=== PATIENT | male | born 1960 | race Caucasian/White ===

== ENCOUNTER 2020-06-27 19:05 | Inpatient (IN) | payer MEDICARE, MEDICAID, SELFPAY ==
[2020-06-27 19:08] VITALS: BP 92/54; PULSE 96; RESP 16; TEMP 36.7; O2SAT 98; BMI 81.1
--- NOTE | 2020-06-27 19:17 | PC.NURSE ---
states pt hasa been complaining of chest pain today and states pt has been altered today. At triage pt states he drinks 1/2 pint of alcohol daily but did not drink today necause he didn't feel well. His skin is pink, warm and dry. Speech is slow, pt slow to answer questions and vague. He states he has had blood per rectum for weeks, states it is a scant amount of blood with stool daily. EKG obtained at triage.
[2020-06-27 22:13] VITALS: BP 108/44; PULSE 76; RESP 16; TEMP 36.4; O2SAT 98
--- NOTE | 2020-06-27 22:16 | PC.NURSE ---
When doing VS pt's states pt has had several days of altered mental status. She states he has been weak and shaky, unable to ambulate without help. At triage staff has had to help pt move from wheelchair to chair with assistance, he is weak and has shuffling gait. Pt has no facial droop. 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 He has no limb ataxia. He does have slight tremors with movement. is concerned pt has had bright red blood per rectum with stools for weeks. Pt's skin is pink, warm and dry with good capillary refill
[2020-06-28] VITALS (24 sets, daily range): BP systolic 91–166; BP diastolic 43–95; PULSE 69–108; RESP 10–28; TEMP 36.4–36.6; O2SAT 92–100; BMI 40.3
--- NOTE | 2020-06-28 | XR_ITS ---
EXAMINATION: XR CHEST CLINICAL INFORMATION: Endotracheal tube placement COMPARISON: 06/28/2020 TECHNIQUE: Frontal view of the chest was obtained. FINDINGS: Endotracheal tube terminates approximately 5.5 cm above the shane. Left internal jugular catheter terminates over the left brachiocephalic vein. Cardiac leads overlie the chest. The lungs are well expanded. There is no focal consolidation, edema, or effusion. No pneumothorax. The cardiomediastinal silhouette is within normal limits. No acute osseous abnormality. XR/XR chest 1V IMPRESSION: Endotracheal tube terminating 5.5 cm above the shane. Left internal jugular central venous catheter terminates over the left brachiocephalic vein. No pneumothorax.
--- NOTE | 2020-06-28 01:35 | ECG_ITS ---
Test Reason : CHEST PAIN Blood Pressure : / mmHG Vent. Rate : 091 BPM Atrial Rate : 091 BPM P-R Int : 158 ms QRS Dur : 092 ms QT Int : 346 ms P-R-T Axes : 027 026 019 degrees QTc Int : 425 ms Normal sinus rhythm Normal ECG When compared with ECG of 18-JUL-2018 20:30, No significant change was found Referred By: Allan Abrams Electronically Signed By:HETAL GARCIA MD
--- NOTE | 2020-06-28 01:35 | XR_ITS ---
EXAMINATION: XR CHEST CLINICAL INFORMATION: Chest pain COMPARISON: 07/18/2018 TECHNIQUE: 2 views of the chest were obtained. FINDINGS: Cardiac leads overlie the chest. The lungs are well expanded. There is no focal consolidation, edema, or effusion. No pneumothorax. The cardiomediastinal silhouette is unchanged. No acute osseous abnormality. XR/XR chest 2V IMPRESSION: No acute pulmonary finding.
--- NOTE | 2020-06-28 01:36 | ED_ITS ---
HPI - Chest Pain General Chief Complaint: Chest Pain Stated Complaint: CHEST PAIN Time Seen by Provider: 06/28/20 01:20 Source: patient Mode of arrival: ambulatory Limitations: no limitations History of Present Illness HPI narrative: 60-year-old male who presents emergency department for evaluation of chest pain rectal bleeding and a low blood pressure. According to the patient's , the patient has been complaining of chest pain for 3 weeks. He has also been drinking 1/2 pt of alcohol per day. He has been having bright red rectal bleeding and had a low blood pressure today is was wanted him to come to the emergency department to be evaluated. The patient states that he has been having intermittent left-sided chest pain for 1 week. He states that the pain feels like an ?pins and needles ?. He is not certain if the pain is related to exertion. He cannot tell me how long the pain lasts when he gets it. He states that he has had an occasional cough which she believes is secondary to smoking. He denied fever or chills. He states that he does feel weak but this is something he has had for a long time. He also complains of shortness of breath and he states that is chronic as well. He states that he has hemorrhoids and often has bright red blood per rectum secondary to his hemorrhoids. The patient does smoke cigarettes daily. He also drinks 1/2 pint of Schnapps daily. I did speak to the patient's . She states the patient has not been feeling well for approximately 2 months. She states that over the past several weeks he has been very lethargic and not acting himself. He has had no appetite and has not been eating and drinking well. Related Data Home Medications Medication Instructions Recorded Confirmed gabapentin 1 cap PO BID 06/28/20 06/28/20 gabapentin 2 tab PO BEDTIME 06/28/20 06/28/20 lisinopril 1 tab PO DAILY 06/28/20 06/28/20 naproxen 1 tab PO BID 06/28/20 06/28/20 Allergies Allergy/AdvReac Type Severity Reaction Status Date / Time cortisone [CORTISONE] Allergy Unknown SWELLING Verified 06/28/20 02:06 influenza virus vaccine, Allergy Unknown SWELLING Verified 06/28/20 02:06 specific [FLU VACCINE] eggs Allergy Unknown gout flare Uncoded 09/14/15 00:00 up Influenza Virus Vaccine Split Allergy Unknown localized Uncoded 09/14/15 00:00 swelling Review of Systems Review of Systems: Yes all other systems are reviewed and are negative Neurologic: Reports Abnormal speech present [facility] Past Medical History [facility] Narrative: The patient lives with his . He states he has been for 40 years. He does smoke cigarettes daily. He drinks 1/2 pint of Schnapps. Denies drug use Medical History Back pain ETOH abuse HTN (hypertension) Hypercholesterolemia Social History Social History Alcohol intake: current Alcohol intake frequency: 0-2 drinks per day Smoking Status: Current some day smoker Use of substances other than those prescribed or required for medical reasons: No Advance Directives: No Physical Exam Vital Signs: Vital Signs: Last Vital Signs Temp 97.6 F 06/27/20 22:13 Pulse 90 06/28/20 03:52 Resp 10 L 06/28/20 03:52 BP 114/77 06/28/20 03:52 Pulse Ox 96 06/28/20 03:52 Body Mass Index 81.1 Const: General: cooperative Nutritional Appearance: obese Orientation/consciousness: oriented to person and oriented to place Limitations: no limitations HENMT: Head: Yes normal to inspection, Yes normocephalic and Yes atraumatic Ears: external ears normal General nose exam: Normal external nose present Face and sinus: Yes normal facial exam Mouth: Normal oral and palatal mucosa present Throat: Yes posterior oropharynx normal Eyes: Periorbital: periorbital findings normal Eyelids: Yes eyelids normal Conjunctivae: conjunctivae normal Sclerae: sclerae normal Corneas: corneas normal Pupils: Equal, round and reactive pupils present Direct Ophthalmoscopy: normal light reflex Neck: Neck: Yes full ROM, Yes no lymphadenopathy, Yes no meningeal signs, Yes trachea midline and Yes supple Chest: Chest palpation & inspection: normal inspection of the chest and tenderness sternum and other (Left anterior chest) Resp: Effort & Inspection: normal respiratory effort and able to speak in complete sentences Auscultation: clear to auscultation bilaterally Cardio: Rate: regular rate Rhythm: regular rhythm Heart sounds: S1 n ormal heart sound present, S2 normal heart sound present and no murmurs GI: Inspection: Yes normal to inspection Palpation (GI): Soft to palpation, nontender, no guarding, not rigid and No hepatosplenomegaly present Rectal Exam - Male: Yes normal sphincter tone and Yes heme positive stool (Red blood around the rectum, stool was brown) : General: Yes no CVA tenderness Back/Spine/Pelvis: Back: no CVA tenderness Cervical Spine: normal cervical lordosis Thoracic/Lumbar Spine: thoracic and lumbar spine normal to inspection Skin: Lesions: no lesions Rashes: no rashes Wounds: no wounds Neuro: General: oriented to person, oriented to place and no meningeal signs Cranial nerves: Yes Equal, round and reactive pupils present Cognition (Neuro): normal cognition Speech: Abnormal speech present Motor exam (neuro): 5/5 motor strength present throughout Extrem: General: Yes normal to inspection and Yes full ROM Psych: Appearance: well kempt Mental Status: mental status grossly normal Speech and movement: Normal speech and movement present Affect: normal affect Attitude: cooperative Thought process: Normal thought process present Thought content: Normal thought content present Course Course Course Narrative: 60-year-old male who presents emergency department for evaluation of intermittent chest pain x3 weeks, weakness, loss of appetite and rectal bleeding. Physical examination did reveal left-sided chest wall tender otherwise was unremarkable. 0331: The patient's laboratory evaluation revealed the patient is in renal f ailure with a BUN of 128 and creatinine of 16.5 and a potassium of 8.3.. I did repeat a BMP on this patient and his repeat values confirm that he is in renal failure with a BUN of 122 and creatinine 16.2 and a potassium of 8.2. The patient 12 EKG did not reveal any significant abnormalities given this high potassium. I did order the 51 amp IV, 10 units of regular insulin IV, sodium bicarb 1 amp IV and Kayexalate 45 g orally. I will discuss the patient's presentation with the covering systems designer. I did inform the patient's of these findings. 0438: I did discuss the patient's presentation with Dr. Saavedra and he states that he can dialyze the patient today. I also discuss the patient's presentation with the covering delivery analyst, Dr. Esparza and he did accept the patient to the intensive care unit. He states that his nurse practitioner will put in a dialysis catheter so that the patient can be dialyzed today. [facility] - Chest Pain Lab Data Result diagrams: 06/28/20 01:43 06/28/20 02:42 Labs: Lab Results 06/28/20 06/28/20 06/28/20 Range/Units 01:42 01:43 01:43 WBC 12.1 H (4.8-10.8) X10*3/uL RBC 3.50 L (4.60-5.80) X10*6/uL Hgb 12.3 L (14.0-18.0) g/dl Hct 37.1 L (42-52) % MCV 106.0 H (80-98) fL MCH 35.1 H (27.0-33.0) pg MCHC 33.2 (31.0-36.0) g/dl RDW 14.1 (11.0-16.0) % Plt Count 382 (160-400) X10*3/uL MPV 10.3 (9.4-12.4) fL Immature Gran % (Auto) 1.2 H (0.0-0.4) % Neut % (Auto) 81.9 H (45-73) % Lymph % (Auto) 8.5 L (20-40) % [place] % (Auto) 6.1 (2-11) % Eos % (Auto) 1.7 (0-4) % Baso % (Auto) 0.6 (0-2) % Lymph # (Auto) 1.0 L (1.2-4.9) X10*3/uL [place] # (Auto) 0.7 (0.1-1.2) X10*3/uL Eos # (Auto) 0.2 (0.0-0.4) X10*3/uL Baso # (Auto) 0.1 (0.0-0.2) X10*3/uL Abs Immat Gran (auto) 0.15 H (0.00-0.03) X10*3/uL Absolute Neuts (auto) 9.9 H (2.0-8.3) X10*3/uL Absolute Nucleated RBC 0.000 (0.0-0.012) X10*3/uL Nucleated RBC % (auto) 0.0 (0.0-0.2) /100WBC PT 16.3 H (10.8-13.0) SEC INR 1.4 H (0.9-1.1) APTT 40.9 H (24.1-38.0) SEC Sodium (135-145) mmol/L Potassium (3.3-5.1) mmol/l Chloride (96-108) mmol/L Carbon Dioxide (22-29) mmol/L Anion Gap (12-20) BUN (9-16) mg/dL Creatinine (0.5-1.4) mg/dL Estim Creat Clear Calc Estimated GFR Random Glucose (60-115) mg/dL Calcium (8.4-10.2) mg/dL Total Bilirubin (0.0-1.0) mg/dL AST (5-37) U/L ALT (0-40) U/L Alkaline Phosphatase (39-117) U/L Total Creatine Kinase (38-174) U/L Troponin I High Sens (<3.5-35.0) ng/L Total Protein (6.5-8.0) g/dL Albumin (3.5-5.0) g/dL Lipase (8-78) U/L Ethyl Alcohol mg/dL Coronavirus (PCR) (Negative) Influenza Type A (PCR) (Negative) Influenza Type B (PCR) (Negative) RSV RNA Qual (PCR) (Negative) Blood Type B Positive Antibody Screen NEGATIVE 06/28/20 06/28/20 06/28/20 Range/Units 01:43 01:43 01:43 WBC (4.8-10.8) X10*3/uL RBC (4.60-5.80) X10*6/uL Hgb (14.0-18.0) g/dl Hct (42-52) % MCV (80-98) fL MCH (27.0-33.0) pg MCHC (31.0-36.0) g/dl RDW (11.0-16.0) % Plt Count (160-400) X10*3/uL MPV (9.4-12.4) fL Immature Gran % (Auto) (0.0-0.4) % Neut % (Auto) (45-73) % Lymph % (Auto) (20-40) % [place] % (Auto) (2-11) % Eos % (Auto) (0-4) % Baso % (Auto) (0-2) % Lymph # (Auto) (1.2-4.9) X10*3/uL [place] # (Auto) (0.1-1.2) X10*3/uL Eos # (Auto) (0.0-0.4) X10*3/uL Baso # (Auto) (0.0-0.2) X10*3/uL Abs Immat Gran (auto) (0.00-0.03) X10*3/uL Absolute Neuts (auto) (2.0-8.3) X10*3/uL Absolute Nucleated RBC (0.0-0.012) X10*3/uL Nucleated RBC % (auto) (0.0-0.2) /100WBC PT (10.8-13.0) SEC INR (0.9-1.1) APTT (24.1-38.0) SEC Sodium 129 L (135-145) mmol/L Potassium 8.3 H* (3.3-5.1) mmol/l Chloride 94 L (96-108) mmol/L Carbon Dioxide 12 L (22-29) mmol/L Anion Gap 31 H (12-20) BUN 124 H* (9-16) mg/dL Creatinine 16.51 H* (0.5-1.4) mg/dL Estim Creat Clear Calc 9.2 Estimated GFR 3 Random Glucose 112 (60-115) mg/dL Calcium 8.1 L (8.4-10.2) mg/dL Total Bilirubin 0.4 (0.0-1.0) mg/dL AST 9 (5-37) U/L ALT 7 (0-40) U/L Alkaline Phosphatase 111 (39-117) U/L Total Creatine Kinase (38-174) U/L Troponin I High Sens < 3.5 (<3.5-35.0) ng/L Total Protein 7.7 (6.5-8.0) g/dL Albumin 3.8 (3.5-5.0) g/dL Lipase 98 H (8-78) U/L Ethyl Alcohol < 10 mg/dL Coronavirus (PCR) (Negative) Influenza Type A (PCR) (Negative) Influenza Type B (PCR) (Negative) RSV RNA Qual (PCR) (Negative) Blood Type Antibody Screen 06/28/20 06/28/20 Range/Units 01:51 02:42 WBC (4.8-10.8) X10*3/uL RBC (4.60-5.80) X10*6/uL Hgb (14.0-18.0) g/dl Hct (42-52) % MCV (80-98) fL MCH (27.0-33.0) pg MCHC (31.0-36.0) g/dl RDW (11.0-16.0) % Plt Count (160-400) X10*3/uL MPV (9.4-12.4) fL Immature Gran % (Auto) (0.0-0.4) % Neut % (Auto) (45-73) % Lymph % (Auto) (20-40) % [place] % (Auto) (2-11) % Eos % (Auto) (0-4) % Baso % (Auto) (0-2) % Lymph # (Auto) (1.2-4.9) X10*3/uL [place] # (Auto) (0.1-1.2) X10*3/uL Eos # (Auto) (0.0-0.4) X10*3/uL Baso # (Auto) (0.0-0.2) X10*3/uL Abs Immat Gran (auto) (0.00-0.03) X10*3/uL Absolute Neuts (auto) (2.0-8.3) X10*3/uL Absolute Nucleated RBC (0.0-0.012) X10*3/uL Nucleated RBC % (auto) (0.0-0.2) /100WBC PT (10.8-13.0) SEC INR (0.9-1.1) APTT (24.1-38.0) SEC Sodium 129 L (135-145) mmol/L Potassium 8.2 H* (3.3-5.1) mmol/l Chloride 95 L (96-108) mmol/L Carbon Dioxide 14 L (22-29) mmol/L Anion Gap 28 H (12-20) BUN 122 H* (9-16) mg/dL Creatinine 16.20 H* (0.5-1.4) mg/dL Estim Creat Clear Calc 9.3 Estimated GFR 3 Random Glucose 113 (60-115) mg/dL Calcium 7.8 L (8.4-10.2) mg/dL Total Bilirubin (0.0-1.0) mg/dL AST (5-37) U/L ALT (0-40) U/L Alkaline Phosphatase (39-117) U/L Total Creatine Kinase 52 (38-174) U/L Troponin I High Sens (<3.5-35.0) ng/L Total Protein (6.5-8.0) g/dL Albumin (3.5-5.0) g/dL Lipase (8-78) U/L Ethyl Alcohol mg/dL Coronavirus (PCR) NEGATIVE (Negative) Influenza Type A (PCR) NEGATIVE (Negative) Influenza Type B (PCR) NEGATIVE (Negative) RSV RNA Qual (PCR) NEGATIVE (Negative) Blood Type Antibody Screen ECG Data ECG #1: Attestation: I personally reviewed and interpreted this ECG as follows: Interpretation: 1911: Normal sinus rhythm rate of 91, normal AL, QRS and QTC intervals, Q-wave in lead 3, no ST segment elevation or depression, flattened T-wave in lead 3, no peaked T-waves noted. Critical Care Time Critical Care Time Total Critical Care Time: 45 Attestation: Critical Care: The patient was critically ill with a high probability of imminent or life threatening deterioration. I spent greater than 30 minutes of discontinuous time evaluating the patient,delivering critical care at the bedside, discussing and evaluating pertinent data with consultants. Critical care time does not include time spent performing separately billable procedures or teaching. Total time spent performing critical care was 45 minutes. Discharge Plan Discharge Clinical Impression: Acute hyperkalemia Acute renal failure Qualifiers: Acute renal failure type: unspecified Qualified Code(s): N17.9 - Acute kidney failure, unspecified Patient Disposition: Admitted As Inpatient
[2020-06-28 01:59] LABS: Basophils Absolute Auto 0.1 X10*3/uL (0.0-0.2); Basophils Percent Auto 0.6 % (0-2); Eosinophils Absolute Auto 0.2 X10*3/uL (0.0-0.4); Eosinophils Percent Auto 1.7 % (0-4); Hematocrit 37.1 % (42-52); Hemoglobin 12.3 g/dl (14.0-18.0); Imm Gran Abs Auto 0.15 X10*3/uL (0.00-0.03); Imm Gran Pct Auto 1.2 % (0.0-0.4); Lymphocytes Percent Auto 8.5 % (20-40); MANUAL DIFF FLAG NO; Mean Corpuscular HGB Conc 33.2 g/dl (31.0-36.0); Mean Corpuscular Hemoglobin 35.1 pg (27.0-33.0); Mean Platelet Volume 10.3 fL (9.4-12.4); Monocytes Absolute Auto 0.7 X10*3/uL (0.1-1.2); Monocytes Percent Auto 6.1 % (2-11); Neutrophils Absolute Auto 9.9 X10*3/uL (2.0-8.3); Neutrophils Percent Auto 81.9 % (45-73); Platelet Count 382 X10*3/uL (160-400); Red Cell Distribution Width 14.1 % (11.0-16.0); White Blood Count 12.1 X10*3/uL (4.8-10.8)
[2020-06-28] MEDS: 0.9 % Sodium Chloride 1,000 ML 999 ML IV (02:00)
[2020-06-28 02:09] LABS: INTERNATIONAL NORM RATIO 1.4 (0.9-1.1); Prothrombin Time 16.3 SEC (10.8-13.0)
[2020-06-28 02:11] LABS: Partial Thromboplastin Time 40.9 SEC (24.1-38.0)
[2020-06-28 02:16] LABS: Ethanol < 10 mg/dL
[2020-06-28 02:24] LABS: Troponin-I High Sensitivity < 3.5 ng/L (<3.5-35.0)
[2020-06-28 02:29] LABS: Alanine Aminotransferase 7 U/L (0-40); Albumin Level 3.8 g/dL (3.5-5.0); Alkaline Phosphatase 111 U/L (39-117); Anion Gap 31 (12-20); Aspartate Amino Transferase 9 U/L (5-37); Bilirubin Total 0.4 mg/dL (0.0-1.0); Blood Urea Nitrogen 124 mg/dL (9-16); Calcium 8.1 mg/dL (8.4-10.2); Carbon Dioxide 12 mmol/L (22-29); Chloride 94 mmol/L (96-108); Creatinine Clr Calc Pharmacy 9.2; Estimated Glomerular Filt Rate 3; Glucose Random 112 mg/dL (60-115); Potassium 8.3 mmol/l (3.3-5.1); Sodium 129 mmol/L (135-145); Total Protein 7.7 g/dL (6.5-8.0)
[2020-06-28 02:33] LABS: Lipase 98 U/L (8-78)
[2020-06-28 02:40] LABS: Influenza A PCR NEGATIVE (Negative); Influenza B PCR NEGATIVE (Negative); Resp Syncy Virus RNA Qual PCR NEGATIVE (Negative); SARS COV2 PCR INHOUSE NEGATIVE (Negative)
[2020-06-28 03:10] LABS: Blood Urea Nitrogen 122 mg/dL (9-16)
[2020-06-28 03:11] LABS: Anion Gap 28 (12-20); Calcium 7.8 mg/dL (8.4-10.2); Carbon Dioxide 14 mmol/L (22-29); Chloride 95 mmol/L (96-108); Creatinine Clr Calc Pharmacy 9.3; Estimated Glomerular Filt Rate 3; Glucose Random 113 mg/dL (60-115); Potassium 8.2 mmol/l (3.3-5.1); Sodium 129 mmol/L (135-145)
[2020-06-28] MEDS: Insulin Regular, Human 100 UNIT/ML 3 ML VIAL 10 UNIT IVPUSH (03:48)
[2020-06-28] MEDS: Dextrose 50 % 25 GM/50 ML SYRINGE IVPUSH (03:48)
[2020-06-28] MEDS: Sodium Bicarbonate 8.4% 50 MEQ/50 ML VIAL IVPUSH (03:49)
[2020-06-28] MEDS: Sodium Polystyrene Sulfon/Sorb 15 GM/60 ML ORAL.SUSP 45 GM PO (03:52)
[2020-06-28 05:13] LABS: Glucose Urine UA NEG (NEG); Leukocyte Esterase Urine NEG (NEG); Specific Gravity - Urine >= 1.030 (1.005-1.025); Urine Blood TRACE (NEG); Urine Ketones 5 MG/DL (NEG); Urine Protein TRACE MG/DL (NEG-TRACE)
[2020-06-28 05:23] LABS: Nitrite Urine NEG (NEG)
[2020-06-28] MEDS: Lidocaine HCl 1 % 20 ML VIAL SUBCUT (05:30)
[2020-06-28] MEDS: Midazolam HCl/PF 2 MG/2 ML VIAL 1 MG IVPUSH (05:30)
[2020-06-28 05:37] LABS: Appearance Urine HAZY; Color Urine YELLOW
[2020-06-28 05:39] LABS: Bacteria Urine 2+ /LPF; Mucus Urine 1+ /LPF; Squamous Epithelial Cell Urine 1+ /LPF
--- NOTE | 2020-06-28 05:54 | PC.NURSE ---
Late entry Cathylorena Christian Patient's potassium came back elevated at 8.2. Lab repeated and 2nd result confirmed potassium of 8.2. Patient's BUN and Creatinine were also elevated. from Nephrology was consulted by ED Provider and it was determined that patient needed central line placement and then emergent dialysis. MOLD PRESS OPERATOR from ICU at patient's bedside for placement of central line placement. Patient very restless and moving and MOLD PRESS OPERATOR unable to place line x 2. ICU real estate paralegal, Dr Esparza in to place line and patient despite being medicated with versed still moved and unable to place the line. Patient was then transferred to ICU for admission and emergent dialysis. Patient also had villegas catheter placed. Patient was medicated per emar as noted. Report given to ICU staff and patient transferred by ED Rn to ICU
--- NOTE | 2020-06-28 05:58 | W.PM.CCHP ---
Procedures Intubation Intubation Comments: Patient requiring emergent intubation for altered mental status and airway protection. Patient intubated with 7.5 cuffed ET tube under glide scope guidance with visualization of vocal cords, without immediate complications. ET tube position verified with Chest XRAY. Consent for Procedure: Emergent-no informed consent obtained Time out performed: Yes Sedative: propofol (100) Laryngoscope: fiber optic video scope ET tube size: 7.5 Tube secured depth (cm): 23 Tube secured location: lips Tube placement confirmation: visualized tube passing through cords, equal breath sounds bilaterally and no breath sounds over epigastrium Patient tolerated procedure: well Intubation complications: none
[2020-06-28] MEDS: propofoL 1,000 MG/100 ML VIAL 70.5 MG IVCONT ×3 (06:00→13:02)
--- NOTE | 2020-06-28 06:00 | W.PM.CCHP ---
Procedures Central Line Placement Left IJ: Central Line Comments: Left internal jugular hemodialysis catheter emergently placed for emergent hemodialysis under ultrasound guidance and usual sterile conditions with no immediate complications. Line position verified on chest x-ray.
[2020-06-28] MEDS: Ketamine HCl 500 MG/5 ML VIAL 200 MG IV (06:27)
[2020-06-28] MEDS: Midazolam HCl/PF 2 MG/2 ML VIAL IVPUSH (06:28)
[2020-06-28] MEDS: propofoL 200 MG/20 ML VIAL 100 MG IVPUSH (06:28)
--- NOTE | 2020-06-28 06:34 | PM.CCHP ---
History of Present Illness Date of Service: 06/28/20 Chief Complaint: Chest pain, rectal bleeding The patient is 60-year-old male with a past medical history of substance hypertension, hypercholesterolemia, EtOH abuse and back pain who presented to the emergency room for chest pain and rectal bleeding. In the emergency department patient?s reported that patient has been complaining of chest pain x3 weeks, he has been drinking half a pt of alcohol daily, and has had bright rectal bleeding in the last couple days. In the ED he reported the chest pain felt like ? pins and needles?, he denied radiation of pain. He stated that he has had an occasional cough which she believes is secondary to smoking. He denied fever or chills He also complains of shortness of breath and he states that is chronic as well. He states that he has hemorrhoids and often has bright red blood per rectum secondary to his hemorrhoids. Vital signs in the ED: temperature 97.6?, pulse 90, blood pressure 114/77, 96% on room air. Laboratory data significant for WBC 12.1, sodium 129, potassium 8.2, BUN 122, creatinine 16.2 EKG did not reveal any acute abnormalities Imaging: Chest x-ray with no acute abnormality In the ED He received 10 units of regular insulin IV, sodium bicarb 1 amp IV and Kayexalate 45 g orally. Renal consult in the emergency room, who advised the patient to be admitted to ICU for emergency dialysis. While attempting to place dialysis catheter, patient became more altered Requiring emergency intubation for airway protection. Review of Systems Review of Systems: As per HPI Neurologic: Reports Abnormal speech present and Reports confusion Psychiatric: Psychiatric: Reports confusion PMFSH Past Medical History Medical History Back pain ETOH abuse HTN (hypertension) Hypercholesterolemia Family History Family history: reviewed and not pertinent Social History Social History Household Members: Spouse Housing: House Alcohol intake: current Alcohol intake frequency: 0-2 drinks per day Smoking Status: Current some day smoker Tobacco Type: Cigarette Use of substances other than those prescribed or required for medical reasons: Unable to respond Advance Directives: No Do you have thoughts of harming others: None Do you have a plan to hurt others: No Plan Recently lost weight without trying: Unsure Meds Allergies Allergy/AdvReac Type Severity Reaction Status Date / Time cortisone [CORTISONE] Allergy Unknown SWELLING Verified 06/28/20 02:06 influenza virus vaccine, Allergy Unknown SWELLING Verified 06/28/20 02:06 specific [FLU VACCINE] eggs Allergy Unknown gout flare Uncoded 09/14/15 00:00 up Influenza Virus Vaccine Split Allergy Unknown localized Uncoded 09/14/15 00:00 swelling Home Medications Medication Instructions Recorded Confirmed Type gabapentin 1 cap PO BID 06/28/20 06/28/20 History gabapentin 2 tab PO BEDTIME 06/28/20 06/28/20 History lisinopril 1 tab PO DAILY 06/28/20 06/28/20 History naproxen 1 tab PO BID 06/28/20 06/28/20 History Physical Exam Vital Signs: Vital Signs: Last Vital Signs Temp 97.6 F 06/27/20 22:13 Pulse 97 06/28/20 06:23 Resp 28 H 06/28/20 06:23 BP 111/60 06/28/20 06:23 Pulse Ox 99 06/28/20 06:23 Body Mass Index 81.1 Const: General: combative, confusion and lethargic Orientation/consciousness: confusion and lethargic Eyes: Pupils: Equal, round and reactive pupils present Neck: Neck: Yes supple and Yes no JVD Resp: Effort & Inspection: normal respiratory effort Auscultation: clear to auscultation bilaterally Cardio: Jugular venous distension: no JVD Rate: regular rate Heart sounds: S1 normal heart sound present and S2 normal heart sound present Peripheral pulses: Peripheral pulses 2+ throughout GI: Inspection: Yes distended Palpation (GI): Soft to palpation Auscultation: normal bowel sounds Skin: General skin exam: no rashes or lesions noted Neuro: General: confusion Cranial nerves: Yes Equal, round and reactive pupils present Speech: Abnormal speech present Extrem: General: Yes capillary refill normal Results Labs CBC and Chem 7: 06/28/20 01:43 06/28/20 02:42 Labs: Laboratory Results - last 24 hr 06/28/20 06/28/20 06/28/20 01:42 01:43 01:43 MCV 106.0 H MCH 35.1 H MCHC 33.2 RDW 14.1 Plt Count 382 MPV 10.3 Immature Gran % (Auto) 1.2 H Neut % (Auto) 81.9 H Lymph % (Auto) 8.5 L [place] % (Auto) 6.1 Eos % (Auto) 1.7 Baso % (Auto) 0.6 Lymph # (Auto) 1.0 L [place] # (Auto) 0.7 Eos # (Auto) 0.2 Baso # (Auto) 0.1 Abs Immat Gran (auto) 0.15 H Absolute Neuts (auto) 9.9 H Absolute Nucleated RBC 0.000 Nucleated RBC % (auto) 0.0 PT 16.3 H INR 1.4 H APTT 40.9 H Anion Gap Estim Creat Clear Calc Estimated GFR Random Glucose Calcium Total Bilirubin AST ALT Alkaline Phosphatase Total Creatine Kinase Troponin I High Sens Total Protein Albumin Lipase Urine Color Urine Appearance Urine pH Ur Specific [place] Urine Protein Urine Glucose (UA) Urine Ketones Urine Blood Urine Nitrite Ur Leukocyte Esterase Urine RBC Urine WBC Ur Squamous Epith Cells Urine Bacteria Hyaline Casts Granular Casts Urine Mucus Ethyl Alcohol Coronavirus (PCR) Influenza Type A (PCR) Influenza Type B (PCR) RSV RNA Qual (PCR) Blood Type B Positive Antibody Screen NEGATIVE 06/28/20 06/28/20 06/28/20 01:43 01:43 01:43 MCV MCH MCHC RDW Plt Count MPV Immature Gran % (Auto) Neut % (Auto) Lymph % (Auto) [place] % (Auto) Eos % (Auto) Baso % (Auto) Lymph # (Auto) [place] # (Auto) Eos # (Auto) Baso # (Auto) Abs Immat Gran (auto) Absolute Neuts (auto) Absolute Nucleated RBC Nucleated RBC % (auto) PT INR APTT Anion Gap 31 H Estim Creat Clear Calc 9.2 Estimated GFR 3 Random Glucose 112 Calcium 8.1 L Total Bilirubin 0.4 AST 9 ALT 7 Alkaline Phosphatase 111 Total Creatine Kinase Troponin I High Sens < 3.5 Total Protein 7.7 Albumin 3.8 Lipase 98 H Urine Color Urine Appearance Urine pH Ur Specific [place] Urine Protein Urine Glucose (UA) Urine Ketones Urine Blood Urine Nitrite Ur Leukocyte Esterase Urine RBC Urine WBC Ur Squamous Epith Cells Urine Bacteria Hyaline Casts Granular Casts Urine Mucus Ethyl Alcohol < 10 Coronavirus (PCR) Influenza Type A (PCR) Influenza Type B (PCR) RSV RNA Qual (PCR) Blood Type Antibody Screen 06/28/20 06/28/20 06/28/20 01:51 02:42 04:12 MCV MCH MCHC RDW Plt Count MPV Immature Gran % (Auto) Neut % (Auto) Lymph % (Auto) [place] % (Auto) Eos % (Auto) Baso % (Auto) Lymph # (Auto) [place] # (Auto) Eos # (Auto) Baso # (Auto) Abs Immat Gran (auto) Absolute Neuts (auto) Absolute Nucleated RBC Nucleated RBC % (auto) PT INR APTT Anion Gap 28 H Estim Creat Clear Calc 9.3 Estimated GFR 3 Random Glucose 113 Calcium 7.8 L Total Bilirubin AST ALT Alkaline Phosphatase Total Creatine Kinase 52 Troponin I High Sens Total Protein Albumin Lipase Urine Color YELLOW Urine Appearance HAZY Urine pH 5.0 Ur Specific [place] >= 1.030 H Urine Protein TRACE Urine Glucose (UA) NEG Urine Ketones 5 Urine Blood TRACE Urine Nitrite NEG Ur Leukocyte Esterase NEG Urine RBC 1-4 Urine WBC 1-4 Ur Squamous Epith Cells 1+ Urine Bacteria 2+ Hyaline Casts 1-4 Granular Casts 1-4 Urine Mucus 1+ Ethyl Alcohol Coronavirus (PCR) NEGATIVE Influenza Type A (PCR) NEGATIVE Influenza Type B (PCR) NEGATIVE RSV RNA Qual (PCR) NEGATIVE Blood Type Antibody Screen Imaging Radiologist's Impressions: Impressions Chest X-Ray 06/28/20 00:00 IMPRESSION: Endotracheal tube terminating 5.5 cm above the shane. Left internal jugular central venous catheter terminates over the left brachiocephalic vein. No pneumothorax. Chest X-Ray 06/28/20 01:35 IMPRESSION: No acute pulmonary finding. Assessment and Plan (1) Acute renal failure: Qualifiers: Acute renal failure type: unspecified Qualified Code(s): N17.9 - Acute kidney failure, unspecified Status: Acute Neuro: lethargic, altered mental status. This is likely due to worsening uremia. Will likely resolve after dialysis Cardiac: Chest pain: troponins were negative, EKG with no acute findings. Reported left-sided tenderness with palpation. This is likely muscle skeletal. Will continue to monitor Pulmonary: Acute respiratory failure- required emergent intubation for airway protection. Will wean off once dialysis is completed Renal: Acute renal failure- multiple electrolyte abnormalities, with potassium elevated to 8.2, creatinine 16.2. Requiring emergency dialysis. nephrology services Appreciated. Symptoms should resolve after dialysis treatment. Repeat chemistry after dialysis. Endo: No acute issues. ID: No acute issues GI: Rectal bleed: this is likely due to chronic hemorrhoids. H&H stable. We will closely monitor if patient continues to have significant amount of rectal bleed, will consult GI Services. Heme/Onc: No acute issues. Psych: No acute issues. Miscellaneous: alcohol abuse: patient?s reports patient has been drinking more than usual, drinks half a pt of alcohol daily. Will closely monitor for alcohol withdrawal symptoms Diet: NPO Prophylaxis: Heparin// IV Protonix for GI prophylaxis Code status: FULL CODE. Critical care time: x 120 min of critical care time not including separate billable procedures (2) Acute hyperkalemia: Status: Acute (3) Hemorrhoids: Qualifiers: Hemorrhoid type: unspecified Qualified Code(s): K64.9 - Unspecified hemorrhoids Status: Acute (4) Rectal bleed: Status: Acute (5) Altered mental status: Qualifiers: Altered mental status type: unspecified Qualified Code(s): R41.82 - Altered mental status, unspecified Status: Acute (6) Chest pain: Qualifiers: Chest pain type: other chest pain Qualified Code(s): R07.89 - Other chest pain Status: Acute
--- NOTE | 2020-06-28 07:14 | PC.NURSE ---
ADMITTED TO ICU AT APPROX 0600 FROM ED. PT EMERGENTLY INTUBATED UPON ARRIVAL FOR AIRWAY PROTECTION. 200 MG IV KETAMINE, 100 MG PROPOFOL, AND 2 MG IV VERSED GIVEN FOR SEDATION. ETT #7.5, 23 CM TRICIA, ?TO ADVANCE 2 CM THIS AM. AC 28/500/5/60%. HD CATH TO L IJ PLACED BY . CURRENTLY STARTED ON HD THIS AM. CONFIRMED BY PCXR. PROPOFOL/LEVOPHED ORDERED/STARTED. PONCE IN PLACE, EMPTIED FOR [address] FOR SAFETY, REACHING FOR LINES/TUBES. SKIN INTACT. NSR ON TELE, HR 90s. SYNCHRONOUS WITH VENT. ONCOMING RN AWARE OF PLAN OF CARE.
[2020-06-28] MEDS: Chlorhexidine Gluc Oral Rinse 15 ML MOUTHWASH BUCCAL ×2 (07:22→14:01)
[2020-06-28] MEDS: Heparin Sodium,Porcine 5,000 UNIT/ML VIAL 5000 UNIT SUBCUT (07:22)
[2020-06-28 07:38] LABS: HBsAGNum1 0.18 S/CO (0.00-0.99); Hepatitis B Surface Antigen Negative (Negative)
[2020-06-28 07:41] LABS: HBc Num1 0.08 S/CO (0.00-0.79); Hepatitis B Core Antibody Nonreactive (Nonreactive); ~Hepatitis B Surface Antibody NONREACTIVE (Nonreactive); ~Hepatitis C Antibody Nonreactive (Nonreactive)
[2020-06-28 08:30] LABS: Glucose, Whole Blood 85 mg/dL (60-115)
--- NOTE | 2020-06-28 08:31 | MHC.CM.PN ---
pt is in the icu; intubated,sedated on MV. dc plan is unclear at this time and will have to be revisited at a future time. cm to cont. to follow.
--- NOTE | 2020-06-28 08:33 | PC.NURSE ---
Addendum entered by Klarissa Zafar RN 06/28/20 08:42: VERIFIED MEDICATION WITH RECORD TESTER, ADMINISTERED BY RECORD TESTER AT 0840. Original Note: TELEPHONE ORDER FOR 12.5 GM MANNITOL IVP X [address] DODGE. ORDER SENT TO PHARMACY AND TO BE ADMINISTERED WHEN THE RECORD TESTER NEEDS IT PER DR. DODGE.
[2020-06-28] MEDS: MannitoL 12.5 GM/50 ML VIAL IV (08:40)
--- NOTE | 2020-06-28 09:36 | MHC.CLN ---
PT CURRENTLY NPO IF TF NEEDED; RECOMMEND NEPRO AT MAX GOAL RATE 35CC/HR TO PROVIDE 1512KCALS (22.5G/KG BASED ON IBW), 68G PRO(1.0G/KG), 610CC FREE WATER FROM FORMULA MONITOR TOLERANCE, RESIDUALS AND LYTES
[2020-06-28 11:38] LABS: MANUAL DIFF FLAG NO
[2020-06-28 11:46] LABS: Base Excess VBG -6.7 mmol/L; Basophils Absolute Auto 0.1 X10*3/uL (0.0-0.2); Basophils Percent Auto 0.5 % (0-2); Eosinophils Absolute Auto 0.3 X10*3/uL (0.0-0.4); Eosinophils Percent Auto 3.6 % (0-4); HCO3 VBG 19 mmol/L; Hematocrit 34.9 % (42-52); Hemoglobin 11.6 g/dl (14.0-18.0); Imm Gran Abs Auto 0.23 X10*3/uL (0.00-0.03); Imm Gran Pct Auto 2.4 % (0.0-0.4); Lymphocytes Absolute Auto 1.3 X10*3/uL (1.2-4.9); Lymphocytes Percent Auto 13.5 % (20-40); Mean Corpuscular HGB Conc 33.2 g/dl (31.0-36.0); Mean Corpuscular Hemoglobin 34.1 pg (27.0-33.0); Mean Corpuscular Volume 102.6 fL (80-98); Monocytes Absolute Auto 0.8 X10*3/uL (0.1-1.2); Neutrophils Absolute Auto 6.8 X10*3/uL (2.0-8.3); Oxygen Saturation VBG 89.4 %; PCO2 VBG 38 mmhg; PO2 VBG 63 mmhg; Platelet Count 356 X10*3/uL (160-400); Red Cell Distribution Width 13.6 % (11.0-16.0); White Blood Count 9.5 X10*3/uL (4.8-10.8); pH VBG 7.31 (7.32-7.43)
--- NOTE | 2020-06-28 12:07 | PM.CNNEP ---
History of Present Illness Reason for Consult Consult date: 06/28/20 Reason for consult: AMADO and severe hyperkalemia Chief Complaint Chief complaint: Renal Failure History of Present Illness Narrative: Info obtained from EHR and d/w by phone. 60 y/o with chronic bacl pain issues on/off narcotics and HTN feeling unwell x 3-4 wks and taking naprosyn roitinely. Refused to get med advice but finally his convinced to go gto ER. She said he was having back pain, feeling tired, poor po intake, back pain, and gereal week. Also having some tingling suymptoms in chest. In ER had markedly abl Labs as noted and I was contacted by phone. I d/w ER treatment of severe hyperK and that patient would need emergent HD for such severe hyperK and it would unlikley respond simply to med meanagement given the severe AMADO as well. C/o rectal bleeding...hemmorroid says he does NOT do any illict drugs but heavy ETOH use.No H/O kidney probs. no FHx of kidney probs. She was unaware of him having any voiding issues. Review of Systems Review of Systems As per HPI Yes all other systems are reviewed and are negative PMFSH Past Medical History Medical History Back pain ETOH abuse HTN (hypertension) Hypercholesterolemia Family History Family history: reviewed and not pertinent Social History Social History Household Members: Spouse Housing: House Alcohol intake: current Alcohol intake frequency: 0-2 drinks per day Smoking Status: Current some day smoker Tobacco Type: Cigarette Use of substances other than those prescribed or required for medical reasons: Unable to respond Currently Displaying Signs/Symptoms of Drug Intoxication Withdrawal: No (INTUBATED/SEDATED) Advance Directives: No Do you have thoughts of harming others: None Do you have a plan to hurt others: No Plan Recently lost weight without trying: Unsure service: No Current occupational status: other Meds Allergies Allergy/AdvReac Type Severity Reaction Status Date / Time cortisone [CORTISONE] Allergy Unknown SWELLING Verified 06/28/20 02:06 influenza virus vaccine, Allergy Unknown SWELLING Verified 06/28/20 02:06 specific [FLU VACCINE] eggs Allergy Unknown gout flare Uncoded 09/14/15 00:00 up Influenza Virus Vaccine Split Allergy Unknown localized Uncoded 09/14/15 00:00 swelling Home Medications Medication Instructions Recorded Confirmed Type gabapentin 1 cap PO BID 06/28/20 06/28/20 History gabapentin 2 tab PO BEDTIME 06/28/20 06/28/20 History lisinopril 1 tab PO DAILY 06/28/20 06/28/20 History naproxen 1 tab PO BID 06/28/20 06/28/20 History Physical Exam Vital Signs: Last Vital Signs Temp 97.5 F 06/28/20 07:00 Pulse 88 06/28/20 12:00 Resp 28 H 06/28/20 12:00 BP 121/69 06/28/20 12:00 Pulse Ox 100 06/28/20 12:00 Body Mass Index 40.3 Const Nutritional Appearance: obese HENMT Head: Yes normal to inspection, Yes normocephalic and Yes atraumatic Ears: external ears normal General nose exam: Normal external nose present Face and sinus: Yes normal facial exam Neck Neck: Yes full ROM Resp Effort & Inspection: normal respiratory effort Auscultation: clear to auscultation bilaterally Cardio Jugular venous distension: no JVD Rate: regular rate Rhythm: regular rhythm Heart sounds: S1 normal heart sound present, S2 normal heart sound present and no murmurs Peripheral pulses: Peripheral pulses 2+ throughout GI Inspection: Yes normal to inspection and Yes distended Palpation (GI): Soft to palpation, nontender, no guarding, not rigid and No hepatosplenomegaly present Results Lab Results Result Diagrams: 06/28/20 11:29 06/28/20 02:42 Lab results: Chemistry 06/28/20 06/28/20 01:43 02:42 Sodium 129 L 129 L Potassium 8.3 H* 8.2 H* Carbon Dioxide 12 L 14 L BUN 124 H* 122 H* Creatinine 16.51 H* 16.20 H* Calcium 8.1 L 7.8 L Hematology 06/28/20 06/28/20 01:43 11:29 WBC 12.1 H 9.5 Hgb 12.3 L 11.6 L Plt Count 382 356 Urinalysis 06/28/20 04:12 Urine Color YELLOW Urine Appearance HAZY Urine pH 5.0 Ur Specific [place] >= 1.030 H Urine Protein TRACE Urine Glucose (UA) NEG Urine Ketones 5 Urine Blood TRACE Urine Nitrite NEG Ur Leukocyte Esterase NEG Urine RBC 1-4 Urine WBC 1-4 Ur Squamous Epith Cells 1+ Hyaline Casts 1-4 Assessment and Plan (1) Acute renal failure: Qualifiers: Acute renal failure type: unspecified Qualified Code(s): N17.9 - Acute kidney failure, unspecified Status: Acute (2) Acute hyperkalemia: Status: Acute (3) Hemorrhoids: Qualifiers: Hemorrhoid type: unspecified Qualified Code(s): K64.9 - Unspecified hemorrhoids Status: Acute (4) Rectal bleed: Status: Acute (5) Altered mental status: Qualifiers: Altered mental status type: unspecified Qualified Code(s): R41.82 - Altered mental status, unspecified Status: Acute (6) Chest pain: Qualifiers: Chest pain type: other chest pain Qualified Code(s): R07.89 - Other chest pain Status: Acute 1. Oliguric AMADO: most likely prog AMADO over the past week if not lonnger; wide DDx as follows: Multifact ATN: NSAID and STUART-I with dehydration can all contribute to ischemic ATN; rhabdo r/o by neg cpk AIN: NSAIDs Acute Obs: seems unlikely goiven bladder scan per ER was neg and no signif UOP after villegas AGN: IM-Cx mediated ( infectious assoc, auto-immune Dz, vs other..eg IgA); pauci -IM GN ( anca); antii-GBM note UA relatively unimpressive and points toward multifact ATN 2. Severe hyperK d/t AMADO 3. Combined AGMA/NAGMA: d/t AMADO 4. Resp Failure: 5. Hypotensive: now on pressors: ? related to pressors and intravassc vol depleted REC: emergent HD and check K post HD to watch for rebound; comprehensive sero/urine work-up; depneding on clinic ciurse may need kidney Bx but lets see if with supportive care and d/c ing his STUART/NSAID if his renal func begins to imporve Likely he will need additional HD tomorrow but gladys reassess daily I did talk with his Paola and update her about the kidney situation
[2020-06-28 12:10] LABS: Blood Urea Nitrogen 74 mg/dL (9-16); Calcium 8.3 mg/dL (8.4-10.2); Glucose Random 112 mg/dL (60-115); Magnesium 2.1 mg/dL (1.6-2.6); Phosphorus 6.1 mg/dL (2.7-4.5)
[2020-06-28 12:15] LABS: Creatinine Clr Calc Pharmacy 9.7; Estimated Glomerular Filt Rate 5
[2020-06-28 12:39] LABS: Anion Gap 27 (12-20); Carbon Dioxide 16 mmol/L (22-29); Chloride 98 mmol/L (96-108); Potassium 4.7 mmol/l (3.3-5.1); Sodium 136 mmol/L (135-145)
--- NOTE | 2020-06-28 14:41 | US_ITS ---
EXAMINATION: US RETROPERITONEAL LIMITED (RENAL ONLY) CLINICAL INFORMATION: Rule out obstruction. Acute renal failure.. COMPARISON: None TECHNIQUE: Routine grayscale imaging of kidneys was performed. FINDINGS: RIGHT KIDNEY: 12.3 x 6.0 x 5.8 cm (SAG x AP x TRV). The kidney is normal in size, contour, and echogenicity. Renal cortical thickness is normal. No calculi or focal parenchymal lesions. No hydronephrosis. LEFT KIDNEY: 11.8 x 6.3 x 6.1 cm (SAG x AP x TRV). The kidney is normal in size, contour, and echogenicity. Renal cortical thickness is normal. No calculi or focal parenchymal lesions. No hydronephrosis. US/US renal BI IMPRESSION: Unremarkable renal ultrasound.
--- NOTE | 2020-06-28 14:41 | PM.CCN ---
Critical Care Event Note Summary Code activated: No Narrative: Patient has been evaluated by myself. Physician stroboroma operator's history and physical note reviewed. Agree with documented with the following additions/corrections: On my exam patient is: Responding to commands during the pressure support trial/sedation vacation. FiO2 30% maintaining O2 saturation 97%. No longer requiring vasopressors for blood pressure support. Obese with trace bilateral lower extremity edema. Lungs clear to auscultation. Mild tachycardia, no murmurs. Laboratory studies and imaging reviewed. Assessment and Plan: 60-year-old gentleman with underlying alcohol abuse, obesity, back pain, and hypertension admitted with acute renal failure and hyperkalemia likely secondary to recent NSAID use requiring emergent hemodialysis and intubation. Improving after the 1st hemodialysis session. Doing well on pressure support trial, will proceed with extubation. Will likely require repeat hemodialysis in a.m.. Total addition critical care time: 30 minutes Critical Care Time (minutes): 30
[2020-06-28 14:44] LABS: Creatinine Urine 133.62 mg/dL
--- NOTE | 2020-06-28 15:00 | PC.RT ---
Pt is extubated to 2L NC, he has a saturation of 96% and a heart rate of 109. He remains comfortable at this time.
[2020-06-28 18:04] LABS: Anion Gap 21 (12-20); Blood Urea Nitrogen 76 mg/dL (9-16); Carbon Dioxide 21 mmol/L (22-29); Chloride 99 mmol/L (96-108); Creatinine Clr Calc Pharmacy 9.5; Estimated Glomerular Filt Rate 5; Glucose Random 117 mg/dL (60-115); Potassium 4.8 mmol/l (3.3-5.1); Sodium 136 mmol/L (135-145)
--- NOTE | 2020-06-28 18:17 | PC.NURSE ---
AT START OF SHIFT PATIENT INTUBATED AND SEDATED WITH PROPOFOL AND LEVOPHED FOR BP SUPPORT. NEUTRAL DIALYSIS PERFORMED AND TOLERATED WELL BY PATIENT. ONCE DIALYSIS WAS DONE, PROPOFOL GTT TURNED OFF AT 1357. VENT CHANGED TO PSV 18/5 AT 30% AT 1415. EXTUBATED TO 2L NC AT 1453. PATIENT INITIALLY CONFUSED AND ONLY ABLE TO STATE NAME AT TIME OF EXTUBATION. SLOWLY OVER TIME PATIENT IS ABLE TO STATE HE IS AT [facility] AND THAT IT IS JUNE 2020. DENIES PAIN. DROWSY AND VAGUE, BUT CALM AND COOPERATIVE. FAMILY UPDATED MULTIPLE TIMES THROUGHOUT THE SHIFT, EVEN ABLE TO SPEAK WITH PATIENT UPON INITIAL EXTUBATION. AFEBRILE. LEVOPHED OFF AT 1450, SBP WNL SINCE. HR 80-90S, NSR. 02 92-97% ON 2L NC. PONCE OUTPUT A TOTAL OF 550 ML THIS SHIFT. ABDOMEN FIRM, DISTENDED, ROUND. MD AWARE. NO BM. SKIN TO INNER BUTTOCK MACERATED, PICTURE OBTAINED AND WOUND CONSULT ORDERED. SPOKE WITH PATIENTS AND SHE STATED HE HAS HAD THAT FOR AWHILE AND WON'T PUT ANYTHING ON IT. BARRIER CREAM APPLIED. Q2H REPO, BATHED, PILLOWS UTILIZED, AIR PUMP APPLIED. SUBQ HEPARIN HELD BY MD DUE TO BLOODY INLINE SECRETION.
[2020-06-28] MEDS: Acetaminophen 325 MG TABLET 650 MG PO (21:51)
[2020-06-29] VITALS (15 sets, daily range): BP systolic 92–147; BP diastolic 50–90; PULSE 76–90; RESP 12–18; TEMP 36.2–36.9; O2SAT 92–98; BMI 39.8
[2020-06-29 05:48] LABS: MANUAL DIFF FLAG NO
[2020-06-29 05:55] LABS: Basophils Absolute Auto 0.1 X10*3/uL (0.0-0.2); Basophils Percent Auto 0.8 % (0-2); Eosinophils Absolute Auto 0.4 X10*3/uL (0.0-0.4); Eosinophils Percent Auto 4.6 % (0-4); Hematocrit 32.9 % (42-52); Imm Gran Abs Auto 0.12 X10*3/uL (0.00-0.03); Imm Gran Pct Auto 1.5 % (0.0-0.4); Lymphocytes Absolute Auto 0.9 X10*3/uL (1.2-4.9); Lymphocytes Percent Auto 11.5 % (20-40); Mean Corpuscular HGB Conc 33.4 g/dl (31.0-36.0); Mean Corpuscular Volume 101.5 fL (80-98); Mean Platelet Volume 9.8 fL (9.4-12.4); Monocytes Absolute Auto 0.9 X10*3/uL (0.1-1.2); Monocytes Percent Auto 11.6 % (2-11); Neutrophils Absolute Auto 5.5 X10*3/uL (2.0-8.3); Platelet Count 327 X10*3/uL (160-400); Red Blood Count 3.24 X10*6/uL (4.60-5.80); Red Cell Distribution Width 13.5 % (11.0-16.0); White Blood Count 7.9 X10*3/uL (4.8-10.8)
[2020-06-29 06:07] LABS: Base Excess VBG -2.4 mmol/L; HCO3 VBG 23 mmol/L; Oxygen Saturation VBG 89.1 %; PCO2 VBG 40 mmhg; PO2 VBG 60 mmhg; pH VBG 7.37 (7.32-7.43)
[2020-06-29 06:21] LABS: Alanine Aminotransferase 7 U/L (0-40); Albumin Level 3.3 g/dL (3.5-5.0); Alkaline Phosphatase 97 U/L (39-117); Anion Gap 19 (12-20); Aspartate Amino Transferase 11 U/L (5-37); Bilirubin Total 0.4 mg/dL (0.0-1.0); Blood Urea Nitrogen 73 mg/dL (9-16); Calcium 8.3 mg/dL (8.4-10.2); Carbon Dioxide 22 mmol/L (22-29); Chloride 101 mmol/L (96-108); Estimated Glomerular Filt Rate 7; Glucose Random 104 mg/dL (60-115); Phosphorus 6.4 mg/dL (2.7-4.5); Potassium 5.1 mmol/l (3.3-5.1); Sodium 137 mmol/L (135-145); Total Protein 6.3 g/dL (6.5-8.0)
[2020-06-29 07:48] LABS: EOS Counted 0 CELLS; EOS QC POS YES; EOS Stain Quality OK YES; WBC, Counted 100 CELLS
[2020-06-29] MEDS: Heparin Sodium,Porcine 5,000 UNIT/ML VIAL 5000 UNIT SUBCUT ×3 (08:32→22:18)
--- NOTE | 2020-06-29 08:45 | P.CDIC_ITS ---
CDI Concurrent Query Service Date: 06/29/20 Documentation Clarification: MOST LIKELY METABOLIC ENCEPHALOPATHY. Please clarify if you are treating a probable/suspected/likely or confirmed: Metabolic Encephalopathy Toxic Encephalopathy Toxic/Metabolic Encephalopathy Provider Response: Metabolic Encephalopathy PLEASE DO NOT DELETE/MODIFY EXISTING CONTENT Additional information is needed in order to code to the highest accuracy and a ppropriate Severity of Illness (SOI). Please clarify the information noted below in your progress notes and discharge summary. Risk Factors/Clinical Indicators/Treatments 60 M admitted with chest pain, rectal bleed, low BP, altered mental status likely due to worsening uremia Per H&P: AMADO, Acute Respiratory Failure, Acute Rectal Bleed likely hemorrhoids, ETOH abuse, Acute Hyperkalemia, altered mental status, no evidence of sepsis Intubated and on ventilator Left IJ inserted To get dialysis catheter and dialysis CDS: Geni Stone RN Contact Number: [phone] Please Review the information above and exercise your independent professional judgment in responding to the query. If you concur, pleas document in the PROGRESS NOTES and DISCHARGE SUMMARY. If you do not agree with the query, please document in the query above. THIS QUERY IS PART OF THE PERMANENT MEDICAL RECORD
[2020-06-29] MEDS: Acetaminophen 325 MG TABLET 650 MG PO (08:51)
--- NOTE | 2020-06-29 09:07 | MHC.CLN ---
F/U PT EXTUBATED RECOMMEND RENAL DIET WHEN DIET TO ADVANCE 1600 CALORIES PER DAY TO PROMOTE SLOW WT LOSS MONITOR PO INTAKE CLOSELY
--- NOTE | 2020-06-29 10:08 | PM.PNNEP ---
Subjective Subjective Date of Service: 06/29/20 Principal diagnosis: AMADO and hyperkalemia Interval history: Seen and exammiedn. Overall doing much better. UOP 50ml/hr extubated and ofdf pressors Physical Exam Vital Signs: Vital Signs: Last Vital Signs Temp 98.4 F 06/29/20 07:57 Pulse 84 06/29/20 09:00 Resp 12 06/29/20 09:00 BP 133/71 06/29/20 09:00 Pulse Ox 98 06/29/20 09:00 Body Mass Index 39.8 BS biulat RRR Abd soft Ext no edema Const: Nutritional Appearance: obese HENMT: Head: Yes normal to inspection, Yes normocephalic and Yes atraumatic Ears: external ears normal General nose exam: Normal external nose present Face and sinus: Yes normal facial exam Neck: Neck: Yes full ROM Resp: Effort & Inspection: normal respiratory effort Auscultation: clear to auscultation bilaterally Cardio: Jugular venous distension: no JVD Rate: regular rate Rhythm: regular rhythm Heart sounds: S1 normal heart sound present, S2 normal heart sound present and no murmurs Peripheral pulses: Peripheral pulses 2+ throughout GI: Inspection: Yes normal to inspection and Yes distended Palpation (GI): Soft to palpation, nontender, no guarding, not rigid and No hepatosplenomegaly present Objective Data Labs CBC & Chem 7: 06/29/20 05:36 06/29/20 05:36 Labs: Laboratory Results - last 24 hr 06/28/20 06/28/20 06/28/20 11:29 11:29 11:29 WBC 9.5 RBC 3.40 L Hgb 11.6 L Hct 34.9 L MCV 102.6 H MCH 34.1 H MCHC 33.2 RDW 13.6 Plt Count 356 MPV 10.0 Immature Gran % (Auto) 2.4 H Neut % (Auto) 72.0 Lymph % (Auto) 13.5 L [place] % (Auto) 8.0 Eos % (Auto) 3.6 Baso % (Auto) 0.5 Lymph # (Auto) 1.3 [place] # (Auto) 0.8 Eos # (Auto) 0.3 Baso # (Auto) 0.1 Abs Immat Gran (auto) 0.23 H Absolute Neuts (auto) 6.8 Absolute Nucleated RBC 0.000 Nucleated RBC % (auto) 0.0 VBG pH 7.31 L VBG pCO2 38 VBG pO2 63 VBG HCO3 19 VBG O2 Saturation 89.4 VBG Base Excess -6.7 Sodium 136 Potassium 4.7 D Chloride 98 Carbon Dioxide 16 L Anion Gap 27 H BUN 74 H Creatinine 10.13 H* Estim Creat Clear Calc 9.7 Estimated GFR 5 Random Glucose 112 Calcium 8.3 L D Phosphorus 6.1 H Magnesium 2.1 Total Bilirubin AST ALT Alkaline Phosphatase Total Protein Albumin Urine Eosinophils % Ur Random Sodium Urine Creatinine 06/28/20 06/28/20 06/28/20 13:15 13:15 17:20 WBC RBC Hgb Hct MCV MCH MCHC RDW Plt Count MPV Immature Gran % (Auto) Neut % (Auto) Lymph % (Auto) [place] % (Auto) Eos % (Auto) Baso % (Auto) Lymph # (Auto) [place] # (Auto) Eos # (Auto) Baso # (Auto) Abs Immat Gran (auto) Absolute Neuts (auto) Absolute Nucleated RBC Nucleated RBC % (auto) VBG pH VBG pCO2 VBG pO2 VBG HCO3 VBG O2 Saturation VBG Base Excess Sodium 136 Potassium 4.8 Chloride 99 Carbon Dioxide 21 L Anion Gap 21 H BUN 76 H Creatinine 10.28 H* Estim Creat Clear Calc 9.5 Estimated GFR 5 Random Glucose 117 H Calcium 8.0 L Phosphorus Magnesium Total Bilirubin AST ALT Alkaline Phosphatase Total Protein Albumin Urine Eosinophils % 0.0 Ur Random Sodium 47.0 Urine Creatinine 133.62 06/29/20 06/29/20 06/29/20 05:36 05:36 05:36 WBC 7.9 RBC 3.24 L Hgb 11.0 L Hct 32.9 L MCV 101.5 H MCH 34.0 H MCHC 33.4 RDW 13.5 Plt Count 327 MPV 9.8 Immature Gran % (Auto) 1.5 H Neut % (Auto) 70.0 Lymph % (Auto) 11.5 L [place] % (Auto) 11.6 H Eos % (Auto) 4.6 H Baso % (Auto) 0.8 Lymph # (Auto) 0.9 L [place] # (Auto) 0.9 Eos # (Auto) 0.4 Baso # (Auto) 0.1 Abs Immat Gran (auto) 0.12 H Absolute Neuts (auto) 5.5 Absolute Nucleated RBC 0.000 Nucleated RBC % (auto) 0.0 VBG pH 7.37 VBG pCO2 40 VBG pO2 60 VBG HCO3 23 VBG O2 Saturation 89.1 VBG Base Excess -2.4 Sodium 137 Potassium 5.1 Chloride 101 Carbon Dioxide 22 Anion Gap 19 BUN 73 H Creatinine 8.18 H* Estim Creat Clear Calc 12.0 Estimated GFR 7 Random Glucose 104 Calcium 8.3 L Phosphorus 6.4 H Magnesium 2.0 Total Bilirubin 0.4 AST 11 ALT 7 Alkaline Phosphatase 97 Total Protein 6.3 L Albumin 3.3 L Urine Eosinophils % Ur Random Sodium Urine Creatinine Assessment & Plan Assessment and plan (1) Acute renal failure: Status: Acute (2) Acute hyperkalemia: Status: Acute (3) Hemorrhoids: Status: Acute (4) Rectal bleed: Status: Acute (5) Altered mental status: Status: Acute (6) Chest pain: Status: Acute Assessment and Plan: 1. Oliguric converted to Non-Oliguric AMADO: incr UOP and decr SCr all very encouraging and suggests resolving AMADO, stil remains unclear as to cause of AMADO with wide DDx as noted below most likely prog AMADO over the past week if not lonnger; wide DDx as follows: Multifact ATN: NSAID and STUART-I with dehydration can all contribute to ischemic ATN; rhabdo r/o by neg cpk AIN: NSAIDs Acute Obs: r/o by U/S AGN: IM-Cx mediated ( infectious assoc, auto-immune Dz, vs other..eg IgA); pauci -IM GN ( anca); antii-GBM note UA relatively unimpressive and points toward multifact ATN 2. Severe hyperK d/t AMADO: resolved after HD 3. Combined AGMA/NAGMA: d/t AMADO..resolving 4. Resp Failure: resolved 5. Hypotensive: resolved Disc: it now looks like we may never know the cause of AMADO but that it may continue to steadily imporve..ques remains what his new bsl will be...if he does not cont ot imporve then he may need additional HD and possibly a kidnye Bx to make a definitve FDx,..for now we will watch his Scr and UOP over the next 1-2 days REC: no HD today, track UOP renal func; avoid NToxins, sero as ordered Time Spent With Patient Time: Total time spent is greater than 50% in coordination of care (as documented) at patient's floor/unit and/or counseling patient:
--- NOTE | 2020-06-29 10:56 | P.PNCC_ITS ---
Subjective Subjective Date of Service: 06/29/20 Interval History: Mr. Nino was admitted to ICU yesterday after being intubated in the ED for airway control. The patient is 60-year-old male with a past medical history of substance abuse, hypertension, hypercholesterolemia, EtOH abuse and back pain, on and off narcotics and frequently taking Naprosyn, who presented to the emergency room early yest morning for chest pain and rectal bleeding. In the emergency department the patient?s reported that patient has been complaining of chest pain x3 weeks, had been drinking half a pt of alcohol daily, and had had bright rectal bleeding in the last couple days. In the ED he reported the chest pain felt like ? pins and needles?, he denied radiation of pain. He stated that he?d had an occasional cough which he believed was secondary to smoking. He denied fever or chills. He also complained of shortness of breath and stated that was chronic as well. He stated that he had hemorrhoids and often had bright red blood per rectum secondary to his hemorrhoids. Vital signs in the ED showed temperature 97.6?, pulse 90, blood pressure 114/77, Sat 96% on room air. Laboratory data were notable for WBC 12.1, Hb 12.5 sodium 129, BUN 122, creatinine 16, bicarb 12, potassium 8.2, normal LFTs, albumin 3.8, lipase 98. EKG did not reveal any acute abnormalities. Chest x-ray with no acute abnormality In the ED He received 10 units of regular insulin IV, sodium bicarb 1 amp IV and Kayexalate 45 g orally. Renal consult felt his acute renal failure was secondary to NSAID and STUART-I, with dehydration, causing ischemic ATN; rhabdo was r/o by negative CPK. Emergency dialysis was advised. While attempting to place a dialysis catheter, the patient became more altered, requiring emergency intubation for airway protection. He was then admitted to the ICU. A dialysis catheter was placed, and the patient was dialyzed. The patient was subsequently extubated later in the afternoon. This morning, the patient is fully awake and appropriate, asking for breakfast, and asking if he can go home. He?s reclining comfortably in bed, with legs crossed. Making urine about 50 cc/hour. See vital signs below. Breathing easy with sat of 96% on room air. No JVD with the head of the bed at about 30 degrees. Chest is clear to auscultation. Heart rate and rhythm are regular, with normal-sounding S1 and S2, with no murmur or gallops. The abdomen is benign. He has no peripheral edema. LABORATORY DATA: As below. Notable for BUN and creatinine down to 73/8.1, with bicarb up to 22, and potassium down to 5.1, all after just one dialysis session yesterday. IMPRESSION: 1. Acute kidney injury due to a combination of factors, as outlined above. Please see today's renal note. 2. Hyperkalemia. Resolved. 3. Metabolic acidosis. Resolved. 4. Metabolic encephalopathy. Resolved after dialysis. Now out of bed and in a chair. Doesn?t need dialysis today. We?ll re-evaluate tomorrow. Stable for transfer to a regular room. I?ll sign out to the hospitalists. Time: [id number] Physical Exam Vital Signs: Vital Signs: Last Vital Signs Temp 98.4 F 06/29/20 07:57 Pulse 77 06/29/20 10:00 Resp 12 06/29/20 10:00 BP 111/64 06/29/20 10:00 Pulse Ox 95 06/29/20 10:00 Body Mass Index 39.8 Objective Data Labs CBC & Chem 7: 06/29/20 05:36 06/29/20 05:36 Labs: Laboratory Results - last 24 hr 06/28/20 06/28/20 06/28/20 11:29 11:29 11:29 WBC 9.5 RBC 3.40 L Hgb 11.6 L Hct 34.9 L MCV 102.6 H MCH 34.1 H MCHC 33.2 RDW 13.6 Plt Count 356 MPV 10.0 Immature Gran % (Auto) 2.4 H Neut % (Auto) 72.0 Lymph % (Auto) 13.5 L [place] % (Auto) 8.0 Eos % (Auto) 3.6 Baso % (Auto) 0.5 Lymph # (Auto) 1.3 [place] # (Auto) 0.8 Eos # (Auto) 0.3 Baso # (Auto) 0.1 Abs Immat Gran (auto) 0.23 H Absolute Neuts (auto) 6.8 Absolute Nucleated RBC 0.000 Nucleated RBC % (auto) 0.0 VBG pH 7.31 L VBG pCO2 38 VBG pO2 63 VBG HCO3 19 VBG O2 Saturation 89.4 VBG Base Excess -6.7 Sodium 136 Potassium 4.7 D Chloride 98 Carbon Dioxide 16 L Anion Gap 27 H BUN 74 H Creatinine 10.13 H* Estim Creat Clear Calc 9.7 Estimated GFR 5 Random Glucose 112 Calcium 8.3 L D Phosphorus 6.1 H Magnesium 2.1 Total Bilirubin AST ALT Alkaline Phosphatase Total Protein Albumin Urine Eosinophils % Ur Random Sodium Urine Creatinine 06/28/20 06/28/20 06/28/20 13:15 13:15 17:20 WBC RBC Hgb Hct MCV MCH MCHC RDW Plt Count MPV Immature Gran % (Auto) Neut % (Auto) Lymph % (Auto) [place] % (Auto) Eos % (Auto) Baso % (Auto) Lymph # (Auto) [place] # (Auto) Eos # (Auto) Baso # (Auto) Abs Immat Gran (auto) Absolute Neuts (auto) Absolute Nucleated RBC Nucleated RBC % (auto) VBG pH VBG pCO2 VBG pO2 VBG HCO3 VBG O2 Saturation VBG Base Excess Sodium 136 Potassium 4.8 Chloride 99 Carbon Dioxide 21 L Anion Gap 21 H BUN 76 H Creatinine 10.28 H* Estim Creat Clear Calc 9.5 Estimated GFR 5 Random Glucose 117 H Calcium 8.0 L Phosphorus Magnesium Total Bilirubin AST ALT Alkaline Phosphatase Total Protein Albumin Urine Eosinophils % 0.0 Ur Random Sodium 47.0 Urine Creatinine 133.62 06/29/20 06/29/20 06/29/20 05:36 05:36 05:36 WBC 7.9 RBC 3.24 L Hgb 11.0 L Hct 32.9 L MCV 101.5 H MCH 34.0 H MCHC 33.4 RDW 13.5 Plt Count 327 MPV 9.8 Immature Gran % (Auto) 1.5 H Neut % (Auto) 70.0 Lymph % (Auto) 11.5 L [place] % (Auto) 11.6 H Eos % (Auto) 4.6 H Baso % (Auto) 0.8 Lymph # (Auto) 0.9 L [place] # (Auto) 0.9 Eos # (Auto) 0.4 Baso # (Auto) 0.1 Abs Immat Gran (auto) 0.12 H Absolute Neuts (auto) 5.5 Absolute Nucleated RBC 0.000 Nucleated RBC % (auto) 0.0 VBG pH 7.37 VBG pCO2 40 VBG pO2 60 VBG HCO3 23 VBG O2 Saturation 89.1 VBG Base Excess -2.4 Sodium 137 Potassium 5.1 Chloride 101 Carbon Dioxide 22 Anion Gap 19 BUN 73 H Creatinine 8.18 H* Estim Creat Clear Calc 12.0 Estimated GFR 7 Random Glucose 104 Calcium 8.3 L Phosphorus 6.4 H Magnesium 2.0 Total Bilirubin 0.4 AST 11 ALT 7 Alkaline Phosphatase 97 Total Protein 6.3 L Albumin 3.3 L Urine Eosinophils % Ur Random Sodium Urine Creatinine Progress Note: A&P Time Spent With Patient Time: Total time spent is greater than 50% in coordination of care (as documented) at patient's floor/unit and/or counseling patient: Total time spent with greater than 50% in coordination of care (as documented) at patient's floor/unit and/or counseling patient:: 0
--- NOTE | 2020-06-29 12:26 | PC.NURSE ---
pt alert and oriented x 3, reports wanting to go home, pt received PO tylenol in am for headache, pt hr SR, on RA no resp distress, dialysis cath to LIJ intact, peripheral IV to LAC intact, villegas cath intact and draining yellow urine, pt bathed, OOB to recliner, encouraged food and drink pt states he is not hungry at this time, ordered a sandwich for lunch, plan to downgrade patient to med surg, updated x 2 and spoke with patient, will cont to monitor
[2020-06-30] VITALS (7 sets, daily range): BP systolic 137–167; BP diastolic 66–95; PULSE 75–87; RESP 18; TEMP 36.2–36.7; O2SAT 96–99; BMI 37.8
--- NOTE | 2020-06-30 05:33 | PC.NURSE ---
Removed pt's villegas at 0500.
[2020-06-30] MEDS: Pantoprazole Sodium 40 MG/10 ML VIAL IVPUSH (06:11)
[2020-06-30] MEDS: Heparin Sodium,Porcine 5,000 UNIT/ML VIAL 5000 UNIT SUBCUT ×3 (06:11→22:31)
[2020-06-30 07:34] LABS: Hepatitis A Antibody IgM 0.71 Index (0-0.79); ~Hepatitis A Antibody IgM Nonreactive (Nonreactive)
[2020-06-30 11:00] LABS: Anion Gap 18 (12-20); Blood Urea Nitrogen 58 mg/dL (9-16); Calcium 8.3 mg/dL (8.4-10.2); Carbon Dioxide 21 mmol/L (22-29); Chloride 103 mmol/L (96-108); Creatinine Clr Calc Pharmacy 23.8; Estimated Glomerular Filt Rate 16; Glucose Random 119 mg/dL (60-115); Potassium 4.9 mmol/l (3.3-5.1); Sodium 137 mmol/L (135-145)
--- NOTE | 2020-06-30 11:11 | P.PNNP_ITS ---
Subjective Subjective Date of Service: 06/30/20 Principal diagnosis: AMADO and hyperkalemia Interval history: Seen and examined. Events noted Overall feeling much better Physical Exam Vital Signs: Vital Signs: Last Vital Signs Temp 97.6 F 06/30/20 10:48 Pulse 75 06/30/20 10:48 Resp 18 06/30/20 10:48 BP 160/95 H 06/30/20 10:48 Pulse Ox 97 06/30/20 10:48 Body Mass Index 37.8 Const: Nutritional Appearance: obese HENMT: Head: Yes normal to inspection, Yes normocephalic and Yes atraumatic Ears: external ears normal General nose exam: Normal external nose present Face and sinus: Yes normal facial exam Neck: Neck: Yes full ROM Resp: Effort & Inspection: normal respiratory effort Auscultation: clear to auscultation bilaterally Cardio: Jugular venous distension: no JVD Rate: regular rate Rhythm: regular rhythm Heart sounds: S1 normal heart sound present, S2 normal heart sound present and no murmurs Peripheral pulses: Peripheral pulses 2+ throughout GI: Inspection: Yes normal to inspection and Yes distended Palpation (GI): Soft to palpation, nontender, no guarding, not rigid and No hepatosplenomegaly present Objective Data Labs CBC & Chem 7: 06/29/20 05:36 06/30/20 10:25 Labs: Laboratory Results - last 24 hr 06/28/20 06/28/20 06/30/20 06:22 13:00 10:25 Sodium 137 Potassium 4.9 Chloride 103 Carbon Dioxide 21 L Anion Gap 18 BUN 58 H Creatinine 3.99 H Estim Creat Clear Calc 23.8 Estimated GFR 16 Random Glucose 119 H Calcium 8.3 L Complement C4 33 Hepatitis A IgM Ab Nonreactive Assessment & Plan Assessment and plan (1) Acute renal failure: Status: Acute (2) Acute hyperkalemia: Status: Acute (3) Hemorrhoids: Status: Acute (4) Rectal bleed: Status: Acute (5) Altered mental status: Status: Acute (6) Chest pain: Status: Acute Assessment and Plan: 1. Oliguric converted to Non-Oliguric AMADO: incr UOP and decr SCr all very encouraging and suggests resolving AMADO, stil remains unclear as to cause of AMADO with wide DDx as noted below most likely prog AMADO over the past week if not lonnger; wide DDx as follows: Multifact ATN: NSAID and STUART-I with dehydration can all contribute to ischemic ATN; rhabdo r/o by neg cpk AIN: NSAIDs Acute Obs: r/o by U/S AGN: IM-Cx mediated ( infectious assoc, auto-immune Dz, vs other..eg IgA); pauci -IM GN ( anca); antii-GBM note UA relatively unimpressive and points toward multifact ATN 2. Severe hyperK d/t AMADO: resolved after HD 3. Combined AGMA/NAGMA: d/t AMADO..resolving 4. Resp Failure: resolved 5. Hypotensive: resolved Disc: it now looks like we may never know the cause of AMADO but that it may continue to steadily imporve..ques remains what his new bsl will be REC: ok to remove HD cath and d/c home with repeat renal labs in 2-3 days, needs to avoid NSAIDs, I will arrange f/u with me next week as outpt Time Spent With Patient Time: Total time spent is greater than 50% in coordination of care (as docume nted) at patient's floor/unit and/or counseling patient:
[2020-06-30 14:13] LABS: Anti Nuclear Antibody Screen NEGATIVE (NEGATIVE)
--- NOTE | 2020-06-30 14:51 | MHC.CLN ---
F/U PO 50% AVG DIET RX: REGULAR-APPROPRIATE 1600 CALORIES PER DAY TO PROMOTE SLOW WT LOSS FRAGILE SKIN FOLLOWING
--- NOTE | 2020-06-30 17:53 | P.PNIM_ITS ---
Subjective Subjective Date of Service: 06/30/20 Interval History: Seen in f/u for AMADO of unclear nature with creatinine up to 16 and required emergent dialysis and now renal function is down to 3 Review of Systems doing well. No trouble peeing Physical Exam Vital Signs: Vital Signs: Last Vital Signs Temp 97.2 F 06/30/20 15:29 Pulse 81 06/30/20 15:29 Resp 18 06/30/20 15:29 BP 160/93 H 06/30/20 15:29 Pulse Ox 97 06/30/20 15:29 Body Mass Index 37.8 General: AO X 3, no acute distress Resp: CTA bilateral CVS: S1,S2,RRR GI: +BS, NT, no distention Skin: No rash, Neuro: motor grossly intact Psych: appropriate affect Objective Data Current Medications Generic Name Dose Route Start Last Admin Trade Name Freq PRN Reason Stop Dose Admin Acetaminophen 650 mg 06/28/20 21:40 06/29/20 08:51 Acetaminophen 325 Mg Tablet PO 650 mg Q6H PRN Administration headache Heparin Sodium (Porcine) 5,000 unit 06/28/20 16:45 06/30/20 15:34 Heparin Sodium,Porcine 5,000 Unit/Ml Vial INTRACATH Not Given MOWEFR@1645 [facility] Heparin Sodium (Porcine) 5,000 unit 06/28/20 07:00 06/30/20 14:48 Heparin Sodium,Porcine 5,000 Unit/Ml Vial SUBCUT 5,000 unit Q8H ESTEFANI Administration Pantoprazole Sodium 40 mg 06/29/20 06:30 06/30/20 06:11 Pantoprazole Sodium 40 Mg/10 Ml Vial IVPUSH 40 mg DAILY@0630 [facility] Administration Labs CBC & Chem 7: 06/29/20 05:36 06/30/20 10:25 Assessment and Plan (1) Acute renal failure: Status: Acute Assessment and Plan: Patient was admitted through ICU with severe renal failure Cr of 16 and hyperkalemia K of 8 and required emergent dialysis one time and Cretinine has been gradually coming down. Renal failure may have been related to NSAID use. Plan: remove dialysis catheter by tomorrow and then discharge home. Hold Lisinopril and definately should not take Naproxen again.
--- NOTE | 2020-06-30 19:56 | HO.WOUNDCONS ---
History of Present Illness Data of Consult Service Date: 06/30/20 Requesting physician: Corey Esparza Primary Care Provider: None Physician HPI Reason for consult: perianal maceration The pt is a 60 year old male who had severe acute renal failure with elevated creatinine and potassium who was treated emergently with dialysis and intubated due to confusion and combativeness during dialysis catheter placement. He did well by the next day and was extubated and creat and k much improved. In ICU pt complaining buttock area sore and on exam the area perianal is red and some macerated tissue. pt denies having significant diarrhea but had been given kayexalate. He is doing quite well now. Review of Systems Review of Systems: doing well. No trouble peeing Yes all other systems are reviewed and are negative [facility] Medical History Back pain ETOH abuse HTN (hypertension) Hypercholesterolemia Family history: reviewed and not pertinent Social History Household Members: Spouse Housing: House Alcohol intake: current Alcohol intake frequency: 0-2 drinks per day Smoking Status: Current some day smoker Tobacco Type: Cigarette Use of substances other than those prescribed or required for medical reasons: Unable to respond Currently Displaying Signs/Symptoms of Drug Intoxication Withdrawal: No Advance Directives: No Do you have thoughts of harming others: None Do you have a plan to hurt others: No Plan Recently lost weight without trying: Unsure service: No Current occupational status: other Meds Allergies Allergy/AdvReac Type Severity Reaction Status Date / Time cortisone [CORTISONE] Allergy Unknown SWELLING Verified 06/28/20 02:06 influenza virus vaccine, Allergy Unknown SWELLING Verified 06/28/20 02:06 specific [FLU VACCINE] eggs Allergy Unknown gout flare Uncoded 09/14/15 00:00 up Influenza Virus Vaccine Split Allergy Unknown localized Uncoded 09/14/15 00:00 swelling Home Medications Medication Instructions Recorded Confirmed Type gabapentin 1 cap PO BID 06/28/20 06/28/20 History gabapentin 2 tab PO BEDTIME 06/28/20 06/29/20 History lisinopril 1 tab PO DAILY 06/28/20 06/28/20 History naproxen 1 tab PO BID 06/28/20 06/28/20 History Physical Exam Vital Signs and Narrative: Vital Signs: Last Vital Signs Temp 97.2 F 06/30/20 15:29 Pulse 81 06/30/20 15:29 Resp 18 06/30/20 15:29 BP 160/93 H 06/30/20 15:29 Pulse Ox 97 06/30/20 15:29 Body Mass Index 37.8 Skin: Other: abdomen is soft and inbetween buttock cheeks in perianal area the tissue here is moist and slightly macerated a little superior to anal opening in gluteal crease. no true skin breakdown. little tender to palpation Results Labs CBC and Chem 7: 06/29/20 05:36 06/30/20 10:25 Labs: Laboratory Results - last 24 hr 06/28/20 06/28/20 06/30/20 06:22 13:00 10:25 Anion Gap 18 Estim Creat Clear Calc 23.8 Estimated GFR 16 Random Glucose 119 H Calcium 8.3 L LETICIA Screen NEGATIVE Hepatitis A IgM Ab Nonreactive Assessment and Plan (1) Acute renal failure: Qualifiers: Acute renal failure type: unspecified Qualified Code(s): N17.9 - Acute kidney failure, unspecified Status: Acute Patient was admitted through ICU with severe renal failure Cr of 16 and hyperkalemia K of 8 and required emergent dialysis one time and Cretinine has been gradually coming down. Renal failure may have been related to NSAID use. Plan: remove dialysis catheter by tomorrow and then discharge home. Hold Lisinopril and definately should not take Naproxen again. (2) Perianal rash: Problem details: pt with some minor skin irritation and erythema around the perianal area and gluteal cleft - no true skin breakdown - suggest barrier cream, avoid diarrhea. if not improving consider adding some nystatin cream/ointment as with moisture area there may be a component of fungal infection Status: Acute
[2020-07-01] VITALS: BP 163/93; PULSE 79; RESP 18; TEMP 36.4; O2SAT 97
[2020-07-01 02:57] VITALS: BP 156/85; PULSE 83; RESP 18; TEMP 36.9; O2SAT 97
[2020-07-01 06:00] VITALS: BMI 37.3
[2020-07-01] MEDS: Pantoprazole Sodium 40 MG/10 ML VIAL IVPUSH (06:04)
[2020-07-01] MEDS: Heparin Sodium,Porcine 5,000 UNIT/ML VIAL 5000 UNIT SUBCUT ×2 (06:05→14:19)
[2020-07-01 06:37] LABS: Anion Gap 18 (12-20); Blood Urea Nitrogen 42 mg/dL (9-16); Calcium 8.2 mg/dL (8.4-10.2); Carbon Dioxide 20 mmol/L (22-29); Chloride 105 mmol/L (96-108); Creatinine Clr Calc Pharmacy 36.1; Estimated Glomerular Filt Rate 25; Glucose Random 101 mg/dL (60-115); Potassium 5.6 mmol/l (3.3-5.1); Sodium 137 mmol/L (135-145)
[2020-07-01 07:51] LABS: Anti Glomerular Basement Memb <1.0 AI; Myeloperoxidase Antibody 5.3 AI; Proteinase 3 PR3 Antibodies <1.0 AI
[2020-07-01 07:55] VITALS: BP 148/93; PULSE 77; RESP 18; TEMP 36.6; O2SAT 98
[2020-07-01] MEDS: Sodium Polystyrene Sulfon/Sorb 15 GM/60 ML ORAL.SUSP 30 GM PO (08:26)
--- NOTE | 2020-07-01 11:40 | PM.PNNEP ---
Subjective Subjective Date of Service: 07/01/20 Principal diagnosis: AMADO and hyperkalemia Interval history: Seen in f/u for AMADO of unclear nature with creatinine up to 16 and required emergent dialysis and now renal function is down to 2.6 K this am 5.6 which is surprising Physical Exam Vital Signs: Vital Signs: Last Vital Signs Temp 97.9 F 07/01/20 07:55 Pulse 77 07/01/20 07:55 Resp 18 07/01/20 07:55 BP 148/93 H 07/01/20 07:55 Pulse Ox 98 07/01/20 07:55 Body Mass Index 37.3 Const: Nutritional Appearance: obese HENMT: Head: Yes normal to inspection, Yes normocephalic and Yes atraumatic Ears: external ears normal General nose exam: Normal external nose present Face and sinus: Yes normal facial exam Neck: Neck: Yes full ROM Resp: Effort & Inspection: normal respiratory effort Auscultation: clear to auscultation bilaterally Cardio: Jugular venous distension: no JVD Rate: regular rate Rhythm: regular rhythm Heart sounds: S1 normal heart sound present, S2 normal heart sound present and no murmurs Peripheral pulses: Peripheral pulses 2+ throughout GI: Inspection: Yes normal to inspection and Yes distended Palpation (GI): Soft to palpation, nontender, no guarding, not rigid and No hepatosplenomegaly present Objective Data Labs CBC & Chem 7: 06/29/20 05:36 07/01/20 05:56 Labs: Laboratory Results - last 24 hr 06/28/20 06/28/20 07/01/20 13:00 13:00 05:56 Sodium 137 Potassium 5.6 H Chloride 105 Carbon Dioxide 20 L Anion Gap 18 BUN 42 H Creatinine 2.61 H Estim Creat Clear Calc 36.1 Estimated GFR 25 Random Glucose 101 Calcium 8.2 L LETICIA Screen NEGATIVE Proteinase 3 (PR3) Ab <1.0 Myeloperoxidase Ab 5.3 H Glomerular Base Memb Ab <1.0 Assessment & Plan Assessment and plan (1) Acute renal failure: Status: Acute (2) Acute hyperkalemia: Status: Acute (3) Hemorrhoids: Status: Acute (4) Rectal bleed: Status: Acute (5) Altered mental status: Status: Acute (6) Chest pain: Status: Acute Assessment and Plan: 1. Oliguric converted to Non-Oliguric AMADO: incr UOP and decr SCr all very encouraging and suggests resolving AMADO, stil remains unclear as to cause of AMADO with wide DDx as noted below but given the rapid recovery suspect d/t combination of dehydration/SHELBY/NSAIDs 2. Severe hyperK d/t AMADO: initially resolved and this amm up again despite not on shelby/nsaid 3. Combined AGMA/NAGMA: d/t AMADO..resolved 4. Resp Failure: resolved 5. Hypotensive: resolved and now incr bp Disc: it now looks like we may never know the cause of AMADO but that it may continue to steadily imporve..ques remains what his new bsl will be REC: kayexlate x 1 and will remove hd catheter later today or in am tommorrow, track k level as may need chronic kayexlate tx, low k diet; needs to avoid nsaids and no shelby-i; add norvasc and track bps Time Spent With Patient Time: Total time spent is greater than 50% in coordination of care (as documented) at patient's floor/unit and/or counseling patient:
[2020-07-01 11:42] VITALS: BP 191/80; PULSE 80; RESP 19; TEMP 36.7; O2SAT 98
[2020-07-01 12:34] LABS: Potassium 4.7 mmol/l (3.3-5.1)
--- NOTE | 2020-07-01 12:53 | MHC.CM.PN ---
NURSE COMPUTER PROCESSING SCHEDULER NOTE ELECTRONIC MEDICAl record reviewed along with case discussed on multipe disciplianry rounds . per hospitlaist renal labs are improving but potassium has increased , plan to give kayexlate x1 and remove the hemo diaysis catheter cntinue t monitor all abs and vitas sighns discharge plan continue to follow for discharge needs
--- NOTE | 2020-07-01 13:12 | P.PNIM_ITS ---
Subjective Subjective Date of Service: 07/02/20 Interval History: Hyperkalemia, AMADO Review of Systems Patient says he is feeling slowly better. AMADO improving, still has hyperkalemia, blood pressure uncontrolled. Denies any chest pain or abdominal pain or fever or chills. Physical Exam Vital Signs: Vital Signs: Last Vital Signs Temp 98.0 F 07/01/20 11:42 Pulse 80 07/01/20 11:42 Resp 19 07/01/20 11:42 BP 191/80 H 07/01/20 11:42 Pulse Ox 98 07/01/20 11:42 Body Mass Index 37.3 Physical exam: Constitutional: Not in acute distress, pleasant, watching TV. Cvs: rrr, [id number] , no murmur res: clear to auscultation ,no rhonchii or wheezing abd: no rebound or guarding ,nt, bs present. ext pulses present , no cyanosis neuro: axo3 , nonfocal. Objective Data Current Medications Generic Name Dose Route Start Last Admin Trade Name Freq PRN Reason Stop Dose Admin Acetaminophen 650 mg 06/28/20 21:40 06/29/20 08:51 Acetaminophen 325 Mg Tablet PO 650 mg Q6H PRN Administration headache Amlodipine Besylate 5 mg 07/02/20 09:00 Amlodipine Besylate 5 Mg Tablet PO DAILY [facility] Protocol Azelastine HCl 1 spray 07/01/20 09:00 07/01/20 08:30 Azelastine Hcl Nasal 137 Mcg/0.137 Ml Bottle NOSTRIL-B 1 spray BID [facility] Administration Heparin Sodium (Porcine) 5,000 unit 06/28/20 16:45 06/30/20 15:34 Heparin Sodium,Porcine 5,000 Unit/Ml Vial INTRACATH Not Given MOWEFR@1645 [facility] Heparin Sodium (Porcine) 5,000 unit 06/28/20 07:00 07/01/20 06:05 Heparin Sodium,Porcine 5,000 Unit/Ml Vial SUBCUT 5,000 unit Q8H [facility] Administration Pantoprazole Sodium 40 mg 06/29/20 06:30 07/01/20 06:04 Pantoprazole Sodium 40 Mg/10 Ml Vial IVPUSH 40 mg DAILY@0630 [facility] Administration Labs CBC & Chem 7: 06/29/20 05:36 07/02/20 06:53 Assessment and Plan (1) Acute renal failure: Status: Acute Assessment and Plan: Patient was admitted through ICU with severe renal failure Cr of 16 and hyper kalemia K of 8 and required emergent dialysis one time and Cretinine has been gradually coming down. 1. AMADO: Renal failure may have been related to NSAID use.but hyperkalemia despite off shelby/nsaid's d/w nephro: Will K with Kayexalate, monitor electrolytes closely,Low-potassium diet. If patient hyperkalemia improves, remove dialysis catheter by tomorrow and then discharge home. Hold Lisinopril and Naproxen. Patient might need maintenance Kayexalate for some time. Will decide with Nephrology in the morning. Patient received dialysis in ICU for above. Metabolic encephalopathy seems to be resolved as well as metabolic acidosis. 2. Uncontrolled hypertension: We will add amlodipine. Monitor blood pressure closely. 3. Perianal rash:minor skin irritation and erythema around the perianal area and gluteal cleft - no true skin breakdown - suggest barrier cream, avoid diarrhea. if not improving consider adding some nystatin cream/ointment as with moisture area there may be a component of fungal infection.
[2020-07-01] MEDS: amLODIPine Besylate 5 MG TABLET PO (14:19)
[2020-07-01 16:00] VITALS: BP 158/87; PULSE 80; RESP 18; TEMP 36.7; O2SAT 98
[2020-07-01 19:53] VITALS: BP 146/79; PULSE 75; RESP 20; TEMP 36.6; O2SAT 98
[2020-07-01] MEDS: Heparin Sodium,Porcine 5,000 UNIT/ML VIAL 5000 UNIT INTRACATH (22:51)
[2020-07-02] VITALS: BP 169/96; PULSE 78; RESP 18; TEMP 36.7; O2SAT 97
[2020-07-02] MEDS: Heparin Sodium,Porcine 5,000 UNIT/ML VIAL 5000 UNIT SUBCUT ×2 (00:02→07:37)
[2020-07-02 03:51] VITALS: BP 151/94; PULSE 80; RESP 19; TEMP 36.7; O2SAT 97
[2020-07-02] MEDS: Pantoprazole Sodium 40 MG/10 ML VIAL IVPUSH (05:46)
[2020-07-02 05:51] VITALS: BMI 37.3
[2020-07-02 07:48] LABS: Anion Gap 17 (12-20); Blood Urea Nitrogen 30 mg/dL (9-16); Calcium 8.5 mg/dL (8.4-10.2); Carbon Dioxide 19 mmol/L (22-29); Chloride 107 mmol/L (96-108); Creatinine Clr Calc Pharmacy 51.5; Estimated Glomerular Filt Rate 38; Glucose Random 101 mg/dL (60-115); Sodium 138 mmol/L (135-145)
[2020-07-02 08:00] VITALS: BP 172/100; PULSE 81; RESP 18; TEMP 36.6; O2SAT 99
[2020-07-02] MEDS: amLODIPine Besylate 5 MG TABLET PO (08:50)
--- NOTE | 2020-07-02 09:45 | MHC.CM.PN ---
PER CONVERSATION WITH GERARD ([phone]) PLAN IS FOR DISCHARGE TODAY. PATIENT WILL NEED V[facility] SERVICES, AND SHE AND SPOUSE CHOOSE [facility]. REFERRAL PLACED. PCP IS DR OWENS OF [facility]. PATIENT HAS TRANSPORTATION ARRANGED. IMM 07/01 IN CHART.
--- NOTE | 2020-07-02 09:50 | PM.PNNEP ---
Subjective Subjective Date of Service: 07/02/20 Principal diagnosis: AMADO and hyperkalemia Interval history: Seen aND EXAMINED. oVERALL FEELING BETTER HD cath removed by me this am Physical Exam Vital Signs: Vital Signs: Last Vital Signs Temp 97.9 F 07/02/20 08:00 Pulse 81 07/02/20 08:00 Resp 18 07/02/20 08:00 BP 172/100 H 07/02/20 08:00 Pulse Ox 99 07/02/20 08:00 Body Mass Index 37.3 Const: Nutritional Appearance: obese HENMT: Head: Yes normal to inspection, Yes normocephalic and Yes atraumatic Ears: external ears normal General nose exam: Normal external nose present Face and sinus: Yes normal facial exam Neck: Neck: Yes full ROM Resp: Effort & Inspection: normal respiratory effort Auscultation: clear to auscultation bilaterally Cardio: Jugular venous distension: no JVD Rate: regular rate Rhythm: regular rhythm Heart sounds: S1 normal heart sound present, S2 normal heart sound present and no murmurs Peripheral pulses: Peripheral pulses 2+ throughout GI: Inspection: Yes normal to inspection and Yes distended Palpation (GI): Soft to palpation, nontender, no guarding, not rigid and No hepatosplenomegaly present Objective Data Labs CBC & Chem 7: 06/29/20 05:36 07/02/20 06:53 Labs: Laboratory Results - last 24 hr 07/01/20 07/02/20 12:01 06:53 Sodium 138 Potassium 4.7 5.0 Chloride 107 Carbon Dioxide 19 L Anion Gap 17 BUN 30 H Creatinine 1.83 H Estim Creat Clear Calc 51.5 Estimated GFR 38 Random Glucose 101 Calcium 8.5 Assessment & Plan Assessment and plan (1) Acute renal failure: Status: Acute (2) Acute hyperkalemia: Status: Acute (3) Hemorrhoids: Status: Acute (4) Rectal bleed: Status: Acute (5) Altered mental status: Status: Acute (6) Chest pain: Status: Acute Assessment and Plan: 1. Oliguric converted to Non-Oliguric AMADO: incr UOP and CONT decr SCr all very encouraging and suggests resolving AMADO, stil remains unclear as to cause of AMADO with wide DDx as noted below but given the rapid recovery suspect d/t combination of dehydration/STUART/NSAIDs 2. Severe hyperK d/t AMADO: K 5.0 today 3. Combined AGMA/NAGMA: d/t AMADO..resolved 4. Resp Failure: resolved 5. Hypotensive: resolved and now incr bp Disc: it now looks like we may never know the cause of AMADO but that it may continue to steadily imporve..ques remains what his new bsl will be REC: cont low K diet; check renal oabs and K Sunday next week; needs to avoid nsaids and no stuart-i; add norvasc and track bps Time Spent With Patient Time: Total time spent is greater than 50% in coordination of care (as documented) at patient's floor/unit and/or counseling patient:
--- NOTE | 2020-07-02 10:40 | MHC.CM.PN ---
PATIENT VOMITED BREAKFAST. DC HELD FOR NOW. POSSIBLY DC LATER THIS AFTERNOON. IF NOT, DC BY SUNDAY MORNING. RN AWARE. IMM 07/01 IN CHART
--- NOTE | 2020-07-02 11:50 | PM.DS ---
DS: Providers Provider Date of Service: 07/02/20 Date of admission: 06/28/20 03:55 Primary care physician: None Physician Consults: 06/28/20 09:30 Consult to Nephrology Stat Consulting Provider: [place] Reason for consultation: EMERGENT DIALYSIS Has provider been notified: Yes 06/28/20 11:44 Consult to Wound Care Provider Stat Consulting Provider: [facility] Reason for consultation: MACERATION TO INNER BUTTOCK Has provider been notified: Yes DS: Diagnosis Discharge Diagnosis (1) Acute renal failure: Status: Acute DS: Medications Discharge Medications Home Medications: Home Medications Medication Instructions Recorded Confirmed gabapentin 1 cap PO BID 06/28/20 06/28/20 gabapentin 2 tab PO BEDTIME 06/28/20 06/29/20 lisinopril 1 tab PO DAILY 06/28/20 06/28/20 naproxen 1 tab PO BID 06/28/20 06/28/20 DS: Summary Hospital Course Hospital Course: 60-year-old male with a past medical history of substance hypertension, hypercholesterolemia, EtOH abuse and back pain who presented to the emergency room for chest pain and rectal bleeding. In the emergency department patient?s reported that patient has been complaining of chest pain x3 weeks, he has been drinking half a pt of alcohol daily, and has had bright rectal bleeding in the last couple days. In the ED he reported the chest pain felt like ? pins and needles?, he denied radiation of pain. He stated that he has had an occasional cough which she believes is secondary to smoking. He denied fever or chills He also complains of shortness of breath and he states that is chronic as well. He states that he has hemorrhoids and often has bright red blood per rectum secondary to his hemorrhoids. Hospital Course problem danielle section: 1. AMADO: Renal failure may have been related to NSAID use.but hyperkalemia despite off stuart/nsaid's d/w nephro: Will K with Kayexalate, monitor electrolytes closely,Low-potassium diet. If patient hyperkalemia improves, remove dialysis catheter by tomorrow and then discharge home. Hold Lisinopril and Naproxen. Patient might need maintenance Kayexalate for some time. Will decide with Nephrology in the morning. Patient received dialysis in ICU for above. Metabolic encephalopathy seems to be resolved as well as metabolic acidosis. 2. Uncontrolled hypertension: We will add amlodipine. Monitor blood pressure closely. 3. Perianal rash:minor skin irritation and erythema around the perianal area and gluteal cleft - no true skin breakdown - suggest barrier cream, avoid diarrhea. if not improving consider adding some nystatin cream/ointment as with moisture area there may be a component of fungal infection. Patient will need VNA for about dressing change, monitor blood pressure, and help with appointment and labs. Above management discussed with the patient in detail length he understand and in agreement with the above plan, time spent 50 minutes and 50% time spent on counseling. Significant findings: As above. Procedures performed: None. Treatment and response: As above. Complications: None. Time Spent with Patient Time attestation: Total time spent providing and/or coordinating discharge services: Discharge coordination time: Greater than 30 minutes Physical Exam Vital Signs: Vital Signs: Last Vital Signs Temp 97.9 F 07/02/20 08:00 Pulse 81 07/02/20 08:00 Resp 18 07/02/20 08:00 BP 172/100 H 07/02/20 08:00 Pulse Ox 99 07/02/20 08:00 Body Mass Index 37.3 Physical exam Constitutional: Not in acute distress. Cvs: [id number], [id number] , no murmur res: clear to auscultation ,no rhonchii or wheezing abd: no rebound or guarding ,nt, bs present. ext pulses present , no cyanosis neuro: axo3 , nonfocal. DS: Data Data Completed and Pending Labs on day of discharge: Laboratory Tests 06/28/20 06/28/20 06/28/20 01:42 01:43 01:43 WBC 12.1 H RBC 3.50 L Hgb 12.3 L Hct 37.1 L MCV 106.0 H MCH 35.1 H MCHC 33.2 RDW 14.1 Plt Count 382 MPV 10.3 Immature Gran % (Auto) 1.2 H Neut % (Auto) 81.9 H Lymph % (Auto) 8.5 L [place] % (Auto) 6.1 Eos % (Auto) 1.7 Baso % (Auto) 0.6 Lymph # (Auto) 1.0 L [place] # (Auto) 0.7 Eos # (Auto) 0.2 Baso # (Auto) 0.1 Abs Immat Gran (auto) 0.15 H Absolute Neuts (auto) 9.9 H Absolute Nucleated RBC 0.000 Nucleated RBC % (auto) 0.0 PT 16.3 H INR 1.4 H APTT 40.9 H VBG pH VBG pCO2 VBG pO2 VBG HCO3 VBG O2 Saturation VBG Base Excess Sodium Potassium Chloride Carbon Dioxide Anion Gap BUN Creatinine Estim Creat Clear Calc Estimated GFR POC Glucose Random Glucose Calcium Phosphorus Magnesium Total Bilirubin AST ALT Alkaline Phosphatase Total Creatine Kinase Troponin I High Sens Total Protein Albumin Lipase Urine Color Urine Appearance Urine pH Ur Specific [place] Urine Protein Urine Glucose (UA) Urine Ketones Urine Blood Urine Nitrite Ur Leukocyte Esterase Urine RBC Urine WBC Ur Squamous Epith Cells Urine Bacteria Hyaline Casts Granular Casts Urine Mucus Urine Eosinophils % Ur Random Sodium Urine Creatinine Ethyl Alcohol LETICIA Screen Proteinase 3 (PR3) Ab Myeloperoxidase Ab Glomerular Base Memb Ab Complement C4 Coronavirus (PCR) Hepatitis A IgM Ab Hep Bs Antigen Hep Bs Antibody Hep B Core Total Ab Hepatitis C Ab (EIA) Influenza Type A (PCR) Influenza Type B (PCR) RSV RNA Qual (PCR) Blood Type B Positive Antibody Screen NEGATIVE 06/28/20 06/28/20 06/28/20 01:43 01:43 01:43 WBC RBC Hgb Hct MCV MCH MCHC RDW Plt Count MPV Immature Gran % (Auto) Neut % (Auto) Lymph % (Auto) [place] % (Auto) Eos % (Auto) Baso % (Auto) Lymph # (Auto) [place] # (Auto) Eos # (Auto) Baso # (Auto) Abs Immat Gran (auto) Absolute Neuts (auto) Absolute Nucleated RBC Nucleated RBC % (auto) PT INR APTT VBG pH VBG pCO2 VBG pO2 VBG HCO3 VBG O2 Saturation VBG Base Excess Sodium 129 L Potassium 8.3 H* Chloride 94 L Carbon Dioxide 12 L Anion Gap 31 H BUN 124 H* Creatinine 16.51 H* Estim Creat Clear Calc 9.2 Estimated GFR 3 POC Glucose Random Glucose 112 Calcium 8.1 L Phosphorus Magnesium Total Bilirubin 0.4 AST 9 ALT 7 Alkaline Phosphatase 111 Total Creatine Kinase Troponin I High Sens < 3.5 Total Protein 7.7 Albumin 3.8 Lipase 98 H Urine Color Urine Appearance Urine pH Ur Specific [place] Urine Protein Urine Glucose (UA) Urine Ketones Urine Blood Urine Nitrite Ur Leukocyte Esterase Urine RBC Urine WBC Ur Squamous Epith Cells Urine Bacteria Hyaline Casts Granular Casts Urine Mucus Urine Eosinophils % Ur Random Sodium Urine Creatinine Ethyl Alcohol < 10 LETICIA Screen Proteinase 3 (PR3) Ab Myeloperoxidase Ab Glomerular Base Memb Ab Complement C4 Coronavirus (PCR) Hepatitis A IgM Ab Hep Bs Antigen Hep Bs Antibody Hep B Core Total Ab Hepatitis C Ab (EIA) Influenza Type A (PCR) Influenza Type B (PCR) RSV RNA Qual (PCR) Blood Type Antibody Screen 06/28/20 06/28/20 06/28/20 01:51 01:55 02:42 WBC RBC Hgb Hct MCV MCH MCHC RDW Plt Count MPV Immature Gran % (Auto) Neut % (Auto) Lymph % (Auto) [place] % (Auto) Eos % (Auto) Baso % (Auto) Lymph # (Auto) [place] # (Auto) Eos # (Auto) Baso # (Auto) Abs Immat Gran (auto) Absolute Neuts (auto) Absolute Nucleated RBC Nucleated RBC % (auto) PT INR APTT VBG pH VBG pCO2 VBG pO2 VBG HCO3 VBG O2 Saturation VBG Base Excess Sodium 129 L Potassium 8.2 H* Chloride 95 L Carbon Dioxide 14 L Anion Gap 28 H BUN 122 H* Creatinine 16.20 H* Estim Creat Clear Calc 9.3 Estimated GFR 3 POC Glucose 85 Random Glucose 113 Calcium 7.8 L Phosphorus Magnesium Total Bilirubin AST ALT Alkaline Phosphatase Total Creatine Kinase 52 Troponin I High Sens Total Protein Albumin Lipase Urine Color Urine Appearance Urine pH Ur Specific [place] Urine Protein Urine Glucose (UA) Urine Ketones Urine Blood Urine Nitrite Ur Leukocyte Esterase Urine RBC Urine WBC Ur Squamous Epith Cells Urine Bacteria Hyaline Casts Granular Casts Urine Mucus Urine Eosinophils % Ur Random Sodium Urine Creatinine Ethyl Alcohol LETICIA Screen Proteinase 3 (PR3) Ab Myeloperoxidase Ab Glomerular Base Memb Ab Complement C4 Coronavirus (PCR) NEGATIVE Hepatitis A IgM Ab Hep Bs Antigen Hep Bs Antibody Hep B Core Total Ab Hepatitis C Ab (EIA) Influenza Type A (PCR) NEGATIVE Influenza Type B (PCR) NEGATIVE RSV RNA Qual (PCR) NEGATIVE Blood Type Antibody Screen 06/28/20 06/28/20 06/28/20 04:12 06:22 06:22 WBC RBC Hgb Hct MCV MCH MCHC RDW Plt Count MPV Immature Gran % (Auto) Neut % (Auto) Lymph % (Auto) [place] % (Auto) Eos % (Auto) Baso % (Auto) Lymph # (Auto) [place] # (Auto) Eos # (Auto) Baso # (Auto) Abs Immat Gran (auto) Absolute Neuts (auto) Absolute Nucleated RBC Nucleated RBC % (auto) PT INR APTT VBG pH VBG pCO2 VBG pO2 VBG HCO3 VBG O2 Saturation VBG Base Excess Sodium Potassium Chloride Carbon Dioxide Anion Gap BUN Creatinine Estim Creat Clear Calc Estimated GFR POC Glucose Random Glucose Calcium Phosphorus Magnesium Total Bilirubin AST ALT Alkaline Phosphatase Total Creatine Kinase Troponin I High Sens Total Protein Albumin Lipase Urine Color YELLOW Urine Appearance HAZY Urine pH 5.0 Ur Specific [place] >= 1.030 H Urine Protein TRACE Urine Glucose (UA) NEG Urine Ketones 5 Urine Blood TRACE Urine Nitrite NEG Ur Leukocyte Esterase NEG Urine RBC 1-4 Urine WBC 1-4 Ur Squamous Epith Cells 1+ Urine Bacteria 2+ Hyaline Casts 1-4 Granular Casts 1-4 Urine Mucus 1+ Urine Eosinophils % Ur Random Sodium Urine Creatinine Ethyl Alcohol LETICIA Screen Proteinase 3 (PR3) Ab Myeloperoxidase Ab Glomerular Base Memb Ab Complement C4 Coronavirus (PCR) Hepatitis A IgM Ab Nonreactive Hep Bs Antigen Negative Hep Bs Antibody NONREACTIVE Hep B Core Total Ab Nonreactive Hepatitis C Ab (EIA) Nonreactive Influenza Type A (PCR) Influenza Type B (PCR) RSV RNA Qual (PCR) Blood Type Antibody Screen 06/28/20 06/28/20 06/28/20 11:29 11:29 11:29 WBC 9.5 RBC 3.40 L Hgb 11.6 L Hct 34.9 L MCV 102.6 H MCH 34.1 H MCHC 33.2 RDW 13.6 Plt Count 356 MPV 10.0 Immature Gran % (Auto) 2.4 H Neut % (Auto) 72.0 Lymph % (Auto) 13.5 L [place] % (Auto) 8.0 Eos % (Auto) 3.6 Baso % (Auto) 0.5 Lymph # (Auto) 1.3 [place] # (Auto) 0.8 Eos # (Auto) 0.3 Baso # (Auto) 0.1 Abs Immat Gran (auto) 0.23 H Absolute Neuts (auto) 6.8 Absolute Nucleated RBC 0.000 Nucleated RBC % (auto) 0.0 PT INR APTT VBG pH 7.31 L VBG pCO2 38 VBG pO2 63 VBG HCO3 19 VBG O2 Saturation 89.4 VBG Base Excess -6.7 Sodium 136 Potassium 4.7 D Chloride 98 Carbon Dioxide 16 L Anion Gap 27 H BUN 74 H Creatinine 10.13 H* Estim Creat Clear Calc 9.7 Estimated GFR 5 POC Glucose Random Glucose 112 Calcium 8.3 L D Phosphorus 6.1 H Magnesium 2.1 Total Bilirubin AST ALT Alkaline Phosphatase Total Creatine Kinase Troponin I High Sens Total Protein Albumin Lipase Urine Color Urine Appearance Urine pH Ur Specific [place] Urine Protein Urine Glucose (UA) Urine Ketones Urine Blood Urine Nitrite Ur Leukocyte Esterase Urine RBC Urine WBC Ur Squamous Epith Cells Urine Bacteria Hyaline Casts Granular Casts Urine Mucus Urine Eosinophils % Ur Random Sodium Urine Creatinine Ethyl Alcohol LETICIA Screen Proteinase 3 (PR3) Ab Myeloperoxidase Ab Glomerular Base Memb Ab Complement C4 Coronavirus (PCR) Hepatitis A IgM Ab Hep Bs Antigen Hep Bs Antibody Hep B Core Total Ab Hepatitis C Ab (EIA) Influenza Type A (PCR) Influenza Type B (PCR) RSV RNA Qual (PCR) Blood Type Antibody Screen 06/28/20 06/28/20 06/28/20 13:00 13:00 13:15 WBC RBC Hgb Hct MCV MCH MCHC RDW Plt Count MPV Immature Gran % (Auto) Neut % (Auto) Lymph % (Auto) [place] % (Auto) Eos % (Auto) Baso % (Auto) Lymph # (Auto) [place] # (Auto) Eos # (Auto) Baso # (Auto) Abs Immat Gran (auto) Absolute Neuts (auto) Absolute Nucleated RBC Nucleated RBC % (auto) PT INR APTT VBG pH VBG pCO2 VBG pO2 VBG HCO3 VBG O2 Saturation VBG Base Excess Sodium Potassium Chloride Carbon Dioxide Anion Gap BUN Creatinine Estim Creat Clear Calc Estimated GFR POC Glucose Random Glucose Calcium Phosphorus Magnesium Total Bilirubin AST ALT Alkaline Phosphatase Total Creatine Kinase Troponin I High Sens Total Protein Albumin Lipase Urine Color Urine Appearance Urine pH Ur Specific [place] Urine Protein Urine Glucose (UA) Urine Ketones Urine Blood Urine Nitrite Ur Leukocyte Esterase Urine RBC Urine WBC Ur Squamous Epith Cells Urine Bacteria Hyaline Casts Granular Casts Urine Mucus Urine Eosinophils % Ur Random Sodium 47.0 Urine Creatinine 133.62 Ethyl Alcohol LETICIA Screen NEGATIVE Proteinase 3 (PR3) Ab <1.0 Myeloperoxidase Ab 5.3 H Glomerular Base Memb Ab <1.0 Complement C4 33 Coronavirus (PCR) Hepatitis A IgM Ab Hep Bs Antigen Hep Bs Antibody Hep B Core Total Ab Hepatitis C Ab (EIA) Influenza Type A (PCR) Influenza Type B (PCR) RSV RNA Qual (PCR) Blood Type Antibody Screen 06/28/20 06/28/20 06/29/20 13:15 17:20 05:36 WBC 7.9 RBC 3.24 L Hgb 11.0 L Hct 32.9 L MCV 101.5 H MCH 34.0 H MCHC 33.4 RDW 13.5 Plt Count 327 MPV 9.8 Immature Gran % (Auto) 1.5 H Neut % (Auto) 70.0 Lymph % (Auto) 11.5 L [place] % (Auto) 11.6 H Eos % (Auto) 4.6 H Baso % (Auto) 0.8 Lymph # (Auto) 0.9 L [place] # (Auto) 0.9 Eos # (Auto) 0.4 Baso # (Auto) 0.1 Abs Immat Gran (auto) 0.12 H Absolute Neuts (auto) 5.5 Absolute Nucleated RBC 0.000 Nucleated RBC % (auto) 0.0 PT INR APTT VBG pH VBG pCO2 VBG pO2 VBG HCO3 VBG O2 Saturation VBG Base Excess Sodium 136 Potassium 4.8 Chloride 99 Carbon Dioxide 21 L Anion Gap 21 H BUN 76 H Creatinine 10.28 H* Estim Creat Clear Calc 9.5 Estimated GFR 5 POC Glucose Random Glucose 117 H Calcium 8.0 L Phosphorus Magnesium Total Bilirubin AST ALT Alkaline Phosphatase Total Creatine Kinase Troponin I High Sens Total Protein Albumin Lipase Urine Color Urine Appearance Urine pH Ur Specific [place] Urine Protein Urine Glucose (UA) Urine Ketones Urine Blood Urine Nitrite Ur Leukocyte Esterase Urine RBC Urine WBC Ur Squamous Epith Cells Urine Bacteria Hyaline Casts Granular Casts Urine Mucus Urine Eosinophils % 0.0 Ur Random Sodium Urine Creatinine Ethyl Alcohol LETICIA Screen Proteinase 3 (PR3) Ab Myeloperoxidase Ab Glomerular Base Memb Ab Complement C4 Coronavirus (PCR) Hepatitis A IgM Ab Hep Bs Antigen Hep Bs Antibody Hep B Core Total Ab Hepatitis C Ab (EIA) Influenza Type A (PCR) Influenza Type B (PCR) RSV RNA Qual (PCR) Blood Type Antibody Screen 06/29/20 06/29/20 06/30/20 05:36 05:36 10:25 WBC RBC Hgb Hct MCV MCH MCHC RDW Plt Count MPV Immature Gran % (Auto) Neut % (Auto) Lymph % (Auto) [place] % (Auto) Eos % (Auto) Baso % (Auto) Lymph # (Auto) [place] # (Auto) Eos # (Auto) Baso # (Auto) Abs Immat Gran (auto) Absolute Neuts (auto) Absolute Nucleated RBC Nucleated RBC % (auto) PT INR APTT VBG pH 7.37 VBG pCO2 40 VBG pO2 60 VBG HCO3 23 VBG O2 Saturation 89.1 VBG Base Excess -2.4 Sodium 137 137 Potassium 5.1 4.9 Chloride 101 103 Carbon Dioxide 22 21 L Anion Gap 19 18 BUN 73 H 58 H Creatinine 8.18 H* 3.99 H Estim Creat Clear Calc 12.0 23.8 Estimated GFR 7 16 POC Glucose Random Glucose 104 119 H Calcium 8.3 L 8.3 L Phosphorus 6.4 H Magnesium 2.0 Total Bilirubin 0.4 AST 11 ALT 7 Alkaline Phosphatase 97 Total Creatine Kinase Troponin I High Sens Total Protein 6.3 L Albumin 3.3 L Lipase Urine Color Urine Appearance Urine pH Ur Specific [place] Urine Protein Urine Glucose (UA) Urine Ketones Urine Blood Urine Nitrite Ur Leukocyte Esterase Urine RBC Urine WBC Ur Squamous Epith Cells Urine Bacteria Hyaline Casts Granular Casts Urine Mucus Urine Eosinophils % Ur Random Sodium Urine Creatinine Ethyl Alcohol LETICIA Screen Proteinase 3 (PR3) Ab Myeloperoxidase Ab Glomerular Base Memb Ab Complement C4 Coronavirus (PCR) Hepatitis A IgM Ab Hep Bs Antigen Hep Bs Antibody Hep B Core Total Ab Hepatitis C Ab (EIA) Influenza Type A (PCR) Influenza Type B (PCR) RSV RNA Qual (PCR) Blood Type Antibody Screen 07/01/20 07/01/20 07/02/20 05:56 12:01 06:53 WBC RBC Hgb Hct MCV MCH MCHC RDW Plt Count MPV Immature Gran % (Auto) Neut % (Auto) Lymph % (Auto) [place] % (Auto) Eos % (Auto) Baso % (Auto) Lymph # (Auto) [place] # (Auto) Eos # (Auto) Baso # (Auto) Abs Immat Gran (auto) Absolute Neuts (auto) Absolute Nucleated RBC Nucleated RBC % (auto) PT INR APTT VBG pH VBG pCO2 VBG pO2 VBG HCO3 VBG O2 Saturation VBG Base Excess Sodium 137 138 Potassium 5.6 H 4.7 5.0 Chloride 105 107 Carbon Dioxide 20 L 19 L Anion Gap 18 17 BUN 42 H 30 H Creatinine 2.61 H 1.83 H Estim Creat Clear Calc 36.1 51.5 Estimated GFR 25 38 POC Glucose Random Glucose 101 101 Calcium 8.2 L 8.5 Phosphorus Magnesium Total Bilirubin AST ALT Alkaline Phosphatase Total Creatine Kinase Troponin I High Sens Total Protein Albumin Lipase Urine Color Urine Appearance Urine pH Ur Specific [place] Urine Protein Urine Glucose (UA) Urine Ketones Urine Blood Urine Nitrite Ur Leukocyte Esterase Urine RBC Urine WBC Ur Squamous Epith Cells Urine Bacteria Hyaline Casts Granular Casts Urine Mucus Urine Eosinophils % Ur Random Sodium Urine Creatinine Ethyl Alcohol LETICIA Screen Proteinase 3 (PR3) Ab Myeloperoxidase Ab Glomerular Base Memb Ab Complement C4 Coronavirus (PCR) Hepatitis A IgM Ab Hep Bs Antigen Hep Bs Antibody Hep B Core Total Ab Hepatitis C Ab (EIA) Influenza Type A (PCR) Influenza Type B (PCR) RSV RNA Qual (PCR) Blood Type Antibody Screen Discharge Plan Discharge Patient Disposition: Home Health Service Referrals: [facility] [Outside] (PATIENT IS DISCHARGED HOME WITH [facility].) Physician,None [Primary Care Provider] - Discharge Medications: New amlodipine 5 mg Tablet 7.5 mg PO DAILY Qty: 45 RF: 0 azelastine 137 mcg (0.1 %) Aerosol,Donaldson 1 spray intranasal BID Qty: 30 RF: 0 Continued gabapentin 300 mg capsule 1 cap PO BID Qty: 60 RF: 0 Discontinued gabapentin 600 mg tablet 2 tab PO BEDTIME RF: 0 lisinopril 40 mg tablet 1 tab PO DAILY RF: 0 naproxen 500 mg tablet 1 tab PO BID RF: 0 Discharge Orders: Discharge Order (Routine); Ordered 07/02/20 Ordered By: Alexandra Jennings Diet: other Activity on Discharge: As tolerated Other Ambulatory Orders: Basic Metabolic Panel Fasting (Routine) Timeframe: 3 Days Facility: [facility] - Location: Laboratory Ordered By: Alexandra Jennings Visit Report Forms: Patient Portal Discharge page Care Plan Goals: Patient came with AMADO and hyperkalemia: Admitted to ICU and required dialysis for that also. Patient hyperkalemia and AMADO improved significantly-patient went told to avoid lisinopril (STUART)as well as NSAIDS. Monitor renal function and electrolytes out patiently with PCP and further management as per PCP. Patient was also advised for low-potassium diet. Patient will need help with going to the appointments as well as labs monitoring-case management is aware to arrange [facility] for that. Health Concerns: As above. Plan of Treatment: As above.
--- NOTE | 2020-07-02 12:23 | MHC.CM.PN ---
[facility] IS OFFERING SERVICES. AND PATIENT AWARE.
--- NOTE | 2020-07-02 12:40 | W.MHC.F2F ---
Service Date Service Date: 07/02/20 Encounter Date of encounter: 07/02/20 Encounter: angie , perianal rash Reasons for Services Homebound: Leaving the home is medically contraindicated at this time without the asist of a device and/or another person due th the listed conditions above and below. Homebound supporting statement: Patient need help with dressing change, labs and may need help with appointment. Certification: Based on the above findings, I certify that this patient is confined to the home and needs intermittent half-way care, physical therapy and/or speech therapy, or continues to need occupational therapy. The patient is under my care, and I have initiated the establishment of the plan of care. The patient will be followed by a physician who will periodically review the plan of care.
== END 2020-07-02 13:05 | disposition home health service (06) | DRG 682 ==
LOC: HO.ED 06-28 04:41 → HO.ICU 06-28 05:46 → HO.S3 06-29 11:42
PROVIDERS: Internal Medicine; Internal Medicine Nephrology; Registered Nurse Community Health; Admitting Provider Internal Medicine Pulmonary Disease; Emergency Provider Emergency Medicine Emergency Medical Services; PCP Physical Medicine & Rehabilitation; Visit Provider Internal Medicine
DX: N17.9 Acute kidney failure, unspecified (principal); G93.41 Metabolic encephalopathy; J96.01 Acute respiratory failure with hypoxia; E87.2 Acidosis; K62.5 Hemorrhage of anus and rectum; K64.9 Unspecified hemorrhoids; F10.10 Alcohol abuse, uncomplicated; E66.9 Obesity, unspecified; I95.9 Hypotension, unspecified; R21 Rash and other nonspecific skin eruption; Z68.37 Body mass index [BMI] 37.0-37.9, adult; E87.5 Hyperkalemia; G89.29 Other chronic pain; Z20.828 Contact with and (suspected) exposure to other viral communicable diseases; F17.210 Nicotine dependence, cigarettes, uncomplicated; Z71.6 Tobacco abuse counseling; Z79.899 Other long term (current) drug therapy
CPT/HCPCS: 0241U; 36415; 71045; 71046; 76775; 80048; 80053; 80320; 81001; 82550; 82803; 82947; 83520; 83690; 83735; 84100; 84132; 84300; 84484; 85025; 85610; 85730; 86021; 86038; 86039; 86160; 86704; 86706; 86709; 86803; 86850; 86900; 86901; 87340; 89190; 90999; 93005; 94002; 94003; 96361; 96374; 96375; 99285; 99291; J2150; J2250

== ENCOUNTER 2020-07-09 10:31 | Outpatient (REF) | payer MEDICARE, MEDICAID, SELFPAY ==
[2020-07-09 11:52] LABS: Anion Gap 15 (12-20); Blood Urea Nitrogen 41 mg/dL (9-16); Calcium 9.4 mg/dL (8.4-10.2); Carbon Dioxide 19 mmol/L (22-29); Chloride 103 mmol/L (96-108); Estimated Glomerular Filt Rate 55; Glucose Fasting 121 mg/dL (60-99); Potassium 6.5 mmol/l (3.3-5.1); Sodium 130 mmol/L (135-145)
== END 2020-07-09 10:32 | disposition home or self-care (01) ==
LOC: HO.LAB 10:31
PROVIDERS: PCP Family Medicine; Visit Provider Internal Medicine
DX: N17.9 Acute kidney failure, unspecified (principal)
CPT/HCPCS: 36415; 80048

== ENCOUNTER 2020-07-13 11:09 | Outpatient (REF) | payer MEDICARE, MEDICAID, SELFPAY ==
[2020-07-13 13:41] LABS: Basophils Absolute Auto 0.2 X10*3/uL (0.0-0.2); Basophils Percent Auto 0.9 % (0-2); Eosinophils Absolute Auto 0.6 X10*3/uL (0.0-0.4); Eosinophils Percent Auto 3.7 % (0-4); Hematocrit 39.1 % (42-52); Hemoglobin 12.7 g/dl (14.0-18.0); Imm Gran Abs Auto 0.15 X10*3/uL (0.00-0.03); Imm Gran Pct Auto 0.9 % (0.0-0.4); Lymphocytes Absolute Auto 1.9 X10*3/uL (1.2-4.9); MANUAL DIFF FLAG SCAN; Mean Corpuscular HGB Conc 32.5 g/dl (31.0-36.0); Mean Corpuscular Hemoglobin 33.4 pg (27.0-33.0); Mean Corpuscular Volume 102.9 fL (80-98); Mean Platelet Volume 10.1 fL (9.4-12.4); Monocytes Absolute Auto 1.5 X10*3/uL (0.1-1.2); Monocytes Percent Auto 9.6 % (2-11); Neutrophils Absolute Auto 11.7 X10*3/uL (2.0-8.3); Neutrophils Percent Auto 72.9 % (45-73); Red Cell Distribution Width 12.8 % (11.0-16.0); SCAN SMEAR FLAG 1; White Blood Count 16.1 X10*3/uL (4.8-10.8)
[2020-07-13 14:18] LABS: Platelet Count 1024 X10*3/uL (160-400)
[2020-07-13 14:30] LABS: Alanine Aminotransferase 33 U/L (0-40); Albumin Level 4.2 g/dL (3.5-5.0); Alkaline Phosphatase 98 U/L (39-117); Aspartate Amino Transferase 15 U/L (5-37); Bilirubin Total 0.4 mg/dL (0.0-1.0); Blood Urea Nitrogen 33 mg/dL (9-16); Calcium 9.3 mg/dL (8.4-10.2); Estimated Glomerular Filt Rate 59; Glucose Random 99 mg/dL (60-115); Total Protein 7.8 g/dL (6.5-8.0); Uric Acid 7.4 mg/dL (3.4-7.0)
[2020-07-13 14:48] LABS: SLIDE REVIEW VERIFIED
[2020-07-13 14:51] LABS: Anion Gap 16 (12-20); Carbon Dioxide 20 mmol/L (22-29); Chloride 103 mmol/L (96-108); Potassium 5.8 mmol/l (3.3-5.1); Sodium 133 mmol/L (135-145)
== END 2020-07-13 11:10 | disposition home or self-care (01) ==
LOC: HO.WFDLDS 11:09
PROVIDERS: Visit Provider Family Medicine
DX: E87.5 Hyperkalemia (principal); N17.9 Acute kidney failure, unspecified; K62.5 Hemorrhage of anus and rectum; M54.9 Dorsalgia, unspecified; Z87.39 Personal history of other diseases of the musculoskeletal system and connective tissue
CPT/HCPCS: 36415; 80053; 84550; 85025; 85060

== ENCOUNTER 2020-07-19 10:30 | Outpatient (REF) | payer MEDICARE, MEDICAID, SELFPAY ==
[2020-07-19 14:01] LABS: Anion Gap 16 (12-20); Blood Urea Nitrogen 24 mg/dL (9-16); Carbon Dioxide 22 mmol/L (22-29); Chloride 105 mmol/L (96-108); Estimated Glomerular Filt Rate 55; Glucose Random 90 mg/dL (60-115); Potassium 5.6 mmol/L (3.3-5.1); Sodium 137 mmol/L (135-145)
== END 2020-07-19 10:31 | disposition home or self-care (01) ==
LOC: HO.WFDLDS 10:30
PROVIDERS: Visit Provider Hospitalist
DX: E87.5 Hyperkalemia (principal)
CPT/HCPCS: 36415; 80048

== ENCOUNTER → 2020-07-20 13:27 | Outpatient (BNVA) | payer MEDICARE, MEDICAID, SELFPAY | PROVIDERS: PCP Family Medicine; Visit Provider Nurse Practitioner Family | DX: M25.50 Pain in unspecified joint (principal); M47.816 Spondylosis without myelopathy or radiculopathy, lumbar region; Z87.39 Personal history of other diseases of the musculoskeletal system and connective tissue | CPT/HCPCS: 99202 ==

== ENCOUNTER 2020-07-26 12:19 | Outpatient (REF) | payer MEDICARE, MEDICAID, SELFPAY ==
[2020-07-26 14:07] LABS: Hematocrit 33.5 % (42-52); Mean Corpuscular HGB Conc 32.8 g/dl (31.0-36.0); Mean Corpuscular Hemoglobin 32.9 pg (27.0-33.0); Mean Corpuscular Volume 100.3 fL (80-98); Mean Platelet Volume 9.3 fL (9.4-12.4); Platelet Count 511 X10*3/uL (160-400); Red Blood Count 3.34 X10*6/uL (4.60-5.80); Red Cell Distribution Width 13.2 % (11.0-16.0); White Blood Count 7.8 X10*3/uL (4.8-10.8)
[2020-07-26 14:36] LABS: Uric Acid 8.7 mg/dL (3.4-7.0)
== END 2020-07-26 12:20 | disposition home or self-care (01) ==
LOC: HO.WFDLDS 12:19
PROVIDERS: Hospitalist; Visit Provider Family Medicine
DX: R89.9 Unspecified abnormal finding in specimens from other organs, systems and tissues (principal); Z87.39 Personal history of other diseases of the musculoskeletal system and connective tissue
CPT/HCPCS: 36415; 84550; 85027

== ENCOUNTER 2020-07-28 10:14 | Outpatient (REF) | payer MEDICARE, MEDICAID, SELFPAY ==
[2020-07-28 10:55] LABS: Alanine Aminotransferase 22 U/L (0-40); Albumin Level 3.6 g/dL (3.5-5.0); Alkaline Phosphatase 116 U/L (39-117); Anion Gap 16 (12-20); Aspartate Amino Transferase 18 U/L (5-37); Bilirubin Total 0.2 mg/dL (0.0-1.0); Blood Urea Nitrogen 17 mg/dL (9-16); Calcium 8.6 mg/dL (8.4-10.2); Carbon Dioxide 21 mmol/L (22-29); Chloride 105 mmol/L (96-108); Estimated Glomerular Filt Rate 60; Glucose Random 102 mg/dL (60-115); Potassium 5.6 mmol/L (3.3-5.1); Sodium 136 mmol/L (135-145); Total Protein 7.1 g/dL (6.5-8.0)
== END 2020-07-28 10:15 | disposition home or self-care (01) ==
LOC: HO.LNP 10:14
PROVIDERS: Visit Provider Family Medicine
DX: N17.9 Acute kidney failure, unspecified (principal); I10 Essential (primary) hypertension; E87.5 Hyperkalemia
CPT/HCPCS: 80053

== ENCOUNTER 2020-08-11 09:04 | Outpatient (REF) | payer MEDICARE, MEDICAID, SELFPAY ==
[2020-08-11 12:04] LABS: Anion Gap 13 (12-20); Blood Urea Nitrogen 23 mg/dL (9-16); Calcium 9.1 mg/dL (8.4-10.2); Carbon Dioxide 22 mmol/L (22-29); Chloride 107 mmol/L (96-108); Estimated Glomerular Filt Rate 60; Glucose Random 104 mg/dL (60-115); Potassium 4.9 mmol/L (3.3-5.1); Sodium 137 mmol/L (135-145); Uric Acid 7.6 mg/dL (3.4-7.0)
[2020-08-11 14:42] LABS: Creatinine Urine 84.17 mg/dL; Microalbumin Urine < 5.0 mg/L
== END 2020-08-11 09:05 | disposition home or self-care (01) ==
LOC: HO.WFDLDS 09:04
PROVIDERS: Visit Provider Family Medicine
DX: Z00.00 Encounter for general adult medical examination without abnormal findings (principal); E87.5 Hyperkalemia; E79.0 Hyperuricemia without signs of inflammatory arthritis and tophaceous disease
CPT/HCPCS: 36415; 80048; 82043; 84550

== ENCOUNTER 2020-09-27 15:42 | Emergency (ER) | payer MEDICARE, MEDICAID, SELFPAY ==
--- NOTE | ~2020-09-27 | XR_ITS ---
EXAMINATION: RIGHT HAND/WRIST/RIGHT ANKLE, RIGHT FOOT AND RIGHT KNEE CLINICAL INFORMATION: Fall. COMPARISON: None TECHNIQUE: Right knee 4 views, right foot 3 views, right ankle and right hand/wrist FINDINGS: Right knee: There is no visible acute fracture, dislocation or subluxation. As moderate suprapatellar joint effusion. No loose body seen. Right foot: There is mild hallux valgus deformity first MTP joint with loss of joint space, medial spurring and irregular articular surface suggestive of degenerative arthritic changes. There is mild osteopenia. No visible acute fracture or dislocation seen. Right ankle: The ankle mortise and subtalar joints are normal. No visible acute fracture dislocation involving the ankle joint. The soft tissues are normal. Right hand/wrist: There is no visible acute fracture, dislocation or subluxation seen. The soft tissues are normal. XR/XR foot RT min 3V IMPRESSION: Mild hallux valgus deformity first MTP joint with loss of joint space and irregular bony undersurface consistent degenerative arthritic changes of the right foot. There is no acute fracture dislocation involving the right foot on the right ankle. Moderate suprapatellar joint effusion right knee without any visible acute fracture or dislocation seen. Unremarkable right hand and wrist exam. Mild osteopenia.
--- NOTE | ~2020-09-27 | XR_ITS ---
EXAMINATION: RIGHT HAND/WRIST/RIGHT ANKLE, RIGHT FOOT AND RIGHT KNEE CLINICAL INFORMATION: Fall. COMPARISON: None TECHNIQUE: Right knee 4 views, right foot 3 views, right ankle and right hand/wrist FINDINGS: Right knee: There is no visible acute fracture, dislocation or subluxation. As moderate suprapatellar joint effusion. No loose body seen. Right foot: There is mild hallux valgus deformity first MTP joint with loss of joint space, medial spurring and irregular articular surface suggestive of degenerative arthritic changes. There is mild osteopenia. No visible acute fracture or dislocation seen. Right ankle: The ankle mortise and subtalar joints are normal. No visible acute fracture dislocation involving the ankle joint. The soft tissues are normal. Right hand/wrist: There is no visible acute fracture, dislocation or subluxation seen. The soft tissues are normal. XR/XR ankle RT min 3V IMPRESSION: Mild hallux valgus deformity first MTP joint with loss of joint space and irregular bony undersurface consistent degenerative arthritic changes of the right foot. There is no acute fracture dislocation involving the right foot on the right ankle. Moderate suprapatellar joint effusion right knee without any visible acute fracture or dislocation seen. Unremarkable right hand and wrist exam. Mild osteopenia.
--- NOTE | ~2020-09-27 | XR_ITS ---
EXAMINATION: RIGHT HAND/WRIST/RIGHT ANKLE, RIGHT FOOT AND RIGHT KNEE CLINICAL INFORMATION: Fall. COMPARISON: None TECHNIQUE: Right knee 4 views, right foot 3 views, right ankle and right hand/wrist FINDINGS: Right knee: There is no visible acute fracture, dislocation or subluxation. As moderate suprapatellar joint effusion. No loose body seen. Right foot: There is mild hallux valgus deformity first MTP joint with loss of joint space, medial spurring and irregular articular surface suggestive of degenerative arthritic changes. There is mild osteopenia. No visible acute fracture or dislocation seen. Right ankle: The ankle mortise and subtalar joints are normal. No visible acute fracture dislocation involving the ankle joint. The soft tissues are normal. Right hand/wrist: There is no visible acute fracture, dislocation or subluxation seen. The soft tissues are normal. XR/XR knee RT 4V IMPRESSION: Mild hallux valgus deformity first MTP joint with loss of joint space and irregular bony undersurface consistent degenerative arthritic changes of the right foot. There is no acute fracture dislocation involving the right foot on the right ankle. Moderate suprapatellar joint effusion right knee without any visible acute fracture or dislocation seen. Unremarkable right hand and wrist exam. Mild osteopenia.
--- NOTE | ~2020-09-27 | XR_ITS ---
EXAMINATION: RIGHT HAND/WRIST/RIGHT ANKLE, RIGHT FOOT AND RIGHT KNEE CLINICAL INFORMATION: Fall. COMPARISON: None TECHNIQUE: Right knee 4 views, right foot 3 views, right ankle and right hand/wrist FINDINGS: Right knee: There is no visible acute fracture, dislocation or subluxation. As moderate suprapatellar joint effusion. No loose body seen. Right foot: There is mild hallux valgus deformity first MTP joint with loss of joint space, medial spurring and irregular articular surface suggestive of degenerative arthritic changes. There is mild osteopenia. No visible acute fracture or dislocation seen. Right ankle: The ankle mortise and subtalar joints are normal. No visible acute fracture dislocation involving the ankle joint. The soft tissues are normal. Right hand/wrist: There is no visible acute fracture, dislocation or subluxation seen. The soft tissues are normal. XR/XR hand wrist RT IMPRESSION: Mild hallux valgus deformity first MTP joint with loss of joint space and irregular bony undersurface consistent degenerative arthritic changes of the right foot. There is no acute fracture dislocation involving the right foot on the right ankle. Moderate suprapatellar joint effusion right knee without any visible acute fracture or dislocation seen. Unremarkable right hand and wrist exam. Mild osteopenia.
[2020-09-27 15:48] VITALS: BP 139/83; PULSE 90
[2020-09-27 16:04] VITALS: BP 150/84; PULSE 93; RESP 18; TEMP 36.7; O2SAT 98; BMI 37.5
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
[2020-09-27] MEDS: oxyCODONE HCl Immed Release 5 MG TABLET 10 MG PO (16:56)
--- NOTE | 2020-09-27 17:17 | PC.NURSE ---
PATIENT GIVEN STUART WRAP, ANKLE SUPPORT AND CRUTCHES.
== END 2020-09-27 17:30 | disposition home or self-care (01) ==
PROVIDERS: Emergency Provider Emergency Medicine
DX: S83.91XA Sprain of unspecified site of right knee, initial encounter (principal); S93.401A Sprain of unspecified ligament of right ankle, initial encounter; W05.2XXA Fall from non-moving motorized mobility scooter, initial encounter; M25.461 Effusion, right knee; I10 Essential (primary) hypertension; E78.00 Pure hypercholesterolemia, unspecified; F10.10 Alcohol abuse, uncomplicated; Z87.891 Personal history of nicotine dependence; Y93.89 Activity, other specified; Y92.480 Sidewalk as the place of occurrence of the external cause; Y99.9 Unspecified external cause status
CPT/HCPCS: 73110; 73130; 73564; 73610; 73630; 99283

== ENCOUNTER → 2020-10-11 13:03 | Outpatient (BNVA) | payer MEDICARE, MEDICAID, SELFPAY | PROVIDERS: PCP Family Medicine; Visit Provider Physician Assistant | DX: S83.91XA Sprain of unspecified site of right knee, initial encounter (principal) | CPT/HCPCS: 99202; J1040 ==

== ENCOUNTER → 2020-11-01 09:33 | Outpatient (BNVA) | payer MEDICARE, MEDICAID, SELFPAY | PROVIDERS: PCP Family Medicine; Visit Provider Physician Assistant | DX: S83.91XD Sprain of unspecified site of right knee, subsequent encounter (principal) | CPT/HCPCS: 99212 ==

== ENCOUNTER 2020-12-08 10:14 | Outpatient (REF) | payer MEDICARE, MEDICAID, SELFPAY ==
[2020-12-08 14:37] LABS: Anion Gap 14 (12-20); Blood Urea Nitrogen 19 mg/dL (9-16); Calcium 9.1 mg/dL (8.4-10.2); Carbon Dioxide 23 mmol/L (22-29); Chloride 109 mmol/L (96-108); Estimated Glomerular Filt Rate > 60; Glucose Random 120 mg/dL (60-115); Potassium 4.5 mmol/L (3.3-5.1); Sodium 141 mmol/L (135-145)
== END 2020-12-08 10:15 | disposition home or self-care (01) ==
LOC: HO.WFDLNP 10:14
PROVIDERS: Visit Provider Family Medicine
DX: E87.5 Hyperkalemia (principal); N17.9 Acute kidney failure, unspecified
CPT/HCPCS: 80048

== ENCOUNTER → 2020-12-14 09:20 | Outpatient (BNVA) | payer MEDICARE, MEDICAID, SELFPAY | PROVIDERS: PCP Family Medicine; Visit Provider Physician Assistant | DX: S83.91XD Sprain of unspecified site of right knee, subsequent encounter (principal) | CPT/HCPCS: 99212 ==

== ENCOUNTER 2020-12-27 18:58 | Outpatient (REF) | payer MEDICARE, MEDICAID, SELFPAY ==
--- NOTE | ~2020-12-27 | MR_ITS ---
EXAMINATION: MR KNEE WITHOUT CONTRAST, RIGHT CLINICAL INFORMATION: Right knee pain, injury with symptoms for 2 months. COMPARISON: 09/27/2020 TECHNIQUE: MRI of the knee without contrast was performed using routine sequences on a high-field scanner. FINDINGS: MENISCI: Medial Meniscus: Intact. Lateral Meniscus: Intact. LIGAMENTS: Cruciate: Intact. Collateral: Soft tissue edema surrounds the proximal MCL with longitudinal partial tearing between the deep and mid fibers and reactive edema or contusion of the medial femoral condyle. There is a strain/ill-defined partial tear of the popliteus tendon with prominent marrow edema of the subjacent lateral femoral condyle. Mild strain or reactive edema of the popliteus muscle. Possible grade 1 sprain of the proximal fibular collateral ligament. The biceps femoris and iliotibial band appear intact. Mild strain or reactive edema of the popliteus muscle. EXTENSOR MECHANISM: Intact. ARTICULAR CARTILAGE/BONE: Patellofemoral Compartment: Normal. Medial Compartment: Mild cartilage thinning throughout the weightbearing aspect. Lateral Compartment: Normal. JOINT FLUID AND BURSAE: Small joint effusion and Donald's cyst. MR/MR knee RT wo con IMPRESSION: Grade 2 sprain/longitudinal partial tearing of the proximal MCL with reactive marrow edema or contusion of the medial femoral condyle. Strain/ill-defined partial tearing of the popliteus tendon and muscle with reactive marrow edema or contusion of the lateral femoral condyle. Possible grade 1 sprain of the proximal fibular collateral ligament. Cruciate ligaments and menisci appear intact. Small joint effusion and Donald's cyst. Mild medial compartment osteoarthritis.
== END 2020-12-27 18:59 | disposition home or self-care (01) ==
LOC: HO.MRI 18:58
PROVIDERS: PCP Family Medicine; Visit Provider Physician Assistant
DX: S83.91XA Sprain of unspecified site of right knee, initial encounter (principal)
CPT/HCPCS: 73721

== ENCOUNTER → 2021-01-10 12:18 | Outpatient (BNVA) | payer MEDICARE, MEDICAID, SELFPAY | PROVIDERS: Visit Provider Physician Assistant | DX: M54.16 Radiculopathy, lumbar region (principal); M25.561 Pain in right knee; S83.421A Sprain of lateral collateral ligament of right knee, initial encounter; X58.XXXA Exposure to other specified factors, initial encounter; Y93.9 Activity, unspecified; Y92.9 Unspecified place or not applicable; Y99.8 Other external cause status | CPT/HCPCS: 99212 ==

== ENCOUNTER → 2021-02-04 09:36 | Outpatient (BNVA) | payer MEDICARE, MEDICAID, SELFPAY | PROVIDERS: Visit Provider Nurse Practitioner Family | DX: M47.816 Spondylosis without myelopathy or radiculopathy, lumbar region (principal); M25.50 Pain in unspecified joint; Z87.39 Personal history of other diseases of the musculoskeletal system and connective tissue | CPT/HCPCS: 99212 ==

== ENCOUNTER 2021-03-21 10:14 | Outpatient (REF) | payer MEDICARE, MEDICAID, SELFPAY ==
--- NOTE | ~2021-03-21 | XR_ITS ---
EXAMINATION: XR CHEST CLINICAL INFORMATION: Dyspnea COMPARISON: Previous chest x-ray June 2020 TECHNIQUE: 2 views of the chest were obtained. FINDINGS: The cardiac and mediastinal contours are stable. The lungs are clear. There is no pleural effusion or pneumothorax. Bony structures are unremarkable. XR/XR chest 2V IMPRESSION: No evidence for acute disease in the chest.
== END 2021-03-21 10:15 | disposition home or self-care (01) ==
LOC: HO.XRAY 10:14
PROVIDERS: PCP Family Medicine; Visit Provider Family Medicine
DX: R06.00 Dyspnea, unspecified (principal)
CPT/HCPCS: 71046

== ENCOUNTER → 2021-04-12 09:26 | Outpatient (BNVA) | payer MEDICARE, MEDICAID, SELFPAY | PROVIDERS: PCP Family Medicine; Visit Provider Nurse Practitioner Family | DX: M47.816 Spondylosis without myelopathy or radiculopathy, lumbar region (principal) | CPT/HCPCS: Q3014 ==

== ENCOUNTER 2021-04-16 09:04 | Outpatient (REF) | payer MEDICARE, MEDICAID, SELFPAY ==
[2021-04-16 10:19] LABS: Alanine Aminotransferase 9 U/L (0-40); Albumin Level 4.2 g/dL (3.5-5.0); Alkaline Phosphatase 98 U/L (39-117); Anion Gap 15 (12-20); Aspartate Amino Transferase 19 U/L (5-37); Bilirubin Total 0.5 mg/dL (0.0-1.0); Blood Urea Nitrogen 13 mg/dL (9-16); Calcium 9.3 mg/dL (8.4-10.2); Carbon Dioxide 25 mmol/L (22-29); Chloride 105 mmol/L (96-108); Estimated Glomerular Filt Rate 49; Glucose Fasting 110 mg/dL (60-99); Potassium 4.5 mmol/L (3.3-5.1); Sodium 140 mmol/L (135-145); Total Protein 7.5 g/dL (6.5-8.0); Uric Acid 8.1 mg/dL (3.4-7.0)
[2021-04-16 10:40] LABS: TSH reflex Free T4 1.44 uIU/mL (0.32-4.0)
== END 2021-04-16 09:05 | disposition home or self-care (01) ==
LOC: HO.LAB 09:04
PROVIDERS: PCP Family Medicine; Visit Provider Family Medicine
DX: Z00.00 Encounter for general adult medical examination without abnormal findings (principal); M10.9 Gout, unspecified; E87.5 Hyperkalemia
CPT/HCPCS: 36415; 80048; 80053; 84443; 84550

== ENCOUNTER → 2021-04-28 09:27 | Outpatient (REF) | payer MEDICARE, MEDICAID, SELFPAY ==
--- NOTE | ~2021-04-28 | NM_ITS ---
Lexiscan Myocardial perfusion study Indication: Hypertension, diabetes, assess for coronary disease Technique: The patient was brought in for a Lexiscan perfusion study on 04/28/2021 and was injected 0.4 mg of Lexiscan intravenously. Within a minute of this injection 35 mCi of sestamibi was given intravenously. Images were obtained using the SPECT gamma camera interlaced with the gating device. Images were obtained in supine position. Resting perfusion study was performed on 04/29/2021. Patient was administered 35 mCi of sestamibi intravenously at rest. Images were then obtained in supine position. Total DLP 117mGy-cm. Images were processed with the software and compared side to side in short axis, horizontal long axis and vertical long axis views. Findings: Raw acquisition was reviewed. The stress perfusion study showed no significant perfusion abnormality. Both uncorrected as well as CT attenuation corrected images were reviewed. The gated study shows normal LV systolic function with calculated LVEF of 60%. LV cavity is normal in size. The gated study shows normal wall thickening and contraction of segments. Resting study shows no significant perfusion abnormality. Gating at rest reveals normal wall motion with ejection fraction at 62%. The findings are consistent with no definite reversible or fixed perfusion abnormality. NM/NM cardiolite stress test Impression: 1. Myocardial perfusion imaging study shows likely normal myocardial perfusion. 2. Gated LVEF is 60% during stress and 62% during rest. 3. Transient ischemic dilatation not present. EKG component of the test reported separately.
--- NOTE | 2021-04-28 09:32 | CA_ITS ---
Acquisition Time: 2021-04-28 10:53:20 Total Exercise Time: 00:02:00 Test Indications: R06.00 - Dyspnea, unspecified Medications: Protocol: LEXISCAN Max HR: 102 BPM 63% of Pred: 161 BPM Max BP: 150/100 mmHG Max Work Load: 1.0 METS Pharmacological stress test with Lexiscan injection, while sitting and kicking his legs, without anginal symptoms, without arrythmia, with normotensive response to injection, with nondiagnostic EKG for ischemia. Nuclear images pending. Test reviewed with Dr Caputo. Referred By: Hilario Tran Overread By: NIVIA ALONSO
== END ==
LOC: HO.CARD 09:27
PROVIDERS: Visit Provider Family Medicine
DX: R06.00 Dyspnea, unspecified (principal)
CPT/HCPCS: 78452; 93017; A9500; J0280; J2785

== ENCOUNTER 2021-05-03 06:32 | Outpatient (REF) | payer MEDICARE, MEDICAID, SELFPAY ==
--- NOTE | ~2021-05-03 | FL_ITS ---
EXAMINATION: XR FLUOROSCOPY WITH IMAGES CLINICAL INFORMATION: Radiculopathy, lumbar region COMPARISON: None. TECHNIQUE: Fluoroscopy performed by taking into the. Fluoroscopy time: 0.6 minutes DAP: 14 Gycm2 Images: 6 FINDINGS: Images demonstrate needle placement and contrast injection adjacent to the bilateral lateral L3-L4 and L5 vertebral bodies. There is evidence of previous disc instrumentation at L5-S1. FL/FL guidance in treatment room IMPRESSION: Fluoroscopy guidance for pain management procedure.
== END 2021-05-03 06:33 | disposition home or self-care (01) ==
LOC: HO.RADIR 06:32
PROVIDERS: Visit Provider Anesthesiology
DX: M47.816 Spondylosis without myelopathy or radiculopathy, lumbar region (principal); M54.16 Radiculopathy, lumbar region
CPT/HCPCS: 64493; 64494; Q9967

== ENCOUNTER → 2021-05-10 08:54 | Outpatient (BNVA) | payer MEDICARE, MEDICAID, SELFPAY | PROVIDERS: PCP Family Medicine; Visit Provider Nurse Practitioner Family | DX: M47.816 Spondylosis without myelopathy or radiculopathy, lumbar region (principal) | CPT/HCPCS: 99212 ==

== ENCOUNTER 2021-05-19 09:28 | Outpatient (REF) | payer MEDICARE, MEDICAID, SELFPAY | END 2021-05-19 09:29 | disposition home or self-care (01) | LOC: HO.WFDLDS 09:28 | PROVIDERS: Visit Provider Hospitalist | DX: Z13.89 Encounter for screening for other disorder (principal) ==

== ENCOUNTER → 2021-07-25 12:40 | Outpatient (BNVA) | payer MEDICARE, MEDICAID, SELFPAY | PROVIDERS: PCP Family Medicine; Referring Provider Family Medicine; Visit Provider Internal Medicine Cardiovascular Disease | DX: R06.00 Dyspnea, unspecified (principal) | CPT/HCPCS: 93005; 99202 ==

== ENCOUNTER 2021-08-22 08:40 | Outpatient (REF) | payer MEDICARE, MEDICAID, SELFPAY ==
--- NOTE | 2021-08-22 17:19 | PFT_ITS ---
Forced vital capacity 64%, FEV1 72%, and FEV1/FVC ratio is 86. FEF 25-75 102%, MVV 57%. Post bronchodilator therapy, there is no significant change. Total lung capacity 72%. Residual volume 84%. Diffusion capacity is 73%. CONCLUSION: 1. Mild restrictive pulmonary disorder. 2. No obstructive airway disorder. 3. No response to bronchodilator therapy. 4. Clinical correlation is recommended. MD DALTON Rice/ALBERTO / [phone]
== END 2021-08-22 08:41 | disposition home or self-care (01) ==
LOC: HO.RESP 08:40
PROVIDERS: PCP Family Medicine; Visit Provider Internal Medicine Cardiovascular Disease
DX: R06.00 Dyspnea, unspecified (principal)
CPT/HCPCS: 94060; 94727; 94729

== ENCOUNTER → 2021-09-07 09:20 | Outpatient (REF) | payer MEDICARE, MEDICAID, SELFPAY ==
--- NOTE | 2021-09-07 09:23 | CA_ITS ---
Transthoracic Echocardiogram Patient (Last, First, Middle): Hilario Nino J Gender: Male Date of : 1960 Age: 61 Procedure Date: 09/07/2021 Procedure Type: Transthoracic Echocardiogram Location: OP Height: 172.72 cm Weight: 111.13 kg BSA: 2.23 m2 Heart Rate: bpm BP: 120 / 80 mmHg Crematory Attendant: YR/TO Referring MD: Aryan Brooks MD Symptoms: R06.00 - Dyspnea, unspecified Study Quality: Fair Conclusions: - Normal left ventricular size and systolic function. There is mildly increased left ventricular wall thickness. The visually estimated ejection fraction is between 60-65%. - Normal right ventricular cavity size and systolic function. - There is mild dilatation of the ascending aorta measuring 3.90 cm. Findings Procedure Information Contrast agent, definity, is being given per protocol without apparent complications. Left Ventricle Normal left ventricular size and systolic function. There is mildly increased left ventricular wall thickness. The visually estimated ejection fraction is between 60-65%. There is no evidence of regional wall motion abnormalities. Diastolic function is normal for age. Right Ventricle Normal right ventricular cavity size and systolic function. Atria Both atria are normal in size. Aortic Valve The aortic valve structure and function is likely normal. There is mild calcification of the aortic valve. There is no aortic valve stenosis. There is no aortic valve regurgitation. Mitral Valve Normal mitral valve structure and function. There is no mitral valve regurgitation. There is no mitral valve stenosis. Pulmonic Valve The pulmonic valve is likely normal. Tricuspid Valve Normal tricuspid valve structure and function. There is no tricuspid valve regurgitation. Normal right atrial pressure. There is no evidence of pulmonary hypertension. Great Vessels There is mild dilatation of the ascending aorta measuring 3.90 cm. The visualized portions of the pulmonary artery and branches are normal. Venous The inferior vena cava is normal in size and collapses greater than 50% with inspiration. Pericardium/Pleural There is no evidence of pericardial effusion. Prior Study Comparison No prior study available for comparison. Measurements 2D Linear Measurements IVSd: 1.10 0.6-0.9/0.6-1.0 cm LVIDd: 4.73 3.9-5.3/4.2-5.9 cm LVIDd Index: 2.12 2.4-3.2/2.2-3.1 cm/m2 LVIDs: 3.22 2.0-3.6 cm LVPWd: 1.11 0.7-1.1 cm LA Diam: 3.20 2.7-3.8/3.0-4.0 cm LAIDs Index: 1.43 1.5-2.3 cm/m2 LV Mass: 237.57 67-162/88-224 g LV Mass Index: 106.53 43-95/49-115 g/m2 LVOT Diam: 2.10 3.0+(-)1.3 cm 2D Systolic Function EF 4C: 64.70 >55% EF 2C: 70.50 >55% EF BiP: 67.20 >55% Mitral Valve MV Pk E: 0.51 MV PK A: 0.58 MV Decel Time: 170.00 E/A: 0.90 E'Lateral: 4.90 E'Medial: 6.53 E/E' Med: 7.70 E/E' Lat: 10.30 PHT: 50.00 MVA PHT: 4.40 Decel [place]: 2.97 Aortic Valve AoV Pk Prashanth: 1.45 AoV Mn Prashanth: 0.84 AoV VTI: 0.17 AoV Pk Grad: 8.00 Aov Mn Grad: 3.00 SONALI Cont.VTI: 2.47 LVOT LVOT Pk Prashanth: 0.85 LVOT Mn Prashanth: 0.55 LVOT VTI: 0.12 LVOT Pk Grad: 3.00 LVOT Mn Grad: 1.00 LVOT Diam: 2.10 LVOT Area: 3.46 Diastolic Function MV Pk E: 0.51 MV Pk A: 0.58 E/A: 0.90 E'Medial: 6.53 E/E' Med: 7.70 E' Laterial: 4.90 E/E' Lat: 10.30 Right Ventricle TAPSE (mm): 20.90 Tricuspid Valve TR Pk Prashanth: 1.75 TR Pk Grad: 12.00 RA Press: 8.00 RVSP: 20.00 Great Vessels Aorta Sinus of Valsalva: 3.52 2.0-3.[address] Ridge: 3.15 1.7-3.4 cm Ao Asc: 3.90 2.1-3.4 cm Ao Arch: 2.60 Updated in Other Vendor System with Status of Final Aryan Brooks MD electronically signed on 09/08/2021 6:29:40 PM with status of Final
== END ==
LOC: HO.CARD 09:20
PROVIDERS: PCP Family Medicine; Visit Provider Internal Medicine Cardiovascular Disease
DX: R06.00 Dyspnea, unspecified (principal)
CPT/HCPCS: 93306; Q9957

== ENCOUNTER 2021-10-06 13:56 | Outpatient (REF) | payer MEDICARE, MEDICAID, SELFPAY ==
[2021-10-06 14:55] LABS: MANUAL DIFF FLAG NO
[2021-10-06 15:18] LABS: Basophils Absolute Auto 0.1 X10*3/uL (0.0-0.2); Basophils Percent Auto 1.2 % (0-2); Eosinophils Absolute Auto 0.5 X10*3/uL (0.0-0.4); Eosinophils Percent Auto 5.4 % (0-4); Hemoglobin 16.5 g/dl (14.0-18.0); Imm Gran Abs Auto 0.04 X10*3/uL (0.00-0.03); Imm Gran Pct Auto 0.4 % (0.0-0.4); Immature Retic Fraction 15.9 % (2.3-13.4); Lymphocytes Absolute Auto 2.2 X10*3/uL (1.2-4.9); Lymphocytes Percent Auto 23.9 % (20-40); Mean Corpuscular HGB Conc 34.4 g/dl (31.0-36.0); Mean Corpuscular Hemoglobin 35.9 pg (27.0-33.0); Mean Corpuscular Volume 104.3 fL (80.0-98.0); Monocytes Absolute Auto 0.7 X10*3/uL (0.1-1.2); Monocytes Percent Auto 7.7 % (2-11); Neutrophils Absolute Auto 5.6 x10*3/uL (2.0-8.3); Neutrophils Percent Auto 61.4 % (45-73); Platelet Count 335 X10*3/uL (160-400); Red Cell Distribution Width 13.4 % (11.0-16.0); Retic HGB Equivalent 39.6 pg (30.0-35.0); Reticulocyte Percent 2.3 % (0.5-1.8); Reticulocytes Absolute 0.107 X10*6/uL (0.026-0.095); White Blood Count 9.1 X10*3/uL (4.8-10.8)
[2021-10-06 15:44] LABS: Alanine Aminotransferase 42 U/L (0-40); Albumin Level 4.6 g/dL (3.5-5.0); Alkaline Phosphatase 99 U/L (39-117); Anion Gap 16 (12-20); Aspartate Amino Transferase 66 U/L (5-37); Bilirubin Total 0.6 mg/dL (0.0-1.0); Blood Urea Nitrogen 13 mg/dL (9-16); Calcium 9.3 mg/dL (8.4-10.2); Carbon Dioxide 25 mmol/L (22-29); Chloride 106 mmol/L (96-108); Estimated Glomerular Filt Rate > 60; Glucose Random 104 mg/dL (60-115); Iron 122 mcg/dL (45-160); Percent Iron Saturation 29 % (15-50); Potassium 4.3 mmol/L (3.3-5.1); Sodium 143 mmol/L (135-145); Total Iron Binding Capacity 414 mcg/dL (228-428); Total Protein 8.4 g/dL (6.5-8.0); Unsaturated Iron Binding 292 ug/dL
[2021-10-06 15:57] LABS: Ferritin 301 ng/mL (20-250)
[2021-10-06 16:11] LABS: Folate 2.5 ng/mL (> or = 4.0); Vitamin B12 1072 pg/mL (200-900)
== END 2021-10-06 13:57 | disposition home or self-care (01) ==
LOC: HO.LAB 13:56
PROVIDERS: Absent Provider Family Medicine; PCP Family Medicine; Visit Provider Internal Medicine
DX: Z00.00 Encounter for general adult medical examination without abnormal findings (principal); D64.9 Anemia, unspecified; E53.8 Deficiency of other specified B group vitamins; N28.9 Disorder of kidney and ureter, unspecified; R06.00 Dyspnea, unspecified; E66.9 Obesity, unspecified; J98.4 Other disorders of lung
CPT/HCPCS: 36415; 80053; 82607; 82728; 82746; 83540; 85025; 85045; 99202

== ENCOUNTER 2022-03-13 17:41 | Emergency (ER) | payer OTHER, MEDICARE, MEDICAID, SELFPAY | END 2022-03-13 20:12 | disposition left against medical advice (07) | PROVIDERS: Emergency Provider Emergency Medicine | DX: Z04.1 Encounter for examination and observation following transport accident (principal); M54.50 Low back pain, unspecified ==

== ENCOUNTER 2022-03-13 19:18 | Emergency (ER) | payer OTHER, MEDICARE, MEDICAID, SELFPAY ==
--- NOTE | ~2022-03-13 | XR_ITS ---
EXAMINATION: XR LUMBOSACRAL SPINE CLINICAL INFORMATION: Back pain COMPARISON: None TECHNIQUE: Three views of the lumbosacral spine. FINDINGS: Interbody cages present at L5-S1. Previous laminectomy at L5. Small endplate osteophytes and facet arthropathy present throughout the lumbar spine. Mild bilateral sacroiliac arthrosis. Spinal soft tissues unremarkable. XR/XR lumbar spine 2-3V IMPRESSION: No acute fracture or traumatic malalignment.
[2022-03-13 19:29] VITALS: BP 134/86; PULSE 98; O2SAT 96
[2022-03-13 21:27] VITALS: BP 141/87; PULSE 84; RESP 16; TEMP 36.7; O2SAT 96; BMI 38.3
[2022-03-14 02:40] VITALS: BP 149/88; PULSE 77; RESP 23; TEMP 36.8; O2SAT 96
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
[2022-03-14] MEDS: oxyCODONE HCl Immed Release 5 MG TABLET 10 MG PO (03:07)
== END 2022-03-14 04:29 | disposition home or self-care (01) ==
PROVIDERS: Emergency Provider Internal Medicine; PCP Family Medicine
DX: M54.50 Low back pain, unspecified (principal); F17.210 Nicotine dependence, cigarettes, uncomplicated; Z71.6 Tobacco abuse counseling; Z79.899 Other long term (current) drug therapy
CPT/HCPCS: 72100; 99283

== ENCOUNTER 2022-07-04 08:04 | Outpatient (REF) | payer OTHER, MEDICARE, MEDICAID, SELFPAY ==
[2022-07-04 11:45] LABS: MANUAL DIFF FLAG NO
[2022-07-04 12:01] LABS: Basophils Absolute Auto 0.1 X10*3/uL (0.0-0.2); Basophils Percent Auto 1.3 % (0-2); Eosinophils Absolute Auto 0.4 X10*3/uL (0.0-0.4); Eosinophils Percent Auto 6.1 % (0-4); Hematocrit 44.3 % (42.0-52.0); Hemoglobin 15.1 g/dl (14.0-18.0); Imm Gran Abs Auto 0.02 X10*3/uL (0.00-0.03); Imm Gran Pct Auto 0.3 % (0.0-0.4); Lymphocytes Absolute Auto 1.9 X10*3/uL (1.2-4.9); Lymphocytes Percent Auto 26.9 % (20-40); Mean Corpuscular HGB Conc 34.1 g/dl (31.0-36.0); Mean Corpuscular Hemoglobin 34.5 pg (27.0-33.0); Mean Corpuscular Volume 101.1 fL (80.0-98.0); Mean Platelet Volume 10.9 fL (9.4-12.4); Monocytes Absolute Auto 0.5 X10*3/uL (0.1-1.2); Monocytes Percent Auto 7.8 % (2-11); Neutrophils Percent Auto 57.6 % (45-73); Platelet Count 290 X10*3/uL (160-400); Red Blood Count 4.38 X10*6/uL (4.60-5.80); Red Cell Distribution Width 12.5 % (11.0-16.0); White Blood Count 6.9 X10*3/uL (4.8-10.8)
[2022-07-04 12:07] LABS: Appearance Urine Clear; Color Urine Yellow; Glucose Urine UA Negative (Negative); Leukocyte Esterase Urine Negative (Negative); Nitrite Urine Negative (Negative); Urine Blood Negative (Negative); Urine Ketones Negative (Negative); Urine Protein Negative (Neg-Trace)
[2022-07-04 12:53] LABS: Alanine Aminotransferase 17 U/L (0-40); Albumin Level 4.2 g/dL (3.5-5.0); Alkaline Phosphatase 69 U/L (39-117); Anion Gap 14 (12-20); Aspartate Amino Transferase 19 U/L (5-37); Bilirubin Total 0.8 mg/dL (0.0-1.0); Blood Urea Nitrogen 20 mg/dL (9-16); Calcium 9.1 mg/dL (8.4-10.2); Carbon Dioxide 24 mmol/L (22-29); Chloride 106 mmol/L (96-108); Cholesterol 274 mg/dL; Estimated Glomerular Filt Rate 52; Glucose Fasting 122 mg/dL (60-99); HDL Cholesterol 41 mg/dL; LDL Cholesterol Calculated 168 mg/dl; Potassium 4.6 mmol/L (3.3-5.1); Sodium 139 mmol/L (135-145); Total Protein 7.5 g/dL (6.5-8.0); Triglycerides 329 mg/dL
[2022-07-04 13:11] LABS: Prostate Specific Antigen Scr 0.86 ng/mL (<0.05-4.0)
[2022-07-04 13:55] LABS: Creatinine Urine 135.75 mg/dL
== END 2022-07-04 08:05 | disposition home or self-care (01) ==
LOC: HO.WFDLDS 08:04
PROVIDERS: Visit Provider Family Medicine
DX: Z00.00 Encounter for general adult medical examination without abnormal findings (principal); I10 Essential (primary) hypertension; Z13.220 Encounter for screening for lipoid disorders; Z13.29 Encounter for screening for other suspected endocrine disorder; Z12.5 Encounter for screening for malignant neoplasm of prostate
CPT/HCPCS: 36415; 80053; 80061; 81003; 82043; 84153; 84443; 85025

== ENCOUNTER 2022-08-17 11:00 | Outpatient (RCR) | payer OTHER, MEDICARE, MEDICAID, SELFPAY ==
[2022-07-04 07:57] VITALS: BP 140/78; PULSE 68; O2SAT 96
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
== END 2023-07-12 08:40 | disposition home or self-care (01) ==
LOC: HO.PTWFD 11:00
PROVIDERS: Visit Provider Family Medicine
DX: M54.50 Low back pain, unspecified (principal)
CPT/HCPCS: 97110; 97162

== ENCOUNTER → 2022-08-31 13:50 | Outpatient (BNVA) | payer OTHER, MEDICAID, SELFPAY | PROVIDERS: PCP Family Medicine; Referring Provider Family Medicine; Visit Provider Nurse Practitioner Family | DX: R06.00 Dyspnea, unspecified (principal); I10 Essential (primary) hypertension | CPT/HCPCS: 93005 ==

== ENCOUNTER 2023-01-17 08:35 | Outpatient (AMB) | payer OTHER, MEDICARE, MEDICAID, SELFPAY ==
[2023-01-17 08:41] VITALS: BP 120/76; PULSE 88; O2SAT 98; BMI 38.1
--- NOTE | 2023-01-17 08:41 | MHC.PC.OV ---
Vital Signs 01/17/23 08:41 Height 5 ft 7 in Weight 243 lb 4 oz BMI 38.1 BP 120/76 Blood Pressure Location Rt brachial Position Sitting Pulse 88 Pulse Source Pulse Oximeter Pulse Oximetry (%) 98 Oxygen Delivery Method Room Air Intake Visit Reasons: f/u dyspnea and chronic conditions Intake Note: Patient is here for follow up on dyspnea and other chronic conditions. Patient is also requesting prednisone refill at this time. Allergies influenza virus vaccine, specific [FLU VACCINE] Allergy (Unknown, Verified 01/17/23 08:45) SWELLING Medication List - Last Reconciled 01/17/23 by Hilario Tran MD acetaminophen ER (Tylenol Arthritis Pain) 650 mg PO Q12H albuterol sulfate 90 mcg/actuation 2 puffs inhalation Q6H PRN 30 days allopurinol 200 mg (2 x 100 mg) PO DAILY 30 days carvedilol 6.25 mg PO BID 90 days clotrimazole 1% 1 appl topical BID 2 weeks cyanocobalamin (vitamin B-12) 1,000 mcg PO DAILY 90 days isosorbide mononitrate ER 30 mg PO DAILY 90 days prednisone 40 mg PO DAILY PRN tizanidine 4 mg PO BEDTIME PRN Tobacco use date assessed: 05/29/22 Dental Screening Did you have a dental visit in the last 12 months?: No Did you have a dental problem in the last 6 months where you did not have access to dental care?: No Was dental information given to patient?: No HPI f/u dyspnea and chronic conditions HPI Details 63 y/o male presents to f/u dyspnea and chronic conditions such as hypertension and pre-diabetes. Last A1c 10/19/22 5.7%. Blood pressure today is 120/76. He is on carvedilol 6.25mg b.i.d. and isosorbide 30mg daily. He reports he has been exercising more often and has been going to the gym. [facility] Medical History Back pain ETOH abuse HTN (hypertension) Hypercholesterolemia Obesity (BMI 30-39.9) Restrictive lung disease Surgical History History of back surgery Social History Household Members: Spouse Housing: House Alcohol intake: current Alcohol intake frequency: a few times a month Alcohol type: wine Patient Tobacco Use Status: Current someday Tobacco user Tobacco use type: Cigarette Cigarettes Per Day: 2 Years Smoked: 15 +/- e-Cigarette/Vaping Use: Never Used Second Hand Smoke Exposure: Yes service: No Current occupational status: retired and other Current occupation: rt handed Current occupational exposures/hazards: No Cognitive needs: No Hearing needs: No Vision needs: No Questionnaire Thrive Questionnaire Date Thrive assessed: 09/13/21 SUKUMAR-7 AMB Questionnaire SUKUMAR-7 Date SUKUMAR - 7 assessed: 09/13/21 Source: Developed by Drs. Raj Soto, Camille Henry, Braeden Castillo and colleagues, with an educational rowan from [employer]. Review of Systems Const Denies chills, Denies fatigue, Denies fever(s), Denies headache(s) and Denies weakness ENT Denies dizziness and Denies headache(s) Card Denies chest pain, Denies lightheadedness, Denies dyspnea and Denies other (Palpitations) Resp Denies cough, Denies dyspnea, Denies wheezing and Denies other ( shortness of breath) Musc Denies numbness and Denies tingling Neuro Denies dizziness, Denies headache(s), Denies numbness, Denies tingling, Denies paresthesias and Denies weakness Psych Denies anxiety and Denies depression Endo Denies fatigue Aller/Immun Denies wheezing Physical exam (Primary Care) Vital Signs: Last Vital Signs Pulse 88 01/17/23 08:41 BP 120/76 01/17/23 08:41 Pulse Ox 98 01/17/23 08:41 Oxygen Delivery Method Room Air 01/17/23 08:41 BMI result Body Mass Index 38.1 Tobacco/Smoking Status: Tobacco use Status Tobacco use date assessed 05/29/22 01/17/23 08:49 Patient Tobacco Use Status Current someday Tobacco 01/17/23 08:49 Tobacco use type Cigarette 01/17/23 08:49 e-Cigarette/Vaping Use Never Used 01/17/23 08:49 Thrive Assessment: Date of Thrive Assessment Date Thrive assessed 09/13/21 01/17/23 08:49 Const General: no acute distress and well developed Nutritional Appearance: well nourished Orientation/consciousness: patient oriented x3 HENMT Head: Yes normocephalic and Yes atraumatic Eyes General: appearance normal, both eyes and all related structures Pupils: Equal, round and reactive pupils present EOM: EOMs intact bilaterally Resp Effort & Inspection: normal respiratory effort Auscultation: clear to auscultation bilaterally Cardio Rate: regular rate Rhythm: regular rhythm Heart sounds: S1 normal heart sound present, S2 normal heart sound present, no gallops, no murmurs and no rubs Neuro General: patient oriented x3 and gait normal Cranial nerves: Yes Equal, round and reactive pupils present Psych Affect: normal affect Assessment and Plan Assessment & Plan (1) Dyspnea on exertion: Code(s): R06.00 - Dyspnea, unspecified Plan: Cardiac workup was negative Pulmonary workup shows restrictive lung disease which should improve with weight loss (2) Essential hypertension: Code(s): I10 - Essential (primary) hypertension Plan: Blood pressure is controlled. Goal is less than 130/80 Continue current medication regimen (3) Pre-diabetes: Code(s): R73.03 - Prediabetes Plan: A1c at last check was in pre diabetes range Encouraged weight loss and a diet low in sugars and starches Will check A1c again with his next blood draw (4) Gout: Code(s): M10.9 - Gout, unspecified Plan: History of gout with frequent flares though he has not had 1 in the last 8 months and has been allopurinol Check uric acid level Will refill prednisone which he can take if he has a flare up (5) Obesity (BMI 30-39.9): Code(s): E66.9 - Obesity, unspecified Plan: Ongoing obesity with comorbidities including restrictive lung disease, hypertension and pre diabetes Patient is interested in bariatric surgery so I have made a referral Orders: Orders Uric Acid Today M10.9 - Gout, unspecified Comprehensive Met. Panel Today M10.9 - Gout, unspecified Hemoglobin A1c Today R73.01 - Impaired fasting glucose Referrals Bariatric Surgery Referral E66.9 - Obesity, unspecified, I10 - Essential (primary) hypertension, J98.4 - Other disorders of lung, R73.03 - Prediabetes Medications: Changed From prednisone 40 mg PO DAILY PRN To prednisone 40 mg (2 x 20 mg) PO DAILY PRN 10 tabs 0RF Gout Flare 5 days Coding Level of Care Code Est Pt Level 4 (02231) Diagnoses Dyspnea on exertion R06.00 Essential hypertension I10 Pre-diabetes R73.03 Gout M10.9 Obesity (BMI 30-39.9) E66.9
== END 2023-01-17 09:24 | disposition home or self-care (01) ==
PROVIDERS: PCP Family Medicine; Visit Provider Family Medicine
DX: R06.00 Dyspnea, unspecified (principal); I10 Essential (primary) hypertension; E66.9 Obesity, unspecified; Z68.38 Body mass index [BMI] 38.0-38.9, adult; R73.03 Prediabetes; M10.9 Gout, unspecified
CPT/HCPCS: 99214

== ENCOUNTER 2023-02-26 12:30 | Outpatient (AMB) | payer OTHER, MEDICAID, SELFPAY ==
[2023-02-26 12:41] VITALS: BP 122/84; PULSE 96; BMI 37.6
--- NOTE | 2023-02-26 12:41 | MHC.OFFVIS ---
Intake Vital Signs 02/26/23 12:41 Height 5 ft 7 in Weight 240 lb 4.862 oz BMI 37.6 BP 122/84 Blood Pressure Location Lt brachial Position Sitting Pulse 96 Pulse Source Pulse Oximeter Intake Visit Reasons: 6 mth per DC Intake Note: 6 month follow up. Order Packer Required: No Accompanied by: Spouse Allergies influenza virus vaccine, specific [FLU VACCINE] Allergy (Unknown, Verified 02/26/23 12:43) SWELLING Medication List - Last Reconciled 02/26/23 by Aryan Brooks MD acetaminophen ER (Tylenol Arthritis Pain) 650 mg PO Q12H albuterol sulfate 90 mcg/actuation 2 puffs inhalation Q6H PRN 30 days allopurinol 200 mg (2 x 100 mg) PO DAILY 30 days carvedilol 6.25 mg PO BID 90 days clotrimazole 1% 1 appl topical BID 2 weeks cyanocobalamin (vitamin B-12) 1,000 mcg PO DAILY 90 days prednisone 40 mg (2 x 20 mg) PO DAILY PRN 5 days tizanidine 4 mg PO BEDTIME PRN HPI HPI Comments History of Present Illness Details 63-year-old gentleman who is here for dyspnea on exertion and dyspnea on bending forward ongoing for 2 years. He is saying his symptoms are progressive and worsening. The has accompanied him in the office. She is adding that when he is walking specially in the mall he has to stop because of shortness of breath. Denies any significant chest discomfort but has been experiencing shortness of breath for approximately 2 years. Also snores at night and has noticed that he stops breathing. He has abdominal obesity. He also has some orthopnea like symptoms. Was a heavy smoker but has been smoking less recently. He has been noticed to have wheezing occasionally and has not had any pulmonary function test recently. He also has chronic kidney disease and last creatinine was 1.47 with estimated GFR 49. 02/26/23: He had PFTs which showed restrictive lung disease due to abdominal obesity. He has been trying to exercise and diet but has not lost any significant weight. He is due to see bariatric program for weight loss. He gets out of breath with activities. No chest discomfort. Blood pressure control is good. [facility] Medical History Back pain ETOH abuse HTN (hypertension) Hypercholesterolemia Obesity (BMI 30-39.9) Restrictive lung disease Surgical History History of back surgery Social History (Updated 02/26/23 @ 12:43 by YISSEL Dupont) Household Members: Spouse Housing: House Alcohol intake: current Alcohol intake frequency: a few times a month Alcohol type: wine Patient Tobacco Use Status: Former Tobacco user Quit Date: 2022 Tobacco use type: Cigarette Years Smoked: 15 +/- e-Cigarette/Vaping Use: Never Used Second Hand Smoke Exposure: Yes service: No Current occupational status: retired and other Current occupation: rt handed Current occupational exposures/hazards: No Cognitive needs: No Hearing needs: No Vision needs: No Review of Systems Const Denies weakness ENT Denies dizziness Card Denies chest pain, Denies chest pain with activity, Denies syncope, Denies rapid heart rate, Denies pedal edema, Denies edema, Denies leg edema, Denies lightheadedness, Denies palpitations, Denies dyspnea, Denies dyspnea on exertion and Denies orthopnea Resp Denies cough, Denies dyspnea and Denies dyspnea on exertion GI Denies hematochezia and Denies change in stool character Musc Denies abnormal gait, Denies muscle cramps, Denies muscle weakness, Denies numbness, Denies radiating pain into limb and Denies tingling Neuro Denies abnormal gait, Denies dizziness, Denies syncope, Denies numbness, Denies tingling and Denies weakness Endo Denies palpitations Physical Exam Vital Signs: Last Vital Signs Pulse 96 02/26/23 12:41 BP 122/84 02/26/23 12:41 BMI result Body Mass Index 37.6 GENERAL APPEARANCE: in no acute distress, pleasant. NECK: no carotid bruit, mild jugular venous distention. SKIN: no suspicious lesions, warm and dry. HEART: no murmurs, regular rate and rhythm. LUNGS: clear to auscultation bilaterally. ABDOMEN: soft, nontender. Abdominal obesity. EXTREMITIES: no edema. PERIPHERAL PULSES: equal. NEUROLOGIC: No gross deficits, AAO X 3 Assessment & Plan Assessment & Plan (1) Hypercholesterolemia: Code(s): E78.00 - Pure hypercholesterolemia, unspecified (2) Essential hypertension: Code(s): I10 - Essential (primary) hypertension (3) Shortness of breath: Code(s): R06.02 - Shortness of breath Plan [age] year gentleman who is here for follow-up. He has background of dyspnea on exertion and was seen primarily for that reason. He underwent stress testing which was a Lexiscan which did not show any significant perfusion defect. He had echocardiography which showed normal diastolic function without any significant valvular disease. PFTs have shown concern for restrictive lung disease due to abdominal obesity. He has been dieting and exercising regularly but has not lost significant weight. He is looking into the weight management program. I have also advised him to discuss with Dr. Tran about trying Ozempic. Blood pressure control is good. If he continues to be short of breath despite weight loss then would consider left and right heart catheterization. Thank you for allowing me to participate in the care of your patient. Please feel free to contact me if you have any questions. Coding Level of Care Code Est Pt Level 4 (59015) Diagnoses Hypercholesterolemia E78.00 Essential hypertension I10 Shortness of breath R06.02
== END 2023-02-26 13:09 | disposition home or self-care (01) ==
PROVIDERS: Visit Provider Internal Medicine Cardiovascular Disease
DX: E78.00 Pure hypercholesterolemia, unspecified (principal); I10 Essential (primary) hypertension; R06.02 Shortness of breath
CPT/HCPCS: 99214

== ENCOUNTER → 2023-02-26 12:30 | Outpatient (BNVA) | payer OTHER, MEDICAID, SELFPAY | PROVIDERS: Visit Provider Internal Medicine Cardiovascular Disease ==

== ENCOUNTER 2023-04-18 08:52 | Outpatient (AMB) | payer OTHER, MEDICARE, MEDICAID, SELFPAY ==
[2023-04-18 08:55] VITALS: BP 130/78; PULSE 103; O2SAT 100; BMI 37.8
--- NOTE | 2023-04-18 08:55 | MHC.PC.OV ---
Vital Signs 04/18/23 08:55 Height 5 ft 7 in Weight 241 lb 6 oz BMI 37.8 BP 130/78 Blood Pressure Location Lt brachial Position Sitting Pulse 103 H Pulse Source Pulse Oximeter Pulse Oximetry (%) 100 Oxygen Delivery Method Room Air Intake Visit Reasons: f/u hypertension and chronic conditions Intake Note: Patient is following up n hypertensension. Patient would like to talk about Cosentyx for weight loss. He would like to talk about rash on right leg for about 3 months, not going away. Allergies influenza virus vaccine, specific [FLU VACCINE] Allergy (Unknown, Verified 04/18/23 09:06) SWELLING Tobacco use date assessed: 04/18/23 Dental Screening Dental Screen Date: 04/18/23 Did you have a dental visit in the last 12 months?: Yes Did you have a dental problem in the last 6 months where you did not have access to dental care?: No Was dental information given to patient?: Patient has dentist HPI f/u hypertension and chronic conditions HPI Details 63 y/o male presents to f/u hypertension and chronic conditions. Last A1c 10/19/22 was 5.7%. A1c today 04/18/23 is 5.6%. Blood pressure today 130/78, 103p. He is on carvedilol 6.25mg b.i.d. Pt reports a rash on R leg x3 months. Pt reports a cough and has been using an albuterol inhaler once a day. Pt does have a hx of restrictive lung disease. [facility]AC[facility] BY [facility] Medical History Restrictive lung disease Obesity (BMI 30-39.9) ETOH abuse Back pain Hypercholesterolemia HTN (hypertension) Surgical History History of back surgery Social History Household Members: Spouse Housing: House Alcohol intake: current Alcohol intake frequency: a few times a month Alcohol type: wine Patient Tobacco Use Status: Former Tobacco user Quit Date: 2022 Tobacco use type: Cigarette Years Smoked: 15 +/- e-Cigarette/Vaping Use: Never Used Second Hand Smoke Exposure: Yes service: No Current occupational status: retired and other Current occupation: rt handed Current occupational exposures/hazards: No Cognitive needs: No Hearing needs: No Vision needs: No Questionnaire Thrive Questionnaire Date Thrive assessed: 09/13/21 SUKUMAR-7 AMB Questionnaire SUKUMAR-7 Date SUKUMAR - 7 assessed: 09/13/21 Source: Developed by Drs. Raj Soto, Camille Henry, Braeden Castillo and colleagues, with an educational rowan from [employer]. Review of Systems Const Denies chills, Denies fatigue, Denies fever(s), Denies headache(s) and Denies weakness ENT Denies dizziness and Denies headache(s) Card Denies chest pain, Denies lightheadedness, Denies dyspnea and Denies other (Palpitations) Resp Denies cough, Denies dyspnea, Denies wheezing and Denies other ( shortness of breath) Musc Denies numbness and Denies tingling Neuro Denies dizziness, Denies headache(s), Denies numbness, Denies tingling, Denies paresthesias and Denies weakness Psych Denies anxiety and Denies depression Endo Denies fatigue Aller/Immun Denies wheezing Physical exam (Primary Care) Vital Signs: Last Vital Signs Pulse 103 H 04/18/23 08:55 BP 130/78 04/18/23 08:55 Pulse Ox 100 04/18/23 08:55 Oxygen Delivery Method Room Air 04/18/23 08:55 BMI result Body Mass Index 37.8 Tobacco/Smoking Status: Tobacco use Status Tobacco use date assessed 04/18/23 04/18/23 09:07 Patient Tobacco Use Status Former Tobacco user 04/18/23 08:58 Tobacco use type Cigarette 04/18/23 08:58 e-Cigarette/Vaping Use Never Used 04/18/23 08:58 Thrive Assessment: Date of Thrive Assessment Date Thrive assessed 09/13/21 04/18/23 08:58 Const General: no acute distress and well developed Nutritional Appearance: obese Orientation/consciousness: patient oriented x3 HENMT Head: Yes normocephalic and Yes atraumatic Eyes General: appearance normal, both eyes and all related structures Pupils: Equal, round and reactive pupils present EOM: EOMs intact bilaterally Resp Other: Coarse breath sounds but otherwise clear Effort & Inspection: normal respiratory effort Auscultation: clear to auscultation bilaterally Cardio Rate: regular rate Rhythm: regular rhythm Heart sounds: S1 normal heart sound present, S2 normal heart sound present, no gallops, no murmurs and no rubs Skin Other: Raised red plaques with some pustules Neuro General: patient oriented x3 and gait normal Cranial nerves: Yes Equal, round and reactive pupils present Psych Affect: normal affect Assessment and Plan Assessment & Plan (1) Essential hypertension: Code(s): I10 - Essential (primary) hypertension Plan: Blood?pressure?130/78-controlled.??Goal?is?less?than?140/90 Continue?current?medication (2) Pre-diabetes: Code(s): R73.03 - Prediabetes Plan: A1c?improved?from?5.7%?to?5.6%. Encouraged?diet?lower?in?sugars?and?starches.?? Patient?is?working?on?weight?loss?and?is?interested?in?medication?for?this?rather?than?surgery. Will?trial?Farxiga-see?below (3) Obesity (BMI 30-39.9): Code(s): E66.9 - Obesity, unspecified Plan: Patient?was?referred?to weight?management He?says?he?is?interested?in?medication Will?trial?Farxiga?which?will?also?help?control?blood?sugars (4) Rash: Code(s): R21 - Rash and other nonspecific skin eruption Plan: Appears?to?have?contact?dermatitis?on?right?johnson. Will?give?him?a?script?for?triamcinolone Also?advised?moisturizing?cream He?will?let?me?know?if?not?improving?and?would?refer?him?to?Dermatology (5) Cough: Code(s): R05.9 - Cough, unspecified Plan: Cough?and?some?chronic?shortness?of?breath?for?which?pulmonary?has?evaluated?and?refer?to?as?restrictive?lung?disease. Has?also?been?seen?by?Cardiology?who?did?not?feel?that?he?has?any?symptoms?requiring?further?investigation?at?this?time. Breath?sounds?coarse?throughout?and?concern?for?bronchitis.??Will?give?him?a?short?script?for?prednisone?and?will?also?have?him?start?taking?his?albuterol?4?times?daily. (6) Restrictive lung disease: Code(s): J98.4 - Other disorders of lung Plan: As?above Medications: New dapagliflozin propanediol (Farxiga) 5 mg PO QAM 30 tabs 1RF 30 days triamcinolone acetonide 0.5% 1 appl topical BID 30 grams 3RF 30 days Changed From prednisone 40 mg (2 x 20 mg) PO DAILY 5 days PRN 10 tabs 0RF Gout Flare To prednisone 40 mg (2 x 20 mg) PO DAILY PRN 8 tabs 2RF Gout Flare 4 days Coding Level of Care Code Est Pt Level 4 (06926) Diagnoses Essential hypertension I10 Pre-diabetes R73.03 Obesity (BMI 30-39.9) E66.9 Rash R21 Cough R05.9 Restrictive lung disease J98.4
== END 2023-04-18 09:58 | disposition home or self-care (01) ==
PROVIDERS: PCP Family Medicine; Visit Provider Family Medicine
DX: I10 Essential (primary) hypertension (principal); R73.03 Prediabetes; E66.9 Obesity, unspecified; Z68.37 Body mass index [BMI] 37.0-37.9, adult; R21 Rash and other nonspecific skin eruption; R05.9 Cough, unspecified; J98.4 Other disorders of lung
CPT/HCPCS: 83036; 99214

== ENCOUNTER 2023-04-18 08:57 | Outpatient (REF) | payer OTHER, MEDICAID, SELFPAY ==
[2023-04-18 11:54] LABS: Estimated Average Glucose 103 mg/dL; Hemoglobin A1c % 5.2 % (<6.0)
[2023-04-18 12:05] LABS: Alanine Aminotransferase 14 U/L (0-40); Albumin Level 4.2 g/dL (3.5-5.0); Alkaline Phosphatase 68 U/L (39-117); Anion Gap 14 (12-20); Aspartate Amino Transferase 20 U/L (5-37); Bilirubin Total 0.7 mg/dL (0.0-1.0); Blood Urea Nitrogen 16 mg/dL (9-16); Calcium 9.2 mg/dL (8.4-10.2); Carbon Dioxide 23 mmol/L (22-29); Chloride 105 mmol/L (96-108); Estimated Glomerular Filt Rate 59; Glucose Random 118 mg/dL (60-115); Potassium 4.2 mmol/L (3.3-5.1); Sodium 138 mmol/L (135-145); Uric Acid 8.5 mg/dL (3.4-7.0)
== END 2023-04-18 08:58 | disposition home or self-care (01) ==
LOC: HO.WFDLDS 08:57
PROVIDERS: Visit Provider Family Medicine
DX: M10.9 Gout, unspecified (principal); R73.01 Impaired fasting glucose
CPT/HCPCS: 36415; 80053; 83036; 84550

== ENCOUNTER 2023-07-17 09:23 | Outpatient (AMB) | payer OTHER, MEDICAID, SELFPAY ==
--- NOTE | 2023-07-17 09:27 | MHC.PC.OV ---
Vital Signs 07/17/23 09:35 Height 5 ft 7 in Weight 249 lb BMI 39.0 BP 128/78 Blood Pressure Location Lt brachial Position Sitting Pulse 76 Pulse Source Pulse Oximeter Pulse Oximetry (%) 98 Oxygen Delivery Method Room Air Intake Visit Reasons: f/u cough and chronic conditions Intake Note: Patient is here to follow up on cough and chronic conditions. Patient would like refill of Farxiaga. Allergies influenza virus vaccine, specific [FLU VACCINE] Allergy (Unknown, Verified 07/17/23 09:28) SWELLING Tobacco use date assessed: 07/17/23 Dental Screening Dental Screen Date: 07/17/23 Did you have a dental visit in the last 12 months?: Yes Did you have a dental problem in the last 6 months where you did not have access to dental care?: No Was dental information given to patient?: Patient has dentist HPI f/u cough and chronic conditions HPI Details 63 y/o male presents to f/u cough and chronic conditions. Blood pressure today 128/78. He is on carvedilol 6.25mg b.i.d. Pt notes he has a pillow that helps with sleep apnea and did have a sleep study before a long time ago. A1c today 07/17/23 is 5.7%. [facility] Medical History Restrictive lung disease Obesity (BMI 30-39.9) ETOH abuse Back pain Hypercholesterolemia HTN (hypertension) Surgical History History of back surgery Social History Household Members: Spouse Housing: House Alcohol intake: current Alcohol intake frequency: a few times a month Alcohol type: wine Patient Tobacco Use Status: Former Tobacco user Quit Date: 2022 Tobacco use type: Cigarette Years Smoked: 15 +/- e-Cigarette/Vaping Use: Never Used Second Hand Smoke Exposure: Yes service: No Current occupational status: retired and other Current occupation: rt handed Current occupational exposures/hazards: No Cognitive needs: No Hearing needs: No Vision needs: Yes (Patient was prescribed glasses.) Questionnaire Thrive Questionnaire Date Thrive assessed: 09/13/21 SUKUMAR-7 AMB Questionnaire SUKUMAR-7 Date SUKUMAR - 7 assessed: 09/13/21 Source: Developed by Drs. Raj Soto, Camille Henry, Braeden Castillo and colleagues, with an educational rowan from [employer]. Review of Systems Const Denies chills, Denies fatigue, Denies fever(s), Denies headache(s) and Denies weakness ENT Denies dizziness and Denies headache(s) Card Denies chest pain, Denies lightheadedness, Denies dyspnea and Denies other (Palpitations) Resp Denies cough, Denies dyspnea, Denies wheezing and Denies other ( shortness of breath) Musc Denies numbness and Denies tingling Neuro Denies dizziness, Denies headache(s), Denies numbness, Denies tingling, Denies paresthesias and Denies weakness Psych Denies anxiety and Denies depression Endo Denies fatigue Aller/Immun Denies wheezing Physical exam (Primary Care) Vital Signs: Last Vital Signs Pulse 76 07/17/23 09:35 BP 128/78 07/17/23 09:35 Pulse Ox 98 07/17/23 09:35 Oxygen Delivery Method Room Air 07/17/23 09:35 BMI result Body Mass Index 39.0 Tobacco/Smoking Status: Tobacco use Status Tobacco use date assessed 07/17/23 07/17/23 09:31 Patient Tobacco Use Status Former Tobacco user 07/17/23 09:31 Tobacco use type Cigarette 07/17/23 09:31 e-Cigarette/Vaping Use Never Used 07/17/23 09:31 Thrive Assessment: Date of Thrive Assessment Date Thrive assessed 09/13/21 07/17/23 09:31 Const General: no acute distress and well developed Nutritional Appearance: well nourished Orientation/consciousness: patient oriented x3 [facility]: Yes normocephalic and Yes atraumatic Eyes General: appearance normal, both eyes and all related structures Pupils: Equal, round and reactive pupils present EOM: EOMs intact bilaterally Resp Effort & Inspection: normal respiratory effort Auscultation: clear to auscultation bilaterally Cardio Rate: regular rate Rhythm: regular rhythm Heart sounds: S1 normal heart sound present, S2 normal heart sound present, no gallops, no murmurs and no rubs Neuro General: patient oriented x3 and gait normal Cranial nerves: Yes Equal, round and reactive pupils present Psych Affect: normal affect Results AMB Hemoglobin A1c AMB Hemoglobin A1c 5.7 % Last Edit by Netta Taylor CMA on 07/17/23 09:59 Assessment and Plan Assessment & Plan (1) Essential hypertension: Code(s): I10 - Essential (primary) hypertension Plan: Blood?pressure?is?controlled.??Goal?is?less?than?140/90 Continue?current?medication?regimen (2) Cough: Code(s): R05.9 - Cough, unspecified Plan: This?has?resolved (3) Obesity (BMI 30-39.9): Code(s): E66.9 - Obesity, unspecified Plan: Patient?gained?some?weight?though?he?says?he?had?been?losing?weight?while?he?was?on?Farxiga. Continue?to?work?at?weight?loss. (4) Sleep apnea: Code(s): G47.30 - Sleep apnea, unspecified Plan: Referred?to?Sleep?Medicine (5) Pre-diabetes: Code(s): R73.03 - Prediabetes Plan: A1c?5.7%.??He?has?been?on?Farxiga?though?he?is?out?of?the?medication. Refilled. (6) Renal insufficiency: Code(s): N28.9 - Disorder of kidney and ureter, unspecified Plan: Check?renal?function Refilled?Farxiga (7) Lumbar radiculopathy: Code(s): M54.16 - Radiculopathy, lumbar region Plan: Controlled?with?tizanidine?which?is?refilled?today. Orders: Orders AMB Hemoglobin A1c Today Z13.9 - Encounter for screening, unspecified Comprehensive Met. Panel Today N28.9 - Disorder of kidney and ureter, unspecified Referrals Sleep Medicine Referral G47.30 - Sleep apnea, unspecified Medications: Refilled tizanidine 4 mg PO BEDTIME PRN 30 tabs 3RF muscle spasticity N28.9 - Disorder of kidney and ureter, unspecified dapagliflozin propanediol (Farxiga) 5 mg PO QAM 30 days 30 tabs 1RF N28.9 - Disorder of kidney and ureter, unspecified Coding Level of Care Code Est Pt Level 4 (72806) Diagnoses Essential hypertension I10 Cough R05.9 Obesity (BMI 30-39.9) E66.9 Sleep apnea G47.30 Pre-diabetes R73.03 Renal insufficiency N28.9 Lumbar radiculopathy M54.16
[2023-07-17 09:35] VITALS: BP 128/78; PULSE 76; O2SAT 98; BMI 39.0
== END 2023-07-17 10:12 | disposition home or self-care (01) ==
PROVIDERS: PCP Family Medicine; Visit Provider Family Medicine
DX: I10 Essential (primary) hypertension (principal); Z68.39 Body mass index [BMI] 39.0-39.9, adult; E66.9 Obesity, unspecified; R73.03 Prediabetes; R05.9 Cough, unspecified; G47.30 Sleep apnea, unspecified; N28.9 Disorder of kidney and ureter, unspecified; M54.16 Radiculopathy, lumbar region
CPT/HCPCS: 83036; 99214

== ENCOUNTER 2023-09-03 10:17 | Outpatient (AMB) | payer OTHER, MEDICAID, SELFPAY ==
[2023-09-03 10:37] VITALS: BP 140/70; PULSE 83; BMI 37.8
--- NOTE | 2023-09-03 10:37 | A.OFFVIS_ITS ---
Intake Vital Signs 09/03/23 10:37 Height 5 ft 7 in Weight 241 lb 2.971 oz BMI 37.8 BP 140/70 H Blood Pressure Location Lt brachial Position Sitting Pulse 83 Intake Visit Reasons: 6 nth fu Intake Note: pt its here for a 6mth f/up/ pt states that he is doing fine. 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 Accompanied by: Spouse Allergies influenza virus vaccine, specific [FLU VACCINE] Allergy (Unknown, Verified 07/17/23 09:28) SWELLING Medication List - Last Reconciled 09/03/23 by Aryan Brooks MD acetaminophen ER (Tylenol Arthritis Pain) 650 mg PO Q12H albuterol sulfate 90 mcg/actuation 2 puffs inhalation Q6H PRN 30 days allopurinol 200 mg (2 x 100 mg) PO DAILY 30 days carvedilol 6.25 mg PO BID 90 days clotrimazole 1% 1 appl topical BID 2 weeks cyanocobalamin (vitamin B-12) 1,000 mcg PO DAILY 90 days dapagliflozin propanediol (Farxiga) 5 mg PO QAM 30 days prednisone 40 mg (2 x 20 mg) PO DAILY PRN 4 days tizanidine 4 mg PO BEDTIME PRN triamcinolone acetonide 0.5% 1 appl topical BID 30 days HPI HPI Comments History of Present Illness Details 63-year-old gentleman who is here for dy spnea on exertion and dyspnea on bending forward ongoing for 2 years. He is saying his symptoms are progressive and worsening. The has accompanied him in the office. She is adding that when he is walking specially in the mall he has to stop because of shortness of breath. Denies any significant chest discomfort but has been experiencing shortness of breath for approximately 2 years. Also snores at night and has noticed that he stops breathing. He has abdominal obesity. He also has some orthopnea like symptoms. Was a heavy smoker but has been smoking less recently. He has been noticed to have wheezing occasionally and has not had any pulmonary function test recently. He also has chronic kidney disease and last creatinine was 1.47 with estimated GFR 49. 9: He had PFTs which showed restr ictive lung disease due to abdominal obesity. He has been trying to exercise and diet but has not lost any significant weight. He is due to see bariatric program for weight loss. He gets out of breath with activities. No chest discomfort. Blood pressure control is good. 09/03/2023: He returns for follow-up. Duglas walker is saying that his breathing is improving. He has been on Farxiga and has been going to gym regularly and has lost approximately 7-8 lb. He is saying that his breathing is much improved with weight loss. Previously had echocardiography which showed mild dilation of ascending aorta at 3.9 cm but otherwise left ventricular right ventricular function were normal and he had normal diastolic function. He had a Lexiscan in 2020 which was also normal. He has quit smoking over the last year. Overall he is saying that he is feeling better with diet, exercise and weight loss. [facility] Medical History Restrictive lung disease Obesity (BMI 30-39.9) ETOH abuse Back pain Hypercholesterolemia HTN (hypertension) Surgical History History of back surgery Social History Household Members: Spouse Housing: House Alcohol intake: current Alcohol intake frequency: a few times a month Alcohol type: wine Patient Tobacco Use Status: Former Tobacco user Quit Date: 2022 Tobacco use type: Cigarette Years Smoked: 15 +/- e-Cigarette/Vaping Use: Never Used Second Hand Smoke Exposure: Yes service: No Current occupational status: retired and other Current occupation: rt handed Current occupational exposures/hazards: No Cognitive needs: No Hearing needs: No Vision needs: Yes (Patient was prescribed glasses.) Review of Systems Const Denies chills, Denies fatigue, Denies fever(s), Denies frequent falls, Denies weakness, Denies weight gain and Denies weight loss ENT Denies dizziness Card Denies chest pain, Denies leg edema, Denies lightheadedness, Denies palpitations, Denies dyspnea and Denies dyspnea on exertion Resp Denies cough, Denies dyspnea and Denies dyspnea on exertion GI Denies hematochezia Musc Denies abnormal gait, Denies muscle weakness, Denies numbness, Denies radiating pain into limb and Denies tingling Neuro Denies abnormal gait, Denies dizziness, Denies frequent falls, Denies numbness, Denies tingling and Denies weakness Endo Denies fatigue and Denies palpitations Physical Exam Vital Signs: Last Vital Signs Pulse 83 09/03/23 10:37 BP 140/70 H 09/03/23 10:37 BMI result Body Mass Index 37.8 GENERAL APPEARANCE: in no acute distress, pleasant. NECK: no carotid bruit, mild jugular venous distention. SKIN: no suspicious lesions, warm and dry. HEART: no murmurs, regular rate and rhythm. LUNGS: clear to auscultation bilaterally. ABDOMEN: soft, nontender. Abdominal obesity. EXTREMITIES: no edema. PERIPHERAL PULSES: equal. NEUROLOGIC: No gross deficits, AAO X 3 Office Procedures EKG Details: Sinus rhythm 83 beats per minute, nonspecific ST-T changes. QTc 465 milliseconds. [id number], Complete Assessment & Plan Assessment & Plan (1) Dyspnea on exertion: Code(s): R06.00 - Dyspnea, unspecified Plan Pleasant 63 year gentleman is here for follow-up. He has background history of dyspnea on exertion. He is testing previously has not shown any obvious cardiovascular issue. His PFTs showed restrictive lung disease due to obesity and was advised to lose some weight. He has been dieting and exercising and is taking Farxiga currently and has lost approximately 7-8 lb. He is saying that with weight loss his breathing has improved significantly. I have advised him to continue diet and exercise. The had questions about his family history and the decision about angiography. His father apparently had bypass surgery in the past and brother also had [facility] at age 49. So far his testing has been quite equivocal. Weight loss has helped his dyspnea and I have advised him to continue the exercise for now. I explained to the patient and his that doing a left and right heart catheterization is a possibility but I am unsure this is the right time for that. He is improving with and intervention and I think we continue doing that. Obviously if his breathing does not improve completely or he notices that even after losing weight he is short of breath than [id number] heart catheterization will be the next step. The patient and his are agreeable and understand the rationale. Follow-up in 3 months. Thank you for allowing me to participate in the care of your patient. Please feel free to contact me if you have any questions. Coding Level of Care Code Est Pt Level 4 (87474) Diagnoses Dyspnea on exertion R06.00 CPT Codes EKG - CPT: 25911-[id number], Complete ([id number])
== END 2023-09-03 11:11 | disposition home or self-care (01) ==
PROVIDERS: PCP Family Medicine; Visit Provider Internal Medicine Cardiovascular Disease
DX: R06.00 Dyspnea, unspecified (principal)
CPT/HCPCS: 93010; 99214

== ENCOUNTER → 2023-09-03 10:17 | Outpatient (BNVA) | payer OTHER, SELFPAY | PROVIDERS: PCP Family Medicine; Visit Provider Internal Medicine Cardiovascular Disease | DX: R06.00 Dyspnea, unspecified (principal) | CPT/HCPCS: 93005 ==

== ENCOUNTER 2023-10-16 09:51 | Outpatient (AMB) | payer OTHER, SELFPAY ==
--- NOTE | 2023-10-16 09:57 | A.OFFPC_ITS ---
Vital Signs 10/16/23 10:00 Height 5 ft 7 in Weight 245 lb BMI 38.4 BP 132/78 Blood Pressure Location Lt brachial Position Sitting Pulse 82 Pulse Source Pulse Oximeter Pulse Oximetry (%) 97 Oxygen Delivery Method Room Air Intake Visit Reasons: f/u hypertension, pre-diabetes, chronic conditions Intake Note: Patient is here for follow up on hypertension, prediabetes, and chronic conditions. Allergies influenza virus vaccine, specific [FLU VACCINE] Allergy (Unknown, Verified 10/16/23 10:01) SWELLING Medication List - Last Reconciled 10/16/23 by Hilario Tran MD acetaminophen ER (Tylenol Arthritis Pain) 650 mg PO Q12H albuterol sulfate 90 mcg/actuation 2 puffs inhalation Q6H PRN 30 days allopurinol 200 mg (2 x 100 mg) PO DAILY 30 days carvedilol 6.25 mg PO BID 90 days clotrimazole 1% 1 appl topical BID 2 weeks cyanocobalamin (vitamin B-12) 1,000 mcg PO DAILY 90 days dapagliflozin propanediol (Farxiga) 5 mg PO QAM 30 days prednisone 40 mg (2 x 20 mg) PO DAILY PRN 4 days tizanidine 4 mg PO BEDTIME PRN triamcinolone acetonide 0.5% 1 appl topical BID 30 days Tobacco use date assessed: 10/16/23 Dental Screening Dental Screen Date: 10/16/23 Did you have a dental visit in the last 12 months?: Yes Did you have a dental problem in the last 6 months where you did not have access to dental care?: No Was dental information given to patient?: Patient has dentist HPI f/u hypertension, pre-diabetes, chronic conditions HPI Details 63 y/o male presents to f/u HTN, pre-deann betes, chronic conditions. A1c today 5.9% - last A1c in June 5.7%. Blood pressure today 132/78. He is on carvedilol 6.25mg b.i.d. [facility] [place] Medical History Restrictive lung disease Obesity (BMI 30-39.9) ETOH abuse Back pain Hypercholesterolemia HTN (hypertension) Surgical History History of back surgery Social History Household Members: Spouse Housing: House Alcohol intake: current Alcohol intake frequency: a few times a month Alcohol type: wine Patient Tobacco Use Status: Former Tobacco user Quit Date: 2022 Tobacco use type: Cigarette Years Smoked: 15 +/- e-Cigarette/Vaping Use: Never Used Second Hand Smoke Exposure: Yes service: No Current occupational status: retired and other Current occupation: rt handed Current occupational exposures/hazards: No Cognitive needs: No Hearing needs: No Vision needs: Yes (Patient was prescribed glasses.) Questionnaire PHQ-9 Over the last 2 weeks, how often have you been bothered by any of the following problems? 1. Little interest or pleasure in doing things: not at all 2. Feeling down, depressed, or hopeless: not at all 3. Trouble falling or staying asleep, or sleeping too much: not at all 4. Feeling tired or having little energy: not at all 5. Poor appetite or overeating: not at all 6. Feeling bad about yourself - or that you are a failure or have let yourself or your family down: not at all 7. Trouble concentrating on things, such as reading the newspaper or watching television: not at all 8. Moving or speaking so slowly that other people could have noticed. Or the opposite - being so fidgety or restless that you have been moving around a lot more than usual: not at all 9. Thoughts that you would be better off or of hurting yourself in some way: not at all Total score: 0 Depression Screening Interpretation: Negative Depression Screening Done: Yes [id number] - PHQ-9 Billing: Yes Source: Developed by Drs. Raj Soto, Camille Henry, Braeden Castillo and colleagues, with an educational rowan from [employer]. Thrive Questionnaire Date Thrive assessed: 09/13/21 I am a: Patient What is your living situation today?: I have a steady place to live Within the past 12 months, did the food you bought not last and you didn't have the money to get more?: Never true Within the past 12 months, did you worry whether your food would run out before you got money to buy more?: Never true Do you have trouble paying for medicines?: Yes Do you have trouble getting transportation to medical appointments?: Yes Do you have trouble paying your heating and electricity bill?: No Do you have trouble taking care of your child, family member or friend?: No Do you have trouble with day-to-day activities such as bathing, preparing meals, shopping, managing finances, etc.?: No Are you currently unemployed and looking for a job?: No Are you interested in more education?: No THRIVE Score: 1 AUDIT C Alcohol Use Questionnaire (AUDIT-C) 1. How often do you have a drink containing alcohol?: 2-3 times a week 2. How many drinks containing alcohol do you have on a typical day when you are drinking?: 1 or 2 3. How often do you have six or more drinks on one occasion?: Never Total Score: 3 SUKUMAR-7 AMB Questionnaire SUKUMAR-7 Date SUKUMAR - 7 assessed: 10/16/23 Feeling nervous, anxious, or on edge: 0 = Not at all Not being able to stop or control worryin = Not at all Worrying too much about different things: 0 = Not at all Trouble relaxin = Not at all Being so restless that it is hard to sit still: 0 = Not at all Becoming easily annoyed or irritable: 0 = Not at all Feeling afraid as if something awful might happen: 0 = Not at all Total SUKUMAR-7 score (0-4 normal; 5-9 mild; 10-14 moderate; 15-21 severe): 0 Source: Developed by Drs. Raj Soto, Camille Henry, Braeden Castillo and colleagues, with an educational rowan from [employer]. SUKUMAR-7 Assessment Billing SUKUMAR-7 Assessment Tool: SUKUMAR-7 Assessment 82818 Review of Systems Const Denies chills, Denies fatigue, Denies fever(s), Denies headache(s) and Denies weakness ENT Denies dizziness and Denies headache(s) Card Denies dyspnea Resp Denies cough, Denies dyspnea, Denies wheezing and Denies other (shortness of breath) Musc Denies numbness and Denies tingling Neuro Denies dizziness, Denies headache(s), Denies numbness, Denies tingling and Denies weakness Psych Denies anxiety and Denies depression Endo Denies fatigue Aller/Immun Denies wheezing Physical exam (Primary Care) Vital Signs: Last Vital Signs Pulse 82 10/16/23 10:00 BP 132/78 10/16/23 10:00 Pulse Ox 97 10/16/23 10:00 Oxygen Delivery Method Room Air 10/16/23 10:00 BMI result Body Mass Index 38.4 Tobacco/Smoking Status: Tobacco use Status Tobacco use date assessed 10/16/23 10/16/23 10:03 Patient Tobacco Use Status Former Tobacco user 10/16/23 09:59 Tobacco use type Cigarette 10/16/23 09:59 e-Cigarette/Vaping Use Never Used 10/16/23 09:59 PHQ-9: PHQ-9 Score PHQ-9: Total score 0 10/16/23 10:41 Depression Screening Interpretation: Negative Thrive Assessment: Date of Thrive Assessment Date Thrive assessed 09/13/21 10/16/23 09:59 Const General: well developed; No acute distress Nutritional Appearance: well nourished and obese Orientation/consciousness: patient oriented x3 HENMT Head: Yes normocephalic and Yes atraumatic Eyes General: appearance normal, both eyes and all related structures Pupils: Equal, round and reactive pupils present EOM: EOMs intact bilaterally Resp Effort & Inspection: normal respiratory effort Auscultation: clear to auscultation bilaterally Cardio Rate: regular rate Rhythm: regular rhythm Heart sounds: S1 normal heart sound present, S2 normal heart sound present, no gallops, no murmurs and no rubs Neuro General: patient oriented x3 and gait normal Cranial nerves: Yes Equal, round and reactive pupils present Psych Affect: normal affect Results AMB Hemoglobin A1c AMB Hemoglobin A1c 5.9 % Last Edit by Netta Taylor CMA on 10/16/23 10:21 Results Reviewed Results Reviewed: Laboratory Last Values Hgb A1c (Clinic) 5.9 % (4.0-6.0) 10/16/23 10:15 Assessment and Plan Assessment & Plan (1) Essential hypertension: Code(s): I10 - Essential (primary) hypertension Plan: Blood?pressure?is?controlled.??Goal?is?less?than?140/90 Continue?carvedilol?as?prescribed Work?on?diet?low?in?salt/sodium Work?on?weight?loss?and?exercise (2) Pre-diabetes: Code(s): R73.03 - Prediabetes Plan: A1c?climbed?slightly?but?still?shows?good?control.??Goal?is?less?than?7.0% Continue?Farxiga Work?on?diabetic?diet?low?in?sugars?and?starches.??Work?on?weight?loss?and?exerc ise. (3) Gout: Code(s): M10.9 - Gout, unspecified Plan: Complaint?of?recent?left?knee?gout.?? Patient?had?some?prednisone?at?home?and?took?this. He?says?this?seems?to?have?resolved/is?resolving. Check?uric?acid?level Continue?allopurinol Orders: Orders Comprehensive [place]. Panel Fast Today Z00.00 - Encounter for general adult medical examination without abnormal findings Microalbumin, Random (w Creat) Today I10 - Essential (primary) hypertension Prostate Specific Antigen Scr Today Z12.5 - Encounter for screening for malignant neoplasm of prostate UA and rflx microscopic Today Z00.00 - Encounter for general adult medical examination without abnormal findings Uric Acid Today M10.9 - Gout, unspecified AMB Hemoglobin A1c Today Z13.9 - Encounter for screening, unspecified Complete Blood Count Auto Diff Today Z00.00 - Encounter for general adult medical examination without abnormal findings Lipid Panel Today Z00.00 - Encounter for general adult medical examination without abnormal findings TSH reflex Free T4 Today Z00.00 - Encounter for general adult medical examination without abnormal findings Coding Level of Care Code Est Pt Level 4 (45610) Diagnoses Essential hypertension I10 Pre-diabetes R73.03 Gout M10.9 Additional Codes SUKUMAR-7 Assessment Billing - SUKUMAR-7 Assessment Tool: SUKUMAR-7 Assessment [id number] ([id number])
[2023-10-16 10:00] VITALS: BP 132/78; PULSE 82; O2SAT 97; BMI 38.4
== END 2023-10-16 11:03 | disposition home or self-care (01) ==
PROVIDERS: PCP Family Medicine; Visit Provider Family Medicine
DX: I10 Essential (primary) hypertension (principal); R73.03 Prediabetes; M10.9 Gout, unspecified
CPT/HCPCS: 83036; 99214

== ENCOUNTER 2024-03-05 10:50 | Outpatient (AMB) | payer OTHER, MEDICARE, SELFPAY ==
--- NOTE | 2024-03-05 10:59 | MHC.PC.OV ---
Vital Signs 03/05/24 11:04 Height 5 ft 7 in Weight 238 lb 6 oz BMI 37.3 BP 100/60 Blood Pressure Location Lt brachial Position Sitting Respiration 10 L Pulse 62 Pulse Source Pulse Oximeter Temp 98.3 F Temp Source Tympanic Pulse Oximetry (%) 96 Oxygen Delivery Method Room Air Intake Visit Reasons: CPE with f/u labs and health maint. - see comment Intake Note: cpe Allergies influenza virus vaccine, specific [FLU VACCINE] Allergy (Unknown, Verified 03/05/24 10:59) SWELLING Medication List - Last Reconciled 03/05/24 by Hilario Tran MD acetaminophen ER (Tylenol Arthritis Pain) 650 mg PO Q12H albuterol sulfate 90 mcg/actuation 2 puffs inhalation Q6H PRN 30 days allopurinol 200 mg (2 x 100 mg) PO DAILY 30 days carvedilol 6.25 mg PO BID 90 days clotrimazole 1% 1 appl topical BID 2 weeks cyanocobalamin (vitamin B-12) 1,000 mcg PO DAILY 90 days dapagliflozin propanediol (Farxiga) 5 mg PO QAM 30 days prednisone 40 mg (2 x 20 mg) PO DAILY PRN 4 days tizanidine 4 mg PO BEDTIME PRN triamcinolone acetonide 0.5% 1 appl topical BID 30 days Tobacco use date assessed: 03/05/24 Dental Screening Dental Screen Date: 03/05/24 Did you have a dental visit in the last 12 months?: Yes Did you have a dental problem in the last 6 months where you did not have access to dental care?: No Was dental information given to patient?: Patient has dentist HPI CPE with f/u labs and health maint. - see comment HPI Details 64 y/o male presents for a CPE with f/u labs and health maintenance. No recent CPE-labs to review. Blood pressure today 100/60, 62p. Goes to the gym once a week for exercise. Last A1c 10/16/23 5.9%. A1c today 03/05/24 is 5.9%. He is on farxiga. [facility] Medical History Restrictive lung disease Obesity (BMI 30-39.9) ETOH abuse Back pain Hypercholesterolemia HTN (hypertension) Surgical History History of back surgery Social History (Updated 03/05/24 @ 11:02 by Kenyon Hyatt MA) Household Members: Spouse Housing: House Alcohol intake: current Alcohol intake frequency: a few times a month Alcohol type: wine Patient Tobacco Use Status: Former Tobacco user Tobacco use type: Cigarette Years Smoked: 15 +/- e-Cigarette/Vaping Use: Never Used Second Hand Smoke Exposure: Yes service: No Current occupational status: retired and other Current occupation: rt handed Current occupational exposures/hazards: No Cognitive needs: No Hearing needs: No Vision needs: Yes (Patient was prescribed glasses.) Questionnaire PHQ-9 Over the last 2 weeks, how often have you been bothered by any of the following problems? 1. Little interest or pleasure in doing things: not at all 2. Feeling down, depressed, or hopeless: not at all 3. Trouble falling or staying asleep, or sleeping too much: several days 4. Feeling tired or having little energy: several days 5. Poor appetite or overeating: not at all 6. Feeling bad about yourself - or that you are a failure or have let yourself or your family down: not at all 7. Trouble concentrating on things, such as reading the newspaper or watching television: not at all 8. Moving or speaking so slowly that other people could have noticed. Or the opposite - being so fidgety or restless that you have been moving around a lot more than usual: not at all 9. Thoughts that you would be better off or of hurting yourself in some way: not at all Total score: 2 Depression Screening Interpretation: Negative Depression Screening Done: Yes 10741 - PHQ-9 Billing: Yes Source: Developed by Drs. Raj Soto, Camille Henry, Braeden Castillo and colleagues, with an educational rowan from [employer]. Thrive Questionnaire Date Thrive assessed: 03/05/24 I am a: Patient What is your living situation today?: I have a steady place to live Within the past 12 months, did the food you bought not last and you didn't have the money to get more?: Sometimes True Within the past 12 months, did you worry whether your food would run out before you got money to buy more?: Never true Do you have trouble paying for medicines?: Yes Do you have trouble getting transportation to medical appointments?: No Do you have trouble paying your heating and electricity bill?: No Do you have trouble taking care of your child, family member or friend?: No Do you have trouble with day-to-day activities such as bathing, preparing meals, shopping, managing finances, etc.?: No Are you currently unemployed and looking for a job?: No Are you interested in more education?: No Please select the resources that you would like help with: None Currently or been in a relationship where the following occur: No concerns reported THRIVE Score: 1 AUDIT C Alcohol Use Questionnaire (AUDIT-C) 1. How often do you have a drink containing alcohol?: 2-3 times a week 2. How many drinks containing alcohol do you have on a typical day when you are drinking?: 3 or 4 3. How often do you have six or more drinks on one occasion?: Weekly Total Score: 7 Score Reviewed/Action Taken: Yes SUKUMAR-7 AMB Questionnaire SUKUMAR-7 Date SUKUMAR - 7 assessed: 03/05/24 Feeling nervous, anxious, or on edge: 0 = Not at all Not being able to stop or control worryin = Several days Worrying too much about different things: 1 = Several days Trouble relaxin = Several days Being so restless that it is hard to sit still: 0 = Not at all Becoming easily annoyed or irritable: 0 = Not at all Feeling afraid as if something awful might happen: 0 = Not at all Total SUKUMAR-7 score (0-4 normal; 5-9 mild; 10-14 moderate; 15-21 severe): 3 Source: Developed by Drs. Raj Soto, Camille Henry, Braeden Castillo and colleagues, with an educational rowan from [employer]. SUKUMAR-7 Assessment Billing SUKUMAR-7 Assessment Tool: SUKUMAR-7 Assessment 65971 Review of Systems Const Denies chills, Denies fatigue, Denies fever(s), Denies headache(s) and Denies weakness Eyes Denies change in vision ENT Denies dizziness, Denies headache(s), Denies hearing loss, Denies nasal congestion, Denies sinus pain, Denies sinus pressure and Denies sore throat Card Denies chest pain, Denies lightheadedness, Denies dyspnea and Denies other (palpitations) Resp Denies cough, Denies dyspnea and Denies wheezing GI Denies abdominal pain, Denies melena, Denies hematochezia, Denies change in bowel habits, Denies dyspepsia and Denies nausea Denies hematuria and Denies dysuria Musc Denies abnormal gait, Denies myalgias, Denies arthralgias, Denies numbness and Denies tingling Skin/Breast Denies rash, Denies unusual bruising and Denies wounds Neuro Denies abnormal gait, Denies dizziness, Denies headache(s), Denies memory loss, Denies numbness, Denies Sensory deficit (Neuro), Denies tingling and Denies weakness Psych Denies anxiety, Denies depression and Denies memory loss Endo Denies cold intolerance, Denies fatigue, Denies heat intolerance, Denies polydipsia and Denies polyuria Rock/Lymph Denies easy bleeding and Denies easy bruising Aller/Immun Denies wheezing Physical exam (Primary Care) Vital Signs: Last Vital Signs Temp 98.3 F 03/05/24 11:04 Pulse 62 03/05/24 11:04 Resp 10 L 03/05/24 11:04 BP 100/60 03/05/24 11:04 Pulse Ox 96 03/05/24 11:04 Oxygen Delivery Method Room Air 03/05/24 11:04 BMI result Body Mass Index 37.3 Tobacco/Smoking Status: Tobacco use Status Tobacco use date assessed 03/05/24 03/05/24 11:08 Patient Tobacco Use Status Former Tobacco user 03/05/24 11:08 Tobacco use type Cigarette 03/05/24 11:08 e-Cigarette/Vaping Use Never Used 03/05/24 11:08 PHQ-9: PHQ-9 Score PHQ-9: Total score 2 03/05/24 11:08 Depression Screening Interpretation: Negative Thrive Assessment: Date of Thrive Assessment Date Thrive assessed 03/05/24 03/05/24 11:08 Currently or been in a relationship where the following occur: No concerns reported Const General: no acute distress, well developed, alert and awake Nutritional Appearance: well nourished Orientation/consciousness: patient oriented x3 HENMT Head: Yes normocephalic and Yes atraumatic Ears: hearing grossly normal bilaterally and TM's normal bilaterally General nose exam: Normal external nose present and Normal nares present Mouth: Normal oral and palatal mucosa present and moist mucous membranes Teeth and gingiva: dentition normal Throat: Yes posterior oropharynx normal Eyes General: appearance normal, both eyes and all related structures Pupils: Equal, round and reactive pupils present and Pupil accommodation reflex normal EOM: EOMs intact bilaterally Neck Neck: Yes normal visual inspection, Yes no lymphadenopathy and Yes trachea midline Thyroid: Thyroid normal Carotids: no bruits Lymphatic: no lymphadenopathy noted Chest Chest palpation & inspection: normal inspection of the chest Resp Effort & Inspection: normal respiratory effort Auscultation: clear to auscultation bilaterally Cardio Rate: regular rate Rhythm: regular rhythm Heart sounds: S1 normal heart sound present, S2 normal heart sound present, no gallops, no murmurs and no rubs Bruits: no abdominal aortic bruits and no carotid bruits GI Palpation (GI): No Abdominal aortic bruit present, Soft to palpation, nontender, No hepatosplenomegaly present and No Rebound tenderness present Auscultation: normal bowel sounds General: Yes no CVA tenderness Back/Spine/Pelvis Back: no CVA tenderness Cervical Spine: cervical ROM normal and No Cervical spine tenderness Thoracic/Lumbar Spine: thoraco-lumbar ROM normal, No pain with thoraco-lumbar ROM, No thoracic spinal tenderness and No lumbar spinal tenderness Skin Lesions: no lesions Rashes: no rashes Trauma: no lacerations or abrasions Wounds: no wounds Nails: normal Neuro General: patient oriented x3 Cranial nerves: Yes Equal, round and reactive pupils present Cognition (Neuro): normal cognition Gait exam (Neuro): Normal gait present Motor exam (neuro): 5/5 motor strength present throughout Sensory Exam: No Sensory deficit (Neuro) Deep tendon reflexes (DTR's): Right patellar reflex intensity grade: 2+ and Left patellar reflex intensity grade: 2+ Extrem General: Yes normal to inspection and No edema Psych Appearance: grossly normal Affect: normal affect Attitude: cooperative Thought process: Normal thought process present Assessment and Plan Assessment & Plan (1) Adult general medical exam: Code(s): Z00.00 - Encounter for general adult medical examination without abnormal findings Plan: 64-year-old?male?presents?for?complete?physical?exam Encouraged?healthy?diet?with?active?lifestyle?and?plenty?of?exercise (2) Pre-diabetes: Code(s): R73.03 - Prediabetes Plan: A1c?5.9% Will?continue?to?monitor (3) Essential hypertension: Code(s): I10 - Essential (primary) hypertension Plan: Blood?pressure?is?controlled.??Goal?is?less?than?140/90 Continue?current?medication Hydrate?well (4) Screening for colon cancer: Code(s): Z12.11 - Encounter for screening for malignant neoplasm of colon Plan: Patient?says?he?had?a?colonoscopy?over?3-4?years?ago?at?[facility]. Will?get?report?to?see?when?he?is?due?back (5) Screening for prostate cancer: Code(s): Z12.5 - Encounter for screening for malignant neoplasm of prostate Plan: Check?PSA Coding Level of Care Code Est Pt Level 3 (55481) Est Pt Prev Care 40-64y(76160) Diagnoses Adult general medical exam Z00.00 Pre-diabetes R73.03 Essential hypertension I10 Screening for colon cancer Z12.11 Screening for prostate cancer Z12.5 Additional Codes SUKUMAR-7 Assessment Billing - SUKUMAR-7 Assessment Tool: SUKUMAR-7 Assessment 96888 ([id number])
[2024-03-05 11:04] VITALS: BP 100/60; PULSE 62; RESP 10; TEMP 36.8; O2SAT 96; BMI 37.3
== END 2024-03-05 12:01 | disposition home or self-care (01) ==
PROVIDERS: PCP Family Medicine; Visit Provider Family Medicine
DX: Z00.00 Encounter for general adult medical examination without abnormal findings (principal); R73.03 Prediabetes; I10 Essential (primary) hypertension; Z12.11 Encounter for screening for malignant neoplasm of colon; Z12.5 Encounter for screening for malignant neoplasm of prostate

== ENCOUNTER → 2024-03-05 10:50 | Outpatient (BNVA) | payer OTHER, SELFPAY | PROVIDERS: PCP Family Medicine; Visit Provider Family Medicine | DX: Z00.00 Encounter for general adult medical examination without abnormal findings (principal); R73.03 Prediabetes; I10 Essential (primary) hypertension | CPT/HCPCS: 96127 ==

== ENCOUNTER → 2024-04-10 13:07 | Outpatient (BNVA) | payer MEDICARE, SELFPAY | PROVIDERS: PCP Family Medicine; Visit Provider Family Medicine ==

== ENCOUNTER → 2024-04-10 13:07 | Outpatient (BNVA) | payer MEDICARE, SELFPAY | PROVIDERS: PCP Family Medicine; Visit Provider Family Medicine ==

== ENCOUNTER 2024-04-15 09:42 | Outpatient (REF) | payer MEDICARE, SELFPAY ==
[2024-04-15 10:05] LABS: MANUAL DIFF FLAG NO
[2024-04-15 10:55] LABS: Appearance Urine Clear; Color Urine Yellow; Glucose Urine UA >=1000 mg/dL (Negative); Leukocyte Esterase Urine Negative (Negative); Nitrite Urine Negative (Negative); PH 5.5 (5.0-9.0); Specific Gravity - Urine 1.025 (1.005-1.025); UMIC TRIGGER UA YES; Urine Blood Negative (Negative); Urine Ketones Negative (Negative); Urine Protein Trace mg/dL (Neg-Trace)
[2024-04-15 11:01] LABS: Basophils Absolute Auto 0.1 X10*3/uL (0.0-0.2); Basophils Percent Auto 1.2 % (0-2); Eosinophils Absolute Auto 0.5 X10*3/uL (0.0-0.4); Hematocrit 46.5 % (42.0-52.0); Hemoglobin 16.1 g/dl (14.0-18.0); Imm Gran Abs Auto 0.03 X10*3/uL (0.00-0.03); Imm Gran Pct Auto 0.4 % (0.0-0.4); Lymphocytes Absolute Auto 2.1 X10*3/uL (1.2-4.9); Lymphocytes Percent Auto 26.2 % (20-40); Mean Corpuscular HGB Conc 34.6 g/dl (31.0-36.0); Mean Corpuscular Hemoglobin 33.5 pg (27.0-33.0); Mean Corpuscular Volume 96.7 fL (80.0-98.0); Mean Platelet Volume 9.5 fL (9.4-12.4); Monocytes Absolute Auto 0.6 X10*3/uL (0.1-1.2); Monocytes Percent Auto 7.3 % (2-11); Neutrophils Absolute Auto 4.6 x10*3/uL (2.0-8.3); Neutrophils Percent Auto 58.9 % (45-73); Platelet Count 289 X10*3/uL (160-400); Red Blood Count 4.81 X10*6/uL (4.60-5.80); Red Cell Distribution Width 13.6 % (11.0-16.0); White Blood Count 7.8 X10*3/uL (4.8-10.8)
[2024-04-15 11:17] LABS: Bacteria Urine None Seen (None Seen); Hyaline Casts Urine 0-2 /LPF (0-2); RBC Urine 0-2 /HPF (0-2); Squamous Epithelial Cell Urine 0-2 /HPF (0-2); WBC Urine 0-5 /HPF (0-5)
[2024-04-15 11:49] LABS: Creatinine Urine 164.91 mg/dL; Microalbum/Creatinine Ratio Ur 57.6 ug/mg cr (<30)
[2024-04-15 12:03] LABS: Alanine Aminotransferase 22 U/L (0-40); Albumin Level 4.2 g/dL (3.5-5.0); Alkaline Phosphatase 80 U/L (39-117); Anion Gap 14 (12-20); Aspartate Amino Transferase 35 U/L (5-37); Bilirubin Total 0.7 mg/dL (0.0-1.0); Blood Urea Nitrogen 16 mg/dL (9-16); Calcium 9.2 mg/dL (8.4-10.2); Carbon Dioxide 22 mmol/L (22-29); Chloride 106 mmol/L (96-108); Cholesterol 292 mg/dL (<200); Estimated Glomerular Filt Rate 49; Glucose Fasting 115 mg/dL (60-99); HDL Cholesterol 61 mg/dL (>40); LDL Cholesterol Calculated 195 mg/dL (<100); Potassium 4.4 mmol/L (3.3-5.1); Sodium 138 mmol/L (135-145); Triglycerides 184 mg/dL (<150); Uric Acid 7.4 mg/dL (3.4-7.0)
[2024-04-15 12:11] LABS: TSH reflex Free T4 2.23 uIU/mL (0.32-4.0)
[2024-04-15 12:12] LABS: Prostate Specific Antigen Scr 0.51 ng/mL (<0.05-4.0)
== END 2024-04-15 09:43 | disposition home or self-care (01) ==
LOC: HO.LAB 09:42
PROVIDERS: PCP Family Medicine; Visit Provider Family Medicine
DX: Z00.00 Encounter for general adult medical examination without abnormal findings (principal); I10 Essential (primary) hypertension; Z12.5 Encounter for screening for malignant neoplasm of prostate; M10.9 Gout, unspecified
CPT/HCPCS: 36415; 80053; 80061; 81001; 81003; 82043; 82570; 84153; 84443; 84550; 85025

== ENCOUNTER 2024-04-24 10:42 | Outpatient (AMB) | payer MEDICARE, SELFPAY ==
--- NOTE | 2024-04-24 10:20 | MHC.PC.OV ---
Intake Visit Reasons: telehealth fu blood work Intake Note: lab work follow up Allergies influenza virus vaccine, specific [FLU VACCINE] Allergy (Unknown, Verified 04/24/24 10:22) SWELLING Tobacco use date assessed: 03/05/24 Dental Screening Dental Screen Date: 03/05/24 HPI telehealth fu blood work HPI Details 64 y/o male presents to f/u labs via telemedicine. Labs drawn 04/15/24. Reviewed labs with pt. Creatinine level 1.45. Uric acid 7.4. Triglycerides 184. TC 292. LDL 195. HDL 61. No recent gout flares. [facility] Medical History Restrictive lung disease Obesity (BMI 30-39.9) ETOH abuse Back pain Hypercholesterolemia HTN (hypertension) Surgical History History of back surgery Social History (Updated 03/05/24 @ 11:02 by Kenyon Hyatt [facility]) Household Members: Spouse Housing: House Alcohol intake: current Alcohol intake frequency: a few times a month Alcohol type: wine Patient Tobacco Use Status: Former Tobacco user Tobacco use type: Cigarette Years Smoked: 15 +/- e-Cigarette/Vaping Use: Never Used Second Hand Smoke Exposure: Yes service: No Current occupational status: retired and other Current occupation: rt handed Current occupational exposures/hazards: No Cognitive needs: No Hearing needs: No Vision needs: Yes (Patient was prescribed glasses.) Questionnaire Thrive Questionnaire Date Thrive assessed: 03/05/24 SUKUMAR-7 AMB Questionnaire SUKUMAR-7 Date SUKUMAR - 7 assessed: 03/05/24 Source: Developed by Drs. Raj Soto, Camille Henry, Braeden Castillo and colleagues, with an educational rowan from [employer]. Review of Systems Const Denies chills, Denies fatigue, Denies fever(s), Denies headache(s) and Denies weakness ENT Denies dizziness and Denies headache(s) Card Denies dyspnea Resp Denies cough, Denies dyspnea, Denies wheezing and Denies other (shortness of breath) Musc Denies numbness and Denies tingling Neuro Denies dizziness, Denies headache(s), Denies numbness, Denies tingling and Denies weakness Psych Denies anxiety and Denies depression Endo Denies fatigue Aller/Immun Denies wheezing Physical exam (Primary Care) Tobacco/Smoking Status: Tobacco use Status Tobacco use date assessed 03/05/24 04/24/24 10:22 Patient Tobacco Use Status Former Tobacco user 04/24/24 10:22 Tobacco use type Cigarette 04/24/24 10:22 e-Cigarette/Vaping Use Never Used 04/24/24 10:22 Thrive Assessment: Date of Thrive Assessment Date Thrive assessed 03/05/24 04/24/24 10:22 Const General: well developed; No acute distress Nutritional Appearance: well nourished Orientation/consciousness: patient oriented x3 HENMT Head: Yes normocephalic and Yes atraumatic Eyes General: appearance normal, both eyes and all related structures Pupils: Equal, round and reactive pupils present EOM: EOMs intact bilaterally Resp Effort & Inspection: normal respiratory effort Neuro General: patient oriented x3 and gait normal Cranial nerves: Yes Equal, round and reactive pupils present Psych Affect: normal affect Telehealth Telehealth Telehealth Platform: Telephone Location of provider rendering services: practice address Location of patient: address on file Patient Identification confirmed using: Name, : Yes Telehealth method: voice only Patient verbally consented to treatment: Yes Patient verbally consented to billing insurance company: Yes Patient informed of any privacy concerns related to visit: Yes Minutes spent on Phone/Video with Pt.: 8 Coding Level of Care Code Tele Est Pt Level 2 (17484) Diagnoses Elevated serum creatinine R79.89 Hyperlipidemia E78.5 Gout M10.9 Screening for colon cancer Z12.11 Assessment & Plan Assessment & Plan (1) Elevated serum creatinine: Code(s): R79.89 - Other specified abnormal findings of blood chemistry Category: Medical Plan: Advised?patient?to?hydrate?well?and?recheck?prior?to?next?office?visit. Microalbuminuria?as?well Will?follow-up?at?next?visit (2) Hyperlipidemia: Code(s): E78.5 - Hyperlipidemia, unspecified Category: Medical Plan: LDL?cholesterol?is?too?high Start?rosuvastatin (3) Gout: Code(s): M10.9 - Gout, unspecified Category: Medical Plan: Uric?acid?level?has?improved.??Still?mildly?elevated?however He?is?taking?allopurinol Eats?lots?of?seafood?and?declines?to?make?changes?with?a No?recent?gout?flare-ups We?can?follow (4) Screening for colon cancer: Code(s): Z12.11 - Encounter for screening for malignant neoplasm of colon Category: Medical Plan: Patient?says?last?colonoscopy?was?around?10?years?ago.??Declines?referral?to?gastroenterology.??Declines?Cologuard?test We?can?discuss?at?next?visit Orders: Orders Comprehensive Met. Panel Today N28.9 - Disorder of kidney and ureter, unspecified Microalbumin, Random (w Creat) Today I10 - Essential (primary) hypertension, N28.9 - Disorder of kidney and ureter, unspecified Medications: New rosuvastatin 20 mg PO DAILY 30 days 30 tabs 2RF
== END 2024-04-24 16:13 | disposition home or self-care (01) ==
LOC: HO.HMCFM 10:42
PROVIDERS: PCP Family Medicine; Visit Provider Family Medicine
DX: E78.5 Hyperlipidemia, unspecified (principal); M10.9 Gout, unspecified; Z12.11 Encounter for screening for malignant neoplasm of colon

== ENCOUNTER 2024-07-29 09:46 | Outpatient (REF) | payer MEDICARE, SELFPAY ==
--- OUTSIDE RECORDS SUMMARY | 2024-07-29 10:55 | XMS_ITS | Clinical Summary ---
Author Organization [employer] Address [address] [place] [address] [address] [place] [address] Care Team Providers Care Health And Safety Coordinator Name Role Phone Unavailable Primary Care Provider Unavailabl e Immunizations Name Administration Dates Next Due Pfizer Covid-19 Vaccine 12+ 11/25/2020, Pfizer Covid-19 Vaccine 12+ Bivalent 08/08/2022 Td (adult), 5 Lf tetanus tox oid, preservative free, adsorbed 12/26/2018 Social History Tobacco Use Types Packs/Day Years Used Date Smoking Tobacco: Never Assessed Sex and Gender Information Value Date Recorded Sex Assigned at Male 08/08/2022 9:32 AM EST Legal Sex Male 9:29 AM EST Gender Identity Male 08/08/2022 9:32 AM EST Sexual Orientation Straight 08/08/2022 9: 32 AM EST Plan of Treatment Health Maintenance Due Date Last Done Comments CT Colonography 1962 Colonoscopy 1962 Colorectal Cancer Screening 1962 Depression Screening 1962 FIT DNA/Cologuard 1962 FIT 1962 FOBT 1962 HIV Screening 1962 Lipid Panel 1962 SDOH Screening 1962 Sigmoidoscopy 1962 Alcohol/Substance Use Screening 1974 Tobacco Screening 1974 Hepatitis C Screening 01/03/1980 Pneumococcal Vaccine: 50+ Years (1 of 1 - PCV) 01/03/2012 Zoster Vaccines (1 of 2) 01/03/2012 DTaP/Tdap/Td Vaccines (1 - Tdap) 12/27/2018 12/26/2018 COVID-19 Vaccine (4 - 2023-2 5 season) 2024 08/08/2022, 11/25/2020, 11/04/2020 Influenza Vaccine (#1) 2024 RSV Patients and Patients Aged 60 years or older (1 - 1-dose 75+ series) 2037 HIB Vaccines Aged Out No longer eligi ble based on patient's age to complete this topic HPV Vaccines Aged Out No longer eligi ble based on patient's age to complete this topic Hepatitis A Vaccines Aged Out No long er eligible based on patient's age to complete this topic Hepatitis B Vaccines Aged Out No long er eligible based on patient's age to complete this topic IPV Vaccines Aged Out No longer eligi ble based on patient's age to complete this topic Meningococcal Vaccine Aged Out No gilles hiren eligible based on patient's age to complete this topic Pneumococcal Vaccine: Pediatrics (0 to 5 Years) and At-Risk Patients (6 to 49) Years) Aged Out No longer eligible b ased on patient's age to complete this topic RSV under 20 months Aged Out No longe r eligible based on patient's age to complete this topic Rotavirus Vaccines Aged Out No longer eligible based on patient's age to complete this topic Insurance [facility]
--- OUTSIDE RECORDS SUMMARY | 2024-07-29 10:55 | XMS_ITS | Clinical Summary ---
Author Organization [facility] Facility Address [address] [place] [address] Care Team Providers Care Spa Receptionist Name Role Phone Hilario Tran MD Primary Care Provider Allergies Active Allergy Reactions Criticality Noted Date Comments Cortisone Other (see comments) 09/10/2020 Egg-Derived Products Other (see comments) 09/10 Influenza Virus Vaccine Other (see comments) Medications Gabapentin 300 MG/6ML solution Take 2 capsules by mouth 2 (two) times a day Active carvedilol (Coreg) 6.25 MG tablet Take 1 tablet by mouth 2 (two) times a day 07/07/2020 Active cyanocobalamin (VITAMIN B-12) 100 MCG tablet Take 50 mcg by mouth 1 (one) time each day Active naproxen (NAPROSYN) 500 MG tablet Take 500 mg by mouth 2 (two) times a day with meals Active allopurinol (ZYLOPRIM) 100 MG tablet Take 100 mg by mouth 1 (one) time each day Active Active Problems Problem Noted Date Diagnosed Date Lwkfs-uz-qzxmuwe renal failure 09/10/2020 Alcohol abuse 09/10/2020 Hypercholesterolemia 09/10/2020 Stage 3a chronic kidney disease 09/10/2020 Hyperkalemia 09/10/2020 Hypertension 04/19/2020 Amputated finger 03/16/2020 Rib pain 12/25/2019 Shortness of breath 12/25/2019 Pain in elbow 11/25/2018 Overview (09/10/2020): Last Assessment & Plan: Marked decr swelling but tender and slow extension ? More than bursitis pts more to jt itself rec fu ortho. See no benefit to inject olecrnon bursa as no sign definite bursitis Disturbance of attention 08/01/2018 Overview (09/10/2020): Last Assessment & Plan: Still no definite answer tho likely due to low BP Rec keep apptmt w neuro Dr Yepez at [place] as Needs results of EEG and discussed MRI finding sugesting multiple lacunes Orthostatic hypotension 08/01/2018 Overview (09/10/2020): Last Assessment & Plan: Patient with hospitalization for spells which was recommend that he get an EEG and stress test patient is felt markedly better with just 3 stopping 2 of his blood pressure medications as it was felt he was probably having orthostatic hypotension. Patient had no further spells since home and will therefore hold on doing any EEG or stress test Syncope and collapse 08/01/2018 Overview (09/10/2020): Last Assessment & Plan: Reviewed hosp ands feel he needs ETT and EEG/neuro fu tho all could be due to low BP worsened by meds but why all of sudden low bp / may need ECHO to rule out cardiomyopathy Other chest pain 07/31/2018 Overview (09/10/2020): Last Assessment & Plan: No sx to suggest CAD w neg elizabeth recently Prediabetes 06/05/2018 Overview (09/10/2020): Last Assessment & Plan: Patient with a history of prediabetes last blood sugar was 137 was not fasting is no polyphagia polydipsia polyuria no neuropathy symptoms or retinopathy. Commend check labs weight reduction calorie reduction increase exercise Pain of knee region 03/06/2018 Overview (09/10/2020): Last Assessment & Plan: She with medial greater than lateral joint line tenderness consistent with arthritis discussed about getting x-rays he prefers to wait and see how the injection does patient also has anserine bursa tenderness which is stated the joint injection will not help. Is consent risks of bleeding infection and not helping or weakening of the cartilage lateral approach 22-gauge needle aseptic technique 3 cc of Xylocaine 1% 2 cc 3 cc of Marcaine and 60 mg Kenalog injected tolerated well did explain expect a few days for cortisone to kick in its last 3-4 weeks quad exercises discussed to help prevent increase his quad strength to decrease worsening of his arthritis pain Patient encounter status 11/22/2017 Overview (09/10/2020): Last Assessment & Plan: Doing well overdue eye ck and colon 4 yrs no BPH sx and neg DREfor cancer Not exercising due to chr back pain./ + quit smoking again 2 weeks ago Closed fracture of one rib 10/15/2017 Overview (09/10/2020): Last Assessment & Plan: Patient with persistent pain from probable fractured rib over almost 3 weeks ago. Patient's not had to increase his chronic pain medication use which is on for his back. He's not had any sign of pneumonia did encourage occasional deep breathing and watch for signs of infection. Also discussed controversy about rib belt but I would use just get in and out of bed which is a problem for him Gout 06/28/2017 Overview (09/10/2020): 2x/yr Last Assessment & Plan: Recent flare pred helped needs refill allopurinol Benign essential hypertension 04/30/2017 Overview (09/10/2020): Last Assessment & Plan: Patient doing well on just lisinopril 40 without any dizziness no blood pressure headaches or chest pain Chronic pain 04/30/2017 Overview (09/10/2020): Last Assessment & Plan: Patient with chronic low back pain overall is improving he is failed drug test numerous times question of his liver as he staunchly denies any other cocaine elements tends to use pot occasionally. Will gradually decr as 3/d downto 2/d and then 1/2 bid and can augment w naproxen which has helped his recent gout flare Serum lipids above reference range 04/30/2017 Overview (09/10/2020): Last Assessment & Plan: ldl ok but hi sachin need fasting lab may needfenfibrate but no CAD or TIA sx Simple chronic bronchitis 04/30/2017 Immunizations Name Administration Dates Next Due TD Preservative Free 12/26/2018 Family History Medical History Relation Comments Hypertension Father Diabetes Mother Hypertension Mother Relation Status Comments Father Mother Social History Tobacco Use Types Packs/Day Years Used Date Smoking Tobacco: Every Day Alcohol Use Standard Drinks/Week Comments Yes 0 (1 standard drink = 0.6 oz pure alcohol) Alcoholic Drinks/day: 1-2 drinks per day Sex and Gender Information Value Date Recorded Sex Assigned at Not on file Legal Sex Male 2:24 PM EST Gender Identity Not on file Sexual Orientation Not on file Last Filed Vital Signs Vital Sign Reading Time Taken Comments Blood Pressure 122/81 09/10/2020 1:30 PM EDT Pulse 69 09/10/2020 1:30 PM EDT Temperature - - Respiratory Rate - - Oxygen Saturation 98% 09/10/2020 1:30 PM EDT Inhaled Oxygen Concentration - - Weight 113 kg (250 lb) 09/10/2020 1:30 PM EDT Height - - Body Mass Index - - Plan of Treatment Health Maintenance Due Date Last Done Comments Pneumococcal Vaccine: Pediat rics (0 to 5 Years) and At-Risk Patients (6 to 64 Years) (1 of 2 - PCV) 01/03/1966 Colorectal Cancer Screening: Annual FOBT 2011 Colorectal Cancer Screening: Colonoscopy 2011 Colorectal Cancer Screening: Sigmoidoscopy 2011 Hepatitis B Vaccine Aged Out No longe r eligible based on patient's age to complete this topic Insurance [place] Care Teams Spa Receptionist Relationship Specialty Start Date End Date Hilario Tran MD [address] [place] [address] PCP - General Family Medicine 09/10/20
[2024-07-29 11:03] LABS: Appearance Urine Hazy; Color Urine Yellow; Glucose Urine UA Negative (Negative); Leukocyte Esterase Urine Negative (Negative); Nitrite Urine Negative (Negative); PH 5.5 (5.0-9.0); Specific Gravity - Urine >= 1.030 (1.005-1.025); UMIC TRIGGER UA YES; Urine Blood Trace (Negative); Urine Ketones Negative (Negative); Urine Protein Trace mg/dL (Neg-Trace)
[2024-07-29 11:21] LABS: Alanine Aminotransferase 15 U/L (0-40); Albumin Level 4.3 g/dL (3.5-5.0); Alkaline Phosphatase 98 U/L (39-117); Anion Gap 13 (12-20); Aspartate Amino Transferase 44 U/L (5-37); Bilirubin Total 0.8 mg/dL (0.0-1.0); Blood Urea Nitrogen 37 mg/dL (9-16); Calcium 8.9 mg/dL (8.4-10.2); Carbon Dioxide 27 mmol/L (22-29); Chloride 98 mmol/L (96-108); Estimated Glomerular Filt Rate 37; Glucose Random 115 mg/dL (60-115); Potassium 3.4 mmol/L (3.3-5.1); Sodium 135 mmol/L (135-145); Total Protein 8.6 g/dL (6.5-8.0)
[2024-07-29 11:27] LABS: Bacteria Urine None Seen (None Seen); RBC Urine 0-2 /HPF (0-2); Squamous Epithelial Cell Urine 0-2 /HPF (0-2); WBC Urine 0-5 /HPF (0-5)
[2024-07-29 13:03] LABS: Microalbum/Creatinine Ratio Ur 12.4 ug/mg cr (<30)
== END 2024-07-29 09:47 | disposition home or self-care (01) ==
LOC: HO.WFDLDS 09:46
PROVIDERS: Visit Provider Family Medicine
DX: I10 Essential (primary) hypertension (principal); N28.9 Disorder of kidney and ureter, unspecified
CPT/HCPCS: 36415; 80053; 81001; 81003; 82043; 82570

== ENCOUNTER 2024-08-01 11:08 | Outpatient (AMB) | payer MEDICARE, SELFPAY ==
--- NOTE | 2024-08-01 11:40 | A.OFFPC_ITS ---
Vital Signs 08/01/24 11:43 Height 5 ft 7 in Weight 236 lb 2 oz BMI 37.0 BP 110/70 Blood Pressure Location Lt brachial Position Sitting Respiration 14 Pulse 77 Pulse Source Pulse Oximeter Temp 96.3 F L Temp Source Tympanic Pulse Oximetry (%) 98 Oxygen Delivery Method Room Air Intake Visit Reasons: labs/medication review/sprained finger/flu fu Intake Note: follow up for medications labs and sprain finger and flu sx gout flare up Allergies influenza virus vaccine, specific [FLU VACCINE] Allergy (Unknown, Verified 08/01/24 11:42) SWELLING Medication List - Last Reconciled 08/01/24 by Hilario Tran MD acetaminophen ER (Tylenol Arthritis Pain) 650 mg PO Q12H albuterol sulfate 90 mcg/actuation 2 puffs inhalation Q6H PRN 30 days allopurinol 200 mg (2 x 100 mg) PO DAILY 30 days carvedilol 6.25 mg PO BID 90 days clotrimazole 1% 1 appl topical BID 2 weeks cyanocobalamin (vitamin B-12) 1,000 mcg PO DAILY 90 days dapagliflozin propanediol (Farxiga) 5 mg PO QAM 30 days prednisone 40 mg (2 x 20 mg) PO DAILY PRN 4 days rosuvastatin 20 mg PO DAILY 30 days sildenafil 50 mg PO DAILY PRN 30 days tizanidine 4 mg PO BEDTIME PRN triamcinolone acetonide 0.5% 1 appl topical BID 30 days Tobacco use date assessed: 03/05/24 Dental Screening Dental Screen Date: 03/05/24 HPI labs/medication review/sprained finger/flu fu HPI Details 64 y/o male presents to f/u chronic cond itions, including f/u elevated creatinine level, microalbumin. Also f/u hypertension. Blood pressure today 110/70, 77p. He is on carvedilol 6.25mg b.i.d. Last creatinine level checked 07/29/24. Creatinine worsened from 1.45 to 1.85 mg/dL. Microalb/Creat ratio 12.4. Has complaints of finger pain after he had fallen. [facility] Medical History Restrictive lung disease Obesity (BMI 30-39.9) ETOH abuse Back pain Hypercholesterolemia HTN (hypertension) Surgical History History of back surgery Social History (Updated 03/05/24 @ 11:02 by DELANEY Lopez) Household Members: Spouse Housing: House Alcohol intake: current Alcohol intake frequency: a few times a month Alcohol type: wine Patient Tobacco Use Status: Former Tobacco user Tobacco use type: Cigarette Years Smoked: 15 +/- e-Cigarette/Vaping Use: Never Used Second Hand Smoke Exposure: Yes service: No Current occupational status: retired and other Current occupation: rt handed Current occupational exposures/hazards: No Cognitive needs: No Hearing needs: No Vision needs: Yes (Patient was prescribed glasses.) Questionnaire PHQ-9 Over the last 2 weeks, how often have you been bothered by any of the following problems? 1. Little interest or pleasure in doing things: more than half the days 2. Feeling down, depressed, or hopeless: more than half the days 3. Trouble falling or staying asleep, or sleeping too much: more than half the days 4. Feeling tired or having little energy: nearly every day 5. Poor appetite or overeating: more than half the days 6. Feeling bad about yourself - or that you are a failure or have let yourself or your family down: not at all 7. Trouble concentrating on things, such as reading the newspaper or watching television: more than half the days 8. Moving or speaking so slowly that other people could have noticed. Or the opposite - being so fidgety or restless that you have been moving around a lot more than usual: not at all 9. Thoughts that you would be better off or of hurting yourself in some way: not at all Total score: 13 Source: Developed by Drs. Raj Soto, Camille Henry, Braeden Castillo and colleagues, with an educational rowan from [employer]. Thrive Questionnaire Date Thrive assessed: 03/05/24 I am a: Patient What is your living situation today?: I have a place to live, but I am worried about losing it in the future Within the past 12 months, did the food you bought not last and you didn't have the money to get more?: Sometimes True Within the past 12 months, did you worry whether your food would run out before you got money to buy more?: Sometimes True Do you have trouble paying for medicines?: Yes Do you have trouble getting transportation to medical appointments?: No Do you have trouble paying your heating and electricity bill?: Yes Do you have trouble taking care of your child, family member or friend?: No Do you have trouble with day-to-day activities such as bathing, preparing meals, shopping, managing finances, etc.?: No Are you currently unemployed and looking for a job?: No Are you interested in more education?: No Please select the resources that you would like help with: Housing/Fpc, Food, Paying for medicine and Utilities Currently or been in a relationship where the following occur: I choose not to answer THRIVE Score: 4 AUDIT C Alcohol Use Questionnaire (AUDIT-C) 1. How often do you have a drink containing alcohol?: 2-3 times a week 2. How many drinks containing alcohol do you have on a typical day when you are drinking?: 1 or 2 3. How often do you have six or more drinks on one occasion?: Never Total Score: 3 SUKUMAR-7 AMB Questionnaire SUKUMAR-7 Date SUKUMAR - 7 assessed: 03/05/24 Feeling nervous, anxious, or on edge: 2 = More than half the days Not being able to stop or control worryin = Several days Worrying too much about different things: 2 = More than half the days Trouble relaxin = More than half the days Being so restless that it is hard to sit still: 0 = Not at all Becoming easily annoyed or irritable: 0 = Not at all Feeling afraid as if something awful might happen: 1 = Several days Total SUKUMAR-7 score (0-4 normal; 5-9 mild; 10-14 moderate; 15-21 severe): 8 Source: Developed by Drs. Raj Soto, Camille Henry, Braeden Castillo and colleagues, with an educational rowan from [employer]. Review of Systems Const Denies chills, Denies fatigue, Denies fever(s), Denies headache(s) and Denies weakness ENT Denies dizziness and Denies headache(s) Card Denies dyspnea Resp Denies cough, Denies dyspnea, Denies wheezing and Denies other (shortness of breath) Musc Details: Finger pain Denies numbness and Denies tingling Neuro Denies dizziness, Denies headache(s), Denies numbness, Denies tingling and Denies weakness Psych Denies anxiety and Denies depression Endo Denies fatigue Aller/Immun Denies wheezing Physical exam (Primary Care) Vital Signs: Last Vital Signs Temp 96.3 F L 08/01/24 11:43 Pulse 77 08/01/24 11:43 Resp 14 08/01/24 11:43 BP 110/70 08/01/24 11:43 Pulse Ox 98 08/01/24 11:43 Oxygen Delivery Method Room Air 08/01/24 11:43 BMI result Body Mass Index 37.0 Tobacco/Smoking Status: Tobacco use Status Tobacco use date assessed 03/05/24 08/01/24 11:49 Patient Tobacco Use Status Former Tobacco user 08/01/24 11:49 Tobacco use type Cigarette 08/01/24 11:49 e-Cigarette/Vaping Use Never Used 08/01/24 11:49 PHQ-9: PHQ-9 Score PHQ-9: Total score 13 08/01/24 12:15 Thrive Assessment: Date of Thrive Assessment Date Thrive assessed 03/05/24 08/01/24 11:49 Currently or been in a relationship where the following occur: I choose not to answer Const General: well developed; No acute distress Nutritional Appearance: well nourished Orientation/consciousness: patient oriented x3 HENMT Head: Yes normocephalic and Yes atraumatic Eyes General: appearance normal, both eyes and all related structures Pupils: Equal, round and reactive pupils present EOM: EOMs intact bilaterally Resp Effort & Inspection: normal respiratory effort Neuro General: patient oriented x3 and gait normal Cranial nerves: Yes Equal, round and reactive pupils present Psych Affect: normal affect Coding Level of Care Code Est Pt Level 4 (90483) Diagnoses Essential hypertension I10 Renal failure N19 Erectile dysfunction N52.9 Pre-diabetes R73.03 Finger pain M79.646 Viral illness B34.9 Assessment & Plan Assessment & Plan (1) Essential hypertension: Code(s): I10 - Essential (primary) hypertension Category: Medical (2) Renal failure: Code(s): N19 - Unspecified kidney failure Category: Medical Plan: Creatinine?level?has?bumped?up?however?patient?was?quite?sick?and?nauseous?and?v omiting?during?the?time?when?he?got?his?labs?drawn. He?is?starting?to?feel?better. I?will?have?him?hydrate?well?and?he?get?his?labs?redrawn?in?a?week. (3) Erectile dysfunction: Code(s): N52.9 - Male erectile dysfunction, unspecified Category: Medical Plan: Check?testosterone?level Trial?sildenafil (4) Pre-diabetes: Code(s): R73.03 - Prediabetes Category: Medical Plan: Pre?diabetes?with?some?chronic?renal?failure Will?begin?treating?elevated?blood?sugars?early?as?patient?is?frequently?prednis one?well Had?tried?to?send?script?for?Farxiga?for?blood?suga r?control?and?also?renal?protective?properties - he?was?not?able?to?afford?this He?will?start?a?small?amount?glipizide?q.a.m. Check?blood?sugars?daily (5) Finger pain: Code(s): M79.646 - Pain in unspecified finger(s) Category: Medical Plan: Patient ?was?sick?recently?and?dehydrated.??Became?dizzy?and?fell.??No?loss?of?conscious ness?but?injured?right?1st?MCP?and?left?3rd?and?4th?fingers Check?x-rays (6) Viral illness: Code(s): B34.9 - Viral infection, unspecified Category: Medical Plan: Recent?viral?illness?with?dehydration. Patient?tested?negative?for?COVID?at?home Improving Work?at?good?hydration?and?rest Will?follow-up?at?next?visit Plan PreDM Influenza Finger Back Orders: Orders Testosterone, Free/Total Today N52.9 - Male erectile dysfunction, unspecified XR hand LT min 3V Today M79.646 - Pain in unspecified finger(s) XR hand RT min 3V Today M79.646 - Pain in unspecified finger(s) Comprehensive [place]. Panel Fast Today N52.9 - Male erectile dysfunction, unspecified, Z00.00 - Encounter for general adult medical examination without abnormal findings Medications: New sildenafil administer 30 minutes to 4 hours before activity 50 mg PO DAILY 30 days PRN 8 tabs 3RF sexual activity glipizide ER 2.5 mg PO QAM 30 days 30 tabs 1RF Refilled prednisone 40 mg (2 x 20 mg) PO DAILY 4 days PRN 8 tabs 2RF Gout Flare
[2024-08-01 11:43] VITALS: BP 110/70; PULSE 77; RESP 14; TEMP 35.7; O2SAT 98; BMI 37.0
--- OUTSIDE RECORDS SUMMARY | 2024-08-01 12:02 | XMS_ITS | Clinical Summary ---
Author Organization [employer] Address [address] [place] [address] [address] [place] [address] Care Team Providers Care Trimming Machine Set Up Operator Name Role Phone Unavailable Primary Care Provider [...] patient's age to complete this topic Insurance [facility]
--- OUTSIDE RECORDS SUMMARY | 2024-08-01 12:02 | XMS_ITS | Clinical Summary ---
Author Organization [facility] Facility Address [address] [place] [address] Care Team Providers Care Wildlife Forensic Geneticist Name Role Phone Hilario Tran MD Primary [...] Active Problems Problem Noted Date Diagnosed Date Ugsmx-ov-ussemet renal failure 09/10/2020 Alcohol abuse 09/10/2020 Hypercholesterolemia [...] keep apptmt w neuro Dr Yepez at [facility] as Needs results of EEG and discussed [...] [place] Care Teams Wildlife Forensic Geneticist Relationship Specialty Start Date End Date Hilario Tran MD [address] [place] [address] PCP - General Family Medicine 09/10/20
== END 2024-08-01 12:38 | disposition home or self-care (01) ==
PROVIDERS: PCP Family Medicine; Visit Provider Family Medicine
DX: I10 Essential (primary) hypertension (principal); N19 Unspecified kidney failure; N52.9 Male erectile dysfunction, unspecified; R73.03 Prediabetes; M79.646 Pain in unspecified finger(s); B34.9 Viral infection, unspecified

== ENCOUNTER → 2024-08-01 11:08 | Outpatient (BNVA) | payer MEDICARE, SELFPAY | PROVIDERS: PCP Family Medicine; Visit Provider Family Medicine | DX: I10 Essential (primary) hypertension (principal); N19 Unspecified kidney failure; N52.9 Male erectile dysfunction, unspecified; R73.03 Prediabetes; B34.9 Viral infection, unspecified | CPT/HCPCS: 99212 ==

== ENCOUNTER 2024-08-08 07:53 | Outpatient (REF) | payer MEDICARE, SELFPAY ==
--- OUTSIDE RECORDS SUMMARY | 2024-08-08 07:57 | XMS_ITS | Encounter Summary ---
Author Organization [facility] Address [address] [place] [address] Care Team Providers Care Human Resources Manager Name Role Phone [facility], Pcp Primary Care Provider Unavailabl e Encounter Details Date Type Department Care Team Description 07/21/2020 [facility] Medical Records [address] [place] [id number] Abstract, Provider Social History Tobacco Use Types Packs/Day Years Used Date Smoking Tobacco: Former Smokeless Tobacco: Never Comments:quit 03/2020 Sex Assigned at Date Recorded Not on file COVID-19 Exposure Response Date Recorded In the last month, have you been in contact with someone who was confirmed or suspected to have Coronavirus / COVID-19? No / Unsure 06/21/2020 12:43 PM EST documented as of this encounter Plan of Treatment Not on file documented as of this encounter Visit Diagnoses Not on filedocumented in this encounter Care Teams Human Resources Manager Relationship Specialty Start Date End Date Community, Pcp PCP - General Internal Medicine 04/01/20 documented as of this encounter
--- OUTSIDE RECORDS SUMMARY | 2024-08-08 07:57 | XMS_ITS | Encounter Summary ---
Author Organization [facility] [email or web address] [facility] Address [address] [place] [address] Care Team Providers Care Tobacco Wrapping Machine Tender Name Role Phone Community, Pcp Primary Care Provider Unavailabl e Encounter Details Date Type Department Care Team Description 07/02/2020 [facility] Medical Records [address] [place] [id number] [place] [address] Social History Tobacco Use Types Packs/Day Years [...] on filedocumented in this encounter Care Teams Tobacco Wrapping Machine Tender Relationship Specialty Start Date End Date Community, Pcp PCP - General Internal Medicine 04/01/20 documented as of this encounter
--- OUTSIDE RECORDS SUMMARY | 2024-08-08 07:57 | XMS_ITS | Clinical Summary ---
Author Organization [employer] Address [address] [place] [address] [address] [place] [address] Care Team Providers Care Acid Bleacher Name Role Phone Unavailable Primary Care Provider [...] to complete this topic Insurance [facility]
--- OUTSIDE RECORDS SUMMARY | 2024-08-08 07:57 | XMS_ITS | Encounter Summary ---
Author Organization [facility] Address [address] [place] [address] Care Team Providers Care Mothers Helper Name Role Phone [facility], Pcp Primary Care Provider Unavailabl e Encounter Details Date Type Department Care Team Description 04/22/2020 Release of Information Medical Records [address] [place] [id number] Abstract, Provider Social History Tobacco Use Types Packs/Day Years Used Date Smoking Tobacco: Former Smokeless Tobacco: Never Comments:quit 03/2020 Sex Assigned at Date Recorded Not on file COVID-19 Exposure Response Date Recorded In the last month, have you been in contact with someone who was confirmed or suspected to have Coronavirus / COVID-19? No / Unsure 04/19/2020 12:28 PM EST documented as of this encounter Plan of Treatment Not on file documented as of this encounter Visit Diagnoses Not on filedocumented in this encounter Care Teams Mothers Helper Relationship Specialty Start Date End Date Community, Pcp PCP - General Internal Medicine 04/01/20 documented as of this encounter
--- OUTSIDE RECORDS SUMMARY | 2024-08-08 07:57 | XMS_ITS | Clinical Summary ---
Author Organization [facility] Facility Address [address] [place] [address] Care Team Providers Care Temporary Office Assistant Name Role Phone Hilario Tran MD Primary Care Provider [phone] Allergies Active Allergy Reactions Criticality Noted Date [...] Active Problems Problem Noted Date Diagnosed Date Cyixy-hi-zlllwbw renal failure 09/10/2020 Alcohol abuse 09/10/2020 Hypercholesterolemia [...] keep apptmt w neuro Dr Yepez at [place] as Needs results of EEG and discussed [...] [place] Care Teams Temporary Office Assistant Relationship Specialty Start Date End Date Hilario Tran MD [address] [place] [address] PCP - General Family Medicine 09/10/20
[2024-08-08 09:05] LABS: Alanine Aminotransferase 14 U/L (0-40); Albumin Level 4.3 g/dL (3.5-5.0); Anion Gap 13 (12-20); Aspartate Amino Transferase 26 U/L (5-37); Bilirubin Total 0.7 mg/dL (0.0-1.0); Blood Urea Nitrogen 16 mg/dL (9-16); Calcium 9.4 mg/dL (8.4-10.2); Carbon Dioxide 25 mmol/L (22-29); Chloride 105 mmol/L (96-108); Estimated Glomerular Filt Rate 55; Glucose Fasting 119 mg/dL (60-99); Glucose Random 119 mg/dL (60-115); Potassium 4.5 mmol/L (3.3-5.1); Sodium 138 mmol/L (135-145); Total Protein 8.4 g/dL (6.5-8.0)
[2024-08-08 09:25] LABS: Appearance Urine Cloudy; Color Urine Dark Yellow; Glucose Urine UA Negative (Negative); Leukocyte Esterase Urine Negative (Negative); Nitrite Urine Negative (Negative); Specific Gravity - Urine >= 1.030 (1.005-1.025); UMIC TRIGGER UA YES; Urine Blood Negative (Negative); Urine Ketones Trace mg/dL (Negative); Urine Protein 30 (1+) mg/dL (Neg-Trace)
[2024-08-08 09:36] LABS: Bacteria Urine None Seen (None Seen); Hyaline Casts Urine >20 /LPF (0-2); RBC Urine 0-2 /HPF (0-2); Squamous Epithelial Cell Urine 0-2 /HPF (0-2); WBC Urine 0-5 /HPF (0-5)
[2024-08-08 09:50] LABS: Alkaline Phosphatase 83 U/L (39-117)
[2024-08-14 13:58] LABS: Testosterone, Total 503 ng/dL (250-1100)
== END 2024-08-08 07:54 | disposition home or self-care (01) ==
LOC: HO.LAB 07:53
PROVIDERS: PCP Family Medicine; Visit Provider Family Medicine
DX: Z00.00 Encounter for general adult medical examination without abnormal findings (principal); N28.9 Disorder of kidney and ureter, unspecified; N52.9 Male erectile dysfunction, unspecified
CPT/HCPCS: 36415; 80053; 81001; 84402; 84403

== ENCOUNTER 2024-08-27 10:09 | Outpatient (AMB) | payer MEDICARE, SELFPAY ==
--- NOTE | 2024-08-27 10:20 | MHC.PC.OV ---
Vital Signs 08/27/24 10:23 Height 5 ft 7 in Weight 232 lb BMI 36.3 BP 110/70 Blood Pressure Location Rt brachial Position Sitting Respiration 12 Pulse 84 Pulse Source Pulse Oximeter Temp 97.3 F Temp Source Oral Pulse Oximetry (%) 99 Oxygen Delivery Method Room Air Intake Visit Reasons: Follow?up?chronic?conditions Intake Note: patient is here to follow up on lab results Microchip Specialist Required: No Allergies influenza virus vaccine, specific [FLU VACCINE] Allergy (Unknown, Verified 08/27/24 10:21) SWELLING Tobacco use date assessed: 03/05/24 Dental Screening Dental Screen Date: 03/05/24 HPI Follow?up?chronic?conditions HPI Details 64 y/o male presents to f/u chronic conditions. Labs drawn 08/08/24. Estimated GFR 55. Creatinine level improved from 1.85 to 1.31. [facility] Medical History Restrictive lung disease Obesity (BMI 30-39.9) ETOH abuse Back pain Hypercholesterolemia HTN (hypertension) Surgical History History of back surgery Social History (Updated 03/05/24 @ 11:02 by DELANEY Lopez) Household Members: Spouse Housing: House Alcohol intake: current Alcohol intake frequency: a few times a month Alcohol type: wine Patient Tobacco Use Status: Former Tobacco user Tobacco use type: Cigarette Years Smoked: 15 +/- e-Cigarette/Vaping Use: Never Used Second Hand Smoke Exposure: Yes service: No Current occupational status: retired and other Current occupation: rt handed Current occupational exposures/hazards: No Cognitive needs: No Hearing needs: No Vision needs: Yes (Patient was prescribed glasses.) Questionnaire Thrive Questionnaire Date Thrive assessed: 08/01/24 I am a: Patient What is your living situation today?: I have a place to live, but I am worried about losing it in the future Within the past 12 months, did the food you bought not last and you didn't have the money to get more?: Sometimes True Within the past 12 months, did you worry whether your food would run out before you got money to buy more?: Sometimes True Do you have trouble paying for medicines?: Yes Do you have trouble getting transportation to medical appointments?: No Do you have trouble paying your heating and electricity bill?: Yes Do you have trouble taking care of your child, family member or friend?: No Do you have trouble with day-to-day activities such as bathing, preparing meals, shopping, managing finances, etc.?: No Are you currently unemployed and looking for a job?: No Are you interested in more education?: No Currently or been in a relationship where the following occur: I choose not to answer THRIVE Score: 4 SUKUMAR-7 AMB Questionnaire SUKUMAR-7 Date SUKUMAR - 7 assessed: 03/05/24 Source: Developed by Drs. Raj Soto, Camille Henry, Braeden Castillo and colleagues, with an educational rowan from [employer]. Physical exam (Primary Care) Vital Signs: Last Vital Signs Temp 97.3 F 08/27/24 10:23 Pulse 84 08/27/24 10:23 Resp 12 08/27/24 10:23 BP 110/70 08/27/24 10:23 Pulse Ox 99 08/27/24 10:23 Oxygen Delivery Method Room Air 08/27/24 10:23 BMI result Body Mass Index 36.3 Tobacco/Smoking Status: Tobacco use Status Tobacco use date assessed 03/05/24 08/27/24 10:25 Patient Tobacco Use Status Former Tobacco user 08/27/24 10:25 Tobacco use type Cigarette 08/27/24 10:25 e-Cigarette/Vaping Use Never Used 08/27/24 10:25 Thrive Assessment: Date of Thrive Assessment Date Thrive assessed 08/01/24 08/27/24 10:25 Currently or been in a relationship where the following occur: I choose not to answer Coding Level of Care Code Est Pt Level 4 (03036) Diagnoses Acute renal failure N17.9 Acute renal failure type: unspecified Essential hypertension I10 Pre-diabetes R73.03 Fatigue R53.83 Assessment & Plan Assessment & Plan (1) Acute renal failure: Code(s): N17.9 - Acute kidney failure, unspecified Category: Medical Qualifiers: Acute renal failure type: unspecified Qualified Code(s): N17.9 - Acute kidney failure, unspecified Plan: This?is?resolved. ??Patient?had?had?a?bump?in?his?creatinine?level, however?this?was?after?an?illness. Advised?good?hydration Recheck?renal?labs?show?creatinine?back?in?normal?range?GFR?is?normal. Continue?good?hydration. (2) Essential hypertension: Code(s): I10 - Essential (primary) hypertension Category: Medical Plan: Blood?pressure?is?controlled.??Goal?is?less?than?130/80 Continue?current?medications (3) Pre-diabetes: Code(s): R73.03 - Prediabetes Category: Medical Plan: Pre?diabetes?but?controlling?patient's?blood?sugar?due?to his?other?comorbidities Patient?is?tolerating?glipizide Continue?current?medication?and?we?will?recheck?an?A1c?in?about?2?months (4) Fatigue: Code(s): R53.83 - Other fatigue Category: Medical Plan: Patient?has?had?complaints?of?fatigue. He?is?awaiting?workup?for?sleep?apnea He?had?requested?at?checking?testosterone?levels.??These?were?normal. Continue?to?sleep?on?side?and?follow-up?with?sleep?medicine. I?encouraged?exercise
[2024-08-27 10:23] VITALS: BP 110/70; PULSE 84; RESP 12; TEMP 36.3; O2SAT 99; BMI 36.3
--- OUTSIDE RECORDS SUMMARY | 2024-08-27 11:38 | XMS_ITS | Clinical Summary ---
Author Organization [facility] Facility Address [address] [place] [address] Care Team Providers Care Bias Binding Cutter Name Role Phone Hilario Tran MD Primary [...] Active Problems Problem Noted Date Diagnosed Date Omzma-ti-ocnqzrq renal failure 09/10/2020 Alcohol abuse 09/10/2020 Hypercholesterolemia [...] keep apptmt w neuro Dr Yepez at [place] as Needs results of EEG and discussed [...] [place] Care Teams Bias Binding Cutter Relationship Specialty Start Date End Date Hilario Tran MD [address] [place] [address] PCP - General Family Medicine 09/10/20
--- OUTSIDE RECORDS SUMMARY | 2024-08-27 11:38 | XMS_ITS | Clinical Summary ---
Author Organization [employer] Address [address] [place] [address] [address] [place] [address] Care Team Providers Care Temporary Administrative Assistant Name Role Phone Unavailable Primary Care Provider [...] patient's age to complete this topic Insurance [facility]
== END 2024-08-27 10:45 | disposition home or self-care (01) ==
LOC: HO.HMCFM 10:10
PROVIDERS: PCP Family Medicine; Visit Provider Family Medicine
DX: N17.9 Acute kidney failure, unspecified (principal); I10 Essential (primary) hypertension; R73.03 Prediabetes; R53.83 Other fatigue

== ENCOUNTER → 2024-08-27 10:09 | Outpatient (BNVA) | payer MEDICARE, SELFPAY | PROVIDERS: PCP Family Medicine; Visit Provider Family Medicine | DX: N17.9 Acute kidney failure, unspecified (principal); I10 Essential (primary) hypertension; R73.03 Prediabetes; R53.83 Other fatigue | CPT/HCPCS: 99212 ==

== ENCOUNTER 2024-10-29 11:06 | Outpatient (AMB) | payer MEDICARE, SELFPAY ==
--- NOTE | 2024-10-29 11:09 | MHC.PC.OV ---
Vital Signs 10/29/24 11:19 Height 5 ft 7 in Weight 229 lb BMI 35.9 BP 132/70 Blood Pressure Location Rt brachial Position Sitting Respiration 14 Pulse 96 Pulse Source Pulse Oximeter Temp 97.8 F Temp Source Oral Pulse Oximetry (%) 98 Oxygen Delivery Method Room Air Intake Visit Reasons: f/u pre-diabetes - see comments Intake Note: patient is scehduled for diabetes follow-up patient said he having some experience with glipizide is having some dizziness and falling. and needs refill of tizanidine Allergies influenza virus vaccine, specific [FLU VACCINE] Allergy (Unknown, Verified 10/29/24 11:16) SWELLING Medication List - Last Reconciled 10/29/24 by Hilario Tran MD acetaminophen ER (Tylenol Arthritis Pain) 650 mg PO Q12H albuterol sulfate 90 mcg/actuation 2 puffs inhalation Q6H PRN 30 days allopurinol 200 mg (2 x 100 mg) PO DAILY 30 days carvedilol 6.25 mg PO BID 90 days clotrimazole 1% 1 appl topical BID 2 weeks cyanocobalamin (vitamin B-12) 1,000 mcg PO DAILY 90 days glipizide ER 2.5 mg PO QAM 30 days prednisone 40 mg (2 x 20 mg) PO DAILY PRN 4 days rosuvastatin 20 mg PO DAILY 30 days sildenafil 50 mg PO DAILY PRN 30 days tizanidine 4 mg PO BEDTIME PRN triamcinolone acetonide 0.5% 1 appl topical BID 30 days Tobacco use date assessed: 10/29/24 Dental Screening Dental Screen Date: 10/29/24 Did you have a dental visit in the last 12 months?: Yes Did you have a dental problem in the last 6 months where you did not have access to dental care?: No Was dental information given to patient?: No HPI f/u pre-diabetes - see comments HPI Details 64 y/o male presents to f/u hypertension, pre-diabetes. Started glipizide early to control blood sugars secondary to other comorbidities. Blood pressure today 132/70, 96p. He is on carvedilol 6.25mg b.i.d. Pt notes he had been unable to tolerate glipizide. A1c today 5.4%. Has complaints of L elbow pain. [facility] Medical History Restrictive lung disease Obesity (BMI 30-39.9) ETOH abuse Back pain Hypercholesterolemia HTN (hypertension) Surgical History History of back surgery Social History (Updated 03/05/24 @ 11:02 by Kenyon Hyatt [facility] Household Members: Spouse Housing: House Alcohol intake: current Alcohol intake frequency: a few times a month Alcohol type: wine Patient Tobacco Use Status: Former Tobacco user Tobacco use type: Cigarette Years Smoked: 15 +/- e-Cigarette/Vaping Use: Never Used Second Hand Smoke Exposure: Yes service: No Current occupational status: retired and other Current occupation: rt handed Current occupational exposures/hazards: No Cognitive needs: No Hearing needs: No Vision needs: Yes (Patient was prescribed glasses.) Questionnaire Thrive Questionnaire Date Thrive assessed: 08/01/24 I am a: Patient What is your living situation today?: I have a place to live, but I am worried about losing it in the future Within the past 12 months, did the food you bought not last and you didn't have the money to get more?: Sometimes True Within the past 12 months, did you worry whether your food would run out before you got money to buy more?: Sometimes True Do you have trouble paying for medicines?: Yes Do you have trouble getting transportation to medical appointments?: No Do you have trouble paying your heating and electricity bill?: Yes Do you have trouble taking care of your child, family member or friend?: No Do you have trouble with day-to-day activities such as bathing, preparing meals, shopping, managing finances, etc.?: No Are you currently unemployed and looking for a job?: No Are you interested in more education?: No Currently or been in a relationship where the following occur: I choose not to answer THRIVE Score: 4 SUKUMAR-7 AMB Questionnaire SUKUMAR-7 Date SUKUMAR - 7 assessed: 03/05/24 Source: Developed by Drs. Raj Soto, Camille Henry, Braeden Castillo and colleagues, with an educational rowan from [employer]. Review of Systems Const Denies chills, Denies fatigue, Denies fever(s), Denies headache(s) and Denies weakness ENT Denies dizziness and Denies headache(s) Card Denies chest pain, Denies lightheadedness, Denies dyspnea and Denies other (Palpitations) Resp Denies cough, Denies dyspnea, Denies wheezing and Denies other ( shortness of breath) Musc Denies numbness and Denies tingling Neuro Denies dizziness, Denies headache(s), Denies numbness, Denies tingling, Denies paresthesias and Denies weakness Psych Denies anxiety and Denies depression Endo Denies fatigue Aller/Immun Denies wheezing Physical exam (Primary Care) Vital Signs: Last Vital Signs Temp 97.8 F 10/29/24 11:19 Pulse 96 10/29/24 11:19 Resp 14 10/29/24 11:19 BP 132/70 10/29/24 11:19 Pulse Ox 98 10/29/24 11:19 Oxygen Delivery Method Room Air 10/29/24 11:19 BMI result Body Mass Index 35.9 Tobacco/Smoking Status: Tobacco use Status Tobacco use date assessed 10/29/24 10/29/24 11:24 Patient Tobacco Use Status Former Tobacco user 10/29/24 11:10 Tobacco use type Cigarette 10/29/24 11:10 e-Cigarette/Vaping Use Never Used 10/29/24 11:10 Thrive Assessment: Date of Thrive Assessment Date Thrive assessed 08/01/24 10/29/24 11:10 Currently or been in a relationship where the following occur: I choose not to answer Const General: no acute distress and well developed Nutritional Appearance: well nourished Orientation/consciousness: patient oriented x3 [facility] Head: Yes normocephalic and Yes atraumatic Eyes General: appearance normal, both eyes and all related structures Pupils: Equal, round and reactive pupils present EOM: EOMs intact bilaterally Resp Effort & Inspection: normal respiratory effort Auscultation: clear to auscultation bilaterally Cardio Rate: regular rate Rhythm: regular rhythm Heart sounds: S1 normal heart sound present, S2 normal heart sound present, no gallops, no murmurs and no rubs Neuro General: patient oriented x3 and gait normal Cranial nerves: Yes Equal, round and reactive pupils present Psych Affect: normal affect Coding Level of Care Code Est Pt Level 4 (72129) Diagnoses Pre-diabetes R73.03 Essential hypertension I10 Left elbow pain M25.522 Assessment & Plan Assessment & Plan (1) Pre-diabetes: Code(s): R73.03 - Prediabetes Category: Medical Plan: A1c?now?5.4%.??Improve Patient?stopped?taking?glipizide?however?as?he?felt?in?his?causing?dizziness?or?lightheadedness Encouraged?him?to?continue?a?diet?low?in?sugars?and?starches We?can?continue?to?monitor?his?blood?sugars (2) Essential hypertension: Code(s): I10 - Essential (primary) hypertension Category: Medical Plan: Blood?pressure?is?controlled.??Goal?is?less?than?140/90 Continue?current?medication (3) Left elbow pain: Code(s): M25.522 - Pain in left elbow Category: Medical Plan: Patient?has?complaints?of?left?elbow?pain?and?has?a?firm?mobile?nodule?at left?elbow?which?may?be?a?tendon?calcification. He?has?had?a?history?of?falls?however.??Will?check?an?x-ray?to?rule fracture Orders: Orders XR elbow LT min 3V Today M25.522 - Pain in left elbow Basic Metabolic Panel Fasting Today R73.03 - Prediabetes Medications: Refilled tizanidine 4 mg PO BEDTIME PRN 30 tabs 0RF muscle spasticity N28.9 - Disorder of kidney and ureter, unspecified
[2024-10-29 11:19] VITALS: BP 132/70; PULSE 96; RESP 14; TEMP 36.6; O2SAT 98; BMI 35.9
--- OUTSIDE RECORDS SUMMARY | 2024-10-29 12:12 | XMS_ITS | Clinical Summary ---
Author Organization [employer] Address [address] [place] [address] [address] [place] [address] Care Team Providers Care Security Investigator Name Role Phone Unavailable Primary Care Provider Unavailabl e Immunizations Immunization Administration Dates Next Due Pfizer Covid-19 Vaccine [...] patient's age to complete this topic Insurance [facility]
--- OUTSIDE RECORDS SUMMARY | 2024-10-29 12:13 | XMS_ITS | Clinical Summary ---
Author Organization [facility] Facility Address [address] [place] [address] Care Team Providers Care Auctioneer Tobacco Name Role Phone Hilario Tran MD Primary Care Provider [phone] Allergies Active Allergy Reactions Criticality Noted Date [...] Active Problems Problem Noted Date Diagnosed Date Xxekn-it-wgtgmnn renal failure 09/10/2020 Alcohol abuse 09/10/2020 Hypercholesterolemia [...] keep apptmt w neuro Dr Yepez at [place] as Needs results of EEG and discussed [...] TIA sx Simple chronic bronchitis 04/30/2017 Immunizations Immunization Administration Dates Next Due TD Preservative Free [...] Due Date Last Done Comments Pneumococcal Vaccine: 50+ Ye ars (1 of 2 - PCV) 1981 Colorectal Cancer Screening: Annual FOBT 2011 Colorectal Cancer Screening: Colonoscopy 2011 Colorectal Cancer Screening: Sigmoidoscopy 2011 Hepatitis B Vaccine Aged Out No longe r eligible based on patient's age to complete this topic Insurance Medicare Medicaid [place] Medicare [place] Care Teams Auctioneer Tobacco Relationship Specialty Start Date End Date Hilario Tran MD [address] [place] [id number] PCP - General Family Medicine 09/10/20
== END 2024-10-29 11:48 | disposition home or self-care (01) ==
LOC: HO.HMCFM 11:07
PROVIDERS: PCP Family Medicine; Visit Provider Family Medicine
DX: R73.03 Prediabetes (principal); I10 Essential (primary) hypertension; M25.522 Pain in left elbow

== ENCOUNTER → 2024-10-29 11:06 | Outpatient (BNVA) | payer MEDICARE, SELFPAY | PROVIDERS: PCP Family Medicine; Visit Provider Family Medicine | DX: R73.03 Prediabetes (principal); I10 Essential (primary) hypertension; M25.522 Pain in left elbow | CPT/HCPCS: 99212 ==

== ENCOUNTER 2025-01-23 14:55 | Outpatient (AMB) | payer MEDICARE, SELFPAY ==
--- OUTSIDE RECORDS SUMMARY | 2025-01-23 14:57 | XMS_ITS | Clinical Summary ---
Author Organization [employer] Address [address] [place] [address] [address] [place] [address] Care Team Providers Care Seafood Fisherman Name Role Phone Unavailable Primary Care Provider [...] Panel 1962 SDOH Screening 1962 Sigmoidoscopy 1962 Disability Screening 1962 Alcohol/Substance Use Screening 1974 Tobacco Screening 1974 Hepatitis C Screening 01/03/1980 Pneumococcal Vaccine: 50+ Years (1 of 1 - PCV) 01/03/2012 Zoster Vaccines (1 of 2) 01/03/2012 DTaP/Tdap/Td Vaccines (1 - Tdap) 12/27/2018 12/26/2018 COVID-19 Vaccine (4 - 2023-2 5 season) 2024 08/08/2022, 11/25/2020, 11/04/2020 Influenza Vaccine (#1) 2025 RSV Patients and Patients Aged 60 years [...] patient's age to complete this topic Meningococcal B Vaccine Aged Out No l onger eligible based on patient's age to complete this topic Meningococcal Vaccine Aged Out No gilles hiern eligible based on patient's age to complete this topic RSV under 20 months Aged Out No longe r eligible based on patient's age to complete this topic Rotavirus Vaccines Aged Out No longer eligible based on patient's age to complete this topic Insurance COUNT INCLUDES THE [facility]
--- OUTSIDE RECORDS SUMMARY | 2025-01-23 14:57 | XMS_ITS | Clinical Summary ---
Author Organization [facility] Facility Address [address] [place] [address] Care Team Providers Care Carpenter Supervisor Wooden Ship Name Role Phone Hilario Tran MD Primary [...] Active Problems Problem Noted Date Diagnosed Date Javad-ql-mgtsteh renal failure 09/10/2020 Alcohol abuse 09/10/2020 Hypercholesterolemia [...] keep apptmt w neuro Dr Yepez at [place] as Needs results of EEG and discussed [...] Medicaid [place] Care Teams Carpenter Supervisor Wooden Ship Relationship Specialty Start Date End Date Hilario Tran MD [address] [place] [id number] PCP - General Family Medicine 09/10/20
--- OUTSIDE RECORDS SUMMARY | 2025-01-23 14:57 | XMS_ITS | Encounter Summary ---
Author Organization [facility] Address [address] [place] [address] Care Team Providers Care Imaging Assistant Name Role Phone [facility], Pcp Primary Care Provider Unavailabl e Encounter Details Date Type Department Care Team Description 04/22/2020 Release of Information Medical Records [address] [place] [id number] Abstract, Provider Social History Tobacco Use Types [...] on filedocumented in this encounter Care Teams Imaging Assistant Relationship Specialty Start Date End Date Community, Pcp PCP - General Internal Medicine 04/01/20 documented as of this encounter
[2025-01-23 15:11] VITALS: BP 76/51; PULSE 96; TEMP 36.5; O2SAT 98; BMI 35.5
--- NOTE | 2025-01-23 15:11 | AM.OFFWIN_ITS ---
Intake Vital Signs 01/23/25 15:11 Height 5 ft 7 in Weight 227 lb BMI 35.5 BP 76/51 L Blood Pressure Location Rt brachial Position Sitting Pulse 96 Pulse Source Pulse Oximeter Temp 97.7 F Temp Source Oral Pulse Oximetry (%) 98 Oxygen Delivery Method Room Air Intake Visit Reasons: EP-lt leg pain & swollen Intake Note: presents with left popliteal pain and swelling from knee to ankle,hot to touch, feet tingling for 4 days. states feels better with leg hyperextended Patient Tobacco Use Status: Former Tobacco user Allergies egg (eggs) Allergy (Mild, Verified 01/23/25 15:17) swelling with raw eggs influenza virus vaccine, specific (FLU VACCINE) Adverse Reaction (Unknown, Verified 01/23/25 15:17) egg allergy Do you need a note to return to daycare/school/sports/work: No HPI HPI Comments History of Present Illness Details This is a 65-year-old male with a past medical history of gout, hypertension, hyperlipidemia, alcohol use disorder and hyperkalemia presenting for evaluation of left lower extremity swelling and pain that he has had for the past 4 days. Patient states that he smokes marijuana daily and does not take any medication for his pain. He denies having any chest pain, cough, hemoptysis or shortness of breath. Patient is noted to be hypotensive in triage. [facility] Medical History Restrictive lung disease Obesity (BMI 30-39.9) ETOH abuse Back pain Hypercholesterolemia HTN (hypertension) Surgical History History of back surgery Social History (Updated 03/05/24 @ 11:02 by Kenyon Hyatt [facility]) Household Members: Spouse Housing: House Alcohol intake: current Alcohol intake frequency: a few times a month Alcohol type: wine Patient Tobacco Use Status: Former Tobacco user Tobacco use type: Cigarette Years Smoked: 15 +/- e-Cigarette/Vaping Use: Never Used Second Hand Smoke Exposure: Yes service: No Current occupational status: retired and other Current occupation: rt handed Current occupational exposures/hazards: No Cognitive needs: No Hearing needs: No Vision needs: Yes (Patient was prescribed glasses.) Review of Systems Const All systems reviewed & are unremarkable except as noted in HPI and below Reports no additional complaints, Denies chills, Denies fever(s) and Denies ma laise Card Denies chest pain and Denies dyspnea Resp Denies cough and Denies dyspnea Musc Details: left distal leg pain and swelling Reports no additional complaints Skin/Breast Reports system reviewed and no additional complaints, except as documented Neuro Reports no additional complaints Psych Reports no additional complaints Rock/Lymph Reports no additional complaints Aller/Immun Reports no additional complaints Physical Exam Vital Signs: Last Vital Signs Temp 97.7 F 01/23/25 15:11 Pulse 96 01/23/25 15:11 BP 76/51 L 01/23/25 15:11 Pulse Ox 98 01/23/25 15:11 Oxygen Delivery Method Room Air 01/23/25 15:11 BMI result Body Mass Index 35.5 Patient is afebrile. Repeat blood pressure R. arm is 70/58. Const General: cooperative, comfortable, well developed, alert, awake and Physically active Nutritional Appearance: well nourished Orientation/consciousness: patient oriented x3 Limitations: no limitations Resp Effort & Inspection: normal respiratory effort, able to speak in complete sentences, no audible wheezes and not tachypneic Auscultation: clear to auscultation bilaterally Cardio Rate: regular rate Rhythm: regular rhythm Skin Other: There is no erythema distal lower extremity, subjective nonpitting edema. General skin exam: no rashes or lesions noted Neuro General: patient oriented x3 Extrem Other: Passive ROM left knee and left ankle intact, there is left calf tenderness, no tenderness to palpation of the left popliteal fossa, distal pulses intact, left lower extremity is warm to touch. Psych Appearance: grossly normal Mental Status: mental status grossly normal Insight: Limited insight present (Psych) Assessment & Plan Assessment & Plan (1) Hypotension: Comment: Patient is hypotensive x2. Code(s): I95.9 - Hypotension, unspecified Qualifiers: Hypotension type: unspecified hypotension type Qualified Code(s): I95.9 - Hypotension, unspecified Plan: Patient will present to the emergency department via private vehicle. Expect is called to [facility] Wallace at 1607. (2) Pain of left calf: Comment: Patient's history coupled with his examination warrants ultrasound imaging to rule out an acute DVT. Code(s): M79.662 - Pain in left lower leg Plan: Given this patient's hypotension coupled with his left calf pain, he will present to the emergency department via private vehicle. Expect is called to MARICARMEN Wallace at [facility] 1607. Coding Level of Care Code Est Pt Level 3 (61867) Diagnoses Hypotension, unspecified hypotension type I95.9 Hypotension type: unspecified hypotension type Pain of left calf M79.662
== END 2025-01-23 16:03 | disposition home or self-care (01) ==
PROVIDERS: PCP Family Medicine; Visit Provider Physician Assistant
DX: I95.9 Hypotension, unspecified (principal); M79.662 Pain in left lower leg

== ENCOUNTER → 2025-01-23 14:55 | Outpatient (BNVA) | payer MEDICARE, SELFPAY | PROVIDERS: PCP Family Medicine; Visit Provider Physician Assistant | DX: I95.9 Hypotension, unspecified (principal); M79.662 Pain in left lower leg | CPT/HCPCS: 99212 ==

== ENCOUNTER 2025-01-23 16:19 | Inpatient (IN) | payer MEDICARE, SELFPAY ==
[2025-01-23] VITALS (8 sets, daily range): BP systolic 88–183; BP diastolic 58–108; PULSE 82–93; RESP 16–18; TEMP 36.3–36.8; O2SAT 86–96; BMI 34.0
--- NOTE | ~2025-01-23 | US_ITS ---
CLINICAL HISTORY: calf pain Venous duplex ultrasound left lower extremity Comparison: None provided Findings: Left superficial femoral vein in the mid and distal segment, popliteal vein and posterior tibial vein were noncompressible with intraluminal echoes consistent with deep vein thrombosis. Left peroneal vein was not visualized. Remainder visualized deep veins are fully compressible with normal Doppler color flow and spectral tracings. No popliteal cyst. IMPRESSION: 1. Study is positive for deep vein thrombosis from level of distal superficial femoral vein to the posterior tibial vein. This document has been electronically signed by: Karlie Boudreaux MD on 01/23/2025 20:11:22
--- NOTE | ~2025-01-23 | CT_ITS ---
CLINICAL HISTORY: DVT with shortness a breath CT angiography chest with contrast. 3D Postprocessing. Comparison: None provided Findings: The heart size is borderline enlarged. RV/LV ratio is normal. Coronary artery disease. Atherosclerotic vascular disease with mildly dilated ascending aorta measuring up to 3.9 cm. Intraluminal filling defects in bilateral lower lobe pulmonary arteries and arterial branches in the in the bilateral upper lobes. No consolidation, pleural effusion or pneumothorax. 1 cm and 5 mm left lower lobe pneumatoceles. The thyroid and thoracic esophagus within normal limits. Images of upper abdomen demonstrate low-attenuation of the liver suggestive of steatosis bilateral nonspecific perinephric stranding. No acute fractures. IMPRESSION: 1. Pulmonary emboli in lower lobe pulmonary arteries and arterial branches and to a lesser extent in bilateral upper lobes. No CT evidence of right heart strain. 2. 3.9 cm aneurysmal dilatation of the ascending aorta. 3. Additional findings as described. This document has been electronically signed by: Karlie Boudreaux MD on 01/23/2025 22:41:01
[2025-01-23 17:25] LABS: MANUAL DIFF FLAG NO
[2025-01-23 17:34] LABS: Hematocrit 41.3 % (42.0-52.0); Hemoglobin 15.1 g/dl (14.0-18.0); Imm Gran Abs Auto 0.10 X10*3/uL (0.00-0.03); Imm Gran Pct Auto 0.8 % (0.0-0.4); Lymphocytes Absolute Auto 2.3 X10*3/uL (1.2-4.9); Mean Corpuscular HGB Conc 36.6 g/dl (31.0-36.0); Mean Corpuscular Hemoglobin 38.0 pg (27.0-33.0); Mean Corpuscular Volume 104.0 fL (80.0-98.0); NRBC Abs Auto 0.000 X10*3/uL (0.0-0.012); NRBC Pct Auto 0.0 /100WBC (0.0-0.2); Platelet Count 324 X10*3/uL (160-400); Red Blood Count 3.97 X10*6/uL (4.60-5.80); White Blood Count 12.1 X10*3/uL (4.8-10.8)
[2025-01-23 17:42] LABS: Alanine Aminotransferase 12 U/L (0-40); Albumin Level 3.5 g/dL (3.5-5.0); Alkaline Phosphatase 90 U/L (39-117); Anion Gap 17 (12-20); Aspartate Amino Transferase 46 U/L (5-37); Blood Urea Nitrogen 22 mg/dL (9-16); Calcium 8.1 mg/dL (8.4-10.2); Carbon Dioxide 25 mmol/L (22-29); Chloride 101 mmol/L (96-108); Creatinine Clr Calc Pharmacy 63.3; Estimated Glomerular Filt Rate 50; Potassium 3.8 mmol/L (3.3-5.1); Sodium 139 mmol/L (135-145); Total Protein 7.5 g/dL (6.5-8.0)
--- NOTE | 2025-01-23 18:17 | PC.NURSE ---
PAtient was sleeping, O2 dropped to 86%RA applied 3 liters NC 92% no distress noted
--- NOTE | 2025-01-23 18:35 | ED_ITS ---
HPI - General Adult General Chief complaint: General Medical Stated complaint: left leg blood clot Time Seen by Provider: 01/23/25 18:01 Source: patient Mode of arrival: ambulatory Limitations: no limitations History of Present Illness ED Provider: HPI narrative: Patient is 65 years old with history of hypotension hypercholesterolemia sleep apnea not using CPAP history of ETOH abuse and gout comes here for left calf pain for last 1 week patient is seen in clinic sent here for rule out DVT shows no swelling of the left leg but feels deep pain in the calf area patient also feel lightheaded when he came blood pressure was 76/51 no nausea no vomiting no palpitation no chest pain no joint pain patient has also been feeling shortness a breath more than usual given on ambulation no fever no cough no chest pain no palpitation patient does have sleep apnea but use his pillow not the machine Related Data Home Medications ?Medication ?Instructions ?Recorded ?Confirmed acetaminophen 650 mg 650 mg PO Q12H 02/04/2110/16 tablet,extended release (Tylenol Arthritis Pain) Previous Rx's ?Medication ?Instructions ?Recorded clotrimazole 1 % topical cream 1 appl topical BID 2 we eks #30 01/31/22 grams albuterol sulfate 90 mcg/actuation 2 puff inhalation Q 6H PRN 10/19/22 aerosol inhaler shortness of breath or wheez ing 30 days #8.5 grams triamcinolone acetonide 0.5 % 1 appl topical BID 30 da ys #30 04/18/23 topical cream grams carvedilol 6.25 mg tablet 6.25 mg PO BID 90 days #180 caps 09/27/23 allopurinol 100 mg tablet 200 mg (2 x 100 mg) PO DAILY 30 05/02/24 days #60 tabs cyanocobalamin (vitamin B-12) 1,000 mcg PO DAILY 90 da ys #90 tabs 05/02/24 1,000 mcg tablet glipizide 2.5 mg tablet, extended 2.5 mg PO QAM 30 day s #30 tabs 08/01/24 release 24 hr prednisone 20 mg tablet 40 mg (2 x 20 mg) PO DAILY P RN 08/01/24 Gout Flare 4 days #8 tabs sildenafil 50 mg tablet 50 mg PO DAILY PRN sexual ac tivity 08/01/24 30 days #8 tabs rosuvastatin 20 mg tablet 20 mg PO DAILY 30 days #30 t abs 10/14/24 tizanidine 4 mg tablet 4 mg PO BEDTIME PRN muscle 0 01/07/25 spasticity #30 tabs Allergies Allergy/AdvReac Type Severity Reaction Status Date / Time egg (eggs) Allergy Mild swelling Verified 01/23/25 16:28 with raw eggs influenza virus vaccine, AdvReac Unknown egg allergy Verified 01/23/25 16:28 specific (FLU VACCINE) Review of Systems 2 Review of Systems: Yes all other systems are reviewed and are negative [facility] Past Medical History Medical History Restrictive lung disease Obesity (BMI 30-39.9) ETOH abuse Back pain Hypercholesterolemia HTN (hypertension) Surgical History History of back surgery Social History Social History Household Members: Spouse Housing: House Alcohol intake: current Alcohol intake frequency: a few times a month Alcohol type: wine Patient Tobacco Use Status: Former Tobacco user Tobacco use type: Cigarette Years Smoked: 15 +/- e-Cigarette/Vaping Use: Never Used Second Hand Smoke Exposure: Yes Advance Directives: No Advance Directives Information Provided: Yes service: No Current occupational status: retired and other Current occupation: rt handed Current occupational exposures/hazards: No Cognitive needs: No Hearing needs: No Vision needs: Yes (Patient was prescribed glasses.) Physical Exam ED Vital Signs: Vital Signs - 24 hr 01/23/25 16:27 01/23/25 18:13 01/23/25 19:23 Temperature 97.4 F 98.3 F Pulse Rate 87 82 89 Respiratory Rate 18 16 Blood Pressure 88/58 L 102/69 148/86 H Pulse Oximetry 92 86 L Oxygen Delivery Method Room Air Room Air Oxygen Flow Rate 01/23/25 19:26 01/23/25 19:28 01/23/25 20:00 Temperature Pulse Rate 92 93 84 Respiratory Rate 16 Blood Pressure 116/81 136/91 H 143/69 H Pulse Oximetry 96 Oxygen Delivery Method Nasal Cannula Oxygen Flow Rate 2 01/23/25 21:48 01/23/25 22:12 Temperature 97.8 F Pulse Rate 85 89 Respiratory Rate 16 17 Blood Pressure 183/108 H 167/95 H Pulse Oximetry 96 96 Oxygen Delivery Method Room Air Room Air Oxygen Flow Rate BMI result Body Mass Index 34.0 Appearance: Alert. Oriented X3. No acute distress. Eyes: PERRLA, No Nystagmus ENT: Pharynx normal. Oral Mucosa moist Neck: Normal inspection. Neck supple. CVS: Normal heart rate and rhythm. Pulses normal. Respiratory: No respiratory distress. Equal air entry bilateral, no wheezing/rales/rhonchi Abdomen: Soft and nontender. Bowel sounds are present, no mass palpable, no CVA tenderness Skin: Skin warm and dry. Normal skin color. Normal skin turgor. Extremities: No lower extremity edema. Left calf tenderness no swelling neurovascular intact Neuro: Oriented X 3. No motor deficit. No sensory deficit.No cerebellar signs , cranial nerves II-XII intact Medications Administered Generic Name Dose Route Start Last Admin Trade Name Freq PRN Reason Stop Dose Admin Sodium Chloride 3 ml 01/24/25 00:00 01/24/25 00:10 0.9 % Sodium Chloride Flush 3 Ml Syringe IVFLUSH Not Given QSHIFT ESTEFANI Discontinued Medications Generic Name Dose Route Start Last Admin Trade Name Freq PRN Reason Stop Dose Admin Apixaban 10 mg 01/23/25 20:28 01/23/25 20:42 Apixaban 5 Mg Tablet PO 01/23/25 20:29 10 mg ONCE ONE Administration Sodium Chloride 1,000 mls @ 999 mls/hr 01/23/25 18:32 01/23/25 21:52 Ns IV 01/23/25 19:32 Infused .Q1H1M ONE Infusion Magnesium Sulfate/Dextrose 1 gm in 100 mls @ 100 mls/hr 01/23/25 18:48 01/23/25 20:33 Magnesium Sulfate/D5w IV 01/23/25 19:47 Infused ONCE ONE Infusion Iohexol 85 ml 01/23/25 21:23 01/23/25 21:23 Iohexol 350 Mg/Ml 100 Ml Infus..Btl IV 01/23/25 21:24 85 ml ONCE ONE Administration Tizanidine HCl 4 mg 01/24/25 00:51 01/24/25 01:12 Tizanidine Hcl 4 Mg Tablet PO 01/24/25 00:52 4 mg ONCE ONE Administration Medical Decision Making Medical Decision Making MDM Narrative: Patient with left calf pain without any significant swelling venous Doppler positive for DVT patient is also has shortness a breath which is chronic but more so for last 1 week CTA chest done which showed bilateral PE no saddle emboli no right ventricular strain will start patient on Eliquis will admit the patient for vascular involvement/IVC filter placement Differential Diagnosis Differential Diagnoses: The differential diagnosis associated with the presentation includes DVT/thrombophlebitis/PE/pneumonias/CHF/ACS Admission/Observation Consideration of admission/observation: Escalation of care including admission/observation considered Consult Healthcare Provider Management of the patient was discussed with: Hospitalist Lab Data [facility] Lab Attestation statement: I reviewed the patient's lab results. 01/23/25 17:19 01/23/25 17:19 Labs: Lab Results 01/23/25 01/23/25 Range/Units 17:19 20:55 WBC 12.1 H (4.8-10.8) X10*3/uL RBC 3.97 L (4.60-5.80) X10*6/uL Hgb 15.1 (14.0-18.0) g/dl Hct 41.3 L (42.0-52.0) % MCV 104.0 H (80.0-98.0) fL MCH 38.0 H (27.0-33.0) pg MCHC 36.6 H (31.0-36.0) g/dl RDW 13.4 (11.0-16.0) % Plt Count 324 (160-400) X10*3/uL MPV 9.4 (9.4-12.4) fL Immature Gran % (Auto) 0.8 H (0.0-0.4) % Neut % (Auto) 69.7 (45-73) % Lymph % (Auto) 19.3 L (20-40) % [place] % (Auto) 7.2 (2-11) % Eos % (Auto) 1.8 (0-4) % Baso % (Auto) 1.2 (0-2) % Lymph # (Auto) 2.3 (1.2-4.9) X10*3/uL [place] # (Auto) 0.9 (0.1-1.2) X10*3/uL Eos # (Auto) 0.2 (0.0-0.4) X10*3/uL Baso # (Auto) 0.1 (0.0-0.2) X10*3/uL Abs Immat Gran (auto) 0.10 H (0.00-0.03) X10*3/uL Absolute Neuts (auto) 8.5 H (2.0-8.3) x10*3/uL Absolute Nucleated RBC 0.000 (0.0-0.012) X10*3/uL Nucleated RBC % (auto) 0.0 (0.0-0.2) /100WBC PT 14.1 H (10.9-12.4) SEC INR 1.2 H (0.9-1.1) APTT 27.6 (26.7-34.1) SEC Sodium 139 (135-145) mmol/L Potassium 3.8 (3.3-5.1) mmol/L Chloride 101 (96-108) mmol/L Carbon Dioxide 25 (22-29) mmol/L Anion Gap 17 (12-20) BUN 22 H (9-16) mg/dL Creatinine 1.42 H (0.5-1.4) mg/dL Estim Creat Clear Calc 63.3 Estimated GFR 50 Random Glucose 130 H (60-115) mg/dL Calcium 8.1 L D (8.4-10.2) mg/dL Magnesium 1.4 L* (1.6-2.6) mg/dL Total Bilirubin 0.8 (0.0-1.0) mg/dL AST 46 H (5-37) U/L ALT 12 (0-40) U/L Alkaline Phosphatase 90 (39-117) U/L Total Creatine Kinase 16 L (38-174) U/L Total Protein 7.5 (6.5-8.0) g/dL Albumin 3.5 (3.5-5.0) g/dL Independent Interpretation I performed an independent interpretation of an: EKG and CT Scan Interpretation: Normal sinus rhythm with heart rate 84 beats per minute normal interval normal axis no acute ST-T no acute ischemia Radiology Impression Discussion of test interpretation with radiology: I have reviewed the radiologist's reading. Radiologist Impression: MPRESSION: 1. Pulmonary emboli in lower lobe pulmonary arteries and arterial branches and to a lesser extent in bilateral upper lobes. No CT evidence of right heart strain. 2. 3.9 cm aneurysmal dilatation of the ascending aorta. 3. Additional findings as described. MPRESSION: 1. Study is positive for deep vein thrombosis from level of distal superficial femoral vein to the posterior tibial vein. Discharge Plan Discharge Clinical Impression: Pulmonary embolism DVT (deep venous thrombosis) Qualifiers: DVT location: lower extremity Affected thrombotic vein of extremity: femoral C hronicity: acute Laterality: left Qualified Code(s): I82.412 - Acute embolism and thrombosis of left femoral vein Patient Disposition: Admitted As Inpatient
[2025-01-23 18:50] LABS: Magnesium 1.4 mg/dL (1.6-2.6)
[2025-01-23 21:10] LABS: INTERNATIONAL NORM RATIO 1.2 (0.9-1.1); Partial Thromboplastin Time 27.6 SEC (26.7-34.1); Prothrombin Time 14.1 SEC (10.9-12.4)
[2025-01-23] MEDS: iohexoL 350 MG/ML 100 ML INFUS..BTL 85 ML IV (21:23)
--- NOTE | 2025-01-23 23:56 | P.HPHOSP_ITS ---
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 Urgent care stated that patient was hypotensive and initial blood pressure in the ED was 76/51. With intervention using IV fluids patient's blood pressure rebounded to 148/86. Patient states he has had the swelling and pain in his left leg for at least 2 months now. Patient overall for the last 2-3 months has had a decrease in energy and inability to ambulate long distances due to shortness of breath. Patient denies any recent travel by plane but is definitely more sedentary since starting halfway. Patient also states his alcohol use has increased since he retired due to boredom. Patient is drinking schnapps, peppermint at least a pt per day. Patient's spouse also drinks and they seem to have a codependent relationship. Neither patient or spouse have any intention of alcohol cessation and patient deferred need for addictions consultation or case management to learn more about community programs to help with alcohol cessation. Patient denies any seizures associated with alcohol withdrawal and states he has never had withdrawal symptoms in the past. Magnesium 1.4 in the ED and magnesium replacement started. Workup in the ED include a CTA which identified pulmonary emboli in the lower lobe pulmonary arteries and arterial branches and to a lesser extent in the bilateral upper lobes. There was no evidence of right heart strain. In addition incidentally patient has a dilation of the ascending aorta of 3.9 cm. Dopplers of the lower extremity identified deep vein thrombosis from the level of distal superficial femoral vein to the posterior tibial vein. Patient was started on Eliquis in the ED. This was changed to Lovenox weight based in case vascular wants to perform procedure. Patient does state he believes his mother had clotting issues prior to her passing. In addition patient's father also had clotting issues status post CABG in the past. Patient denies any other familial issues with blood clots. Patient states it is the 1st time he has learned that he has a blood clot. Patient does not currently follow with a commissary representative but back in 2020 patient was on dialysis x1 for severe AMADO. Patient did not require further dialysis after that incident. Patient's creatinine clearance and GFR appear to be baseline at this time. L Review of Systems 2 Review of Systems: Patient currently denies any chest pain, shortness breath at rest or with exertion. Patient denies any abdominal pain, nausea or vomiting. Amputation denies any chronic issues with his liver related to his alcohol use. Patient denies any seizures with withdrawal from alcohol and states he has never withdrawn from alcohol in the past. Patient denies any hyper emesis issues related to marijuana use. Pt does report continued Left leg pain and chronic low back pain. Yes all other systems are reviewed and are negative [facility] Medical History (Updated 01/24/25 @ 01:18 by EMMETT Fischer) Marijuana dependence AMADO (acute kidney injury) Gout Restrictive lung disease Obesity (BMI 30-39.9) ETOH abuse Back pain Hypercholesterolemia HTN (hypertension) Cognitive capacity: A/O X3 Functional capacity: independent ambulation Pertinent family history: Pt reports mother had hx of blood clots Father also had hx of blood clots post CABG Surgical History (Updated 01/24/25 @ 01:18 by EMMETT Fischer) H/O spinal fusion History of back surgery Social History (Updated 01/24/25 @ 01:19 by EMMETT Fischer) Household Members: Spouse Housing: House Alcohol intake: current Alcohol intake frequency: a few times a month Alcohol type: wine Comment: 1 plus pint of peppermint schnopps daily Patient Tobacco Use Status: Former Tobacco user Tobacco use type: Cigarette Years Smoked: 15 +/- e-Cigarette/Vaping Use: Never Used Second Hand Smoke Exposure: Yes Substance Use Type: Marijuana Substance Use Frequency: Daily Substance Use Frequency Other:: 5-5 joints per day Advance Directives: No Advance Directives Information Provided: Yes service: No Current occupational status: retired and other Current occupation: rt handed Current occupational exposures/hazards: No Cognitive needs: No Hearing needs: No Vision needs: Yes (Patient was prescribed glasses.) Ebola Risk: Travel/Contact With Anyone From Affected Area/s: No Has Patient Experienced Ebola Symptoms: No Meds Allergies Allergy/AdvReac Type Severity Reaction Status Date / Time egg (eggs) Allergy Mild swelling Verified 01/23/25 16:28 with raw eggs influenza virus vaccine, AdvReac Unknown egg allergy Verified 01/23/25 16:28 specific (FLU VACCINE) Active Medications: Current Medications Acetaminophen (Acetaminophen 325 Mg Tablet) 650 mg PO Q6H PRN PRN Reason: Pain, Mild 1-3,fever,headache Albuterol/Ipratropium (Albuterol/Iprat 2.5/0.5mg 3 Ml Ampul.Neb) 3 ml INHALE Q4H PRN PRN Reason: Shortness of Breath/Wheezing Calcium Carbonate (Calcium Carbonate 750 Mg Tab.Chew) 750 mg PO Q4H PRN PRN Reason: Heartburn Enoxaparin Sodium (Enoxaparin Sodium 100 Mg/Ml Syringe) 100 mg 1 mg/kg (100 mg) SUBCUT Q12H ESTEFANI Magnesium Hydroxide (Milk Of Magnesia 30 Ml Oral.Susp) 30 ml PO DAILY PRN PRN Reason: Constipation Magnesium Oxide (Magnesium Oxide 400 Mg Tablet) 400 mg PO DAILY ESTEFANI Melatonin (Melatonin 3 Mg Tablet) 6 mg PO BEDTIME PRN PRN Reason: Insomnia Ondansetron HCl (Ondansetron Hcl 4 Mg/2 Ml Vial) 4 mg IVPUSH Q8H PRN PRN Reason: Nausea and Vomiting Polyethylene Glycol (Polyethylene Glycol 3350 17 Gm Powd.Pack) 17 gm PO DAILY PRN PRN Reason: Constipation Senna (Sennosides 8.6 Mg Tablet) 17.2 mg PO BEDTIME ESTEFANI Sodium Chloride (0.9 % Sodium Chloride Flush 3 Ml Syringe) 3 ml IVFLUSH QSHIFT [facility] Home Medications ?Medication ?Instructions ?Recorded ?Confirmed ?Last Taken ?Type acetaminophen 650 mg 650 mg PO Q12H 02/04/2110/16 Unknown History tablet,extended release (Tylenol Arthritis Pain) Physical Exam 2 Vital Signs and Narrative: Vital Signs: Last Vital Signs Temp 97.8 F 01/23/25 22:12 Pulse 89 01/23/25 22:12 Resp 17 01/23/25 22:12 BP 167/95 H 01/23/25 22:12 Pulse Ox 96 01/23/25 22:12 O2 Del Method Room Air 01/23/25 22:12 O2 Flow Rate 2 01/23/25 20:00 BMI result Body Mass Index 34.0 Alert and orientated X3, able to give good history. Neuro: CN II-X11 intact, no deficits, visual acuity intact EYES: PERRLA, EOM intact, sclera nonicteric ENT: hearing intact, no issues with swallowing, uvula midline, lips moist, nares patent no epistaxis Cardiac: S1 S2 RRR, no murmur, no JVD, no edema in R Lower ext, mild Edema LLE Pulmonary: lungs diminished B Abdominal: BS active in all 4 quadrants, no guarding, tenderness, rebounding, distended and obses MSK: strength 5/5 upper and lower extremities : no CVA tenderness no bladder distension Extremities: no edema in RLE, mild edema LLE, PT and DP pulses palpable +2 Psych: mood stable, judgement and insight fair Skin: intact Results Labs 01/23/25 17:19 01/23/25 17:19 Labs: Laboratory Results - last 24 hr 01/23/25 01/23/25 17:19 20:55 MCV 104.0 H MCH 38.0 H MCHC 36.6 H RDW 13.4 Plt Count 324 MPV 9.4 Immature Gran % (Auto) 0.8 H Neut % (Auto) 69.7 Lymph % (Auto) 19.3 L [place] % (Auto) 7.2 Eos % (Auto) 1.8 Baso % (Auto) 1.2 Lymph # (Auto) 2.3 [place] # (Auto) 0.9 Eos # (Auto) 0.2 Baso # (Auto) 0.1 Abs Immat Gran (auto) 0.10 H Absolute Neuts (auto) 8.5 H Absolute Nucleated RBC 0.000 Nucleated RBC % (auto) 0.0 PT 14.1 H INR 1.2 H APTT 27.6 Anion Gap 17 Estim Creat Clear Calc 63.3 Estimated GFR 50 Random Glucose 130 H Calcium 8.1 L D Magnesium 1.4 L* Total Bilirubin 0.8 AST 46 H ALT 12 Alkaline Phosphatase 90 Total Creatine Kinase 16 L Total Protein 7.5 Albumin 3.5 ECG Attestation: I personally reviewed and interpreted this ECG as follows: (NSR QTC 477) Prior ECG tracings: available for review Imaging Radiologist's Impressions: CTA \IMPRESSION: 1. Pulmonary emboli in lower lobe pulmonary arteries and arterial branches and to a lesser extent in bilateral upper lobes. No CT evidence of right heart strain. 2. 3.9 cm aneurysmal dilatation of the ascending aorta. 3. Additional findings as described. Dopplers IMPRESSION: 1. Study is positive for deep vein thrombosis from level of distal superficial femoral vein to the posterior tibial v Assessment and Plan (1) Pulmonary embolism: Qualifiers: Acute cor pulmonale presence: without acute cor pulmonale Chronicity: a cute Pulmonary embolism type: unspecified Qualified Code(s): I26.99 - Other pulmonary embolism without acute cor pulmonale Status: Acute (2) DVT (deep venous thrombosis): Qualifiers: Affected thrombotic vein of extremity: femoral Chronicity: acute DVT location: lower extremity Laterality: left Qualified Code(s): I82.412 - Acute embolism and thrombosis of left femoral vein Status: Acute Plan Patient is a 65-year-old male with past medical history gout on allopurinol, alcohol use disorder (no to addicitons consult and alcohol cessation), marijuana use daily 5-6 joints per day, COPD, L5-S1 spinal fusion, chronic pain syndrome related back pain, 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 Patient found to have PE and DVT in his being admitted for initiation of anticoagulation and vascular consultation. Patient is hemodynamically stable on admission. PE/DVT No evidence of right heart strain Continue telemetry Vascular consult placed Eliquis change to weight based Lovenox in case procedure is indicated Education provided to patient on use of blood thinners Hematology follow-up as an outpatient (not available over the weekend) Patient did report possible familial history of blood clots with mom and dad Mild AMADO on chronic kidney disease Patient's creatinine clearance and GFR at baseline Monitor renal function daily Avoid hypotension - there was report of initially hypotensive episode on arrival to the ED and that has since resolved Low rate of IV fluids initiated, no indication of heart failure history Hypomagnesemia MG 1.4 noting ETOH use MG 1GM provided in ED MG OX 400 mg daily, pt has not plans to stop using alcohol, will need on DC Recheck MG in AM Alcohol use disorder CIWA scale ordered No indication for phenobarbital - no history of seizures related to withdrawal Patient deferred need for addictions Patient adamant about no plan for cessation of alcohol. Spouse also drinks and both live in a codependent relationship. Fatty liver noted on CT scan LFTs stable Thiamine and folic acid ordered Hypertension Monitor blood pressure closely Continue Coreg once med rec completed if heart rate and blood pressure remained stable Gout Uric acid level pending Patient normally on allopurinol daily Patient recently on prednisone but stopped medication as symptoms persisted and patient found out he had a DVT Hyperlipidemia Continue rosuvastatin LFTs stable COREEN Patient has refused CPAP since diagnosis Counseled patient on the benefits of weight loss DVT prophylaxis: Lovenox weight based Med rec pending Full Code status Quality Stroke Does the patient have a stroke diagnosis?: No Reason for No Anti-thrombotic by Day Two: N/A - Med Ordered VTE Prior VTE?: No VTE Risk Level:: Medical - moderate - high VTE Device Contraindication: Treatment Not Tolerated VTE Drug Contraindication: N/A - Med Ordered
[2025-01-24] VITALS (9 sets, daily range): BP systolic 98–203; BP diastolic 47–107; PULSE 69–84; RESP 12–25; TEMP 36.1–36.7; O2SAT 94–97; BMI 33.3
--- NOTE | 2025-01-24 00:57 | ECG_ITS ---
Test Reason : SOB Blood Pressure : */* mmHG Vent. Rate : 84 BPM Atrial Rate : 84 BPM P-R Int : 134 ms QRS Dur : 90 ms QT Int : 404 ms P-R-T Axes : 28 25 0 degrees QTcB Int : 477 ms Artifact in tracing Normal sinus rhythm Normal ECG When compared with ECG of 27-Jun-2020 19:11, QT has lengthened Referred By: Zeyad Chen Electronically Signed By: TIERRA CHAMPION
[2025-01-24 06:12] LABS: MANUAL DIFF FLAG NO
[2025-01-24 06:13] LABS: Hematocrit 36.5 % (42.0-52.0); Hemoglobin 13.3 g/dl (14.0-18.0); Imm Gran Abs Auto 0.06 X10*3/uL (0.00-0.03); Imm Gran Pct Auto 0.6 % (0.0-0.4); Lymphocytes Absolute Auto 2.0 X10*3/uL (1.2-4.9); Mean Corpuscular HGB Conc 36.4 g/dl (31.0-36.0); Mean Corpuscular Hemoglobin 37.5 pg (27.0-33.0); Mean Corpuscular Volume 102.8 fL (80.0-98.0); NRBC Abs Auto 0.000 X10*3/uL (0.0-0.012); NRBC Pct Auto 0.0 /100WBC (0.0-0.2); Platelet Count 239 X10*3/uL (160-400); Red Blood Count 3.55 X10*6/uL (4.60-5.80); White Blood Count 9.3 X10*3/uL (4.8-10.8)
[2025-01-24 06:35] LABS: Anion Gap 13 (12-20); Blood Urea Nitrogen 20 mg/dL (9-16); Calcium 7.6 mg/dL (8.4-10.2); Carbon Dioxide 25 mmol/L (22-29); Chloride 103 mmol/L (96-108); Creatinine Clr Calc Pharmacy 83.3; Estimated Glomerular Filt Rate > 60; Iron 89 mcg/dL (45-160); Magnesium 1.7 mg/dL (1.6-2.6); Percent Iron Saturation 43 % (15-50); Potassium 3.1 mmol/L (3.3-5.1); Sodium 138 mmol/L (135-145); Total Iron Binding Capacity 208 mcg/dL (228-428); Unsaturated Iron Binding 119 ug/dL; Uric Acid 7.5 mg/dL (3.4-7.0)
[2025-01-24 07:13] LABS: Folate < 2.2 ng/mL (> or = 4.0); Vitamin B12 608 pg/mL (200-900)
--- NOTE | 2025-01-24 07:29 | PHA.MEDREC ---
Pharmacy Consult ? Medication Reconciliation Pharmacy has completed the medication reconciliation.Med rec complete, spoke to patient's and compared with pharmacy claim history.
[2025-01-24] MEDS: Potassium Chloride ER 20 MEQ TAB.ER.PRT 40 MEQ PO (08:37)
--- NOTE | 2025-01-24 08:45 | PC.NURSE ---
Assumed care of patient. Pt is A+Ox4, calm, cooperative. Sts L leg pain has improved since arrival, CSMs present. RR even and unlabored, denies SOB or CP.
--- NOTE | 2025-01-24 09:49 | PC.NURSE ---
pt moved over to a hospital bed for more comfort
[2025-01-24] MEDS: 0.9 % Sodium Chloride Flush 3 ML SYRINGE IVFLUSH ×2 (09:53→15:52)
--- NOTE | 2025-01-24 13:17 | P.PNIM_ITS ---
Subjective Subjective Date of Service: 01/24/25 Interval History: Pulm emboli, dvt htn ,amado Review of Systems has some leg pain no sob or chest pain no fevers Review of Systems: Yes all other systems are reviewed and are negative Physical Exam 2 Exam: Exam: Appearance: Alert.? Oriented X3. cvs: rrr, [id number]. res:air entry fair , no rales or wheezing abd: no rebound or guarding ,nt, bs present. ext pulses present , no cyanosis. mild left leg pain neuro: axo3 , nonfocal. Vital Signs: Vital Signs: Last Vital Signs Temp 97.8 F 01/24/25 06:00 Pulse 80 01/24/25 13:00 Resp 12 01/24/25 12:17 BP 203/107 H 01/24/25 13:00 Pulse Ox 94 01/24/25 12:17 O2 Del Method Room Air 01/24/25 12:17 O2 Flow Rate 2 01/23/25 20:00 BMI result Body Mass Index 34.0 Objective Data Active Medications Acetaminophen (Acetaminophen 325 Mg Tablet) 650 mg PO Q6H PRN PRN Reason: Pain, Mild 1-3,fever,headache Albuterol Sulfate (Albuterol Sulfate 90 Mcg 8 Gm Inhaler) 2 puff INHALE Q6H PRN PRN Reason: shortness of breath or wheezing Albuterol/Ipratropium (Albuterol/Iprat 2.5/0.5mg 3 Ml Ampul.Neb) 3 ml INHALE Q4H PRN PRN Reason: Shortness of Breath/Wheezing Allopurinol (Allopurinol 100 Mg Tablet) 200 mg PO DAILY [facility] Atorvastatin Calcium (Atorvastatin Calcium 40 Mg Tablet) 40 mg PO DAILY [facility] Calcium Carbonate (Calcium Carbonate 750 Mg Tab.Chew) 750 mg PO Q4H PRN PRN Reason: Heartburn Carvedilol (Carvedilol 6.25 Mg Tablet) 6.25 mg PO BID [facility]; Protocol Clotrimazole (Clotrimazole 1 % Cream 15 Gm Tube) 1 appl TOPICAL BID PRN; Protocol PRN Reason: RASH ON LEG Cyanocobalamin (Cyanocobalamin (Vitamin B-12) 1,000 Mcg Tablet) 1,000 mcg PO DAILY [facility] Enoxaparin Sodium (Enoxaparin Sodium 100 Mg/Ml Syringe) 100 mg 1 mg/kg (100 mg) SUBCUT Q12H [facility] Last Admin: 01/24/25 08:37 Dose: 100 mg Documented By: ANGELA Folic Acid (Folic Acid 1 Mg Tablet) 1 mg PO DAILY [facility] Last Admin: 01/24/25 08:37 Dose: 1 mg Documented By: ANGELA Magnesium Hydroxide (Milk Of Magnesia 30 Ml Oral.Susp) 30 ml PO DAILY PRN PRN Reason: Constipation Magnesium Oxide (Magnesium Oxide 400 Mg Tablet) 400 mg PO DAILY [facility] Last Admin: 01/24/25 08:37 Dose: 400 mg Documented By: ANGELA Melatonin (Melatonin 3 Mg Tablet) 6 mg PO BEDTIME PRN PRN Reason: Insomnia Ondansetron HCl (Ondansetron Hcl 4 Mg/2 Ml Vial) 4 mg IVPUSH Q8H PRN PRN Reason: Nausea and Vomiting Polyethylene Glycol (Polyethylene Glycol 3350 17 Gm Powd.Pack) 17 gm PO DAILY PRN PRN Reason: Constipation Prednisone (Prednisone 20 Mg Tablet) 40 mg PO DAILY PRN PRN Reason: Gout Flare Senna (Sennosides 8.6 Mg Tablet) 17.2 mg PO BEDTIME [facility] Sodium Chloride (0.9 % Sodium Chloride Flush 3 Ml Syringe) 3 ml IVFLUSH QSHIFT [facility] Last Admin: 01/24/25 09:53 Dose: 3 ml Documented By: ANGELA Thiamine HCl (Thiamine Hcl 100 Mg Tablet) 100 mg PO DAILY [facility] Last Admin: 01/24/25 08:37 Dose: 100 mg Documented By: ANGELA Tizanidine HCl (Tizanidine Hcl 4 Mg Tablet) 4 mg PO BEDTIME PRN PRN Reason: muscle spasticity Labs 01/24/25 05:59 01/24/25 05:59 Labs: Laboratory Results - last 24 hr 01/23/25 01/23/25 01/24/25 17:19 20:55 05:59 MCV 104.0 H 102.8 H MCH 38.0 H 37.5 H MCHC 36.6 H 36.4 H RDW 13.4 13.4 Plt Count 324 239 D MPV 9.4 9.1 L Immature Gran % (Auto) 0.8 H 0.6 H Neut % (Auto) 69.7 65.7 Lymph % (Auto) 19.3 L 22.0 [place] % (Auto) 7.2 8.7 Eos % (Auto) 1.8 2.0 Baso % (Auto) 1.2 1.0 Lymph # (Auto) 2.3 2.0 [place] # (Auto) 0.9 0.8 Eos # (Auto) 0.2 0.2 Baso # (Auto) 0.1 0.1 Abs Immat Gran (auto) 0.10 H 0.06 H Absolute Neuts (auto) 8.5 H 6.1 Absolute Nucleated RBC 0.000 0.000 Nucleated RBC % (auto) 0.0 0.0 PT 14.1 H INR 1.2 H APTT 27.6 Anion Gap 17 13 Estim Creat Clear Calc 63.3 83.3 Estimated GFR 50 > 60 Random Glucose 130 H 124 H Uric Acid 7.5 H Calcium 8.1 L D 7.6 L D Magnesium 1.4 L* 1.7 Iron 89 TIBC 208 L % Saturation 43 Unsat Iron Binding 119 Total Bilirubin 0.8 AST 46 H ALT 12 Alkaline Phosphatase 90 Total Creatine Kinase 16 L Total Protein 7.5 Albumin 3.5 Vitamin B12 608 Folate < 2.2 L Assessment and Plan (1) DVT (deep venous thrombosis): Status: Acute (2) Pulmonary embolism: Status: Acute Plan 65-year-old male with past medical history gout on allopurinol, alcohol use disorder (no to addicitons consult and alcohol cessation), marijuana use daily 5-6 joints per day, COPD, L5-S1 spinal fusion, chronic pain syndrome related back pain, 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 Patient found to have PE and DVT in his being admitted for initiation of anticoagulation and vascular consultation. Patient is hemodynamically stable on admission. PE/DVT No evidence of right heart strain Continue telemetry Vascular consult placed Eliquis change to weight based Lovenox in case procedure is indicated Education provided to patient on use of blood thinners Hematology follow-up as an outpatient (not available over the weekend) Patient did report possible familial history of blood clots with mom and dad Mild AMADO on chronic kidney disease Patient's creatinine clearance and GFR at baseline Monitor renal function daily Initial hypotensive episode resolved, currently patient's blood pressure is running high 180-200: Added Coreg back. Monitor blood pressure closely. Hypomagnesemia Repleted and resolved. Added p.o. magnesium Alcohol use disorder CIWA scale ordered No indication for phenobarbital - no history of seizures related to withdrawal Patient deferred need for addictions Patient adamant about no plan for cessation of alcohol. Spouse also drinks and both live in a codependent relationship. Fatty liver noted on CT scan LFTs stable low folate levels -added Thiamine and folic acid . Hypertension Monitor blood pressure closely Continue Coreg . Gout Uric acid level 7.5 Patient normally on allopurinol daily Patient recently on prednisone but stopped medication as symptoms persisted and patient found out he had a DVT Hyperlipidemia Continue rosuvastatin LFTs stable COREEN Patient has refused CPAP since diagnosis Counseled patient on the benefits of weight loss DVT prophylaxis: Lovenox weight based ongoing need:dvt /pulm emboli, electrolytic abnormalities, fluctuating blood pressure: Currently need close monitoring for respiratory status, renal function electrolytes/blood pressure medication adjustment, also vascular input. Quality Stroke Does the patient have a stroke diagnosis?: No Reason for No Anti-thrombotic by Day Two: N/A - Med Ordered VTE Prior VTE?: No VTE Risk Level:: Medical - moderate - high VTE Device Contraindication: Treatment Not Tolerated VTE Drug Contraindication: N/A - Med Ordered
--- NOTE | 2025-01-24 15:10 | P.CONGS_ITS ---
History of Present Illness Consult details Consult date: 01/24/25 Narrative: 65-year-old male with multiple medical problems including gout, alcohol abuse, COPD, marijuana use, chronic back pain, hyperlipidemia and hypertension, who was immediate by the ER yesterday because of left leg pain. He actually says he has been having left lower leg swelling and pain for about 2 months now. He was eventually seen at the urgent care setting and was sent to the ER. Imaging studies showed a DVT in the distal superficial femoral vein all the way to the posterior tibial. He also had PEs on his CT angiogram of the chest I am seeing the patient on behalf of Dr. Padilla who is away. The patient currently says that his left leg pain and swelling have improved since he had been in the hospitalist yesterday. Denies any significant shortness of breath He admits to having a very sedentary lifestyle. He mentions that his father may have had a blood clot in the past as well after CABG Review of Systems 2 Constitutional: Constitutional: Denies chills and Denies fever(s) Cardiovascular: Cardiovascular: Denies chest pain, Denies dyspnea and Denies dyspnea on exertion Respiratory: Respiratory: Denies cough, Denies dyspnea and Denies dyspnea on exertion Gastrointestinal: Gastrointestinal: Denies hematochezia and Denies change in bowel habits Genitourinary: Genitourinary: Denies hematuria and Denies difficulty urinating Musculoskeletal: Musculoskeletal: Reports back pain and Denies limited range of motion Neurologic: Denies focal weakness and Denies convulsions Psychiatric: Psychiatric: Denies depression and Denies mood swings PMFSH Past Medical History Medical History (Updated 01/25/25 @ 14:38 by Alexandra Jennings MD) Marijuana dependence AMADO (acute kidney injury) Gout Restrictive lung disease Obesity (BMI 30-39.9) ETOH abuse Back pain Hypercholesterolemia HTN (hypertension) Surgical History Surgical History H/O spinal fusion History of back surgery Social History Social History (Updated 01/24/25 @ 01:19 by EMMETT Fischer) Household Members: Spouse Housing: House Do you presently have visiting nurse or other home services: No Alcohol intake: current Alcohol intake frequency: a few times a month Alcohol type: wine Comment: 1 plus pint of peppermint schnopps daily Patient Tobacco Use Status: Former Tobacco user Tobacco use type: Cigarette Years Smoked: 15 +/- e-Cigarette/Vaping Use: Never Used Second Hand Smoke Exposure: Yes Substance Use Type: Marijuana service: No Current occupational status: retired and other Current occupation: rt handed Current occupational exposures/hazards: No Cognitive needs: No Hearing needs: No Vision needs: Yes (Patient was prescribed glasses.) Travel History Ebola Risk: Travel/Contact With Anyone From Affected Area/s: No Has Patient Experienced Ebola Symptoms: No Meds Allergies Allergy/AdvReac Type Severity Reaction Status Date / Time egg (eggs) Allergy Mild swelling Verified 01/23/25 16:28 with raw eggs influenza virus vaccine, AdvReac Unknown egg allergy Verified 01/23/25 16:28 specific (FLU VACCINE) Active Medications: Current Medications Acetaminophen (Acetaminophen 325 Mg Tablet) 650 mg PO Q6H PRN PRN Reason: Pain, Mild 1-3,fever,headache Albuterol Sulfate (Albuterol Sulfate 90 Mcg 8 Gm Inhaler) 2 puff INHALE Q6H PRN PRN Reason: shortness of breath or wheezing Albuterol/Ipratropium (Albuterol/Iprat 2.5/0.5mg 3 Ml Ampul.Neb) 3 ml INHALE Q4H PRN PRN Reason: Shortness of Breath/Wheezing Allopurinol (Allopurinol 100 Mg Tablet) 200 mg PO DAILY [facility] Atorvastatin Calcium (Atorvastatin Calcium 40 Mg Tablet) 40 mg PO DAILY [facility] Calcium Carbonate (Calcium Carbonate 750 Mg Tab.Chew) 750 mg PO Q4H PRN PRN Reason: Heartburn Carvedilol (Carvedilol 6.25 Mg Tablet) 6.25 mg PO BID [facility]; Protocol Clotrimazole (Clotrimazole 1 % Cream 15 Gm Tube) 1 appl TOPICAL BID PRN; Protocol PRN Reason: RASH ON LEG Cyanocobalamin (Cyanocobalamin (Vitamin B-12) 1,000 Mcg Tablet) 1,000 mcg PO DAILY [facility] Enoxaparin Sodium (Enoxaparin Sodium 100 Mg/Ml Syringe) 100 mg 1 mg/kg (100 mg) SUBCUT Q12H [facility] Last Admin: 01/24/25 08:37 Dose: 100 mg Folic Acid (Folic Acid 1 Mg Tablet) 1 mg PO DAILY [facility] Last Admin: 01/24/25 08:37 Dose: 1 mg Magnesium Hydroxide (Milk Of Magnesia 30 Ml Oral.Susp) 30 ml PO DAILY PRN PRN Reason: Constipation Magnesium Oxide (Magnesium Oxide 400 Mg Tablet) 400 mg PO DAILY [facility] Last Admin: 01/24/25 08:37 Dose: 400 mg Melatonin (Melatonin 3 Mg Tablet) 6 mg PO BEDTIME PRN PRN Reason: Insomnia Ondansetron HCl (Ondansetron Hcl 4 Mg/2 Ml Vial) 4 mg IVPUSH Q8H PRN PRN Reason: Nausea and Vomiting Polyethylene Glycol (Polyethylene Glycol 3350 17 Gm Powd.Pack) 17 gm PO DAILY PRN PRN Reason: Constipation Prednisone (Prednisone 20 Mg Tablet) 40 mg PO DAILY PRN PRN Reason: Gout Flare Senna (Sennosides 8.6 Mg Tablet) 17.2 mg PO BEDTIME [facility] Sodium Chloride (0.9 % Sodium Chloride Flush 3 Ml Syringe) 3 ml IVFLUSH QSHIFT [facility] Last Admin: 01/24/25 09:53 Dose: 3 ml Thiamine HCl (Thiamine Hcl 100 Mg Tablet) 100 mg PO DAILY [facility] Last Admin: 01/24/25 08:37 Dose: 100 mg Tizanidine HCl (Tizanidine Hcl 4 Mg Tablet) 4 mg PO BEDTIME PRN PRN Reason: muscle spasticity Last Admin: 01/24/25 14:08 Dose: 4 mg Home Medications ?Medication ?Instructions ?Recorded ?Confirmed ?Last Taken ?Type acetaminophen 650 mg 650 mg PO Q12H PRN Pain (Sca le 02/04/21 01/26/25 Unknown History tablet,extended release (Tylenol Score 1-3) Arthritis Pain) clotrimazole 1 % topical cream 1 appl topical BID PRN RASH ON LEG 01/24/25 01/26/25 Unknown History triamcinolone acetonide 0.5 % 1 appl topical BID PRN L EG RASH 01/24/25 01/26/25 Unknown History topical cream Physical Exam 2 Vital Signs: Vital Signs: Last Vital Signs Temp 97.8 F 01/24/25 06:00 Pulse 84 01/24/25 13:50 Resp 16 01/24/25 13:50 BP 162/91 H 01/24/25 13:50 Pulse Ox 96 01/24/25 13:50 O2 Del Method Room Air 01/24/25 13:50 O2 Flow Rate 2 01/23/25 20:00 BMI result Body Mass Index 34.0 Const: General: comfortable and no acute distress Resp: Effort & Inspection: normal respiratory effort Cardio: Rate: regular rate GI: Palpation (GI): Soft to palpation and nontender Extrem: Other: Mild tenderness in the left calf Results Labs 01/24/25 05:59 01/25/25 07:58 Labs: Abnormal lab results 01/23/25 01/23/25 01/24/25 Range/Units 17:19 20:55 05:59 WBC 12.1 H (4.8-10.8) X10*3/uL RBC 3.97 L 3.55 L (4.60-5.80) X10*6/uL Hgb 13.3 L (14.0-18.0) g/dl Hct 41.3 L 36.5 L (42.0-52.0) % MCV 104.0 H 102.8 H (80.0-98.0) fL MCH 38.0 H 37.5 H (27.0-33.0) pg MCHC 36.6 H 36.4 H (31.0-36.0) g/dl MPV 9.1 L (9.4-12.4) fL Immature Gran % (Auto) 0.8 H 0.6 H (0.0-0.4) % Lymph % (Auto) 19.3 L (20-40) % Abs Immat Gran (auto) 0.10 H 0.06 H (0.00-0.03) X10*3/uL Absolute Neuts (auto) 8.5 H (2.0-8.3) x10*3/uL PT 14.1 H (10.9-12.4) SEC INR 1.2 H (0.9-1.1) Potassium 3.1 L (3.3-5.1) mmol/L BUN 22 H 20 H (9-16) mg/dL Creatinine 1.42 H (0.5-1.4) mg/dL Random Glucose 130 H 124 H (60-115) mg/dL Uric Acid 7.5 H (3.4-7.0) mg/dL Calcium 8.1 L D 7.6 L D (8.4-10.2) mg/dL Magnesium 1.4 L* (1.6-2.6) mg/dL TIBC 208 L (228-428) mcg/dL AST 46 H (5-37) U/L Total Creatine Kinase 16 L (38-174) U/L Folate < 2.2 L (> or = 4.0) ng/mL Short CBC 01/23/25 01/24/25 Range/Units 17:19 05:59 WBC 12.1 H 9.3 (4.8-10.8) X10*3/uL Hgb 15.1 13.3 L (14.0-18.0) g/dl Hct 41.3 L 36.5 L (42.0-52.0) % Plt Count 324 239 D (160-400) X10*3/uL BMP 01/23/25 01/24/25 17:19 05:59 Sodium 139 138 Potassium 3.8 3.1 L Chloride 101 103 Carbon Dioxide 25 25 BUN 22 H 20 H Creatinine 1.42 H 1.08 Calcium 8.1 L D 7.6 L D Cardiac Enzymes 01/23/25 Range/Units 17:19 Total Creatine Kinase 16 L (38-174) U/L Liver Function 01/23/25 Range/Units 17:19 Total Bilirubin 0.8 (0.0-1.0) mg/dL AST 46 H (5-37) U/L ALT 12 (0-40) U/L Alkaline Phosphatase 90 (39-117) U/L Albumin 3.5 (3.5-5.0) g/dL All other labs normal. Assessment and Plan (1) DVT (deep venous thrombosis): Qualifiers: Affected thrombotic vein of extremity: femoral Chronicity: acute DVT location: lower extremity Laterality: left Qualified Code(s): I82.412 - Acute embolism and thrombosis of left femoral vein Status: Acute He has had left leg pain and swelling for 2 months. He has duplex study shows a DVT in the left superficial femoral vein all the way to the posterior tibial vein. Also had PEs on CT angiogram He has already been started on anticoagulation with enoxaparin He does not show right heart strain with his PEs Dr. Padilla is away and we will be back on Sunday but I will inform him of this consultation. I would recommend continuing with current anticoagulation treatment for now. He looks comfortable otherwise. Procedures Date of Service Date of Service: 01/29/25
--- NOTE | 2025-01-24 15:28 | MHC.CM.PN ---
pt lives at home with his who will take him home when dcd pt had no services prior to this admission dc plan home n/s
[2025-01-24 21:11] LABS: Glucose, Whole Blood 120 mg/dL (60-115)
[2025-01-25] MEDS: 0.9 % Sodium Chloride Flush 3 ML SYRINGE IVFLUSH ×2 (01:22→08:44)
[2025-01-25 03:13] VITALS: BP 128/81; PULSE 76; RESP 17; TEMP 36.6; O2SAT 97
[2025-01-25 07:30] VITALS: BP 164/101; PULSE 83; RESP 18; TEMP 36.2; O2SAT 98
[2025-01-25 08:48] LABS: Anion Gap 14 (12-20); Blood Urea Nitrogen 18 mg/dL (9-16); Calcium 8.3 mg/dL (8.4-10.2); Carbon Dioxide 24 mmol/L (22-29); Chloride 103 mmol/L (96-108); Creatinine Clr Calc Pharmacy 98.9; Estimated Glomerular Filt Rate > 60; Potassium 3.1 mmol/L (3.3-5.1); Sodium 138 mmol/L (135-145)
--- NOTE | 2025-01-25 09:55 | PM.PNGS ---
Subjective Subjective Date of Service: 01/25/25 Interval history: Left calf feels much better Says the swelling has improved significantly Complains of foot pain from his gout Physical Exam Vital Signs: Vital Signs: Last Vital Signs Temp 97.2 F 01/25/25 07:30 Pulse 83 01/25/25 07:30 Resp 18 01/25/25 07:30 BP 164/101 H 01/25/25 07:30 Pulse Ox 98 01/25/25 07:30 O2 Del Method Room Air 01/25/25 07:30 O2 Flow Rate 2 01/23/25 20:00 BMI result Body Mass Index 33.3 Const: General: comfortable and no acute distress Resp: Effort & Inspection: normal respiratory effort Cardio: Rate: regular rate GI: Palpation (GI): Soft to palpation, not firm, nontender and no guarding Extrem: Other: Left calf much less swollen, not tender anymore, no cellulitis Objective Data Active Medications Acetaminophen (Acetaminophen 325 Mg Tablet) 975 mg PO Q6H PRN PRN Reason: Pain, Mild 1-3,fever,headache Albuterol Sulfate (Albuterol Sulfate 90 Mcg 8 Gm Inhaler) 2 puff INHALE Q6H PRN PRN Reason: shortness of breath or wheezing Albuterol/Ipratropium (Albuterol/Iprat 2.5/0.5mg 3 Ml Ampul.Neb) 3 ml INHALE Q4H PRN PRN Reason: Shortness of Breath/Wheezing Allopurinol (Allopurinol 100 Mg Tablet) 200 mg PO DAILY [facility] Last Admin: 01/25/25 08:45 Dose: Not Given Documented By: LIGIA Non-Admin Reason: taking prednisone so refused Atorvastatin Calcium (Atorvastatin Calcium 40 Mg Tablet) 40 mg PO DAILY [facility] Last Admin: 01/25/25 08:44 Dose: 40 mg Documented By: LIGIA Calcium Carbonate (Calcium Carbonate 750 Mg Tab.Chew) 750 mg PO Q4H PRN PRN Reason: Heartburn Carvedilol (Carvedilol 6.25 Mg Tablet) 6.25 mg PO BID [facility]; Protocol Last Admin: 01/25/25 08:44 Dose: 6.25 mg Documented By: LIGIA Clotrimazole (Clotrimazole 1 % Cream 15 Gm Tube) 1 appl TOPICAL BID PRN; Protocol PRN Reason: RASH ON LEG Cyanocobalamin (Cyanocobalamin (Vitamin B-12) 1,000 Mcg Tablet) 1,000 mcg PO DAILY [facility] Last Admin: 01/25/25 08:44 Dose: 1,000 mcg Documented By: LIGIA Enoxaparin Sodium (Enoxaparin Sodium 100 Mg/Ml Syringe) 100 mg 1 mg/kg (100 mg) SUBCUT Q12H [facility] Last Admin: 01/25/25 06:19 Dose: 100 mg Documented By: JOSE E Folic Acid (Folic Acid 1 Mg Tablet) 1 mg PO DAILY [facility] Last Admin: 01/25/25 08:44 Dose: 1 mg Documented By: LIGIA Magnesium Hydroxide (Milk Of Magnesia 30 Ml Oral.Susp) 30 ml PO DAILY PRN PRN Reason: Constipation Magnesium Oxide (Magnesium Oxide 400 Mg Tablet) 400 mg PO DAILY [facility] Last Admin: 01/25/25 08:44 Dose: 400 mg Documented By: LIGIA Melatonin (Melatonin 3 Mg Tablet) 6 mg PO BEDTIME PRN PRN Reason: Insomnia Ondansetron HCl (Ondansetron Hcl 4 Mg/2 Ml Vial) 4 mg IVPUSH Q8H PRN PRN Reason: Nausea and Vomiting Polyethylene Glycol (Polyethylene Glycol 3350 17 Gm Powd.Pack) 17 gm PO DAILY PRN PRN Reason: Constipation Prednisone (Prednisone 20 Mg Tablet) 40 mg PO DAILY PRN PRN Reason: Gout Flare Last Admin: 01/25/25 08:43 Dose: 40 mg Documented By: LIGIA Senna (Sennosides 8.6 Mg Tablet) 17.2 mg PO BEDTIME [facility] Last Admin: 01/24/25 21:34 Dose: Not Given Documented By: JOSE E Non-Admin Reason: Patient Refused Sodium Chloride (0.9 % Sodium Chloride Flush 3 Ml Syringe) 3 ml IVFLUSH QSHIFT [facility] Last Admin: 01/25/25 08:44 Dose: 3 ml Documented By: LIGIA Thiamine HCl (Thiamine Hcl 100 Mg Tablet) 100 mg PO DAILY [facility] Last Admin: 01/25/25 08:44 Dose: 100 mg Documented By: LIGIA Tizanidine HCl (Tizanidine Hcl 4 Mg Tablet) 4 mg PO DAILY PRN PRN Reason: muscle spasticity Labs 01/24/25 05:59 01/25/25 07:58 Labs: Laboratory Results - last 24 hr 01/24/25 01/25/25 20:55 07:58 Hold Purple Top SEE NOTE Anion Gap 14 Estim Creat Clear Calc 98.9 Estimated GFR > 60 POC Glucose 120 H Random Glucose 122 H Calcium 8.3 L D Procedures Date of Service Date of Service: 01/25/25 Progress Note: A&P Assessment and plan (1) DVT (deep venous thrombosis): Status: Acute Assessment and Plan: Left calf swelling much improved On anticoagulation Respiratory function stable Continue current care We will inform Dr. Padilla of consultation tomorrow Time Spent With Patient Time: Total time managing care of this patient today ____ minutes. Quality Stroke Does the patient have a stroke diagnosis?: No Reason for No Anti-thrombotic by Day Two: N/A - Med Ordered VTE Prior VTE?: No VTE Risk Level:: Medical - moderate - high VTE Device Contraindication: Treatment Not Tolerated VTE Drug Contraindication: N/A - Med Ordered
--- NOTE | 2025-01-25 11:26 | P.PNIM_ITS ---
Subjective Subjective Date of Service: 01/25/25 Interval History: dvt , pulm emboli, htn Review of Systems no new c/o. has foot pain which he says likely due tohis gout. Physical Exam 2 Exam: Exam: Appearance: Alert.? Oriented X3. cvs: rrr, [id number]. res:air entry fair , no rales or wheezing abd: no rebound or guarding ,nt, bs present. ext pulses present , no cyanosis. mild left leg pain improving , has some foot pain neuro: axo3 , nonfocal. Vital Signs: Vital Signs: Last Vital Signs Temp 97.2 F 01/25/25 07:30 Pulse 83 01/25/25 07:30 Resp 18 01/25/25 07:30 BP 164/101 H 01/25/25 07:30 Pulse Ox 98 01/25/25 07:30 O2 Del Method Room Air 01/25/25 07:30 O2 Flow Rate 2 01/23/25 20:00 BMI result Body Mass Index 33.3 Objective Data Active Medications Acetaminophen (Acetaminophen 325 Mg Tablet) 975 mg PO Q6H PRN PRN Reason: Pain, Mild 1-3,fever,headache Albuterol Sulfate (Albuterol Sulfate 90 Mcg 8 Gm Inhaler) 2 puff INHALE Q6H PRN PRN Reason: shortness of breath or wheezing Albuterol/Ipratropium (Albuterol/Iprat 2.5/0.5mg 3 Ml Ampul.Neb) 3 ml INHALE Q4H PRN PRN Reason: Shortness of Breath/Wheezing Allopurinol (Allopurinol 100 Mg Tablet) 200 mg PO DAILY COUNTS INCLUDE 234 BEDS AT THE [facility] Last Admin: 01/25/25 08:45 Dose: Not Given Documented By: LIGIA Non-Admin Reason: taking prednisone so refused Atorvastatin Calcium (Atorvastatin Calcium 40 Mg Tablet) 40 mg PO DAILY COUNTS INCLUDE 234 BEDS AT THE [facility] Last Admin: 01/25/25 08:44 Dose: 40 mg Documented By: LIGIA Calcium Carbonate (Calcium Carbonate 750 Mg Tab.Chew) 750 mg PO Q4H PRN PRN Reason: Heartburn Carvedilol (Carvedilol 6.25 Mg Tablet) 6.25 mg PO BID COUNTS INCLUDE 234 BEDS AT THE [facility]; Protocol Last Admin: 01/25/25 08:44 Dose: 6.25 mg Documented By: LIGIA Clotrimazole (Clotrimazole 1 % Cream 15 Gm Tube) 1 appl TOPICAL BID PRN; Protocol PRN Reason: RASH ON LEG Cyanocobalamin (Cyanocobalamin (Vitamin B-12) 1,000 Mcg Tablet) 1,000 mcg PO DAILY COUNTS INCLUDE 234 BEDS AT THE [facility] Last Admin: 01/25/25 08:44 Dose: 1,000 mcg Documented By: LIGIA Enoxaparin Sodium (Enoxaparin Sodium 100 Mg/Ml Syringe) 100 mg 1 mg/kg (100 mg) SUBCUT Q12H COUNTS INCLUDE 234 BEDS AT THE [facility] Last Admin: 01/25/25 06:19 Dose: 100 mg Documented By: JOSE E Folic Acid (Folic Acid 1 Mg Tablet) 1 mg PO DAILY COUNTS INCLUDE 234 BEDS AT THE [facility] Last Admin: 01/25/25 08:44 Dose: 1 mg Documented By: LIGIA Magnesium Hydroxide (Milk Of Magnesia 30 Ml Oral.Susp) 30 ml PO DAILY PRN PRN Reason: Constipation Magnesium Oxide (Magnesium Oxide 400 Mg Tablet) 400 mg PO DAILY COUNTS INCLUDE 234 BEDS AT THE [facility] Last Admin: 01/25/25 08:44 Dose: 400 mg Documented By: LIGIA Melatonin (Melatonin 3 Mg Tablet) 6 mg PO BEDTIME PRN PRN Reason: Insomnia Ondansetron HCl (Ondansetron Hcl 4 Mg/2 Ml Vial) 4 mg IVPUSH Q8H PRN PRN Reason: Nausea and Vomiting Polyethylene Glycol (Polyethylene Glycol 3350 17 Gm Powd.Pack) 17 gm PO DAILY PRN PRN Reason: Constipation Prednisone (Prednisone 20 Mg Tablet) 40 mg PO DAILY PRN PRN Reason: Gout Flare Last Admin: 01/25/25 08:43 Dose: 40 mg Documented By: LIGIA Senna (Sennosides 8.6 Mg Tablet) 17.2 mg PO BEDTIME COUNTS INCLUDE 234 BEDS AT THE [facility] Last Admin: 01/24/25 21:34 Dose: Not Given Documented By: JOSE E Non-Admin Reason: Patient Refused Sodium Chloride (0.9 % Sodium Chloride Flush 3 Ml Syringe) 3 ml IVFLUSH QSHIFT COUNTS INCLUDE 234 BEDS AT THE [facility] Last Admin: 01/25/25 08:44 Dose: 3 ml Documented By: LIGIA Thiamine HCl (Thiamine Hcl 100 Mg Tablet) 100 mg PO DAILY COUNTS INCLUDE 234 BEDS AT THE [facility] Last Admin: 01/25/25 08:44 Dose: 100 mg Documented By: LIGIA Tizanidine HCl (Tizanidine Hcl 4 Mg Tablet) 4 mg PO DAILY PRN PRN Reason: muscle spasticity Labs 01/24/25 05:59 01/25/25 07:58 Labs: Laboratory Results - last 24 hr 01/24/25 01/25/25 20:55 07:58 Hold Purple Top SEE NOTE Anion Gap 14 Estim Creat Clear Calc 98.9 Estimated GFR > 60 POC Glucose 120 H Random Glucose 122 H Calcium 8.3 L D Assessment and Plan (1) DVT (deep venous thrombosis): Status: Acute (2) Pulmonary embolism: Status: Acute Plan 65-year-old male with past medical history gout on allopurinol, alcohol use disorder (no to addicitons consult and alcohol cessation), marijuana use daily 5-6 joints per day, COPD, L5-S1 spinal fusion, chronic pain syndrome related back pain, 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 Patient found to have PE and DVT in his being admitted for initiation of anticoagulation and vascular consultation. Patient is hemodynamically stable on admission. PE/DVT No evidence of right heart strain Continue telemetry Vascular consult placed Eliquis change to weight based Lovenox in case procedure is indicated Education provided to patient on use of blood thinners Hematology follow-up as an outpatient (not available over the weekend) Patient did report possible familial history of blood clots with mom and dad Mild AMADO on chronic kidney disease Patient's creatinine clearance and GFR at baseline Monitor renal function daily Initial hypotensive episode resolved, currently patient's blood pressure is running high 180-200: Added Coreg back. Monitor blood pressure closely. Hypomagnesemia Repleted and resolved. Added p.o. magnesium Alcohol use disorder CIWA scale ordered No indication for phenobarbital - no history of seizures related to withdrawal Patient deferred need for addictions Patient adamant about no plan for cessation of alcohol. Spouse also drinks and both live in a codependent relationship. Fatty liver noted on CT scan LFTs stable low folate levels -added Thiamine and folic acid . Hypertension Monitor blood pressure closely Continue Coreg . Gout? flare Uric acid level 7.5 Patient normally on allopurinol daily, prednisone . Hyperlipidemia Continue rosuvastatin LFTs stable COREEN Patient has refused CPAP since diagnosis Counseled patient on the benefits of weight loss DVT prophylaxis: Lovenox weight based ongoing need:dvt /pulm emboli, electrolytic abnormalities, fluctuating blood pressure: Currently need close monitoring for respiratory status, renal function electrolytes/blood pressure medication adjustment, also vascular input. Quality Stroke Does the patient have a stroke diagnosis?: No Reason for No Anti-thrombotic by Day Two: N/A - Med Ordered VTE Prior VTE?: No VTE Risk Level:: Medical - moderate - high VTE Device Contraindication: Treatment Not Tolerated VTE Drug Contraindication: N/A - Med Ordered
[2025-01-25 11:27] VITALS: BP 150/98; PULSE 73; RESP 16; TEMP 36.6; O2SAT 94
--- NOTE | 2025-01-25 14:16 | PM.CNGS ---
History of Present Illness Consult details Consult date: 01/25/25 Reason for consult: other (DVT with PE) Narrative: Very pleasant 65-year-old gentleman presented to the hospital with discomfort of the left lower extremity and some shortness of breath. He initially attributed all of this to his gout. He has been on chronic steroids and it had been a source of significant pain and discomfort. He had been more sedentary than usual. Upon workup he went to the outpatient urgent care and was subsequently sent in. On workup he was found to have left lower extremity DVT with PE. He has been anticoagulated. He now presents to us for vascular evaluation. Upon further discussion with him he does note this is his 1st episode. He does have a sister and nephew that does have history of DVT. Review of Systems Review of Systems: Yes all other systems are reviewed and are negative Constitutional: Constitutional: Reports no additional constitutional complaints ENT: Reports Normal hearing present Cardiovascular: Cardiovascular: Denies chest pain, Denies chest pain at rest, Denies chest pain with activity and Denies pedal edema Respiratory: Respiratory: Denies cough Gastrointestinal: Gastrointestinal: Denies abdominal pain Musculoskeletal: Musculoskeletal: Denies abnormal gait, Denies muscle cramps and Denies radiating pain into limb Integumentary/Breasts: Skin/Breast: Denies skin ulcer and Denies wounds Neurologic: Reports Normal hearing present and Denies abnormal gait Psychiatric: Psychiatric: Reports no additional psychiatric complaints PMFSH Past Medical History Medical History Marijuana dependence AMADO (acute kidney injury) Gout Restrictive lung disease Obesity (BMI 30-39.9) ETOH abuse Back pain Hypercholesterolemia HTN (hypertension) Surgical History Surgical History H/O spinal fusion History of back surgery Social History Social History (Updated 01/24/25 @ 01:19 by EMMETT Fischer) Household Members: Spouse Housing: House Do you presently have visiting nurse or other home services: No Alcohol intake: current Alcohol intake frequency: a few times a month Alcohol type: wine Comment: 1 plus pint of peppermint schnopps daily Patient Tobacco Use Status: Former Tobacco user Tobacco use type: Cigarette Years Smoked: 15 +/- e-Cigarette/Vaping Use: Never Used Second Hand Smoke Exposure: Yes Substance Use Type: Marijuana service: No Current occupational status: retired and other Current occupation: rt handed Current occupational exposures/hazards: No Cognitive needs: No Hearing needs: No Vision needs: Yes (Patient was prescribed glasses.) Travel History Ebola Risk: Travel/Contact With Anyone From Affected Area/s: No Has Patient Experienced Ebola Symptoms: No Meds Allergies Allergy/AdvReac Type Severity Reaction Status Date / Time egg (eggs) Allergy Mild swelling Verified 01/23/25 16:28 with raw eggs influenza virus vaccine, AdvReac Unknown egg allergy Verified 01/23/25 16:28 specific (FLU VACCINE) Active Medications: Current Medications Acetaminophen (Acetaminophen 325 Mg Tablet) 975 mg PO Q6H PRN PRN Reason: Pain, Mild 1-3,fever,headache Last Admin: 01/25/25 13:42 Dose: 975 mg Albuterol Sulfate (Albuterol Sulfate 90 Mcg 8 Gm Inhaler) 2 puff INHALE Q6H PRN PRN Reason: shortness of breath or wheezing Albuterol/Ipratropium (Albuterol/Iprat 2.5/0.5mg 3 Ml Ampul.Neb) 3 ml INHALE Q4H PRN PRN Reason: Shortness of Breath/Wheezing Allopurinol (Allopurinol 100 Mg Tablet) 200 mg PO DAILY [facility] Last Admin: 01/25/25 08:45 Dose: Not Given Apixaban (Apixaban 5 Mg Tablet) 10 mg PO BID [facility] Stop: 01/31/25 21:01 Last Admin: 01/25/25 13:42 Dose: 10 mg Atorvastatin Calcium (Atorvastatin Calcium 40 Mg Tablet) 40 mg PO DAILY [facility] Last Admin: 01/25/25 08:44 Dose: 40 mg Calcium Carbonate (Calcium Carbonate 750 Mg Tab.Chew) 750 mg PO Q4H PRN PRN Reason: Heartburn Carvedilol (Carvedilol 6.25 Mg Tablet) 6.25 mg PO BID [facility]; Protocol Last Admin: 01/25/25 08:44 Dose: 6.25 mg Clotrimazole (Clotrimazole 1 % Cream 15 Gm Tube) 1 appl TOPICAL BID PRN; Protocol PRN Reason: RASH ON LEG Cyanocobalamin (Cyanocobalamin (Vitamin B-12) 1,000 Mcg Tablet) 1,000 mcg PO DAILY [facility] Last Admin: 01/25/25 08:44 Dose: 1,000 mcg Folic Acid (Folic Acid 1 Mg Tablet) 1 mg PO DAILY [facility] Last Admin: 01/25/25 08:44 Dose: 1 mg Magnesium Hydroxide (Milk Of Magnesia 30 Ml Oral.Susp) 30 ml PO DAILY PRN PRN Reason: Constipation Magnesium Oxide (Magnesium Oxide 400 Mg Tablet) 400 mg PO DAILY [facility] Last Admin: 01/25/25 08:44 Dose: 400 mg Melatonin (Melatonin 3 Mg Tablet) 6 mg PO BEDTIME PRN PRN Reason: Insomnia Ondansetron HCl (Ondansetron Hcl 4 Mg/2 Ml Vial) 4 mg IVPUSH Q8H PRN PRN Reason: Nausea and Vomiting Polyethylene Glycol (Polyethylene Glycol 3350 17 Gm Powd.Pack) 17 gm PO DAILY PRN PRN Reason: Constipation Prednisone (Prednisone 20 Mg Tablet) 40 mg PO DAILY PRN PRN Reason: Gout Flare Last Admin: 01/25/25 08:43 Dose: 40 mg Senna (Sennosides 8.6 Mg Tablet) 17.2 mg PO BEDTIME [facility] Last Admin: 01/24/25 21:34 Dose: Not Given Sodium Chloride (0.9 % Sodium Chloride Flush 3 Ml Syringe) [facility] Last Admin: 01/25/25 08:44 Dose: 3 ml Thiamine HCl (Thiamine Hcl 100 Mg Tablet) 100 mg PO DAILY [facility] Last Admin: 01/25/25 08:44 Dose: 100 mg Tizanidine HCl (Tizanidine Hcl 4 Mg Tablet) 4 mg PO DAILY PRN PRN Reason: muscle spasticity Home Medications ?Medication ?Instructions ?Recorded ?Confirmed ?Last Taken ?Type acetaminophen 650 mg 650 mg PO Q12H PRN Pain (Scale 02/04/21 01/24/25 Unknown History tablet,extended release (Tylenol Score 1-3) Arthritis Pain) clotrimazole 1 % topical cream 1 appl topical BID PRN RASH ON LEG 01/24/25 01/24/25 Unknown History triamcinolone acetonide 0.5 % 1 appl topical BID PRN LEG RASH 01/24/25 01/24/25 Unknown History topical cream Physical Exam Vital Signs: Vital Signs: Last Vital Signs Temp 97.8 F 01/25/25 11:27 Pulse 73 01/25/25 11:27 Resp 16 01/25/25 11:27 BP 150/98 H 01/25/25 11:27 Pulse Ox 94 01/25/25 11:27 O2 Del Method Room Air 01/25/25 11:27 O2 Flow Rate 2 01/23/25 20:00 BMI result Body Mass Index 33.3 Const: General: cooperative, healthy appearing and comfortable Orientation/consciousness: oriented to person, oriented to place and oriented to time HEENT: Head: Yes normal to inspection Neck: Neck: Yes normal visual inspection Carotids: no bruits Chest: Chest palpation & inspection: normal inspection of the chest Resp: Effort & Inspection: normal respiratory effort and able to speak in complete sentences Auscultation: clear to auscultation bilaterally, no crackles, no rales, no rhonchi and no wheezes Cardio: Rate: regular rate Rhythm: regular rhythm Heart sounds: S1 normal heart sound present and S2 normal heart sound present Bruits: no carotid bruits Peripheral pulses: Peripheral pulses 2+ throughout GI: Inspection: Yes normal to inspection Skin: Wounds: no wounds Hair: normal Neuro: General: oriented to person, oriented to place and oriented to time Cranial nerves: Yes CN's II-XII intact bilaterally and Yes Normal hearing present Cognition (Neuro): normal cognition Motor exam (neuro): 5/5 motor strength present throughout Extrem: Other: venous exam: +2 edema General: No clubbing, No cyanosis and No edema Psych: Appearance: grossly normal Mental Status: mental status grossly normal Speech and movement: Normal speech and movement present Results Labs 01/24/25 05:59 01/25/25 07:58 Labs: Abnormal lab results 01/24/25 01/25/25 Range/Units 20:55 07:58 Potassium 3.1 L (3.3-5.1) mmol/L BUN 18 H (9-16) mg/dL POC Glucose 120 H (60-115) mg/dL Random Glucose 122 H (60-115) mg/dL Calcium 8.3 L D (8.4-10.2) mg/dL BMP 01/25/25 07:58 Sodium 138 Potassium 3.1 L Chloride 103 Carbon Dioxide 24 BUN 18 H Creatinine 0.90 Calcium 8.3 L D All other labs normal. Assessment and Plan (1) DVT (deep venous thrombosis): Qualifiers: DVT location: lower extremity Affected thrombotic vein of extremity: femoral Chronicity: acute Laterality: left Qualified Code(s): I82.412 - Acute embolism and thrombosis of left femoral vein Status: Acute Plan In short patient has DVT with PE. At the current time he is relatively comfortable with no shortness of breath satting in the high 90s on room air. I did have an opportunity to review the CAT scan and ultrasound. No need for intervention in terms of mechanical venous thrombectomy. We did discuss routine risk factor modification and the importance of staying ambulatory. He will require long-term anticoagulants. In addition would recommend Hematology-Oncology workup and evaluation as an outpatient as he does have a family history of DVT. He can follow up with us on an as-needed basis. Thank you for allowing us to assist in his care. If there are any questions or concerns please do not hesitate to contact us. Procedures Date of Service Date of Service: 01/25/25
--- NOTE | 2025-01-25 14:42 | P.DS_ITS ---
DS: Providers Provider Date of Service: 01/25/25 Date of admission: 01/23/25 23:12 Date of discharge: 01/25/25 Primary care physician: Hilario Tran MD Consults: 01/23/25 23:35 Consult to Vascular Surgery Routine Consulting Provider: [facility] Reason for consultation: PE/DVT Has provider been notified: No Attending physician on discharge: Alexandra Jennings Discharging clinician: Alexandra Jennings DS: Diagnosis Discharge Diagnosis (1) DVT (deep venous thrombosis): Status: Acute DS: Summary Hospital Course Hospital Course: HPI:65-year-old male with past medical history gout on allopurinol, alcohol use disorder (no to addicitons consult and alcohol cessation), marijuana use daily 5-6 joints per day, COPD, L5-S1 spinal fusion, chronic pain syndrome related back pain, 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 Urgent care stated that patient was hypotensive and initial blood pressure in the ED was 76/51. With intervention using IV fluids patient's blood pressure rebounded to 148/86. Patient states he has had the swelling and pain in his left leg for at least 2 months now. Patient overall for the last 2-3 months has had a decrease in energy and inability to ambulate long distances due to shortness of breath. Patient denies any recent travel by plane but is definitely more sedentary since starting snf. Patient also states his alcohol use has increased since he retired due to boredom. Patient is drinking schnapps, peppermint at least a pt per day. Patient's spouse also drinks and they seem to have a codependent relationship. Neither patient or spouse have any intention of alcohol cessation and patient deferred need for addictions consultation or case management to learn more about community programs to help with alcohol cessation. Patient denies any seizures associated with alcohol withdrawal and states he has never had withdrawal symptoms in the past. Magnesium 1.4 in the ED and magnesium replacement started. Workup in the ED include a CTA which identified pulmonary emboli in the lower lobe pulmonary arteries and arterial branches and to a lesser extent in the bilateral upper lobes. There was no evidence of right heart strain. In addition incidentally patient has a dilation of the ascending aorta of 3.9 cm. Dopplers of the lower extremity identified deep vein thrombosis from the level of distal superficial femoral vein to the posterior tibial vein. Patient was started on Eliquis in the ED. This was changed to Lovenox weight based in case vascular wants to perform procedure. Patient does state he believes his mother had clotting issues prior to her passing. In addition patient's father also had clotting issues status post CABG in the past. Patient denies any other familial issues with blood clots. Patient states it is the 1st time he has learned that he has a blood clot. Patient does not currently follow with a associate media director but back in 2020 patient was on dialysis x1 for severe AMADO. Patient did not require further dialysis after that incident. Patient's creatinine clearance and GFR appear to be baseline at this time. Hospital course: Patient was admitted to the hospital for leg swelling and pain left side: Further workup with venous duplex of leg and CTA of lungs was done found to have left leg DVT as well as pulmonary emboli(please see imaging section below for detailed information): Patient was started on IV heparin and seen by vascular surgery: Patient seems to be improved significantly, no vascular intervention at present. Patient is asymptomatic currently, sats are in 90s with room air . Patient is switched to p.o. anticoagulation. Patient has family history of blood clots, patient was strongly advised to follow-up with PCP and outpatient hematology evaluation. Mild AMADO/hypotensive episode: Possible related to dehydration, seems to be improved. Continue home blood pressure medication. Acute hypokalemia and Hypomagnesemia : Hypomagnesemia resolved, still has mild hypokalemia, we will give home p.o. replacements limited supply. Mild gout flare patient was recommended to continue his home meds. Avoid NSAIDs since patient is on Eliquis. Alcohol use: Patient was strongly advised to abstain from alcohol, and also was strongly advised to lose weight considering obesity. plan:Eliquis 10 mg daily p.o. b.i.d. for 7 days then switched to Eliquis 5 mg p.o. b.i.d. afterwards. Follow-up with hematology outpatient Check electrolytes outpatient-BMP/magnesium. Strongly advised to abstain from alcohol, and lose weight. Follow up with PCP. Above management discussed with the patient detail length he understand in agreement with the plan, time spent 45 minute, all question answered, staff was present during conversation. Time Attestation Total time managing care of this patient today: 45 mintues. Discharge Coordination Time (in mins): 45 min Quality: Safe Use of Opioids Does Pt have an Active Cancer Diagnosis on the Problem List?: No Quality: Stroke Does the patient have a stroke diagnosis?: No Physical Exam Exam: Exam: Appearance: Alert.? Oriented X3. cvs: rrr, [id number]. res:air entry fair , no rales or wheezing abd: no rebound or guarding ,nt, bs present. ext pulses present , no cyanosis. mild left leg pain improved significantly , has some foot pain neuro: axo3 , nonfocal. Vital Signs: Vital Signs: Last Vital Signs Temp 97.8 F 01/25/25 11:27 Pulse 73 01/25/25 11:27 Resp 16 01/25/25 11:27 BP 150/98 H 01/25/25 11:27 Pulse Ox 94 01/25/25 11:27 O2 Del Method Room Air 01/25/25 11:27 O2 Flow Rate 2 01/23/25 20:00 BMI result Body Mass Index 33.3 DS: Data Data Completed and Pending Completed studies during hospitalization [Text1]: Procedures Insertion of Endotracheal Airway into Trachea, Via Natural or Artificial Opening Endoscopic (06/28/20) Insertion of Infusion Device into Left Innominate Vein, Percutaneous Approach (06/28/20) Respiratory Ventilation, Less than 24 Consecutive Hours (06/28/20) Ultrasonography of Left Upper Extremity Veins, Guidance (06/28/20) Labs on day of discharge: Laboratory Results - last 24 hr 01/24/25 01/25/25 20:55 07:58 Hold Purple Top SEE NOTE Sodium 138 Potassium 3.1 L Chloride 103 Carbon Dioxide 24 Anion Gap 14 BUN 18 H Creatinine 0.90 Estim Creat Clear Calc 98.9 Estimated GFR > 60 POC Glucose 120 H Random Glucose 122 H Calcium 8.3 L D Imaging Chest x-ray: My impression: venous dupplex: Findings: Left superficial femoral vein in the mid and distal segment, popliteal vein and posterior tibial vein were noncompressible with intraluminal echoes consistent with deep vein thrombosis. Left peroneal vein was not visualized. Remainder visualized deep veins are fully compressible with normal Doppler color flow and spectral tracings.No popliteal cyst. IMPRESSION: 1. Study is positive for deep vein thrombosis from level of distal superficial femoral vein to the posterior tibial vein. Cta:1. Pulmonary emboli in lower lobe pulmonary arteries and arterial branches and to a lesser extent in bilateral upper lobes. No CT evidence of right heart strain. 2. 3.9 cm aneurysmal dilatation of the ascending aorta. 3. Additional findings as described. Discharge Plan Discharge Anticipated Discharge Date/Time: 01/25/25 14:19 Patient Disposition: Home, Self-Care Discharge Diagnosis: Pulmonary embolism, DVT Referrals: Hilario Tran MD [Primary Care Provider, Internal Medicine] - 1 Week Discharge Medications: New sennosides [Senna Lax] 8.6 mg Tablet 17.2 mg PO BEDTIME Qty: 30 0RF Eliquis 5 mg Tablet 10 mg PO BID Qty: 90 0RF Rx Instructions: Eliquis 2 tablets(10 mg) p.o. b.i.d. for until 01/31/25 , then switch to Eliquis 1 tablet (5 mg) p.o. b.i.d. on 02/01/2025. polyethylene glycol 3350 17 gram Powder In Packet 17 g PO DAILY PRN (Reason: Constipation) Qty: 14 0RF potassium chloride 10 mEq capsule, extended release 10 meq PO DAILY Qty: 4 0RF magnesium citrate 100 mg capsule 100 mg PO BID Qty: 14 0RF Continued carvedilol 6.25 mg tablet 6.25 mg PO BID 90 Days Qty: 180 3RF allopurinol 100 mg tablet 200 mg PO DAILY 30 Days Qty: 60 3RF cyanocobalamin (vitamin B-12) 1,000 mcg tablet 1,000 mcg PO DAILY 90 Days Qty: 90 0RF rosuvastatin 20 mg tablet 20 mg PO DAILY 30 Days Qty: 30 0RF tizanidine 4 mg tablet 4 mg PO BEDTIME PRN (Reason: muscle spasticity) Qty: 30 0RF clotrimazole 1 % cream 1 appl topical BID PRN (Reason: RASH ON LEG) triamcinolone acetonide 0.5 % cream 1 appl topical BID PRN (Reason: LEG RASH) albuterol sulfate 90 mcg/actuation HFA aerosol inhaler 2 puff inhalation Q6H PRN (Reason: shortness of breath or wheezing) 30 Days Qty: 8.5 3RF acetaminophen [Tylenol Arthritis Pain] 650 mg tablet extended release 650 mg PO Q12H PRN (Reason: Pain (Scale Score 1-3)) sildenafil 50 mg tablet 50 mg PO DAILY PRN (Reason: sexual activity) 30 Days Qty: 8 3RF Rx Instructions: administer 30 minutes to 4 hours before activity prednisone 20 mg tablet 40 mg PO DAILY PRN (Reason: Gout Flare) 4 Days Qty: 8 2RF Discharge Orders: Discharge Order (Routine); Ordered 01/25/25 Ordered By: Alexandra Jennings Diet: Advance to usual diet Activity on Discharge: As tolerated Stand Alone Forms: Patient Portal Discharge page Print Language: Kyrgyz Other Ambulatory Orders: Basic Metabolic Panel (Routine) Timeframe: 1 Day Facility: [facility] - Location: Laboratory Ordered By: Alexandra Jennings Magnesium (Routine) Timeframe: 1 Week Facility: [facility] - Location: Laboratory Ordered By: Alexandra Jennings Care Plan Goals: as below. Health Concerns: As above. Plan of Treatment: Eliquis 10 mg daily p.o. b.i.d. for 7 days then switched to Eliquis 5 mg p.o. b.i.d. afterwards. Follow-up with hematology outpatient Check electrolytes outpatient Strongly advised to abstain from alcohol, and lose weight. Follow up with PCP. Assessment: As above. Patient Instructions: Acute Kidney Injury (DC), Gout (GEN), Venous Thromboembolism (DC)
--- NOTE | 2025-01-25 14:45 | MHC.CM.PN ---
PT MEDICALLY CLEARED FOR DC HOME SELF, PT AND PT'S DECLINE NEED FOR VNA SERVICES AT THIS TIME AND REPORTING THEY ARE MOVING THIS WEEK SO WILL FOLLOW-UP W/PCP IF THAT CHANGES, PT PROVIDED W/[employer] DISCOUNT CARD AND AT BEDSIDE AND WILL TRANSPORT.
[2025-01-25] MEDS: Potassium Chloride ER 20 MEQ TAB.ER.PRT 40 MEQ PO (15:44)
== END 2025-01-25 16:08 | disposition home or self-care (01) | DRG 299 ==
LOC: HO.ED 18:01 → HO.EDOVER 23:36 → HO.IMC 01-24 19:14
PROVIDERS: Nurse Practitioner Family; Admitting Provider Student in an Organized Health Care Education/Training Program; Emergency Provider Internal Medicine; PCP Family Medicine; Visit Provider Internal Medicine
DX: I82.432 Acute embolism and thrombosis of left popliteal vein (principal); I26.99 Other pulmonary embolism without acute cor pulmonale; N17.9 Acute kidney failure, unspecified; I82.412 Acute embolism and thrombosis of left femoral vein; I82.442 Acute embolism and thrombosis of left tibial vein; G89.4 Chronic pain syndrome; E83.42 Hypomagnesemia; K76.0 Fatty (change of) liver, not elsewhere classified; F10.10 Alcohol abuse, uncomplicated; M10.9 Gout, unspecified; G47.33 Obstructive sleep apnea (adult) (pediatric); E78.5 Hyperlipidemia, unspecified; Z98.1 Arthrodesis status; Z87.891 Personal history of nicotine dependence; Z79.01 Long term (current) use of anticoagulants; Z79.899 Other long term (current) drug therapy
CPT/HCPCS: 36415; 71275; 80048; 80053; 82550; 82607; 82746; 82947; 83540; 83735; 84550; 85025; 85610; 85730; 93005; 93971; 99285; J1650; J3475; Q9967

== ENCOUNTER → 2025-01-23 18:32 | Outpatient (BNV) | payer MEDICARE, SELFPAY | PROVIDERS: Emergency Provider Internal Medicine; PCP Family Medicine; Visit Provider Specialist | DX: I26.99 Other pulmonary embolism without acute cor pulmonale (principal); I82.492 Acute embolism and thrombosis of other specified deep vein of left lower extremity | CPT/HCPCS: 71275; 93971 ==

== ENCOUNTER 2025-01-23 23:12 | Outpatient (BNV) | payer MEDICARE, SELFPAY | END 2025-01-24 00:57 | PROVIDERS: Admitting Provider Student in an Organized Health Care Education/Training Program; Emergency Provider Internal Medicine; PCP Family Medicine; Visit Provider Internal Medicine | DX: R06.02 Shortness of breath (principal) | CPT/HCPCS: 93010 ==

== ENCOUNTER → 2025-01-23 23:12 | Outpatient (BNV) | payer MEDICARE, SELFPAY | PROVIDERS: Admitting Provider Student in an Organized Health Care Education/Training Program; Emergency Provider Internal Medicine; PCP Family Medicine; Visit Provider Nurse Practitioner Family | DX: I82.412 Acute embolism and thrombosis of left femoral vein (principal); I26.99 Other pulmonary embolism without acute cor pulmonale | CPT/HCPCS: 99223; 99232; 99239; 99499 ==

== ENCOUNTER → 2025-01-23 23:12 | Outpatient (BNV) | payer MEDICARE, SELFPAY | PROVIDERS: Admitting Provider Student in an Organized Health Care Education/Training Program; Emergency Provider Internal Medicine; PCP Family Medicine; Visit Provider Surgery | DX: I82.412 Acute embolism and thrombosis of left femoral vein (principal) | CPT/HCPCS: 99232 ==

== ENCOUNTER → 2025-01-23 23:12 | Outpatient (BNV) | payer MEDICARE, SELFPAY | PROVIDERS: Admitting Provider Student in an Organized Health Care Education/Training Program; Emergency Provider Internal Medicine; PCP Family Medicine; Visit Provider Surgery Vascular Surgery | DX: I82.412 Acute embolism and thrombosis of left femoral vein (principal) | CPT/HCPCS: 99222 ==

== ENCOUNTER 2025-01-26 08:36 | Outpatient (REF) | payer MEDICARE, SELFPAY ==
--- OUTSIDE RECORDS SUMMARY | 2025-01-26 08:56 | XMS_ITS | Clinical Summary ---
Author Organization [email or web address] Address [address] [place] [address] 7 [place] [address] Care Team Providers Care Clinical Marketing Manager Name Role Phone Unavailable Primary Care Provider [...] patient's age to complete this topic Insurance [facility]
--- OUTSIDE RECORDS SUMMARY | 2025-01-26 08:56 | XMS_ITS | Encounter Summary ---
Author Organization [facility] Address [address] [place] [address] Phone Care Team Providers Care Facility Attendant Name Role Phone Leighton Colon MD Unavailable [phone] Jana Joyner RNlamina searcher Provider [phone] Lisette Masterson MD Unavailable [phone] Pcp, Unknown Primary Care Provider Unavailabl e Encounter Details Date Type Department Care Team (Latest Contact Info) Description 07/06/2020 Transcribe Orders [facility] Laboratory [address] [place] [address] Alexandra Jennings MD [address] [place] [address] [phone] Acute renal failure, unspecified acute renal failure type (Primary Dx) Social History Tobacco Use Types Packs/Day Years Used Date Smoking Tobacco: Former Cigarettes Q uit: 08/2017 Smokeless Tobacco: Never Alcohol Use Standard Drinks/Week Comments Yes 0 (1 standard drink = 0.6 oz pur e alcohol) Sex and Gender Information Value Date Recorded Sex Assigned at Male 09/25/2017 10:04 AM EDT Legal Sex Male 9:45 PM EDT Gender Identity Male 09/25/2017 10:04 AM EDT Sexual Orientation Straight 09/25/2017 10 :04 AM EDT Occupation Industry Job Start Date Job End Date disabled Not on file Not on file Not on file documented as of this encounter Plan of Treatment Not on file documented as of this encounter Results * (ABNORMAL) Basic metabolic panel (07/06/2020 11:24 AM EST) SODIUM 132(L) 133 - 146 mmol/L [facility] CHLORIDE 98 96 - 108 mmol/L [facility] POTASSIUM 5.0 3.3 - 5.1 mmol/L [facility] CO2 17(L) 21 - 35 mmol/L [facility] BUN 66(H) 6 - 19 mg/dL [facility] CREATININE 2.40(H) 0.5 - 1.5 mg/dL [facility] GLUCOSE 103(H) 70 - 99 mg/dL [facility] CALCIUM 9.3 8.4 - 10.3 mg/dL [facility] EGFR 29(L) >59 mL/min/1.7 3m2 [facility] Comment:Estimated glomerular filtration rate calculated using the CKD-EPI equation. ANION GAP 22(H) 10 - 20 mmol/L [facility] Blood 07/06/2020 11:2 4 AM EST 07/06/2020 11:27 AM EST us Alexandra Jennings MD LAB BLOOD ORDERABLES Final Re sult [address] [address] documented in this encounter Visit Diagnoses Diagnosis Acute renal failure, unspecified acute renal failure type- Primary documented in this encounter Care Teams Facility Attendant Relationship Specialty Start Date End Date Jana Joyner RN [address] [place] [address] [email or web address] PCP - General Internal Medicine 01/07/20 10/28/20 Pcp, Unknown PCP - General 10/29/20 Leighton Colon MD [address] [place], [place] [address] [address] [email or web address] Insurance Assigned Provider 09/15/17 09/25/20 Lisette Masterson MD [address] [place] [address], 2[address] [place] [address] [email or web address] Insurance Assigned Provider 09/25/20 06/25/21 documented as of this encounter Additional Source Comments The information contained in this document represents components of the legal health record. It is not the complete legal health record.[facility]
--- OUTSIDE RECORDS SUMMARY | 2025-01-26 08:56 | XMS_ITS | Clinical Summary ---
Author Organization [facility] Facility Address [address] [place] [address] Care Team Providers Care Organ Builder Name Role Phone Hilario Tran MD Primary [...] Active Problems Problem Noted Date Diagnosed Date Abzaa-qm-jkryhoz renal failure 09/10/2020 Alcohol abuse 09/10/2020 Hypercholesterolemia [...] keep apptmt w neuro Dr Yepez at [facility] as Needs results of EEG and discussed [...] Medicaid [place] Care Teams Organ Builder Relationship Specialty Start Date End Date Hilario Tran MD [address] [place] [id number] PCP - General Family Medicine 09/10/20
[2025-01-26 10:13] LABS: Anion Gap 13 (12-20); Blood Urea Nitrogen 14 mg/dL (9-16); Calcium 9.0 mg/dL (8.4-10.2); Carbon Dioxide 27 mmol/L (22-29); Chloride 105 mmol/L (96-108); Estimated Glomerular Filt Rate > 60; Magnesium 1.8 mg/dL (1.6-2.6); Potassium 4.4 mmol/L (3.3-5.1); Sodium 141 mmol/L (135-145)
== END 2025-01-26 08:37 | disposition home or self-care (01) ==
LOC: HO.LAB 08:36
PROVIDERS: Internal Medicine; PCP Family Medicine; Visit Provider Internal Medicine Rheumatology
DX: E83.42 Hypomagnesemia (principal); E87.6 Hypokalemia
CPT/HCPCS: 36415; 80048; 83735

== ENCOUNTER 2025-02-02 09:38 | Outpatient (REF) | payer MEDICARE, SELFPAY ==
--- OUTSIDE RECORDS SUMMARY | 2025-02-02 10:14 | XMS_ITS | Clinical Summary ---
Author Organization [employer] Address [address] [place] [address] [address] [place] [address] [place] [address] Care Team Providers Care Food Preparer Name Role Phone Unavailable Primary Care Provider [...] patient's age to complete this topic Insurance [facility]
--- OUTSIDE RECORDS SUMMARY | 2025-02-02 10:15 | XMS_ITS | Clinical Summary ---
Author Organization [facility] Facility Address [address] [place] [address] Care Team Providers Care Education Reviewer Name Role Phone Hilario Tran MD Primary Care Provider [phone] Allergies Active Allergy Reactions Criticality Noted Date [...] Active Problems Problem Noted Date Diagnosed Date Umngt-hw-pgyimts renal failure 09/10/2020 Alcohol abuse 09/10/2020 Hypercholesterolemia [...] keep apptmt w neuro Dr Yepez at [place] as Needs results of EEG and discussed [...] Medicaid [place] Care Teams Education Reviewer Relationship Specialty Start Date End Date Hilario Tran MD [address] [place] [id number] PCP - General Family Medicine 09/10/20
--- OUTSIDE RECORDS SUMMARY | 2025-02-02 10:15 | XMS_ITS | Encounter Summary ---
Author Organization [facility] Address [address] [place] [address] Phone Care Team Providers Care Radar Technician Name Role Phone Leighton Colon MD Unavailable Jana Joyner RNsecurity agent Provider [phone] Lisette Masterson MD Unavailable [phone] Pcp, Unknown Primary Care Provider Unavailabl e Encounter Details Date Type Department Care Team (Latest Contact Info) Description 07/06/2020 Transcribe Orders [facility] Laboratory [address] [place] [address] Alexandra Jennings MD [address] [place] [address] [phone] Acute renal failure, unspecified acute renal failure [...] EST) SODIUM 132(L) 133 - 146 mmol/L [facility] CHLORIDE 98 96 - 108 mmol/L [facility] POTASSIUM 5.0 3.3 - 5.1 mmol/L [facility] CO2 17(L) 21 - 35 mmol/L [facility] BUN 66(H) 6 - 19 mg/dL [facility] CREATININE 2.40(H) 0.5 - 1.5 mg/dL [facility] GLUCOSE 103(H) 70 - 99 mg/dL [facility] CALCIUM 9.3 8.4 - 10.3 mg/dL [facility] EGFR 29(L) >59 mL/min/1.7 3m2 [facility] Comment:Estimated glomerular filtration rate calculated using the CKD-EPI equation. ANION GAP 22(H) 10 - 20 mmol/L [facility] Blood 07/06/2020 11:2 4 AM EST 07/06/2020 11:27 AM EST us Alexandra Jennings MD LAB BLOOD ORDERABLES Final Re sult [address] [address] documented in this encounter Visit Diagnoses Diagnosis Acute renal failure, unspecified acute renal failure type- Primary documented in this encounter Care Teams Radar Technician Relationship Specialty Start Date End Date Jana Joyner RN [address] [place] [address] [email or web address] PCP - General Internal Medicine 01/07/20 10/28/20 Pcp, Unknown PCP - General 10/29/20 Leighton Colon MD [address] [place], [place] [address] [place] [address] [email or web address] Insurance Assigned Provider 09/15/17 09/25/20 Lisette Masterson MD [address] [place] [address], [address] [place] [address] [email or web address] Insurance Assigned Provider 09/25/20 06/25/21 documented as of this encounter Additional Source Comments The information contained in this document represents components of the legal health record. It is not the complete legal health record.[facility]
[2025-02-02 11:10] LABS: Magnesium 1.8 mg/dL (1.6-2.6)
== END 2025-02-02 09:39 | disposition home or self-care (01) ==
LOC: HO.LAB 09:38
PROVIDERS: PCP Family Medicine; Visit Provider Internal Medicine
DX: E83.42 Hypomagnesemia (principal)
CPT/HCPCS: 36415; 83735

== ENCOUNTER 2025-02-18 10:45 | Outpatient (AMB) | payer MEDICARE, SELFPAY ==
--- NOTE | 2025-02-18 10:54 | A.OFFPC_ITS ---
Vital Signs 02/18/25 11:02 Height 5 ft 8 in Weight 224 lb 6 oz BMI 34.1 BP 128/72 Blood Pressure Location Rt brachial Position Sitting Respiration 16 Pulse 81 Pulse Source Pulse Oximeter Temp 97.8 F Temp Source Temporal Artery Scan Pulse Oximetry (%) 97 Oxygen Delivery Method Room Air Intake Visit Reasons: Discharge Follow-Up fu dyshania Intake Note: Hilario presents in the office today for a hospital discharge. Patient needs refills of tizanadine, allopurinal, B12 and prednisone. Patient would like talk about a different blood thinner that their insurance will work with. Would like to have his right middle finger lanced. Allergies egg (eggs) Allergy (Mild, Verified 02/18/25 10:57) swelling with raw eggs influenza virus vaccine, specific (FLU VACCINE) Adverse Reaction (Unknown, Verified 02/18/25 10:57) egg allergy Medication List - Last Reconciled 02/18/25 by Hilario Tran MD acetaminophen ER (Tylenol Arthritis Pain) 650 mg PO Q12H PRN albuterol sulfate 90 mcg/actuation 2 puffs inhalation Q6H PRN 30 days allopurinol 200 mg (2 x 100 mg) PO DAILY 30 days apixaban (Eliquis) 10 mg (2 x 5 mg) PO BID carvedilol 6.25 mg PO BID 90 days clotrimazole 1% 1 appl topical BID PRN cyanocobalamin (vitamin B-12) 1,000 mcg PO DAILY 90 days magnesium oxide-Mg AA chelate 300 mg (Magnesium (oxide/AA chelate)) 300 caps PO .dialy prednisone 40 mg (2 x 20 mg) PO DAILY PRN 4 days rosuvastatin 20 mg PO DAILY 30 days sildenafil 50 mg PO DAILY PRN 30 days tizanidine 4 mg PO BEDTIME PRN triamcinolone acetonide 0.5% 1 appl topical BID PRN Tobacco use date assessed: 02/18/25 Dental Screening Dental Screen Date: 02/18/25 Did you have a dental visit in the last 12 months?: No Did you have a dental problem in the last 6 months where you did not have access to dental care?: No Was dental information given to patient?: Patient has dentist HPI Discharge Follow-Up fu dyshania HPI Details 65 y/o male presents to f/u hospital dis charge visit for persistent lower L pain and swelling. Patient was admitted to the hospital for leg swelling and pain left side: Further workup with venous duplex of leg and CTA of lungs was done found to have left leg DVT as well as pulmonary emboli(please see imaging section below for detailed information): Patient was started on IV heparin and seen by vascular surgery: Patient improved significantly. Was switched to p.o. anticoagulation. Pt noted FHx d clots. They note he is on Eliquis b.i.d. and has an appt. with his specialist. A1c today 5.9% - hx of pre-diabetes. [facility] Medical History (Updated 02/18/25 @ 12:05 by Otis Hutchinson) Marijuana dependence AMADO (acute kidney injury) Gout Restrictive lung disease Obesity (BMI 30-39.9) ETOH abuse Back pain Hypercholesterolemia HTN (hypertension) Surgical History H/O spinal fusion History of back surgery Social History (Updated 02/18/25 @ 11:02 by Melani Ponce MA) Household Members: Spouse Housing: House Do you presently have visiting nurse or other home services: No Alcohol intake: current Alcohol intake frequency: a few times a month Alcohol type: wine Comment: 1 plus pint of peppermint schnopps daily Patient Tobacco Use Status: Former Tobacco user Tobacco use type: Cigarette Years Smoked: 15 +/- e-Cigarette/Vaping Use: Never Used Second Hand Smoke Exposure: Yes Use of substances other than those prescribed or required for medical reasons: Yes Substance Use Type: Marijuana service: No Current occupational status: retired and other Current occupation: rt handed Current occupational exposures/hazards: No Cognitive needs: No Hearing needs: No Vision needs: Yes (Patient was prescribed glasses.) Questionnaire Thrive Questionnaire Date Thrive assessed: 08/01/24 I am a: Patient What is your living situation today?: I have a place to live, but I am worried about losing it in the future Within the past 12 months, did the food you bought not last and you didn't have the money to get more?: Sometimes True Within the past 12 months, did you worry whether your food would run out before you got money to buy more?: Sometimes True Do you have trouble paying for medicines?: Yes Do you have trouble getting transportation to medical appointments?: No Do you have trouble paying your heating and electricity bill?: Yes Do you have trouble taking care of your child, family member or friend?: No Do you have trouble with day-to-day activities such as bathing, preparing meals, shopping, managing finances, etc.?: No Are you currently unemployed and looking for a job?: No Are you interested in more education?: No Currently or been in a relationship where the following occur: I choose not to answer THRIVE Score: 4 SUKUMAR-7 AMB Questionnaire SUKUMAR-7 Date SUKUMAR - 7 assessed: 03/05/24 Source: Developed by Drs. Raj Soto, Camille Henry, Braeden Castillo and colleagues, with an educational rowan from [employer]. Review of Systems Const Denies chills, Denies fatigue, Denies fever(s), Denies headache(s) and Denies weakness ENT Denies dizziness and Denies headache(s) Card Denies dyspnea Resp Denies cough, Denies dyspnea, Denies wheezing and Denies other (shortness of b reath) Musc Denies numbness and Denies tingling Neuro Denies dizziness, Denies headache(s), Denies numbness, Denies tingling and Denies weakness Psych Denies anxiety and Denies depression Endo Denies fatigue Aller/Immun Denies wheezing Physical exam (Primary Care) Vital Signs: Last Vital Signs Temp 97.8 F 02/18/25 11:02 Pulse 81 02/18/25 11:02 Resp 16 02/18/25 11:02 BP 128/72 02/18/25 11:02 Pulse Ox 97 02/18/25 11:02 Oxygen Delivery Method Room Air 02/18/25 11:02 BMI result Body Mass Index 34.1 Tobacco/Smoking Status: Tobacco use Status Tobacco use date assessed 02/18/25 02/18/25 11:08 Patient Tobacco Use Status Former Tobacco user 02/18/25 11:02 Tobacco use type Cigarette 02/18/25 11:02 e-Cigarette/Vaping Use Never Used 02/18/25 11:02 Thrive Assessment: Date of Thrive Assessment Date Thrive assessed 08/01/24 02/18/25 10:56 Currently or been in a relationship where the following occur: I choose not to answer Const General: well developed; No acute distress Nutritional Appearance: well nourished Orientation/consciousness: patient oriented x3 HENMT Head: Yes normocephalic and Yes atraumatic Eyes General: appearance normal, both eyes and all related structures Pupils: Equal, round and reactive pupils present EOM: EOMs intact bilaterally Resp Effort & Inspection: normal respiratory effort Neuro General: patient oriented x3 and gait normal Cranial nerves: Yes Equal, round and reactive pupils present Psych Affect: normal affect Results AMB Hemoglobin A1c AMB Hemoglobin A1c 5.9 % Last Edit by Melani Ponce MA on 02/18/25 11:40 Results Reviewed Results Reviewed: Laboratory Last Values Hgb A1c (Clinic) 5.9 % (4.0-6.0) 02/18/25 11:08 Coding Level of Care Code Est Pt Level 5 (07544) Diagnoses Acute deep vein thrombosis (DVT) of femoral vein of left lower extremity I82.412 Affected thrombotic vein of extremity: femoral Chronicity: acute DVT location: lower extremity Laterality: left Pulmonary embolism I26.99 Pre-diabetes R73.03 Infection of skin L08.9 Assessment & Plan Assessment & Plan (1) DVT (deep venous thrombosis): Code(s): I82.409 - Acute embolism and thrombosis of unspecified deep veins of unspecified lower extremity Category: Medical Qualifiers: Affected thrombotic vein of extremity: femoral Chronicity: acute DVT location: lower extremity Laterality: left Qualified Code(s): I82.412 - Acute embolism and thrombosis of left femoral vein (2) Pulmonary embolism: Code(s): I26.99 - Other pulmonary embolism without acute cor pulmonale Category: Medical (3) Pre-diabetes: Code(s): R73.03 - Prediabetes Category: Medical (4) Infection of skin: Code(s): L08.9 - Local infection of the skin and subcutaneous tissue, unspecified Category: Medical Plan Recent DVT and PE. No evidence of right heart strain on CT scan. He is now on Eliquis. Has an appointment with Hematology-Oncology on February 23. Patient notes that he still has more Eliquis but that this is quite expensive. He will discuss with Hematology. We can review his office visit note at his upcoming physical. Periungual infection. Will give him a script for cephalexin and he will begin warm soaks. Will likely come to a head and drain on its own. If worsening or not improving he will return to the office A1c today 5.9%. He continues diet low in sugars and starches Blood pressure is well controlled today. Goal is less than 130/80. Continue current medication He will return in a few weeks for his complete physical. Will follow-up on Hematology-Oncology office visit. CT scan also showed incidental ascending aortic dilatation - blood pressure is controlled today. Will discuss with patient. Orders: Orders AMB Hemoglobin A1c Today R73.03 - Prediabetes Medications: New cephalexin 500 mg PO Q12H 20 caps 0RF 10 days Changed From sildenafil administer 30 minutes to 4 hours before activity 50 mg PO DAILY 30 days PRN 8 tabs 3RF sexual activity To Viagra (sildenafil) administer 30 minutes to 4 hours before activity 50 mg PO DAILY PRN 8 tabs 3RF sexual activity 30 days NS
[2025-02-18 11:02] VITALS: BP 128/72; PULSE 81; RESP 16; TEMP 36.6; O2SAT 97; BMI 34.1
--- OUTSIDE RECORDS SUMMARY | 2025-02-18 12:33 | XMS_ITS | Clinical Summary ---
Author Organization [employer] Address [address] [place] [address] [address] [address] Care Team Providers Care Community Midwife Name Role Phone Unavailable Primary Care Provider [...] patient's age to complete this topic Insurance [facility]
--- OUTSIDE RECORDS SUMMARY | 2025-02-18 12:34 | XMS_ITS | Clinical Summary ---
Author Organization [facility] Facility Address [address] [place] [address] Care Team Providers Care Slubber Runner Name Role Phone Hilario Tran MD Primary [...] Active Problems Problem Noted Date Diagnosed Date [id number] renal failure 09/10/2020 Alcohol abuse 09/10/2020 Hypercholesterolemia [...] keep apptmt w neuro Dr Yepez at [facility] as Needs results of EEG and discussed [...] Medicaid [place] Care Teams Slubber Runner Relationship Specialty Start Date End Date Hilario Tran MD [address] [place] [id number] PCP - General Family Medicine 09/10/20
--- OUTSIDE RECORDS SUMMARY | 2025-02-18 12:34 | XMS_ITS | Encounter Summary ---
Author Organization [facility] Address [address] [place] [address] Phone Care Team Providers Care Dirt Supervisor Name Role Phone Leighton Colon MD Unavailable [phone] Jana Joyner RNphysiologist Provider [phone] Lisette Masterson MD Unavailable [phone] Pcp, Unknown Primary Care Provider Unavailabl e Encounter Details Date Type Department Care Team (Latest Contact Info) Description 07/06/2020 Transcribe Orders [facility] Laboratory [address] [place] [address] Alexandra Jennings MD [address] [place] [address] [id number] Acute renal failure, unspecified acute renal failure [...] EST) SODIUM 132(L) 133 - 146 mmol/L [facility] CHLORIDE 98 96 - 108 mmol/L [facility] POTASSIUM 5.0 3.3 - 5.1 mmol/L [facility] CO2 17(L) 21 - 35 mmol/L [facility] BUN 66(H) 6 - 19 mg/dL [facility] CREATININE 2.40(H) 0.5 - 1.5 mg/dL [facility] GLUCOSE 103(H) 70 - 99 mg/dL [facility] CALCIUM 9.3 8.4 - 10.3 mg/dL [facility] EGFR 29(L) >59 mL/min/1.7 3m2 [facility] Comment:Estimated glomerular filtration rate calculated using the CKD-EPI equation. ANION GAP 22(H) 10 - 20 mmol/L [facility] Blood 07/06/2020 11:2 4 AM EST 07/06/2020 11:27 AM EST us Alexandra Jennings MD LAB BLOOD ORDERABLES Final Re sult [address] [address] documented in this encounter Visit Diagnoses Diagnosis Acute renal failure, unspecified acute renal failure type- Primary documented in this encounter Care Teams Dirt Supervisor Relationship Specialty Start Date End Date Jana Joyner RN [address] [place] [address] [email or web address] PCP - General Internal Medicine 01/07/20 10/28/20 Pcp, Unknown PCP - General 10/29/20 Leighton Colon MD [address] [place], [place] [address] [address] [email or web address] Insurance Assigned Provider 09/15/17 09/25/20 Lisette Masterson MD [address] [place] [address], [address] [place] [address] [email or web address] Insurance Assigned Provider 09/25/20 06/25/21 documented as of this encounter Additional Source Comments The information contained in this document represents components of the legal health record. It is not the complete legal health record.[facility]
--- OUTSIDE RECORDS SUMMARY | 2025-02-18 12:34 | XMS_ITS | Clinical Summary ---
Author Organization Located Within [facility] Address [address] [place] [address] Phone Care Team Providers Care Platform Architect Name Role Phone Pcp, Unknown Primary Care Provider Unavailabl e Allergies No known active allergies Medications clotrimazole-bet amethasone (LOTRISONE) cream 1 application to affected area 6 Active albuterol (PROVENTIL HFA) 90 mcg/actuation inhalerIndicatio ns:Asthma Inhale 2 puffs into the lungs every 4 (four) hours as needed for wheezing. 1 Inhaler 2 7 Active simvastatin (ZOCOR) 20 MG tabletIndication s:Medication refill Take 1 tablet (20 mg total) by mouth nightly. 30 tablet 5 8 Active allopurinol (ZYLOPRIM) 100 MG tabletIndication s:Medication refill Take 1 tablet (100 mg total) by mouth daily. 30 tablet 5 9 Active lisinopriL (PRINIVIL,ZESTRI L) 40 MG tabletIndication s:Benign essential hypertension TAKE ONE TABLET BY MOUTH EVERY DAY 30 tablet 11 0 Active naproxen (NAPROSYN) 500 MG tabletIndication s:Medication refill TAKE ONE TABLET BY MOUTH TWICE A DAY WITH MEALS 60 tablet 2 0 Active oxyCODONE 15 MG immediate release tablet 1 tab po daily to wean off 28 tablet 0 Active Additional Information Patient not taking.Reported on 03/16/2020 gabapentin (NEURONTIN) 100 MG capsule Take 100 mg by mouth 2 (two) times a day. 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 More than bursitis pts more to jt itself rec fu ortho. See no benefit to inject olecrnon bursa as no sign definite bursitis Assessment & Plan (11/25/2018 11:33 PM EDT): With left forearm pain but appears to be more in his elbows he cannot fully flex or fully extend first pain in the lateral proximal forearm but there is negative for any lateral or medial epicondylitis and some mild tenderness over the left arm bursa but is not warm or swollen x-rays to my real question changes at the radial head and neck and referral to orthopedics question might need MRI but concerned with his inability to flex and extend with arthritis. Question of patient has soft tissue injury versus something in the ankle elbow joint preventing flexion and extension. Patient does recount an injury where he dropped a lawnmower on it but did not seem to hurt him at the time but could just be some soft tissue injury Orthostasis 08/01/2018 Assessment & Plan (09/25/2018 9:55 PM EDT): Patient with hospitalization for spells which was recommend that he get an EEG and stress test patient is felt markedly better with just 3 stopping 2 of his blood pressure medications as it was felt he was probably having orthostatic hypotension. Patient had no further spells since home and will therefore hold on doing any EEG or stress test Assessment & Plan (08/01/2018 9:17 AM EST): Off meds BP dropped 116 down to 96 standing Ck cortisol levels and told him his lightheadedness is not due to HBP as he felt he needed to resume his bp meds Will ck cortisol level in AM Spells of decreased attentiveness 08/01/2018 Assessment & Plan (08/01/2018 9:21 AM EST): Still no definite answer tho likely due to low BP Rec keep apptmt w neuro Dr Yepez at [facility] as Needs results of EEG and discussed MRI finding sugesting multiple lacunes Syncope and collapse 08/01/2018 Assessment & Plan (08/01/2018 9:19 AM EST): Reviewed hosp ands feel he needs ETT and EEG/neuro fu tho all could be due to low BP worsened by meds but why all of sudden low bp / may need ECHO to rule out cardiomyopathy Other chest pain 07/31/2018 Assessment & Plan (12/26/2018 2:40 PM EDT): No sx to suggest CAD w neg elizabeth recently Assessment & Plan (08/01/2018 9:16 AM EST): Chest pain not classic for angin but w risk factors need ETT EKG wo acute changes Prediabetes 06/05/2018 Assessment & Plan (06/12/2018 8:02 AM EST): Patient with a history of prediabetes last blood sugar was 137 was not fasting is no polyphagia polydipsia polyuria no neuropathy symptoms or retinopathy. Commend check labs weight reduction calorie reduction increase exercise Chronic pain of right knee 03/06/2018 Assessment & Plan (03/06/2018 11:20 PM EDT): She with medial greater than lateral joint [...] to decrease worsening of his arthritis pain Annual physical exam 11/22/2017 Assessment & Plan (12/26/2018 9:52 AM EDT): Doing well overdue eye ck and colon 4 yrs no BPH sx and neg DREfor cancer Not exercising due to chr back pain./ + quit smoking again 2 weeks ago Assessment & Plan (11/25/2017 9:25 AM EDT): pt overall doing well needs weight reduction and regular exercise area and patient's meds has not changed same dose of oxycodone lisinopril and statins. Up-to-date in immunizations and colonoscopy and discuss smoking Closed fracture of one rib o f left side with routine healing 10/15/2017 Assessment & Plan (10/16/2017 7:28 AM EDT): Patient with persistent pain from probable fractured [...] a problem for him Gout 06/28/2017 Overview (06/28/2017): 2x/yr Assessment & Plan (03/26/2019 12:40 PM EDT): Recent flare pred helped needs refill allopurinol Assessment & Plan (06/12/2018 8:01 AM EST): With the foot pain and mild swelling over the MTP joint lengthy discussion patient could do a uric acid level last time was normal at 5.8 does not drink much alcohol probably dietary indiscretion and genetics hawk the use of colchicine he prefers prednisone short courses which worked well from the last time Benign essential hypertension 04/30/2017 Assessment & Plan (03/26/2019 12:36 PM EDT): Patient doing well on just lisinopril 40 without any dizziness no blood pressure headaches or chest pain Assessment & Plan (12/26/2018 9:51 AM EDT): Sx of orthostasis but didn't tilt todat urged incr fluids roxanne summer heat and support hose Ck renal status Assessment & Plan (09/25/2018 9:55 PM EDT): Blood pressure well controlled just on STUART inhibitor. Recheck at his complete physical upcoming. Recommend weight reduction salt restriction and increased regular exercise Assessment & Plan (06/12/2018 8:00 AM EST): Blood pressure well controlled today compliant with medications needs dietary control overdue for labs whichwere ordered Assessment & Plan (11/25/2017 9:25 AM EDT): Well-controlled on lisinopril slightly high today from caffeine and stressbut came down with subsequent checks Simple chronic bronchitis 04/30/2017 Chronic pain 04/30/2017 Assessment & Plan (03/26/2019 12:39 PM EDT): Patient with chronic low back pain overall is improving he is failed drug test numerous times question of his liver as he staunchly denies any other cocaine elements tends to use pot occasionally. Will gradually decr as 3/d downto 2/d and then 1/2 bid and can augment w naproxen which has helped his recent gout flare Assessment & Plan (12/26/2018 9:50 AM EDT): Stable use oxy for tox screen Assessment & Plan (09/25/2018 10:00 PM EDT): Patient unable to provide a urine test as he just voided but has a prior one which she did have a some cocaine in his urine along with pot patient been on the same dose of oxycodone he wants to restart his gabapentin which we will do as that he notices that he pain is slightly worse without that. Assessment & Plan (08/01/2018 9:15 AM EST): Refill oxy 112 as neg drug screen at hosp Assessment & Plan (06/12/2018 8:00 AM EST): Pt with history of chronic back and knee pain on chronic narcotics is not increase the dose or taking other medications at this time urged increase exercise to consider follow-up with back surgeon but not felt to be surgical in the past Assessment & Plan (03/06/2018 11:19 PM EDT): history chronic low back pain on 15 mg of oxycodoneShe with 4 times a day. Will check urine tox screen Assessment & Plan (11/25/2017 9:26 AM EDT): Refill patient's chronic pain medication's been stable eminence in his use Lipids serum increased 04/30/2017 Assessment & Plan (12/26/2018 9:48 AM EDT): ldl ok but hi sachin need fasting lab may needfenfibrate but no CAD or TIA sx Assessment & Plan (11/25/2017 9:26 AM EDT): Following statin no sign of coronary disease or TIAs time for lipid check Immunizations Immunization Administration Dates Next Due Td (adult) 5 Lf Tetanus Toxoid, PF, Adsorbed 04/2019 Family History Medical History Relation Comments Heart attack Brother Heart attack Father Diabetes Mother cad renal eyes Relation Status Comments Brother Father Mother Alive Social History Tobacco Use Types Packs/Day Years Used Date Smoking Tobacco: Former Cigarettes Q uit: 08/2017 Smokeless Tobacco: Never Alcohol Use Standard Drinks/Week Comments Yes 0 (1 standard drink = 0.6 oz pur e alcohol) Education Answer Date Recorded Are you interested in more education? Not on viraj e 10/13/2022 Are you concerned about learning? Not on file 10/13/2022 No 10/13/2022 No 10/13/2022 Digital Access Answer Date Recorded No 11/13/2022 No 11/13/2022 Reliable internet access at home? Not on file 11/13/2022 Device with a working camera? Not on file Sex and Gender Information Value Date Recorded Sex Assigned at Male 09/25/2017 10:04 AM EDT Legal Sex Male 9:45 PM EDT Gender Identity Male 09/25/2017 10:04 AM EDT Sexual Orientation Straight 09/25/2017 10 :04 AM EDT Occupation Industry Job Start Date Job End Date disabled Not on file Not on file Not on file Last Filed Vital Signs Vital Sign Reading Time Taken Comments Blood Pressure 144/88 03/16/2020 12:39 PM EDT Pulse 87 03/16/2020 12:39 PM EDT Temperature 36.7 C (98.1 F) 03/16/2020 12:39 PM EDT Respiratory Rate 18 03/16/2020 12:39 PM EDT Oxygen Saturation 98% 03/16/2020 12:39 PM EDT Inhaled Oxygen Concentration - - Weight 112.9 kg (249 lb) 03/16/2020 12:39 PM EDT Height 171.9 cm (5' 7.68 ) 03/16/2020 12:39 PM E DT Body Mass Index 38.22 03/16/2020 12:39 PM EDT Plan of Treatment Health Maintenance Due Date Last Done Comments BLOOD PRESSURE 1962 DEPRESSION SCREENING 1974 SMOKING Hx and SMOKELESS TOBACCO SCREENING 1975 HEPATITIS C SCREENING 01/03/1980 HIV ONE-TIME SCREENING (18-65 YEARS) 01/03/1980 COLOGUARD 2007 COLONOSCOPY 2007 COLORECTAL CANCER SCREENING 2007 FIT TEST 2007 FOBT 2007 SIGMOIDOSCOPY 2007 VIRTUAL COLONOSCOPY 2007 PNEUMOCOCCAL VACCINES (50+ years) (1 of 1 - PCV) 01/03/2012 ZOSTER VACCINES (1 of 2) 01/03/2012 CREATININE LEVEL 07/06/2021 07/06/2020, , 07/18/2017 POTASSIUM LEVEL 07/06/2021 07/06/2020, 07/19, 07/18/2017 LIPID PANEL 07/31/2023 07/31/2018, 07/19, 07/31/2018, Additional history exists INFLUENZA VACCINE (#1) 2025 COVID-19 VACCINE (3 - 2024- season) 2025 11/25/2020, 11/04/2020 Adult Td,Tdap Booster 12/26/2028 12/26/2018 RSV VACCINE (1 - 1-dose 75+ series) 2037 HEPATITIS A VACCINES Aged Out No long er eligible based on patient's age to complete this topic HIB VACCINES Aged Out No longer eligi ble based on patient's age to complete this topic MENINGOCOCCAL VACCINES (ACWY) Aged Out No longer eligible based on patient's age to complete this topic MENINGOCOCCAL VACCINES (B) Aged Out N o longer eligible based on patient's age to complete this topic Medical Devices Not on file Procedures Procedure Name Priority Date/Time Associated Diagnosis Comments BASIC METABOLIC PANEL Routine 07/06/2020 11:24 AM EST Acute renal failure, unspecified acute renal failure type LIPID PANEL Routine 07/31/2018 12:30 PM EST Prediabetes from Last 3 Months or Most Recently Relevant to Health Maintenance Results * (ABNORMAL) Basic metabolic panel (07/06/2020 [...] MD LAB BLOOD ORDERABLES Final Re sult [facility] [address] [place] [address] * (ABNORMAL) Lipid panel (07/31/2018 12:30 PM EST) HDL 51 mg/dL [facility] Comment: Interpretation <40 mg/dL: Low HDL cholesterol (major risk factor for CHD) Greater than or equal to 60 mg/dL: High HDL cholesterol ( negative risk factor for CHD) HDL - cholesterol is affected by a number of factors, e.g. smoking, excerise, hormones, sex and age. CHOLESTEROL 216 0 - 240 mg/dL [facility] TRIGLYCERIDES 461(H) 30 - 160 mg/dL [facility] Comment:DIRECT LDL CANCELLED IN ERROR, WILL BE SENT OUT LDL NOT CALCULATED 50 - 129 mg/dL [facility] Comment: Unable to calculate due to elevated TRIG of greater than 400. A measured LDL will be performed. CARDIAC RISK RATIO 4.2 3.4 - 5.0 [facility] Blood 07/31/2018 12:3 0 PM EST 07/31/2018 12:38 PM EST Leighton Colon MD LAB BLOOD ORDERABLES Toro jazmyne Result - Final [facility] [address] [place] [address] from Last 3 Months or Most Recently Relevant to Health Maintenance Insurance MEDICARE PART A & B [facility] MEDICARE PART A & B [employer] MED[employer] [facility] A & [facility] [employer] MED[employer] A & B [place] B [facility] B [facility] Care Teams Platform Architect Relationship Specialty Start Date End Date Pcp, Unknown PCP - General 10/29/20 Additional Source Comments The information contained in this document represents components of the legal health record. It is not the complete legal health record.Located Within [facility]
== END 2025-02-18 12:42 | disposition home or self-care (01) ==
LOC: HO.HMCFM 10:46
PROVIDERS: PCP Family Medicine; Visit Provider Family Medicine
DX: I82.412 Acute embolism and thrombosis of left femoral vein (principal); I26.99 Other pulmonary embolism without acute cor pulmonale; R73.03 Prediabetes; L08.9 Local infection of the skin and subcutaneous tissue, unspecified

== ENCOUNTER → 2025-02-18 10:45 | Outpatient (BNVA) | payer MEDICARE, SELFPAY | PROVIDERS: PCP Family Medicine; Visit Provider Family Medicine | DX: R73.03 Prediabetes (principal); I82.412 Acute embolism and thrombosis of left femoral vein; I26.99 Other pulmonary embolism without acute cor pulmonale; L08.9 Local infection of the skin and subcutaneous tissue, unspecified; Z79.01 Long term (current) use of anticoagulants | CPT/HCPCS: 83036; 99212 ==

== ENCOUNTER → 2025-02-25 14:00 | Outpatient (BNV) | payer MEDICARE, SELFPAY | PROVIDERS: PCP Family Medicine; Visit Provider Nurse Practitioner Family | DX: I82.402 Acute embolism and thrombosis of unspecified deep veins of left lower extremity (principal); I26.99 Other pulmonary embolism without acute cor pulmonale | CPT/HCPCS: 99204 ==

== ENCOUNTER 2025-03-18 08:52 | Outpatient (REF) | payer MEDICARE, SELFPAY ==
[2025-03-18 09:08] LABS: MANUAL DIFF FLAG NO
[2025-03-18 09:10] LABS: Hematocrit 33.2 % (42.0-52.0); Hemoglobin 12.1 g/dl (14.0-18.0); Imm Gran Abs Auto 0.04 X10*3/uL (0.00-0.03); Imm Gran Pct Auto 0.5 % (0.0-0.4); Lymphocytes Absolute Auto 2.4 X10*3/uL (1.2-4.9); Mean Corpuscular HGB Conc 36.4 g/dl (31.0-36.0); Mean Corpuscular Hemoglobin 36.3 pg (27.0-33.0); Mean Corpuscular Volume 99.7 fL (80.0-98.0); NRBC Abs Auto 0.000 X10*3/uL (0.0-0.012); NRBC Pct Auto 0.0 /100WBC (0.0-0.2); Platelet Count 309 X10*3/uL (160-400); Red Blood Count 3.33 X10*6/uL (4.60-5.80); White Blood Count 8.8 X10*3/uL (4.8-10.8)
--- OUTSIDE RECORDS SUMMARY | 2025-03-18 09:30 | XMS_ITS | Clinical Summary ---
Author Organization [employer] Address [address] [place] [address] 7 [place] [address] Care Team Providers Care Food Analyst Name Role Phone Unavailable Primary Care Provider [...] Tdap) 12/27/2018 12/26/2018 COVID-19 Vaccine (4 - 2024-2 6 season) 2025 08/08/2022, 11/25/2020, 11/04/2020 Influenza Vaccine (#1) 2025 [...] patient's age to complete this topic Insurance [facility]
--- OUTSIDE RECORDS SUMMARY | 2025-03-18 09:30 | XMS_ITS | Clinical Summary ---
Author Organization [facility] Address [address] [place] [address] Phone Care Team Providers Care Denial Resolution Specialist Name Role Phone Pcp, Unknown Primary Care [...] keep apptmt w neuro Dr Yepez at [facility] as Needs results of EEG and discussed [...] EST) SODIUM 132(L) 133 - 146 mmol/L [facility] CHLORIDE 98 96 - 108 mmol/L [facility] POTASSIUM 5.0 3.3 - 5.1 mmol/L [facility] CO2 17(L) 21 - 35 mmol/L [facility] BUN 66(H) 6 - 19 mg/dL [facility] CREATININE 2.40(H) 0.5 - 1.5 mg/dL [facility] GLUCOSE 103(H) 70 - 99 mg/dL [facility] CALCIUM 9.3 8.4 - 10.3 mg/dL [facility] EGFR 29(L) >59 mL/min/1.7 3m2 [facility] Comment:Estimated glomerular filtration rate calculated using the CKD-EPI equation. ANION GAP 22(H) 10 - 20 mmol/L [facility] Blood 07/06/2020 11:2 4 AM EST 07/06/2020 11:27 AM EST us Alexandra Jennings MD LAB BLOOD ORDERABLES Final Re sult [facility] [address] [place] [address] * (ABNORMAL) Lipid panel (07/31/2018 12:30 PM EST) HDL 51 mg/dL [facility] Comment: Interpretation <40 mg/dL: Low HDL cholesterol (major risk factor for CHD) Greater than or equal to 60 mg/dL: High HDL cholesterol ( negative risk factor for CHD) HDL - cholesterol is affected by a number of factors, e.g. smoking, excerise, hormones, sex and age. CHOLESTEROL 216 0 - 240 mg/dL [facility] TRIGLYCERIDES 461(H) 30 - 160 mg/dL [facility] Comment:DIRECT LDL CANCELLED IN ERROR, WILL BE SENT OUT LDL NOT CALCULATED 50 - 129 mg/dL [facility] Comment: Unable to calculate due to elevated TRIG of greater than 400. A measured LDL will be performed. CARDIAC RISK RATIO 4.2 3.4 - 5.0 [facility] Blood 07/31/2018 12:3 0 PM EST 07/31/2018 12:38 PM EST Leighton Colon MD LAB BLOOD ORDERABLES Toro jazmyne Result - Final [facility] [address] [place] [address] from Last 3 Months or Most Recently Relevant to Health Maintenance Insurance MEDICARE PART A & B [facility] MEDICARE PART A & B [employer] PART A & [facility] B [employer] MED[employer] PART A & B [place] PART A & B [facility] PART A & [facility] & [facility] PART A & B [facility] Care Teams Denial Resolution Specialist Relationship Specialty Start Date End Date Pcp, Unknown PCP - General 10/29/20 Additional Source Comments The information contained in this document represents components of the legal health record. It is not the complete legal health record.[facility]
--- OUTSIDE RECORDS SUMMARY | 2025-03-18 09:30 | XMS_ITS | Encounter Summary ---
Author Organization [facility] Address [address] [place] [address] Phone Care Team Providers Care Access Clinician Name Role Phone Leighton Colon MD Unavailable [phone] Jana Joyner RNinformation technology program manager Provider [phone] Lisette Masterson MD Unavailable [phone] Pcp, Unknown Primary Care Provider Unavailabl e Encounter Details Date Type Department Care Team (Latest Contact Info) Description 07/06/2020 Transcribe Orders [facility] [address] [place] [address] Alexandra Jennings MD [address] [place] [address] [id number] Acute renal failure, unspecified acute renal failure [...] MD LAB BLOOD ORDERABLES Final Re sult [address] [address] documented in this encounter Visit Diagnoses Diagnosis Acute renal failure, unspecified acute renal failure type- Primary documented in this encounter Care Teams Access Clinician Relationship Specialty Start Date End Date Jana Joyner RN [address] [place] [address] [email or web address] PCP - General Internal Medicine 01/07/20 10/28/20 Pcp, Unknown PCP - General 10/29/20 Leighton Colon MD [address] [place], [place] [address] [address] [email or web address] Insurance Assigned Provider 09/15/17 09/25/20 Lisette Masterson MD [address] [place] [address], [address] [place] [address] [email or web address] Insurance Assigned Provider 09/25/20 06/25/21 documented as of this encounter Additional Source Comments The information contained in this document represents components of the legal health record. It is not the complete legal health record.[facility]
--- OUTSIDE RECORDS SUMMARY | 2025-03-18 09:30 | XMS_ITS | Clinical Summary ---
Author Organization [facility] Address [address] [place] [address] Care Team Providers Care Machine Molder Squeeze Name Role Phone Hilario Tran MD Primary [...] Active Problems Problem Noted Date Diagnosed Date [id number] renal failure 09/10/2020 Alcohol abuse 09/10/2020 Hypercholesterolemia [...] keep apptmt w neuro Dr Yepez at [place] as Needs results of EEG and discussed [...] Medicaid [place] Care Teams Machine Molder Squeeze Relationship Specialty Start Date End Date Hilario Tran MD [address] [place] [id number] PCP - General Family Medicine 09/10/20
[2025-03-18 10:16] LABS: Alanine Aminotransferase 7 U/L (0-40); Albumin Level 3.6 g/dL (3.5-5.0); Alkaline Phosphatase 81 U/L (39-117); Anion Gap 13 (12-20); Aspartate Amino Transferase 32 U/L (5-37); Blood Urea Nitrogen 14 mg/dL (9-16); Calcium 8.2 mg/dL (8.4-10.2); Carbon Dioxide 29 mmol/L (22-29); Chloride 104 mmol/L (96-108); Estimated Glomerular Filt Rate > 60; Iron 115 mcg/dL (45-160); Percent Iron Saturation 57 % (15-50); Potassium 3.6 mmol/L (3.3-5.1); Sodium 142 mmol/L (135-145); Total Iron Binding Capacity 201 mcg/dL (228-428); Total Protein 6.4 g/dL (6.5-8.0); Unsaturated Iron Binding 86 ug/dL
[2025-03-18 10:38] LABS: Ferritin 1258 ng/mL (20-250)
== END 2025-03-18 08:53 | disposition home or self-care (01) ==
LOC: HO.BBR 08:52
PROVIDERS: PCP Family Medicine; Visit Provider Nurse Practitioner Family
DX: E83.110 Hereditary hemochromatosis (principal)
CPT/HCPCS: 36415; 80053; 82728; 83540; 85025

== ENCOUNTER 2025-03-19 11:10 | Outpatient (AMB) | payer MEDICARE, SELFPAY ==
--- NOTE | 2025-03-19 11:14 | MHC.PC.OV ---
Vital Signs 03/19/25 11:19 Height 5 ft 9 in Weight 232 lb 2 oz BMI 34.3 BP 149/73 H Blood Pressure Location Rt brachial Position Sitting Respiration 16 Pulse 74 Pulse Source Pulse Oximeter Temp 97.5 F Temp Source Oral Pulse Oximetry (%) 98 Oxygen Delivery Method Room Air Intake Visit Reasons: f/u HTN,preDM RE - see comments Intake Note: patient here for follow up on HTN and pre DM [employer] Required: No Allergies egg (eggs) Allergy (Mild, Verified 03/19/25 11:17) swelling with raw eggs influenza virus vaccine, specific (FLU VACCINE) Adverse Reaction (Unknown, Verified 03/19/25 11:17) egg allergy Medication List - Last Reconciled 03/19/25 by Hilario Tran MD acetaminophen ER (Tylenol Arthritis Pain) 650 mg PO Q12H PRN albuterol sulfate 90 mcg/actuation 2 puffs inhalation Q6H PRN 30 days allopurinol 200 mg (2 x 100 mg) PO DAILY 30 days apixaban (Eliquis) 10 mg (2 x 5 mg) PO BID apixaban (Eliquis) 5 mg PO BID apixaban (Eliquis) 5 mg PO BID carvedilol 6.25 mg PO BID 90 days clotrimazole 1% 1 appl topical BID PRN cyanocobalamin (vitamin B-12) 1,000 mcg PO DAILY 90 days folic acid 1 mg PO DAILY magnesium oxide-Mg AA chelate 300 mg (Magnesium (oxide/AA chelate)) 300 caps PO .dialy prednisone 40 mg (2 x 20 mg) PO DAILY PRN 4 days rosuvastatin 20 mg PO DAILY 30 days tizanidine 4 mg PO BEDTIME PRN triamcinolone acetonide 0.5% 1 appl topical BID PRN Viagra (sildenafil) 50 mg PO DAILY PRN 30 days NS Tobacco use date assessed: 03/19/25 Dental Screening Dental Screen Date: 03/19/25 Did you have a dental visit in the last 12 months?: No Did you have a dental problem in the last 6 months where you did not have access to dental care?: No Was dental information given to patient?: Patient has dentist HPI f/u HTN,preDM RE - see comments HPI Details 65 y/o male presents to f.u HTN, prediabetes. BP today 149/73, 74p. He is on carvedilol 6.25mg b.i.d. Continues to f/u with HemeOnc LLE DVT, bilateral PE, secondary iron overload. Recent CTA 01/23/25 shows 3.9 cm aneurysmal dilatation of the ascending aorta. [facility] Medical History (Updated 03/19/25 @ 12:05 by Hilario Tran MD) Marijuana dependence AMADO (acute kidney injury) Gout Restrictive lung disease Obesity (BMI 30-39.9) ETOH abuse Back pain Hypercholesterolemia HTN (hypertension) Surgical History (Updated 02/25/25 @ 15:04 by Vanessa Sow NP) H/O spinal fusion History of back surgery Family History (Updated 02/25/25 @ 14:11 by Nahid Lima) Father Traveling blood clot in leg Sister Traveling blood clot in leg Mother Cancer of kidney Social History Household Members: Spouse Housing: House Do you presently have visiting nurse or other home services: No Alcohol intake: current Alcohol intake frequency: a few times a month Alcohol type: wine Comment: 1 plus pint of peppermint schnopps daily Patient Tobacco Use Status: Former Tobacco user Tobacco use type: Cigarette Years Smoked: 15 +/- e-Cigarette/Vaping Use: Never Used Second Hand Smoke Exposure: Yes Substance Use Type: Marijuana service: No Current occupational status: retired and other Current occupation: rt handed Current occupational exposures/hazards: No Cognitive needs: No Hearing needs: No Vision needs: Yes (Patient was prescribed glasses.) Questionnaire Thrive Questionnaire Date Thrive assessed: 08/01/24 I am a: Patient What is your living situation today?: I have a place to live, but I am worried about losing it in the future Within the past 12 months, did the food you bought not last and you didn't have the money to get more?: Sometimes True Within the past 12 months, did you worry whether your food would run out before you got money to buy more?: Sometimes True Do you have trouble paying for medicines?: Yes Do you have trouble getting transportation to medical appointments?: No Do you have trouble paying your heating and electricity bill?: Yes Do you have trouble taking care of your child, family member or friend?: No Do you have trouble with day-to-day activities such as bathing, preparing meals, shopping, managing finances, etc.?: No Are you currently unemployed and looking for a job?: No Are you interested in more education?: No Currently or been in a relationship where the following occur: I choose not to answer THRIVE Score: 4 SUKUMAR-7 AMB Questionnaire SUKUMAR-7 Date SUKUMAR - 7 assessed: 03/05/24 Source: Developed by Drs. Raj Soto, Camille Henry, Braeden Castillo and colleagues, with an educational rowan from [employer]. Review of Systems Const Denies chills, Denies fatigue, Denies fever(s), Denies headache(s) and Denies weakness ENT Denies dizziness and Denies headache(s) Card Denies dyspnea Resp Denies cough, Denies dyspnea, Denies wheezing and Denies other (shortness of breath) Musc Denies numbness and Denies tingling Neuro Denies dizziness, Denies headache(s), Denies numbness, Denies tingling and Denies weakness Psych Denies anxiety and Denies depression Endo Denies fatigue Aller/Immun Denies wheezing Physical exam (Primary Care) Vital Signs: Last Vital Signs Temp 97.5 F 03/19/25 11:19 Pulse 74 03/19/25 11:19 Resp 16 03/19/25 11:19 BP 149/73 H 03/19/25 11:19 Pulse Ox 98 03/19/25 11:19 Oxygen Delivery Method Room Air 03/19/25 11:19 BMI result Body Mass Index 34.3 Tobacco/Smoking Status: Tobacco use Status Tobacco use date assessed 03/19/25 03/19/25 11:23 Patient Tobacco Use Status Former Tobacco user 03/19/25 11:15 Tobacco use type Cigarette 03/19/25 11:15 e-Cigarette/Vaping Use Never Used 03/19/25 11:15 Thrive Assessment: Date of Thrive Assessment Date Thrive assessed 08/01/24 03/19/25 11:15 Currently or been in a relationship where the following occur: I choose not to answer Const General: well developed; No acute distress Nutritional Appearance: well nourished Orientation/consciousness: patient oriented x3 HENMT Head: Yes normocephalic and Yes atraumatic Eyes General: appearance normal, both eyes and all related structures Pupils: Equal, round and reactive pupils present EOM: EOMs intact bilaterally Resp Effort & Inspection: normal respiratory effort Neuro General: patient oriented x3 and gait normal Cranial nerves: Yes Equal, round and reactive pupils present Psych Affect: normal affect Coding Level of Care Code Est Pt Level 4 (99676) Diagnoses Essential hypertension I10 Pre-diabetes R73.03 Acute deep vein thrombosis (DVT) of femoral vein of left lower extremity I82.412 Affected thrombotic vein of extremity: femoral Chronicity: acute DVT location: lower extremity Laterality: left Acute pulmonary embolism without acute cor pulmonale, unspecified pulmonary embolism type I26.99 Acute cor pulmonale presence: without acute cor pulmonale Chronicity: acute Pulmonary embolism type: unspecified Aortic dilatation I77.819 Erectile dysfunction N52.9 Iron overload E83.19 Assessment & Plan Assessment & Plan (1) Essential hypertension: Code(s): I10 - Essential (primary) hypertension Category: Medical Plan: Blood pressure is a little too high. Goal is less than 140/90 Continue carvedilol as prescribed Will start a small dose of amlodipine 2.5 mg daily He will let me know if he has any problems with this (2) Pre-diabetes: Code(s): R73.03 - Prediabetes Category: Medical Plan: A1c 5.9% and recent visit. Continue to work at a diet low in sugars and starches Will continue monitor (3) DVT (deep venous thrombosis): Code(s): I82.409 - Acute embolism and thrombosis of unspecified deep veins of unspecified lower extremity Category: Medical Qualifiers: Affected thrombotic vein of extremity: femoral Chronicity: acute DVT location: lower extremity Laterality: left Qualified Code(s): I82.412 - Acute embolism and thrombosis of left femoral vein (4) Pulmonary embolism: Code(s): I26.99 - Other pulmonary embolism without acute cor pulmonale Category: Medical Qualifiers: Acute cor pulmonale presence: without acute cor pulmonale Chronicity: acute Pulmonary embolism type: unspecified Qualified Code(s): I26.99 - Other pulmonary embolism without acute cor pulmonale (5) Aortic dilatation: Code(s): I77.819 - Aortic ectasia, unspecified site Category: Medical Plan: Recent CTA shows ascending aortic dilatation 3.9 cm Review of 2021 echocardiogram showed ascending aortic dilatation of 3.9 cm No change Continue to control blood pressure Will continue monitor (6) Erectile dysfunction: Code(s): N52.9 - Male erectile dysfunction, unspecified Category: Medical Plan: Patient would like to try Cialis Script sent (7) Iron overload: Code(s): E83.19 - Other disorders of iron metabolism Category: Medical Plan Recent DVT and PE He is on Eliquis Will continue this 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 Therapeutic phlebotomy [id number]. Follow-up with Hematology-Oncology as recommended Medications: New amlodipine 2.5 mg PO DAILY 90 tabs 2RF 90 days tadalafil (Cialis) administer approximately 30min before sexual activity; do not use more than 1 dose per 24hrs 20 mg PO DAILY PRN 10 tabs 3RF sexual activity 30 days Changed From apixaban (Eliquis) 5 mg PO BID 60 tabs 0RF To apixaban (Eliquis) 5 mg PO BID 180 tabs 3RF 90 days Refilled allopurinol 200 mg (2 x 100 mg) PO DAILY 60 tabs 3RF 30 days prednisone 40 mg (2 x 20 mg) PO DAILY PRN 8 tabs 2RF Gout Flare 4 days tizanidine 4 mg PO BEDTIME PRN 30 tabs 0RF muscle spasticity N28.9 - Disorder of kidney and ureter, unspecified Discontinued apixaban (Eliquis) Eliquis 2 tablets(10 mg) p.o. b.i.d. for until 01/31/25 , then switch to Eliquis 1 tablet (5 mg) p.o. b.i.d. on 02/01/2025. Discontinued Reason: Doctor's Order 10 mg (2 x 5 mg) PO BID 90 tabs 0RF
[2025-03-19 11:19] VITALS: BP 149/73; PULSE 74; RESP 16; TEMP 36.4; O2SAT 98; BMI 34.3
--- OUTSIDE RECORDS SUMMARY | 2025-03-19 13:06 | XMS_ITS | Clinical Summary ---
Author Organization [facility] Address [address] [place] [address] Phone Care Team Providers Care Seo Engineer Name Role Phone Pcp, Unknown Primary Care [...] keep apptmt w neuro Dr Yepez at [place] as Needs results of EEG and discussed [...] EST) SODIUM 132(L) 133 - 146 mmol/L [facility] CHLORIDE 98 96 - 108 mmol/L [facility] POTASSIUM 5.0 3.3 - 5.1 mmol/L [facility] CO2 17(L) 21 - 35 mmol/L [facility] BUN 66(H) 6 - 19 mg/dL [facility] CREATININE 2.40(H) 0.5 - 1.5 mg/dL [facility] GLUCOSE 103(H) 70 - 99 mg/dL [facility] CALCIUM 9.3 8.4 - 10.3 mg/dL [facility] EGFR 29(L) >59 mL/min/1.7 3m2 [facility] Comment:Estimated glomerular filtration rate calculated using the CKD-EPI equation. ANION GAP 22(H) 10 - 20 mmol/L [facility] Blood 07/06/2020 11:2 4 AM EST 07/06/2020 11:27 AM EST us Alexandra Jennings MD LAB BLOOD ORDERABLES Final Re sult [facility] [address] [place] [address] * (ABNORMAL) Lipid panel (07/31/2018 12:30 PM EST) HDL 51 mg/dL [facility] Comment: Interpretation <40 mg/dL: Low HDL cholesterol (major risk factor for CHD) Greater than or equal to 60 mg/dL: High HDL cholesterol ( negative risk factor for CHD) HDL - cholesterol is affected by a number of factors, e.g. smoking, excerise, hormones, sex and age. CHOLESTEROL 216 0 - 240 mg/dL [facility] TRIGLYCERIDES 461(H) 30 - 160 mg/dL [facility] Comment:DIRECT LDL CANCELLED IN ERROR, WILL BE SENT OUT LDL NOT CALCULATED 50 - 129 mg/dL [facility] Comment: Unable to calculate due to elevated TRIG of greater than 400. A measured LDL will be performed. CARDIAC RISK RATIO 4.2 3.4 - 5.0 [facility] Blood 07/31/2018 12:3 0 PM EST 07/31/2018 12:38 PM EST Leighton Colon MD LAB BLOOD ORDERABLES Toro jazmyne Result - Final [facility] [address] [place] [address] from Last 3 Months or Most Recently Relevant to Health Maintenance Insurance MEDICARE PART A & B [facility] MEDICARE PART A & B [employer] MED[facility]ARE PART A & [facility] [employer] MEDICARE PART A & B [place] & B [facility] Care Teams Seo Engineer Relationship Specialty Start Date End Date Pcp, Unknown PCP - General 10/29/20 Additional Source Comments The information contained in this document represents components of the legal health record. It is not the complete legal health record.[facility]
--- OUTSIDE RECORDS SUMMARY | 2025-03-19 13:06 | XMS_ITS | Clinical Summary ---
Author Organization [facility] Address [address] [place] [address] [address] [place] [address] Care Team Providers Care Child Development Teacher Name Role Phone Unavailable Primary Care Provider [...] to complete this topic Insurance [facility]
--- OUTSIDE RECORDS SUMMARY | 2025-03-19 13:06 | XMS_ITS | Encounter Summary ---
Author Organization [facility] Address [address] [place] [address] Phone Care Team Providers Care Clinical Quality Assurance Associate Name Role Phone Leighton Colon MD Unavailable [phone] Jana Joyner RNrange feeder Provider [phone] Lisette Masterson MD Unavailable [phone] Pcp, Unknown Primary Care Provider Unavailabl e Encounter Details Date Type Department Care Team (Latest Contact Info) Description 07/06/2020 Transcribe Orders [facility] Laboratory [address] [place] [address] Alexandra Jennings MD [address] [place] [address] [id number] Acute renal failure, unspecified acute renal failure [...] EST) SODIUM 132(L) 133 - 146 mmol/L [facility] CHLORIDE 98 96 - 108 mmol/L [facility] POTASSIUM 5.0 3.3 - 5.1 mmol/L [facility] CO2 17(L) 21 - 35 mmol/L [facility] BUN 66(H) 6 - 19 mg/dL [facility] CREATININE 2.40(H) 0.5 - 1.5 mg/dL [facility] GLUCOSE 103(H) 70 - 99 mg/dL [facility] CALCIUM 9.3 8.4 - 10.3 mg/dL [facility] EGFR 29(L) >59 mL/min/1.7 3m2 [facility] Comment:Estimated glomerular filtration rate calculated using the CKD-EPI equation. ANION GAP 22(H) 10 - 20 mmol/L [facility] Blood 07/06/2020 11:2 4 AM EST 07/06/2020 11:27 AM EST us Alexandra Jennings MD LAB BLOOD ORDERABLES Final Re sult [address] [address] documented in this encounter Visit Diagnoses Diagnosis Acute renal failure, unspecified acute renal failure type- Primary documented in this encounter Care Teams Clinical Quality Assurance Associate Relationship Specialty Start Date End Date Jana Joyner RN [address] [place] [address] [email or web address] PCP - General Internal Medicine 01/07/20 10/28/20 Pcp, Unknown PCP - General 10/29/20 Leighton Colon MD [address] [place], [place] [address] [place] [address] [email or web address] Insurance Assigned Provider 09/15/17 09/25/20 Lisette Masterson MD [address] [place] [address], [address] [place] [address] [email or web address] Insurance Assigned Provider 09/25/20 06/25/21 documented as of this encounter Additional Source Comments The information contained in this document represents components of the legal health record. It is not the complete legal health record.[facility]
--- OUTSIDE RECORDS SUMMARY | 2025-03-19 13:06 | XMS_ITS | Clinical Summary ---
Author Organization [facility] Address [address] [place] [address] Care Team Providers Care Sorter Pricer Name Role Phone Hilario Tran MD Primary [...] Active Problems Problem Noted Date Diagnosed Date [id number] renal failure 09/10/2020 Alcohol abuse 09/10/2020 Hypercholesterolemia [...] keep apptmt w neuro Dr Yepez at [place] as Needs results of EEG and discussed [...] Medicaid [place] Care Teams Sorter Pricer Relationship Specialty Start Date End Date Hilario Tran MD [address] [place] [id number] PCP - General Family Medicine 09/10/20
== END 2025-03-19 11:58 | disposition home or self-care (01) ==
LOC: HO.HMCFM 11:11
PROVIDERS: PCP Family Medicine; Visit Provider Family Medicine
DX: I10 Essential (primary) hypertension (principal); R73.03 Prediabetes; I82.412 Acute embolism and thrombosis of left femoral vein; I26.99 Other pulmonary embolism without acute cor pulmonale; I77.819 Aortic ectasia, unspecified site; N52.9 Male erectile dysfunction, unspecified; E83.19 Other disorders of iron metabolism

== ENCOUNTER → 2025-03-19 11:10 | Outpatient (BNVA) | payer MEDICARE, SELFPAY | PROVIDERS: PCP Family Medicine; Visit Provider Family Medicine | DX: I10 Essential (primary) hypertension (principal); R73.03 Prediabetes; I82.412 Acute embolism and thrombosis of left femoral vein; I26.99 Other pulmonary embolism without acute cor pulmonale; I77.819 Aortic ectasia, unspecified site; N52.9 Male erectile dysfunction, unspecified; E83.19 Other disorders of iron metabolism | CPT/HCPCS: 99212 ==

== ENCOUNTER 2025-04-07 09:57 | Outpatient (REF) | payer MEDICARE, SELFPAY ==
[2025-04-07 10:20] LABS: MANUAL DIFF FLAG NO
[2025-04-07 10:22] LABS: Hematocrit 33.4 % (42.0-52.0); Hemoglobin 11.3 g/dl (14.0-18.0); Imm Gran Abs Auto 0.05 X10*3/uL (0.00-0.03); Imm Gran Pct Auto 0.6 % (0.0-0.4); Lymphocytes Absolute Auto 2.3 X10*3/uL (1.2-4.9); Mean Corpuscular HGB Conc 33.8 g/dl (31.0-36.0); Mean Corpuscular Hemoglobin 35.6 pg (27.0-33.0); Mean Corpuscular Volume 105.4 fL (80.0-98.0); NRBC Abs Auto 0.000 X10*3/uL (0.0-0.012); NRBC Pct Auto 0.0 /100WBC (0.0-0.2); Platelet Count 297 X10*3/uL (160-400); Red Blood Count 3.17 X10*6/uL (4.60-5.80); White Blood Count 9.0 X10*3/uL (4.8-10.8)
--- OUTSIDE RECORDS SUMMARY | 2025-04-07 11:27 | XMS_ITS | Clinical Summary ---
Author Organization [facility] Address [address] [place] [address] Care Team Providers Care Tie Cutter Name Role Phone Hilario Tran MD Primary Care Provider [phone] Allergies Active Allergy Reactions Criticality Noted Date Comments Cortisone Other (see comments) 09/10/2020 Egg Protein-Containing Drug Products Other (see comments) 09/10/2020 Influenza Virus Vaccine Other (see comments) Medications [...] Active Problems Problem Noted Date Diagnosed Date Mcneq-yy-bickitj renal failure 09/10/2020 Alcohol abuse 09/10/2020 Hypercholesterolemia 09/10/2020 Stage 3a chronic kidney disease 09/10/2020 Hyperkalemia 09/10/2020 Hypertension 04/19/2020 Amputated finger 03/16/2020 Rib pain 12/25/2019 Shortness of breath 12/25/2019 Pain of elbow region 11/25/2018 Overview (09/10/2020): Last Assessment & Plan: [...] keep apptmt w neuro Dr Yepez at [place] as Needs results of EEG and discussed [...] this topic Insurance Medicare [place] Medicare Member Subscriber Plan / Payer (Ef fective 2006-Present) Name:Hilario Nino Member ID:[id number] Relation to Subscriber:Self Name:Hilario Nino Subscriber ID:[id number] Payer ID:Not on file Group ID:Not on file Type:Not on file Address: [place] [id number] [place] Care Teams Tie Cutter Relationship Specialty Start Date End Date Hilario Tran MD [address] [place] [phone] PCP - General Family Medicine 09/10/20
--- OUTSIDE RECORDS SUMMARY | 2025-04-07 11:27 | XMS_ITS | Clinical Summary ---
Author Organization [employer] Address [address] [place] [address] [address] [place] [address] Care Team Providers Care Vacuum Bottle Assembler Name Role Phone Unavailable Primary Care Provider [...] age to complete this topic Insurance [facility], [facility]
[2025-04-07 11:55] LABS: Alanine Aminotransferase 10 U/L (0-40); Albumin Level 4.0 g/dL (3.5-5.0); Alkaline Phosphatase 72 U/L (39-117); Anion Gap 15 (12-20); Aspartate Amino Transferase 26 U/L (5-37); Blood Urea Nitrogen 9 mg/dL (9-16); Calcium 8.7 mg/dL (8.4-10.2); Carbon Dioxide 22 mmol/L (22-29); Chloride 108 mmol/L (96-108); Estimated Glomerular Filt Rate > 60; Iron 110 mcg/dL (45-160); Percent Iron Saturation 47 % (15-50); Potassium 3.3 mmol/L (3.3-5.1); Sodium 142 mmol/L (135-145); Total Iron Binding Capacity 232 mcg/dL (228-428); Total Protein 7.2 g/dL (6.5-8.0); Unsaturated Iron Binding 122 ug/dL
[2025-04-07 13:34] LABS: Ferritin 653 ng/mL (20-250)
== END 2025-04-07 09:58 | disposition home or self-care (01) ==
LOC: HO.BBR 09:57
PROVIDERS: PCP Family Medicine; Visit Provider Nurse Practitioner Family
DX: E83.110 Hereditary hemochromatosis (principal)
CPT/HCPCS: 36415; 80053; 82728; 83540; 85025

== ENCOUNTER 2025-04-29 09:25 | Outpatient (AMB) | payer MEDICARE, SELFPAY ==
--- NOTE | 2025-04-29 09:36 | A.OFFPC_ITS ---
Vital Signs 04/29/25 09:41 Height 5 ft 9 in Weight 236 lb 4 oz BMI 34.9 BP 110/70 Blood Pressure Location Rt brachial Position Sitting Respiration 16 Pulse 69 Pulse Source Pulse Oximeter Temp 97.5 F Temp Source Oral Pulse Oximetry (%) 99 Oxygen Delivery Method Room Air Intake Visit Reasons: CPE 15 mins Intake Note: patient is scheduled for cpe Senior Environmental Technician Required: No Allergies egg (eggs) Allergy (Mild, Verified 04/29/25 09:36) swelling with raw eggs influenza virus vaccine, specific (FLU VACCINE) Adverse Reaction (Unknown, Verified 04/29/25 09:36) egg allergy Tobacco use date assessed: 04/29/25 Dental Screening Dental Screen Date: 04/29/25 Did you have a dental visit in the last 12 months?: No Did you have a dental problem in the last 6 months where you did not have access to dental care?: No Was dental information given to patient?: No HPI CPE 15 mins HPI Details 65 y/o male presents for a CPE. Blood pressure today 110/70, 69p. He is on amlodipine 2.5mg, carvedilol 6.25mg b.i.d. [facility] Medical History Marijuana dependence AMADO (acute kidney injury) Gout Restrictive lung disease Obesity (BMI 30-39.9) ETOH abuse Back pain Hypercholesterolemia HTN (hypertension) Surgical History H/O spinal fusion History of back surgery Family History Father Traveling blood clot in leg Sister Traveling blood clot in leg Mother Cancer of kidney Social History Household Members: Spouse Housing: House Do you presently have visiting nurse or other home services: No Alcohol intake: current Alcohol intake frequency: a few times a month Alcohol type: wine Comment: 1 plus pint of peppermint schnopps daily Patient Tobacco Use Status: Former Tobacco user Tobacco use type: Cigarette Years Smoked: 15 +/- e-Cigarette/Vaping Use: Never Used Second Hand Smoke Exposure: Yes Substance Use Type: Marijuana service: No Current occupational status: retired and other Current occupation: rt handed Current occupational exposures/hazards: No Cognitive needs: No Hearing needs: No Vision needs: Yes (Patient was prescribed glasses.) Questionnaire PHQ-9 Over the last 2 weeks, how often have you been bothered by any of the following problems? 1. Little interest or pleasure in doing things: not at all 2. Feeling down, depressed, or hopeless: not at all 3. Trouble falling or staying asleep, or sleeping too much: not at all 4. Feeling tired or having little energy: several days 5. Poor appetite or overeating: not at all 6. Feeling bad about yourself - or that you are a failure or have let yourself or your family down: not at all 7. Trouble concentrating on things, such as reading the newspaper or watching television: not at all 8. Moving or speaking so slowly that other people could have noticed. Or the opposite - being so fidgety or restless that you have been moving around a lot more than usual: not at all 9. Thoughts that you would be better off or of hurting yourself in some way: not at all Total score: 1 Depression Screening Interpretation: Negative Depression Screening Done: Yes 28259 - PHQ-9 Billing: Yes Source: Developed by Drs. Raj Soto, Camille Henry, Braeden Castillo and colleagues, with an educational rowan from [employer]. Thrive Questionnaire Date Thrive assessed: 04/29/25 I am a: Patient What is your living situation today?: I have a place to live, but I am worried about losing it in the future Within the past 12 months, did the food you bought not last and you didn't have the money to get more?: Sometimes True Within the past 12 months, did you worry whether your food would run out before you got money to buy more?: Sometimes True Do you have trouble paying for medicines?: Yes Do you have trouble getting transportation to medical appointments?: No Do you have trouble paying your heating and electricity bill?: Yes Do you have trouble taking care of your child, family member or friend?: No Do you have trouble with day-to-day activities such as bathing, preparing meals, shopping, managing finances, etc.?: No Are you currently unemployed and looking for a job?: No Are you interested in more education?: No Currently or been in a relationship where the following occur: I choose not to answer THRIVE Score: 4 AUDIT C Alcohol Use Questionnaire (AUDIT-C) 1. How often do you have a drink containing alcohol?: 2-3 times a week 2. How many drinks containing alcohol do you have on a typical day when you are drinking?: 1 or 2 3. How often do you have six or more drinks on one occasion?: Weekly Total Score: 6 Score Reviewed/Action Taken: Yes SUKUMAR-7 AMB Questionnaire SUKUMAR-7 Date SUKUMAR - 7 assessed: 04/29/25 Feeling nervous, anxious, or on edge: 0 = Not at all Not being able to stop or control worryin = Not at all Worrying too much about different things: 0 = Not at all Trouble relaxin = Not at all Being so restless that it is hard to sit still: 0 = Not at all Becoming easily annoyed or irritable: 0 = Not at all Feeling afraid as if something awful might happen: 0 = Not at all Total SUKUMAR-7 score (0-4 normal; 5-9 mild; 10-14 moderate; 15-21 severe): 0 Source: Developed by Drs. Raj Soto, Camille Henry, Braeden Castillo and colleagues, with an educational rowan from [employer]. SUKUMAR-7 Assessment Billing SUKUMAR-7 Assessment Tool: SUKUMAR-7 Assessment 44723 ACT Questionnaire In the past 4 weeks, how much of the time did your asthma keep you from getting as much done at work, school or at home?: None of the time During the past 4 weeks, how often have you had shortness of breath?: Not at all During the past 4 weeks, how often did your asthma symptoms wake you up at night or earlier than usual in the morning?: Not at all During the past 4 weeks, how often have you had to use your rescue inhaler or nebulizer medication?: Not at all How would you rate your asthma control during the past 4 weeks?: Completely controlled ACT Interpretation: Negative Score: 25 Review of Systems Const Denies chills, Denies fatigue, Denies fever(s), Denies headache(s) and Denies weakness Eyes Denies change in vision ENT Denies dizziness, Denies headache(s), Denies hearing loss, Denies nasal congestion, Denies sinus pain, Denies sinus pressure and Denies sore throat Card Denies chest pain, Denies lightheadedness, Denies dyspnea and Denies other (palpitations) Resp Denies cough, Denies dyspnea and Denies wheezing GI Denies abdominal pain, Denies melena, Denies hematochezia, Denies change in bowel habits, Denies dyspepsia and Denies nausea Denies hematuria and Denies dysuria Musc Denies abnormal gait, Denies myalgias, Denies arthralgias, Denies numbness and Denies tingling Skin/Breast Denies rash, Denies unusual bruising and Denies wounds Neuro Denies abnormal gait, Denies dizziness, Denies headache(s), Denies memory loss, Denies numbness, Denies Sensory deficit (Neuro), Denies tingling and Denies weakness Psych Denies anxiety, Denies depression and Denies memory loss Endo Denies cold intolerance, Denies fatigue, Denies heat intolerance, Denies polydipsia and Denies polyuria Rock/Lymph Denies easy bleeding and Denies easy bruising Aller/Immun Denies wheezing Physical exam (Primary Care) Vital Signs: Last Vital Signs Temp 97.5 F 04/29/25 09:41 Pulse 69 04/29/25 09:41 Resp 16 04/29/25 09:41 BP 110/70 04/29/25 09:41 Pulse Ox 99 04/29/25 09:41 Oxygen Delivery Method Room Air 04/29/25 09:41 BMI result Body Mass Index 34.9 Tobacco/Smoking Status: Tobacco use Status Tobacco use date assessed 04/29/25 04/29/25 09:45 Patient Tobacco Use Status Former Tobacco user 04/29/25 09:45 Tobacco use type Cigarette 04/29/25 09:45 e-Cigarette/Vaping Use Never Used 04/29/25 09:45 PHQ-9: PHQ-9 Score PHQ-9: Total score 1 04/29/25 10:33 Depression Screening Interpretation: Negative Thrive Assessment: Date of Thrive Assessment Date Thrive assessed 04/29/25 04/29/25 09:45 Currently or been in a relationship where the following occur: I choose not to answer Const General: no acute distress, well developed, alert and awake Nutritional Appearance: well nourished Orientation/consciousness: patient oriented x3 HENMT Head: Yes normocephalic and Yes atraumatic Ears: hearing grossly normal bilaterally and TM's normal bilaterally General nose exam: Normal external nose present and Normal nares present Mouth: Normal oral and palatal mucosa present and moist mucous membranes Teeth and gingiva: dentition normal Throat: Yes posterior oropharynx normal Eyes General: appearance normal, both eyes and all related structures Pupils: Equal, round and reactive pupils present and Pupil accommodation reflex normal EOM: EOMs intact bilaterally Neck Neck: Yes normal visual inspection, Yes no lymphadenopathy and Yes trachea midline Thyroid: Thyroid normal Carotids: no bruits Lymphatic: no lymphadenopathy noted Chest Chest palpation & inspection: normal inspection of the chest Resp Effort & Inspection: normal respiratory effort Auscultation: clear to auscultation bilaterally Cardio Rate: regular rate Rhythm: regular rhythm Heart sounds: S1 normal heart sound present, S2 normal heart sound present, no gallops, no murmurs and no rubs Bruits: no abdominal aortic bruits and no carotid bruits GI Palpation (GI): No Abdominal aortic bruit present, Soft to palpation, nontender, No hepatosplenomegaly present and No Rebound tenderness present Auscultation: normal bowel sounds General: Yes no CVA tenderness Back/Spine/Pelvis Back: no CVA tenderness Cervical Spine: cervical ROM normal and No Cervical spine tenderness Thoracic/Lumbar Spine: thoraco-lumbar ROM normal, No pain with thoraco-lumbar ROM, No thoracic spinal tenderness and No lumbar spinal tenderness Skin Lesions: no lesions Rashes: no rashes Trauma: no lacerations or abrasions Wounds: no wounds Nails: normal Neuro General: patient oriented x3 Cranial nerves: Yes Equal, round and reactive pupils present Cognition (Neuro): normal cognition Gait exam (Neuro): Normal gait present Motor exam (neuro): 5/5 motor strength present throughout Sensory Exam: No Sensory deficit (Neuro) Deep tendon reflexes (DTR's): Right patellar reflex intensity grade: 2+ and Left patellar reflex intensity grade: 2+ Extrem General: Yes normal to inspection and No edema Psych Appearance: grossly normal Affect: normal affect Attitude: cooperative Thought process: Normal thought process present Coding Level of Care Code Est Pt Level 3 (05863) Est Pt Prev Care 40-64y(18052) Diagnoses Adult general medical exam Z00.00 Essential hypertension I10 Screening for prostate cancer Z12.5 Low back pain M54.50 Additional Codes Asthma Control Questionnaire - ACT Interpretation: Negative ([id number]) SUKUMAR-7 Assessment Billing - SUKUMAR-7 Assessment Tool: SUKUMAR-7 Assessment 12500 ([id number]) PHQ-9 - 33995 - PHQ-9 Billing: Yes ([id number]) Assessment & Plan Assessment & Plan (1) Adult general medical exam: Code(s): Z00.00 - Encounter for general adult medical examination without abnormal findings Category: Medical Plan: 65-year-old male presents for complete physical exam Encouraged healthy diet and active lifestyle with exercise as tolerated (2) Essential hypertension: Code(s): I10 - Essential (primary) hypertension Category: Medical Plan: Blood pressure is controlled. Goal is less than 140/90 Continue medications (3) Screening for prostate cancer: Code(s): Z12.5 - Encounter for screening for malignant neoplasm of prostate Category: Medical Plan: Will check PSA with next blood draw (4) Low back pain: Code(s): M54.50 - Low back pain, unspecified Category: Medical Plan: Chronic back and leg pain With worsened pain at left leg since DVT Tizanidine has been helping and we increase this
[2025-04-29 09:41] VITALS: BP 110/70; PULSE 69; RESP 16; TEMP 36.4; O2SAT 99; BMI 34.9
--- OUTSIDE RECORDS SUMMARY | 2025-04-29 10:23 | XMS_ITS | Clinical Summary ---
Author Organization [employer] Address [address] [place] [address] [address] [place] [address] Care Team Providers Care Tobacco Primer Machine Operator Name Role Phone Unavailable Primary Care [...] age to complete this topic Insurance [facility]
--- OUTSIDE RECORDS SUMMARY | 2025-04-29 10:23 | XMS_ITS | Clinical Summary ---
Author Organization [facility] Address [address] [place] [address] Care Team Providers Care High School Assistant Football Coach Name Role Phone Hilario Tran MD Primary [...] Active Problems Problem Noted Date Diagnosed Date Kuzrn-bw-apqxftj renal failure 09/10/2020 Alcohol abuse 09/10/2020 Hypercholesterolemia [...] keep apptmt w neuro Dr Yepez at [place] as Needs results of EEG and discussed [...] Payer (Ef fective 2006-Present) Name:Hilario Nino Member ID:[id number] Relation to Subscriber:Self Name:Hilario Nino Subscriber ID:[id number] Payer ID:Not on file Group ID:Not on file Type:Not on file Address: [place] [id number] Medicaid [place] Care Teams High School Assistant Football Coach Relationship Specialty Start Date End Date Hilario Tran MD [address] [place] [id number] PCP - General Family Medicine 09/10/20
--- OUTSIDE RECORDS SUMMARY | 2025-04-29 10:23 | XMS_ITS | Encounter Summary ---
Author Organization [facility] Address [address] [place] [address] Phone Care Team Providers Care Electric Refrigerator Preparer Name Role Phone Leighton Colon MD Unavailable [phone] Jana Joyner RNcolor mixer Provider [phone] Lisette Masterson MD Unavailable Pcp, Unknown Primary Care Provider Unavailabl e Encounter Details Date Type Department Care Team (Latest Contact Info) Description 07/06/2020 Transcribe Orders [facility] [place] [address] [place] [address] Alexandra Jennings MD [address] [place] [address] [phone] Acute renal failure, unspecified acute renal failure [...] EST) SODIUM 132(L) 133 - 146 mmol/L [facility] CHLORIDE 98 96 - 108 mmol/L [facility] POTASSIUM 5.0 3.3 - 5.1 mmol/L [facility] CO2 17(L) 21 - 35 mmol/L [facility] BUN 66(H) 6 - 19 mg/dL [facility] CREATININE 2.40(H) 0.5 - 1.5 mg/dL [facility] GLUCOSE 103(H) 70 - 99 mg/dL [facility] CALCIUM 9.3 8.4 - 10.3 mg/dL [facility] EGFR 29(L) >59 mL/min/1.7 3m2 [facility] Comment:Estimated glomerular filtration rate calculated using the CKD-EPI equation. ANION GAP 22(H) 10 - 20 mmol/L [facility] Blood 07/06/2020 11:2 4 AM EST 07/06/2020 11:27 AM EST us Alexandra Jennings MD LAB BLOOD BKR ORDERABLES Jocy l Result [address] [address] documented in this encounter Visit Diagnoses Diagnosis Acute renal failure, unspecified acute renal failure type- Primary documented in this encounter Care Teams Electric Refrigerator Preparer Relationship Specialty Start Date End Date Jana Joyner RN [address] [place] [address] [email or web address] PCP - General Internal Medicine 01/07/20 10/28/20 Pcp, Unknown PCP - General 10/29/20 Leighton Colon MD [address] [place] [address] [address] [place] [address] [email or web address] Insurance Assigned Provider 09/15/17 09/25/20 Lisette Masterson MD [address] [place] [address], [address] [place] [address] [email or web address] Insurance Assigned Provider 09/25/20 06/25/21 documented as of this encounter Additional Source Comments The information contained in this document represents components of the legal health record. It is not the complete legal health record.[facility]
--- OUTSIDE RECORDS SUMMARY | 2025-04-29 10:23 | XMS_ITS | Clinical Summary ---
Author Organization [facility] Address [address] [place] [address] Phone Care Team Providers Care Safety Clothing And Equipment Developer Name Role Phone Pcp, Unknown Primary Care [...] keep apptmt w neuro Dr Yepez at [place] as Needs results of EEG and discussed [...] patient's age to complete this topic IPV VACCINES Aged Out No longer eligi ble [...] Date/Time Associated Diagnosis Comments BASIC METABOLIC PANEL (BMP) Routine 07/06/2020 11:24 AM EST Acute renal failure, unspecified acute renal failure type LIPID PANEL Routine 07/31/2018 12:30 PM EST Prediabetes from Last 3 Months or Most Recently Relevant to Health Maintenance Results * (ABNORMAL) Basic metabolic panel (07/06/2020 11:24 AM EST) SODIUM 132(L) 133 - 146 mmol/L [facility] CHLORIDE 98 96 - 108 mmol/L [facility] POTASSIUM 5.0 3.3 - 5.1 mmol/L [facility] CO2 17(L) 21 - 35 mmol/L [facility] BUN 66(H) 6 - 19 mg/dL [facility] CREATININE 2.40(H) 0.5 - 1.5 mg/dL [facility] GLUCOSE 103(H) 70 - 99 mg/dL [facility] CALCIUM 9.3 8.4 - 10.3 mg/dL [facility] EGFR 29(L) >59 mL/min/1.7 3m2 [facility] Comment:Estimated glomerular filtration rate calculated using the CKD-EPI equation. ANION GAP 22(H) 10 - 20 mmol/L [facility] Blood 07/06/2020 11:2 4 AM EST 07/06/2020 11:27 AM EST us Alexandra Jennings MD LAB BLOOD BKR ORDERABLES Jocy jacobson Result [address] [address] * (ABNORMAL) Lipid panel (07/31/2018 12:30 PM EST) HDL 51 mg/dL [facility] Comment: Interpretation <40 mg/dL: Low HDL cholesterol (major risk factor for CHD) Greater than or equal to 60 mg/dL: High HDL cholesterol ( negative risk factor for CHD) HDL - cholesterol is affected by a number of factors, e.g. smoking, excerise, hormones, sex and age. CHOLESTEROL 216 0 - 240 mg/dL [facility] TRIGLYCERIDES 461(H) 30 - 160 mg/dL [facility] Comment:DIRECT LDL CANCELLED IN ERROR, WILL BE SENT OUT LDL NOT CALCULATED 50 - 129 mg/dL [facility] Comment: Unable to calculate due to elevated TRIG of greater than 400. A measured LDL will be performed. CARDIAC RISK RATIO 4.2 3.4 - 5.0 [facility] Blood 07/31/2018 12:3 0 PM EST 07/31/2018 12:38 PM EST Leighton Colon MD LAB BLOOD BKR ORDERABLES Edited Result - Final [facility] [address] [place] [address] from Last 3 Months or Most Recently Relevant to Health Maintenance Insurance MEDIC[place] A [place] [id number] [facility] MEDICARE PART A & B [facility] MED[facility] PART A & B [employer] MED[facility] PART A & B [facility] MEDICARE PART A & B [place] PART A & [facility] & B [facility] MEDICARE PART A & B [facility] Care Teams Safety Clothing And Equipment Developer Relationship Specialty Start Date End Date Pcp, Unknown PCP - General 10/29/20 Additional Source Comments The information contained in this document represents components of the legal health record. It is not the complete legal health record.[facility]
== END 2025-04-29 10:51 | disposition home or self-care (01) ==
LOC: HO.HMCFM 09:26
PROVIDERS: PCP Family Medicine; Visit Provider Family Medicine
DX: Z00.00 Encounter for general adult medical examination without abnormal findings (principal); I10 Essential (primary) hypertension; M54.50 Low back pain, unspecified; Z12.5 Encounter for screening for malignant neoplasm of prostate

== ENCOUNTER → 2025-04-29 09:25 | Outpatient (BNVA) | payer MEDICARE, SELFPAY | PROVIDERS: PCP Family Medicine; Visit Provider Family Medicine | DX: Z00.00 Encounter for general adult medical examination without abnormal findings (principal); I10 Essential (primary) hypertension; M54.50 Low back pain, unspecified | CPT/HCPCS: 96127; 96160; 99396 ==

== ENCOUNTER 2025-05-12 08:42 | Outpatient (REF) | payer MEDICARE, SELFPAY ==
[2025-05-12 08:57] LABS: MANUAL DIFF FLAG NO
[2025-05-12 08:59] LABS: Hematocrit 39.6 % (42.0-52.0); Hemoglobin 13.2 g/dl (14.0-18.0); Imm Gran Abs Auto 0.05 X10*3/uL (0.00-0.03); Imm Gran Pct Auto 0.4 % (0.0-0.4); Lymphocytes Absolute Auto 1.4 X10*3/uL (1.2-4.9); Mean Corpuscular HGB Conc 33.3 g/dl (31.0-36.0); Mean Corpuscular Hemoglobin 34.4 pg (27.0-33.0); Mean Corpuscular Volume 103.1 fL (80.0-98.0); NRBC Abs Auto 0.000 X10*3/uL (0.0-0.012); NRBC Pct Auto 0.0 /100WBC (0.0-0.2); Platelet Count 273 X10*3/uL (160-400); Red Blood Count 3.84 X10*6/uL (4.60-5.80); White Blood Count 11.9 X10*3/uL (4.8-10.8)
--- OUTSIDE RECORDS SUMMARY | 2025-05-12 09:03 | XMS_ITS | Encounter Summary ---
Author Organization [facility] Address [address] [place] [address] Care Team Providers Care Leadlighter Name Role Phone Community, Pcp Primary Care Provider Unavailabl e Encounter Details Date Type Department Care Team Description 06/28/2020 [facility] Medical Records [address] [place] [address] Alexandra Jennings Social History Tobacco Use Types Packs/Day Years [...] on filedocumented in this encounter Care Teams Leadlighter Relationship Specialty Start Date End Date Community, Pcp PCP - General Internal Medicine 04/01/20 documented as of this encounter
--- OUTSIDE RECORDS SUMMARY | 2025-05-12 09:03 | XMS_ITS | Encounter Summary ---
Author Organization [facility] [employer] [facility] Address [address] [place] [address] Care Team Providers Care Metal Buffer Name Role Phone Community, Pcp Primary Care Provider Unavailabl e Encounter Details Date Type Department Care Team Description 07/02/2020 [facility] Medical Records [address] [place] [id number] [place] [address] Social History Tobacco Use Types Packs/Day Years [...] on filedocumented in this encounter Care Teams Metal Buffer Relationship Specialty Start Date End Date Community, Pcp PCP - General Internal Medicine 04/01/20 documented as of this encounter
--- OUTSIDE RECORDS SUMMARY | 2025-05-12 09:03 | XMS_ITS | Clinical Summary ---
Author Organization [facility] Address [address] [place] [address] Phone Care Team Providers Care Embossograph Operator Name Role Phone Pcp, Unknown Primary Care [...] keep apptmt w neuro Dr Yepez at [place] as Needs results of EEG and discussed [...] SODIUM 132(L) 133 - 146 mmol/L [facility] CHLORIDE 98 96 - 108 mmol/L [facility] POTASSIUM 5.0 3.3 - 5.1 mmol/L [facility] CO2 17(L) 21 - 35 mmol/L [facility] BUN 66(H) 6 - 19 mg/dL [facility] CREATININE 2.40(H) 0.5 - 1.5 mg/dL [facility] GLUCOSE 103(H) 70 - 99 mg/dL [facility] CALCIUM 9.3 8.4 - 10.3 mg/dL [facility] EGFR 29(L) >59 mL/min/1.7 3m2 [facility] Comment:Estimated glomerular filtration rate calculated using the CKD-EPI equation. ANION GAP 22(H) 10 - 20 mmol/L [facility] Blood 07/06/2020 11:2 4 AM EST 07/06/2020 11:27 AM EST us Alexandra Jennings MD LAB BLOOD BKR ORDERABLES Jocy jacobson Result [address] [address] * (ABNORMAL) Lipid panel (07/31/2018 12:30 PM EST) HDL 51 mg/dL [facility] Comment: Interpretation <40 mg/dL: Low HDL cholesterol (major risk factor for CHD) Greater than or equal to 60 mg/dL: High HDL cholesterol ( negative risk factor for CHD) HDL - cholesterol is affected by a number of factors, e.g. smoking, excerise, hormones, sex and age. CHOLESTEROL 216 0 - 240 mg/dL [facility] TRIGLYCERIDES 461(H) 30 - 160 mg/dL [facility] Comment:DIRECT LDL CANCELLED IN ERROR, WILL BE SENT OUT LDL NOT CALCULATED 50 - 129 mg/dL [facility] Comment: Unable to calculate due to elevated TRIG of greater than 400. A measured LDL will be performed. CARDIAC RISK RATIO 4.2 3.4 - 5.0 [facility] Blood 07/31/2018 12:3 0 PM EST 07/31/2018 12:38 PM EST Leighton Colon MD LAB BLOOD BKR ORDERABLES Edited Result - Final [facility] [address] [place] [address] from Last 3 Months or Most Recently Relevant to Health Maintenance Insurance MEDICARE PART A & B [facility] MEDICARE PART A & B [facility] MEDICARE PART A & B [place] PART A & B [employer] MEDICARE PART A & B [employer] MEDICARE PART A & B [facility] & [facility] Care Teams Embossograph Operator Relationship Specialty Start Date End Date Pcp, Unknown PCP - General 10/29/20 Additional Source Comments The information contained in this document represents components of the legal health record. It is not the complete legal health record.[facility]
--- OUTSIDE RECORDS SUMMARY | 2025-05-12 09:03 | XMS_ITS | Clinical Summary ---
Author Organization [employer] Address [address] [place] [address] [address] [place] [address] Care Team Providers Care Adjunct Political Science Instructor Name Role Phone Unavailable Primary Care Provider [...] patient's age to complete this topic Insurance [facility]
--- OUTSIDE RECORDS SUMMARY | 2025-05-12 09:03 | XMS_ITS | Clinical Summary ---
Author Organization [facility]ly [facility] Facility Address [address] [place] [address] Care Team Providers Care Urologist Name Role Phone Hilario Tarn MD Primary Care Provider Allergies Active Allergy [...] Active Problems Problem Noted Date Diagnosed Date Jviwf-ce-eitydgl renal failure 09/10/2020 Alcohol abuse 09/10/2020 Hypercholesterolemia [...] keep apptmt w neuro Dr Yepez at [place] as Needs results of EEG and discussed [...] Payer (Ef fective 2006-Present) Name:Hilario Nino Member ID:[id number] Relation to Subscriber:Self Name:Hilario Nino Subscriber ID:[id number] Payer ID:Not on file Group ID:Not on file Type:Not on file Address: [place] [id number] Medicaid [place] Care Teams Urologist Relationship Specialty Start Date End Date Hilario Tran MD [address] [place] [id number] PCP - General Family Medicine 09/10/20
--- OUTSIDE RECORDS SUMMARY | 2025-05-12 09:03 | XMS_ITS | Encounter Summary ---
Author Organization [employer] [facility] Address [address] [place] [address] Care Team Providers Care Certified Ophthalmic Surgical Assistant Name Role Phone [facility], Pcp Primary Care Provider Unavailabl e Encounter Details Date Type Department Care Team Description 04/22/2020 Release of Information Medical Records [address] [place] [id number] Abstract, Provider Social History Tobacco Use Types [...] on filedocumented in this encounter Care Teams Certified Ophthalmic Surgical Assistant Relationship Specialty Start Date End Date Community, Pcp PCP - General Internal Medicine 04/01/20 documented as of this encounter
--- OUTSIDE RECORDS SUMMARY | 2025-05-12 09:03 | XMS_ITS | Encounter Summary ---
Author Organization [facility] Address [address] [place] [address] Phone Care Team Providers Care Automotive Mechanic Name Role Phone Leighton Colon MD Unavailable [phone] Jana Joyner RNfertilizer mixer Provider [phone] Lisette Masterson MD Unavailable [phone] Pcp, Unknown Primary Care Provider Unavailabl e Encounter Details Date Type Department Care Team (Latest Contact Info) Description 07/06/2020 Transcribe Orders [facility] Phleb [address] [place] [address] Alexandra Jennings MD [address] [place] [address] [id number] Acute renal failure, unspecified acute renal failure [...] EST) SODIUM 132(L) 133 - 146 mmol/L [facility] CHLORIDE 98 96 - 108 mmol/L [facility] POTASSIUM 5.0 3.3 - 5.1 mmol/L [facility] CO2 17(L) 21 - 35 mmol/L [facility] BUN 66(H) 6 - 19 mg/dL [facility] CREATININE 2.40(H) 0.5 - 1.5 mg/dL [facility] GLUCOSE 103(H) 70 - 99 mg/dL [facility] CALCIUM 9.3 8.4 - 10.3 mg/dL [facility] EGFR 29(L) >59 mL/min/1.7 3m2 [facility] Comment:Estimated glomerular filtration rate calculated using the CKD-EPI equation. ANION GAP 22(H) 10 - 20 mmol/L [facility] Blood 07/06/2020 11:2 4 AM EST 07/06/2020 11:27 AM EST us Alexandra Jennings MD LAB BLOOD BKR ORDERABLES Jocy l Result [address] [id number] documented in this encounter Visit Diagnoses Diagnosis Acute renal failure, unspecified acute renal failure type- Primary documented in this encounter Care Teams Automotive Mechanic Relationship Specialty Start Date End Date Jana Joyner RN [address] [place] [address] [email or web address] PCP - General Internal Medicine 01/07/20 10/28/20 Pcp, Unknown PCP - General 10/29/20 Leighton Colon MD [address] [place] [address] [address] [place] [address] [email or web address] Insurance Assigned Provider 09/15/17 09/25/20 Lisette Masterson MD [address] [place] [address], [address] [place] [address] [email or web address] Insurance Assigned Provider 09/25/20 06/25/21 documented as of this encounter Additional Source Comments The information contained in this document represents components of the legal health record. It is not the complete legal health record.[facility]
[2025-05-12 09:41] LABS: Alanine Aminotransferase 35 U/L (0-40); Albumin Level 4.2 g/dL (3.5-5.0); Alkaline Phosphatase 64 U/L (39-117); Anion Gap 14 (12-20); Aspartate Amino Transferase 39 U/L (5-37); Blood Urea Nitrogen 18 mg/dL (9-16); Calcium 9.2 mg/dL (8.4-10.2); Carbon Dioxide 20 mmol/L (22-29); Chloride 107 mmol/L (96-108); Estimated Glomerular Filt Rate > 60; Potassium 4.3 mmol/L (3.3-5.1); Sodium 137 mmol/L (135-145); Total Protein 7.3 g/dL (6.5-8.0)
[2025-05-12 09:54] LABS: Ferritin 502 ng/mL (20-250)
== END 2025-05-12 08:43 | disposition home or self-care (01) ==
LOC: HO.BBR 08:42
PROVIDERS: PCP Family Medicine; Visit Provider Nurse Practitioner Family
DX: E83.110 Hereditary hemochromatosis (principal)
CPT/HCPCS: 36415; 80053; 82728; 85025

== ENCOUNTER 2025-05-21 11:52 | Emergency (ER) | payer MEDICARE, MEDICAID, SELFPAY ==
--- NOTE | ~2025-05-21 | US_ITS ---
EXAMINATION: US TRIPLEX LOWER EXTREMITY, LEFT CLINICAL INFORMATION: left leg swelling COMPARISON: Prior ultrasound on January 23, 2025 which describes deep vein thrombosis from the level of distal superficial femoral vein to the posterior tibial vein . TECHNIQUE: Color-flow triplex imaging with spectral analysis and compression Doppler were performed on the left lower extremity. FINDINGS: Nonocclusive thrombus in the popliteal vein is most likely chronic. The local popliteal vein is partially compressible by the presence of the thrombus. The remainder visualized veins of the left lower extremity, including common femoral vein, superficial femoral vein, profunda femoral vein, and midcalf posterior tibial vein are patent and without evidence of deep venous thrombosis. Note that the peroneal vein could not be well visualized. US/US venous duplex LE IMPRESSION: Nonocclusive thrombus in the popliteal vein, most likely chronic. Electronically signed by: Ghada Ybarra MD 05/21/2025 02:34 PM [facility] [place]
--- NOTE | ~2025-05-21 | CT_ITS ---
EXAMINATION: CT CERVICAL SPINE WITHOUT CONTRAST CLINICAL INFORMATION: Fall COMPARISON: None available. TECHNIQUE: Axial imaging. Sagittal and coronal reconstructions. This CT examination was performed using dose optimization techniques as appropriate, variously including the following: *Automated exposure control *Adjustment of mA and/or kV according to patient size (this includes techniques or standardized protocols for targeted exams where dose is matched to indication/reason for exam; i.e. extremities or head) *Use of iterative reconstruction technique FINDINGS: Bone mineralization is decreased. Craniocervical and atlantoaxial articulation is maintained. Predens space is maintained. There is straightening and slight reversal of the spinal curvature. Vertebral body heights are maintained. No visible acute fracture or traumatic subluxation. Multilevel disc degeneration, more prominent findings of severe disc degeneration at C5-6, C6-7. Multilevel facet degeneration. The central bony canal is grossly maintained. No prevertebral soft tissue swelling. No suspicious findings are visualized thyroid gland. Trachea is patent. Esophagus is nondistended. No pathologically enlarged lymph nodes are seen in the neck. Lung apices are clear.. CT/CT cervical spine wo IV con IMPRESSION: 1. No CT evidence of acute cervical spine fracture or traumatic malalignment. 2. Cervical spondylosis. Severe C5-6, C6-7 disc degeneration. 3. Additional findings as above Electronically signed by: Valdemar Dunne MD 05/21/2025 03:11 PM [facility]
--- NOTE | ~2025-05-21 | XR_ITS ---
EXAMINATION: XR HIP, LEFT CLINICAL INFORMATION: fall fracture? COMPARISON: 03/14/2022 spine TECHNIQUE: AP pelvis, AP and frog-leg lateral views of the left hip. FINDINGS: Cylindrical threaded interbody cages are present at L5-S1 and demonstrate no interval change. Left SI joint demonstrates minimal sclerosis. Right SI joint demonstrates mild degenerative irregularity. The left hip joint is mildly narrowed. There are small marginal sites along the acetabular roof. Moderate vascular calcifications are visible in the left thigh. XR/XR hip LT w PEL1V IMPRESSION: Mild degenerative changes left hip. Mild degenerative changes bilateral SI joints. Electronically signed by: Chance Velasquez MD 05/21/2025 12:57 PM EST
--- NOTE | ~2025-05-21 | CT_ITS ---
EXAMINATION: CT HEAD WITHOUT CONTRAST CLINICAL INFORMATION: fall in shower COMPARISON: Correlated to MRI brain dated July 19, 2018. TECHNIQUE: Contiguous axial imaging was performed from the skull base to vertex without intravenous administration of contrast. This CT examination was performed using dose optimization techniques as appropriate, variously including the following: *Automated exposure control *Adjustment of mA and/or kV according to patient size (this includes techniques or standardized protocols for targeted exams where dose is matched to indication/reason for exam; i.e. extremities or head) *Use of iterative reconstruction technique DLP: 833.71 mGy-cm FINDINGS: No acute cortical disruption in the bony calvarium or the skull base. No discrete soft tissue contusion. No acute intracranial hemorrhage, mass effect, midline shift, hydrocephalus or herniation. Rodriguez-white matter differentiation is normal. Posterior cranial fossa contents demonstrated no acute hemorrhage or mass effect. Normal position of the cerebellar tonsils. Multifocal patchy and confluent deep periventricular white matter subcortical white matter hypodensities involving centrum semiovale and cheek radiata. Multifocal old lacunar infarcts in the basal ganglia, extracapsular, lopez and cheek radiata. Prominence of the extra-axial CSF spaces cerebral sulci and ventricles. Calcified plaques in the V4 segments of the vertebral arteries and cavernous supracavernous segments both ICAs. No gross hematoma in the intraconal or extraconal compartments of the orbits. No air-fluid levels in the paranasal sinuses. Tympanic cavities are aerated. Poor pneumatization of the mastoid air cells. Edentulous, maxilla CT/CT head/brain wo IV con IMPRESSION: No acute fracture in the bony calvarium. No acute intracranial hemorrhage. Extensive white matter disease and old lacunar infarct likely related to small vessel occlusive disease. Electronically signed by: Marquis Andujar MD 05/21/2025 03:08 PM [facility]
--- NOTE | ~2025-05-21 | XR_ITS ---
EXAMINATION: XR KNEE 4 OR MORE VIEWS LEFT HISTORY: posterior L knee pain, swelling COMPARISON: There are no prior studies available for comparison. FINDINGS: Six views of the left knee are submitted. Osseous mineralization is normal. There is mild narrowing of the medial compartment. The joint spaces are preserved. There is vascular calcifications. There is no joint effusion. XR/XR knee LT 4V IMPRESSION: Mild narrowing of the medial compartment. Electronically signed by: Raj Slaughter MD 05/21/2025 03:48 PM EST
--- NOTE | ~2025-05-21 | XR_ITS ---
Examination: 2 view left lower leg x-rays TECHNIQUE: AP and lateral views were obtained of the left tibia and fibula. INDICATION: Fall Prior: None FINDINGS: Moderate vascular calcifications are visible in the lower leg. No fracture is identified. No other abnormalities are evident. XR/XR tibia fibula LT 2V IMPRESSION: No acute bony abnormality. Electronically signed by: Chance Velasquez MD 05/21/2025 12:59 PM EST
[2025-05-21 12:19] VITALS: BP 139/76; PULSE 78; RESP 18; TEMP 36.4; O2SAT 98; BMI 35.4
--- NOTE | 2025-05-21 12:28 | ED.GENADULT ---
HPI - General Adult General Chief complaint: Extremity Problem Stated complaint: Blood Clot Time Seen by Provider: 05/21/25 14:59 Source: patient and family () Mode of arrival: ambulatory Limitations: no limitations History of Present Illness ED Provider: DEBORAH GRIFFITHS PA-C HPI narrative: 65 year old male with pmhx significant for HTN, recent DVT/PE on Eliquis, CKD, gout presents to the ED today for evaluation of knee pain x4 days. Reports pain to the back of his knee that has been constant and worse with walking/palpation of the area. Worse on waking in the morning/ with cold weather. No radiation. Reports mild swelling to the left knee. Denies left hip/lower leg/ankle pain, numbness/tingling/weakness to LLE, chest pain, sob. Reports compliance with his eliquis. No recent travel/long car rides. Additionally reports slip and fall in the shoulder 2 days ago however his left knee pain began prior to this. Denies head strike or LOC at that time. Related Data Home Medications ?Medication ?Instructions ?Recorded ?Confirmed acetaminophen 650 mg 650 mg PO Q12H PRN Pain (Scale 02/04/21 04/15/25 tablet,extended release (Tylenol Score 1-3) Arthritis Pain) clotrimazole 1 % topical cream 1 appl topical BID PRN RASH ON LEG 01/24/25 04/15/25 triamcinolone acetonide 0.5 % 1 appl topical BID PRN LEG RASH 01/24/25 04/15/25 topical cream allopurinol 100 mg tablet 200 mg PO BID 04/15/25 04/15/25 Previous Rx's ?Medication ?Instructions ?Recorded albuterol sulfate 90 mcg/actuation 2 puff inhalation Q6H PRN 10/19/22 aerosol inhaler shortness of breath or wheezing 30 days #8.5 grams rosuvastatin 20 mg tablet 20 mg PO DAILY 30 days #30 tabs 10/14/24 magnesium oxide-magnesium amino 300 cap PO .dialy #10 caps 01/25/25 acid chelate 300 mg capsule (Magnesium (oxide/AA chelate)) Viagra 50 mg tablet (sildenafil) 50 mg PO DAILY PRN sexual activity 02/18/25 30 days #8 tabs amlodipine 2.5 mg tablet 2.5 mg PO DAILY 90 days #90 tabs 03/19/25 apixaban 5 mg tablet (Eliquis) 5 mg PO BID 90 days #180 tabs 03/19/25 tadalafil 20 mg tablet (Cialis) 20 mg PO DAILY PRN sexual activity 03/19/25 30 days #10 tabs carvedilol 6.25 mg tablet 6.25 mg PO BID 90 days #180 caps 03/24/25 cyanocobalamin (vitamin B-12) 1,000 mcg PO DAILY 90 days #90 tabs 04/21/25 1,000 mcg tablet folic acid 1 mg tablet 1 mg PO DAILY #90 tabs 04/21/25 prednisone 20 mg tablet 40 mg (2 x 20 mg) PO DAILY PRN 04/29/25 Gout Flare 4 days #8 tabs tizanidine 4 mg tablet See Rx Instructions PO BEDTIME PRN 04/29/25 muscle spasticity 30 days #45 tabs prednisone 20 mg tablet 60 mg (3 x 20 mg) PO DAILY 5 days 05/21/25 #15 tabs Allergies Allergy/AdvReac Type Severity Reaction Status Date / Time egg (eggs) Allergy Mild swelling Verified 05/21/25 12:20 with raw eggs influenza virus vaccine, AdvReac Unknown egg allergy Verified 05/21/25 12:20 specific (FLU VACCINE) Review of Systems Review of Systems: Yes all other systems are reviewed and are negative [facility] Past Medical History Attestation statement: The following information was validated with the patient. Source: old records reviewed and nursing notes reviewed Medical History Marijuana dependence AMADO (acute kidney injury) Gout Restrictive lung disease Obesity (BMI 30-39.9) ETOH abuse Back pain Hypercholesterolemia HTN (hypertension) Surgical History H/O spinal fusion History of back surgery Family History Family History Father Traveling blood clot in leg Sister Traveling blood clot in leg Mother Cancer of kidney Social History Social History Household Members: Spouse Housing: House Do you presently have visiting nurse or other home services: No Alcohol intake: current Alcohol intake frequency: a few times a week Alcohol type: hard liquor Comment: 1 plus pint of peppermint schnopps daily Patient Tobacco Use Status: Former Tobacco user Tobacco use type: Cigarette Years Smoked: 15 +/- Smoked in Last 30 Days: No e-Cigarette/Vaping Use: Never Used Second Hand Smoke Exposure: Yes Use of substances other than those prescribed or required for medical reasons: Yes Substance Use Type: Marijuana Advance Directives: No Advance Directives Information Provided: Yes service: No Current occupational status: retired and other Current occupation: rt handed Current occupational exposures/hazards: No Cognitive needs: No Hearing needs: No Vision needs: Yes (Patient was prescribed glasses.) Physical Exam ED Vital Signs: Vital Signs - 24 hr 05/21/25 15:17 05/21/25 17:10 Temperature 0 F L Pulse Rate 80 80 Respiratory Rate 20 20 Blood Pressure 172/97 H 172/97 H Pulse Oximetry 99 99 Oxygen Delivery Method Room Air Room Air BMI result Body Mass Index 35.4 Hypertensive, otherwise vitals WNL General: Well appearing, in no acute distress. Skin: Warm, dry, intact. No rashes or lesions. Head: Normocephalic, atraumatic. EENT: Hearing is intact b/l. Conjunctiva clear. PERRLA. EOM intact. Moist mucous membranes.? Neck: no midline c spine tenderness, no step offs. FROM intact to c spine. Cardiac: Chest wall symmetric. RRR Lungs: Normal respiratory effort without accessory muscle use. CTA bilaterally Back: No midline spinous or paraspinal tenderness. No step off deformity. Ext: +L knee mild swelling. FROM intact to L knee, Pain with active flexion and extension of L knee. popliteal, DP/PT pulses 2+ and equal. Capillary refill <2 seconds in all extremities. Pulses 2+ equal and bilateral. L 2nd digit distal to PIP absent from prior injury. no calf tenderness or pitting edema. Neuro: AOx3. Normal speech. Strength 5/5 intact throughout. No saddle anesthesia. Sensation intact to light touch. NV intact distally. Ambulating with steady gait. Course Course Course Narrative: RME: 64 year male presents to ED for left lower extremity swelling. Patient has history of DVT came to the ED for ultrasound to rule out blood clot. Patient also states he fell onto his left hip sharp but denies hitting head. Unable to visualize lower extremity due to past be worn. Reevaluation(s) Reevaluation #1: CBC without leukocytosis. Macrocytic anemia, H and H stable when compared to priors, above transfusion threshold. Chemistry without acute electrolyte abnormality requiring intervention. Renal and liver function around baseline. Random glucose 138, no anion gap. Uric acid WNL at 5.7. CT head/ C-spine unremarkable. No bleed or fracture. X-ray left knee, pelvis, tib /fib without fractures. Venous duplex left lower extremity showing nonocclusive thrombus in the popliteal vein, chronic. Patient currently managed w/ eliquis. His exam is consistent with arthritis flare. Will d/c with jimmy wrap and prednisone. Patient has remained stable throughout ED visit today. Discussed worrisome signs and symptoms and when to return to the ED. All questions answered at this time. Patient is agreeable with disposition and stable for discharge. Procedures Orthopedic Splinting/Casting Injury #1: Side: left Lower Extremity Injury Location: knee Lower Extremity Immobilizer: Jimmy wrap Medical Decision Making Medical Decision Making [facility] Narrative: 65 year old male with pmhx significant for HTN, recent DVT/PE on Eliquis, CKD, gout presents to the ED today for evaluation of knee pain x4 days. vitals are stable, he is well appearing and in NAD. on exam, L knee mild swelling. FROM intact to L knee, Pain with active flexion and extension of L knee. popliteal, DP/PT pulses 2+ and equal. Capillary refill <2 seconds in all extremities. Pulses 2+ equal and bilateral. L 2nd digit distal to PIP absent from prior injury. no calf tenderness or pitting edema. Differential diagnosis includes arthritis, gout v pseuogout, tendonitis, barkers cyst, DVT, bursitis, fracture. Unlikely NV compromise, threat to limb, compartment syndrome. Plan for labs, imaging, and re-evaluation. Differential Diagnosis Differential Diagnoses: The differential diagnosis associated with the presentation includes as above. Admission/Observation not indicated. Lab Data [facility] Lab Attestation statement: I reviewed the patient's lab results. as above. 05/21/25 12:59 05/21/25 12:59 Labs: Lab Results 05/21/25 Range/Units 12:59 WBC 10.1 (4.8-10.8) X10*3/uL RBC 3.88 L (4.60-5.80) X10*6/uL Hgb 13.1 L (14.0-18.0) g/dl Hct 40.0 L (42.0-52.0) % MCV 103.1 H (80.0-98.0) fL MCH 33.8 H (27.0-33.0) pg MCHC 32.8 (31.0-36.0) g/dl RDW 12.0 (11.0-16.0) % Plt Count 272 (160-400) X10*3/uL MPV 10.2 (9.4-12.4) fL Immature Gran % (Auto) 0.4 (0.0-0.4) % Neut % (Auto) 91.2 H (45-73) % Lymph % (Auto) 6.1 L (20-40) % Tate % (Auto) 1.6 L (2-11) % Eos % (Auto) 0.2 (0-4) % Baso % (Auto) 0.5 (0-2) % Lymph # (Auto) 0.6 L (1.2-4.9) X10*3/uL Tate # (Auto) 0.2 (0.1-1.2) X10*3/uL Eos # (Auto) 0.0 (0.0-0.4) X10*3/uL Baso # (Auto) 0.1 (0.0-0.2) X10*3/uL Abs Immat Gran (auto) 0.04 H (0.00-0.03) X10*3/uL Absolute Neuts (auto) 9.3 H (2.0-8.3) x10*3/uL Absolute Nucleated RBC 0.000 (0.0-0.012) X10*3/uL Nucleated RBC % (auto) 0.0 (0.0-0.2) /100WBC Smear Tech's Comments VERIFIED PT 18.6 H (11.2-13.5) SEC INR 1.5 H (0.9-1.1) APTT 34.9 H (26.7-34.1) SEC Sodium 138 (135-145) mmol/L Potassium 4.5 (3.3-5.1) mmol/L Chloride 108 (96-108) mmol/L Carbon Dioxide 18 L (22-29) mmol/L Anion Gap 17 (12-20) BUN 19 H (9-16) mg/dL Creatinine 1.02 (0.5-1.4) mg/dL Estim Creat Clear Calc 90.1 Estimated GFR > 60 Random Glucose 138 H (60-115) mg/dL Uric Acid 5.7 (3.4-7.0) mg/dL Calcium 9.1 (8.4-10.2) mg/dL Total Bilirubin 0.5 (0.0-1.0) mg/dL AST 23 (5-37) U/L ALT 15 (0-40) U/L Alkaline Phosphatase 68 (39-117) U/L Total Protein 7.8 (6.5-8.0) g/dL Albumin 4.4 (3.5-5.0) g/dL Independent Interpretation I performed an independent interpretation of an: Plain X-Ray, Ultrasound and CT Scan Interpretation: venous duplex w/o bakers cyst, no acute DVT xr left knee/tibfib/pelvis w/o fractures ct head without bleed ct c spine without fracture Radiology Impression Discussion of test interpretation with radiology: I have reviewed the radiologist's reading. Radiologist Impression: Procedure(s): CT head/brain wo IV con Accession Number(s): [id number] cc: Ángel Carmichael; Hilario Tran MD~ Report Number: [id number]: Total DLP = 850.25 mGy-cm Reason for Exam: fall in shower EXAMINATION: CT HEAD WITHOUT CONTRAST CLINICAL INFORMATION: fall in shower COMPARISON: Correlated to MRI brain dated July 19, 2018. TECHNIQUE: Contiguous axial imaging was performed from the skull base to vertex without intravenous administration of contrast. This CT examination was performed using dose optimization techniques as appropriate, variously including the following: *Automated exposure control *Adjustment of mA and/or kV according to patient size (this includes techniques or standardized protocols for targeted exams where dose is matched to indication/reason for exam; i.e. extremities or head) *Use of iterative reconstruction technique DLP: 833.71 mGy-cm FINDINGS: No acute cortical disruption in the bony calvarium or the skull base. No discrete soft tissue contusion. No acute intracranial hemorrhage, mass effect, midline shift, hydrocephalus or herniation. Rodriguez-white matter differentiation is normal. Posterior cranial fossa contents demonstrated no acute hemorrhage or mass effect. Normal position of the cerebellar tonsils. Multifocal patchy and confluent deep periventricular white matter subcortical white matter hypodensities involving centrum semiovale and cheek radiata. Multifocal old lacunar infarcts in the basal ganglia, extracapsular, lopez and cheek radiata. Prominence of the extra-axial CSF spaces cerebral sulci and ventricles. Calcified plaques in the V4 segments of the vertebral arteries and cavernous supracavernous segments both ICAs. No gross hematoma in the intraconal or extraconal compartments of the orbits. No air-fluid levels in the paranasal sinuses. Tympanic cavities are aerated. Poor pneumatization of the mastoid air cells. Edentulous, maxilla CT/CT head/brain wo IV con IMPRESSION: No acute fracture in the bony calvarium. No acute intracranial hemorrhage. Extensive white matter disease and old lacunar infarct likely related to small vessel occlusive disease. Electronically signed by: Marquis Andujar MD 05/21/2025 03:08 PM [facility] Procedure(s): CT cervical spine wo IV con Accession Number(s): [id number] cc: Ángel Carmichael; Hilario Tran MD~ Report Number: [id number]: Total DLP = 635.02 mGy-cm Reason for Exam: Fall in shower EXAMINATION: CT CERVICAL SPINE WITHOUT CONTRAST CLINICAL INFORMATION: Fall COMPARISON: None available. TECHNIQUE: Axial imaging. Sagittal and coronal reconstructions. This CT examination was performed using dose optimization techniques as appropriate, variously including the following: *Automated exposure control *Adjustment of mA and/or kV according to patient size (this includes techniques or standardized protocols for targeted exams where dose is matched to indication/reason for exam; i.e. extremities or head) *Use of iterative reconstruction technique FINDINGS: Bone mineralization is decreased. Craniocervical and atlantoaxial articulation is maintained. Predens space is maintained. There is straightening and slight reversal of the spinal curvature. Vertebral body heights are maintained. No visible acute fracture or traumatic subluxation. Multilevel disc degeneration, more prominent findings of severe disc degeneration at C5-6, C6-7. Multilevel facet degeneration. The central bony canal is grossly maintained. No prevertebral soft tissue swelling. No suspicious findings are visualized thyroid gland. Trachea is patent. Esophagus is nondistended. No pathologically enlarged lymph nodes are seen in the neck. Lung apices are clear.. CT/CT cervical spine wo IV con IMPRESSION: 1. No CT evidence of acute cervical spine fracture or traumatic malalignment. 2. Cervical spondylosis. Severe C5-6, C6-7 disc degeneration. 3. Additional findings as above Electronically signed by: Valdemar Dunne MD 05/21/2025 03:11 PM EST RP Procedure(s): US venous duplex LE LT Accession Number(s): [id number] cc: Ángel Carmichael~ Reason for Exam: left leg swelling EXAMINATION: US TRIPLEX LOWER EXTREMITY, LEFT CLINICAL INFORMATION: left leg swelling COMPARISON: Prior ultrasound on January 23, 2025 which describes deep vein thrombosis from the level of distal superficial femoral vein to the posterior tibial vein . TECHNIQUE: Color-flow triplex imaging with spectral analysis and compression Doppler were performed on the left lower extremity. FINDINGS: Nonocclusive thrombus in the popliteal vein is most likely chronic. The local popliteal vein is partially compressible by the presence of the thrombus. The remainder visualized veins of the left lower extremity, including common femoral vein, superficial femoral vein, profunda femoral vein, and midcalf posterior tibial vein are patent and without evidence of deep venous thrombosis. Note that the peroneal vein could not be well visualized. US/US venous duplex LE LT IMPRESSION: Nonocclusive thrombus in the popliteal vein, most likely chronic. Electronically signed by: Ghada Ybarra MD 05/21/2025 02:34 PM EST RP Procedure(s): XR knee LT 4V Accession Number(s): [id number] cc: Hilario Tran MD; Deborah Griffiths~ Reason for Exam: posterior L knee pain, swelling EXAMINATION: XR KNEE 4 OR MORE VIEWS LEFT HISTORY: posterior L knee pain, swelling COMPARISON: There are no prior studies available for comparison. FINDINGS: Six views of the left knee are submitted. Osseous mineralization is normal. There is mild narrowing of the medial compartment. The joint spaces are preserved. There is vascular calcifications. There is no joint effusion. XR/XR knee LT 4V IMPRESSION: Mild narrowing of the medial compartment. Electronically signed by: Raj Slaughter MD 05/21/2025 03:48 PM EST RP Procedure(s): XR hip LT w PEL1V Accession Number(s): [id number] cc: Ángel Carmichael~ Reason for Exam: fall fracture? EXAMINATION: XR HIP, LEFT CLINICAL INFORMATION: fall fracture? COMPARISON: 03/14/2022 spine TECHNIQUE: AP pelvis, AP and frog-leg lateral views of the left hip. FINDINGS: Cylindrical threaded interbody cages are present at L5-S1 and demonstrate no interval change. Left SI joint demonstrates minimal sclerosis. Right SI joint demonstrates mild degenerative irregularity. The left hip joint is mildly narrowed. There are small marginal sites along the acetabular roof. Moderate vascular calcifications are visible in the left thigh. XR/XR hip LT w PEL1V IMPRESSION: Mild degenerative changes left hip. Mild degenerative changes bilateral SI joints. Electronically signed by: Chance Velasquez MD 05/21/2025 12:57 PM EST RP Procedure(s): XR tibia fibula LT 2V Accession Number(s): [id number] cc: Ángel Carmichael~ Reason for Exam: fall. fracture? Examination: 2 view left lower leg x-rays TECHNIQUE: AP and lateral views were obtained of the left tibia and fibula. INDICATION: Fall Prior: None FINDINGS: Moderate vascular calcifications are visible in the lower leg. No fracture is identified. No other abnormalities are evident. XR/XR tibia fibula LT 2V IMPRESSION: No acute bony abnormality. Electronically signed by: Chance Velasquez MD 05/21/2025 12:59 PM EST RP Independent Historian Clinical information obtained from an independent historian. History obtained from or confirmed by: Spouse External Record Review External record reviewed: Inpatient record Prescription Management I considered prescription management with: Pain Medication and Other (prednisone) Social Determinants Patient?s care significantly limited by Social Determinants of Health including: Other Social Determinant of Health Critical Care Time Critical Care Time Critical Care Time: No Discharge Plan Discharge Clinical Impression: Left knee pain Patient Disposition: Home, Self-Care Instructions: Knee Pain (ED) Additional Instructions: You were evaluated in the ED today for your left knee pain. Your work up is reassuring. I have suspicion that your pain is caused by arthritis. I am starting you on a 5 day course of prednisone. Ice your knee at home for 20 minutes at a time. Follow up with your PCP. Return with any new or worsening symptoms. In the case of an emergency call 911. Prescriptions: New prednisone 20 mg tablet 60 mg PO DAILY 5 Days Qty: 15 0RF No Action rosuvastatin 20 mg tablet 20 mg PO DAILY 30 Days Qty: 30 0RF carvedilol 6.25 mg tablet 6.25 mg PO BID 90 Days Qty: 180 3RF clotrimazole 1 % cream 1 appl topical BID PRN (Reason: RASH ON LEG) triamcinolone acetonide 0.5 % cream 1 appl topical BID PRN (Reason: LEG RASH) Magnesium (oxide/AA chelate) 300 mg capsule 300 cap PO .dialy Qty: 10 0RF allopurinol 100 mg tablet 200 mg PO BID cyanocobalamin (vitamin B-12) 1,000 mcg tablet 1,000 mcg PO DAILY 90 Days Qty: 90 0RF folic acid 1 mg Tablet 1 mg PO DAILY Qty: 90 1RF albuterol sulfate 90 mcg/actuation HFA aerosol inhaler 2 puff inhalation Q6H PRN (Reason: shortness of breath or wheezing) 30 Days Qty: 8.5 3RF acetaminophen [Tylenol Arthritis Pain] 650 mg tablet extended release 650 mg PO Q12H PRN (Reason: Pain (Scale Score 1-3)) Eliquis 5 mg tablet 5 mg PO BID 90 Days Qty: 180 3RF amlodipine 2.5 mg tablet 2.5 mg PO DAILY 90 Days Qty: 90 2RF tadalafil [Cialis] 20 mg tablet 20 mg PO DAILY PRN (Reason: sexual activity) 30 Days Qty: 10 3RF Rx Instructions: administer approximately 30min before sexual activity; do not use more than 1 dose per 24hrs sildenafil [Viagra] 50 mg tablet 50 mg PO DAILY PRN (Reason: sexual activity) 30 Days Qty: 8 3RF Rx Instructions: administer 30 minutes to 4 hours before activity prednisone 20 mg tablet 40 mg PO DAILY PRN (Reason: Gout Flare) 4 Days Qty: 8 2RF tizanidine 4 mg tablet See Rx Instructions PO BEDTIME PRN (Reason: muscle spasticity) 30 Days Qty: 45 0RF Rx Instructions: 2mg (0.5 tabs) AM and 4mg (1 tab) PM orally bedtime PRN; Referrals: Hilario Tran MD [Primary Care Provider, Internal Medicine] Interventions: ED Discharge Assessment Last Done: 05/21/25 17:10 Discharge Date/Time: 05/21/25 17:11 Print Language: Greek
[2025-05-21 13:23] LABS: Hematocrit 40.0 % (42.0-52.0); Hemoglobin 13.1 g/dl (14.0-18.0); Imm Gran Abs Auto 0.04 X10*3/uL (0.00-0.03); Imm Gran Pct Auto 0.4 % (0.0-0.4); Lymphocytes Absolute Auto 0.6 X10*3/uL (1.2-4.9); MANUAL DIFF FLAG SCAN; Mean Corpuscular HGB Conc 32.8 g/dl (31.0-36.0); Mean Corpuscular Hemoglobin 33.8 pg (27.0-33.0); Mean Corpuscular Volume 103.1 fL (80.0-98.0); NRBC Abs Auto 0.000 X10*3/uL (0.0-0.012); NRBC Pct Auto 0.0 /100WBC (0.0-0.2); Platelet Count 272 X10*3/uL (160-400); Red Blood Count 3.88 X10*6/uL (4.60-5.80); SCAN SMEAR FLAG 1; White Blood Count 10.1 X10*3/uL (4.8-10.8)
[2025-05-21 13:30] LABS: INTERNATIONAL NORM RATIO 1.5 (0.9-1.1); Prothrombin Time 18.6 SEC (11.2-13.5)
[2025-05-21 13:32] LABS: Partial Thromboplastin Time 34.9 SEC (26.7-34.1)
[2025-05-21 13:49] LABS: Alanine Aminotransferase 15 U/L (0-40); Albumin Level 4.4 g/dL (3.5-5.0); Alkaline Phosphatase 68 U/L (39-117); Anion Gap 17 (12-20); Aspartate Amino Transferase 23 U/L (5-37); Blood Urea Nitrogen 19 mg/dL (9-16); Calcium 9.1 mg/dL (8.4-10.2); Carbon Dioxide 18 mmol/L (22-29); Chloride 108 mmol/L (96-108); Creatinine Clr Calc Pharmacy 90.1; Estimated Glomerular Filt Rate > 60; Potassium 4.5 mmol/L (3.3-5.1); Sodium 138 mmol/L (135-145); Total Protein 7.8 g/dL (6.5-8.0)
[2025-05-21 15:17] VITALS: BP 172/97; PULSE 80; RESP 20; O2SAT 99
[2025-05-21 15:48] LABS: Uric Acid 5.7 mg/dL (3.4-7.0)
[2025-05-21 17:10] VITALS: BP 172/97; PULSE 80; RESP 20; TEMP -17.7; TEMP 0; O2SAT 99
== END 2025-05-21 17:11 | disposition home or self-care (01) ==
PROVIDERS: Physician Assistant; Physician Assistant Medical; Emergency Provider Emergency Medicine; PCP Family Medicine
DX: M13.862 Other specified arthritis, left knee (principal); I82.532 Chronic embolism and thrombosis of left popliteal vein; M25.552 Pain in left hip; Z79.01 Long term (current) use of anticoagulants; D64.9 Anemia, unspecified; N18.9 Chronic kidney disease, unspecified; Z79.899 Other long term (current) drug therapy; Z91.81 History of falling; Z87.891 Personal history of nicotine dependence
CPT/HCPCS: 36415; 70450; 72125; 73502; 73564; 73590; 80053; 84550; 85025; 85610; 85730; 93971; 99284

== ENCOUNTER → 2025-05-21 12:27 | Outpatient (BNV) | payer MEDICARE, SELFPAY | PROVIDERS: Visit Provider Radiology Diagnostic Radiology | DX: M50.322 Other cervical disc degeneration at C5-C6 level (principal); M50.323 Other cervical disc degeneration at C6-C7 level; M47.812 Spondylosis without myelopathy or radiculopathy, cervical region; R90.82 White matter disease, unspecified; Z04.3 Encounter for examination and observation following other accident; I82.432 Acute embolism and thrombosis of left popliteal vein; M17.12 Unilateral primary osteoarthritis, left knee; M16.12 Unilateral primary osteoarthritis, left hip | CPT/HCPCS: 70450; 72125; 73502; 73564; 73590; 93971 ==